=== PATIENT | female | born 1960 | race Caucasian/White ===

== ENCOUNTER 2024-09-10 07:53 | Outpatient (AMB) | payer OTHER, SELFPAY ==
--- OUTSIDE RECORDS SUMMARY | 2024-09-10 07:55 | XMS_ITS ---
Author Organization [facility] Address [address] [facility] [place] [address] Care Team Providers Care Sales Operations Lead Name Role Phone Danisha Ohara Primary Care Provider Unavailabl e Ramiro Maricruz Unavailable [phone] Allergies Allergen (clinical drug ingredient) Drug/Non Drug Allergy documented on EMR Reaction Allergy Type Onset Date Status Compazine limb weakness, paralysis Drug Allergy Active REASON FOR VISIT Foot pain, Wart(s) Medications Medication SIG (Take, Route, Frequency, Duration) Notes Start Date End Date Status Metamucil Active Multivitamin Active Vitamin D Active Levothyroxine Sodium 100 MCG 1 tablet in the morning on an empty stomach Orally Once a day Active Propranolol HCl 10 MG 1 tablet Orally On ce a day Active hydroCHLOROthiazide 25 MG 1 tablet in th e morning Orally Once a day Active Social History Tobacco Use: Social History Observation Description Date Details (start date - stop date) Former Smoker NA - NA Tobacco Use/Smoking Question Answer Notes Are you a: former smoker Additional Findings: Tobacco Non-User Current no n-smoker Alcohol Screen Question Answer Notes Did you have a drink contain ing alcohol in the past year? Yes How often did you have a dri nk containing alcohol in the past year? 2 to 3 times a week (3 points) Points 3 Interpretation Positive Tobacco use other than smoking: Question Answer Notes Are you an other tobacco user? No Vital Signs Height 5ft 1in in 05/03/2024 Weight 123 lbs 05/03/2024 BMI 23.24 kg/m2 05/03/2024 Procedures Procedure Date Ordered Date Performed Result Body Sit e 34236-Xfoa Destruction, 1-14 05/03/2024 N/A Encounters Encounter Location Date Provider Diagnosis [facility] [address] [place] [address] 05/03/2024 Maricruz Rubio Bursitis of intermetatarsal bursa of left foot M77.52 ; Plantar wart B07.0 ; Metatarsalgia, left foot M77.42 and Left foot pain M79.672 Assessments Encounter Date Diagnosis (ICD Code) Assessment Notes Treatment Notes Treatment Clinical Notes Section Notes 05/03/2024 Bursitis of intermetatarsal bursa of left foot (ICD-10 - M77.52) 05/03/2024 Plantar wart (ICD-10 - B07.0) 05/03/2024 Metatarsalgia, left foot (ICD-10 - M77.42) Response to treatment - Improvement 05/03/2024 Left foot pain (ICD-10 - M79.672) Plan Of Treatment Pending Test Test Name Order Date 11962-Uxdh Destruction, -05/03/2024 Next Appt Details Follow Up: prn, Reason: Procedure Notes * Category Sub-Category Detail Notes Wart Treatment Procedure Verrucae were de brided to pin-point bleeding margins with sterile 15 surgical blade - 50180 , silver nitrate chemocautery applied Progress Notes * Emerita HIARSTON SDOB:[birth year] 60 (64 yo F)Acc No.[id number]:05/03/2024 Progress Note Patient:?Emerita Hairston S Provider:?Maricruz Rubio DPM :1960???Age:64 Y???Sex:Female D ate:05/03/2024 [address] [id number] Pcp:Danisha Ohara Subjective: * Chief Complaints: * ???Foot painWart(s) * HPI: ???Foot Pain:?Location:?Bottom, Forefoot, LEFT.?Duration:?several years.?Onset:?gradual , denies trauma.?Course:?, improved , at _90 %.?Aggravated:?standing , walking , especially barefoot.?Treatments:?rest/alter normal daily activity.?Skin problems:?Pt States PCP Visit: ?DATE?02/19/2024 * ROS:?General/Constitutional:?Nausea?denies.?Vomiting?denies.?Hunger Thirst?denies.?Loss appetite?denies.?Chills?denies.?Fatigue?denies.?Fever?denies.?Night Sweats?denies.?Unexplained weight loss?denies.?Unexplained weight gain?denies.?HEENTM:?Dentures?denies.?Dizziness?denies.?Glasses/contacts?admits.?Retinopathy?de nies.?Blurred/double vision?denies.?TMJ?denies.?Discharge/drainage?denies.?Implants?denies.?Sore throat?denies.?Dental implants?denies.?Hard of hearing ?denies.?Difficulty chewing/swallowing/speaking?denies.?Nose bleeds?denies.?Sore mouth?denies.?Respiratory:?On Oxygen?denies.?Pneumonia/pleurisy?denies.?Bronchitis?denies.?Emphysema?denies.?C oughing?denies.?Cough blood?denies.?Shortness of breath?denies.?Wheezing?denies.?Cardiovascular:?Pacemaker?denies.?MVP?denies.?WPW?denies.?CHF?denies.?Heart attack?denies.?Septal defect?denies.?Rapid beat?denies.?Chest pain ?denies.?Atrial Fib.?denies.?Murmur/Palpitations?denies.?Gastrointestinal:?Hemorrhoids?denies.?Stomach/Abdominal pain?denies.?Dark blood stool?denies.?Irritable bowel ?denies.?Constipation?denies.?Diarrhea?denies.?Hematology:?Swelling?denies.?Clots?denies.?Varicose Veins?denies.?Bruising?denies.?Bleeding problem?denies.?Genitourinary:?Blood urine?denies.?Frequent/Painfu/urination/bladder control?denies.?Kidney stones?denies.?Infection (UTI)?denies.?Nephropathy?denies.?sex trans dis (STD)?denies.?Prostate?denies.?Musculoskeletal:?Hammertoes?denies.?Bunions?denies.?Back Pain?denies.?Muscle Cramps/ Resting?denies.?Muscle cramps / walking?denies.?Generalized aches and pains?denies.?Weakness?denies.?Integ.:?[place]?denies.?Scars?denies.?Corns/calluses?admits.?Ingrown nails?denies.?Painful nails?denies.?Open Sores?denies.?Rashes?denies.?Neurologic:?Difficulty sleeping?denies.?Brain disorder?denies.?Numbness?denies.?Balance trouble?denies.?Confusion?denies.?Fainting/blackouts?denies.?Tingling?denies.?Tr emors?denies.? * Medical History:? * Surgical History:?colonoscop y 2C-Section 1986loophorectomy due to growth- neg pathology 2011rig ankle tumor biopsy 07/16/21 * Hospitalization/Major Diagno stic Procedure:?Denies Past Hospitalization * Family History:?Mother: dece ased, diagnosed with Other malignant neoplasm of unspecified site.?Father: , diagnosed with Unspecified heart disease.?Paternal Grand Father: , diagnosed with Other malignant neoplasm of unspecified site.?Maternal Grand Mother: , diagnosed with Unspecified essential hypertension, Unspecified heart disease, Other malignant neoplasm of unspecified site.?Maternal Grand Father: , diagnosed with Other malignant neoplasm of unspecified site.?Maternal aunt: diagnosed with Other malignant neoplasm of unspecified site.?2 sister(s) - healthy. .? * Social History:?Tobacco Use:?Tobacco Use/Smoking?Are you a:?former smoker ?Additional Findings: Tobacco Non-User?Current non-smoker ?Tobacco use other than smoking?Are you an other tobacco user??No ???Drugs/Alcohol:?Drugs?Have you used drugs other than those for medical reasons in the past 12 months??Yes ?Marijuana??Yes ?Alcohol Screen?Did you have a drink containing alcohol in the past year??Yes ?How often did you have a drink containing alcohol in the past year??2 to 3 times a week (3 points) ?Points?3 ?Interpretation?Positive ???Miscellaneous:?Caffeine: yes, 1-2 cups per day. ?Children: yes, 2. ?Exercise: yes, walking, yoga/ pilates, pickleball, lauren chi. ?Marital status: . 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 * Medications:?TakinghydroCHLO ROthiazide 25 MG Tablet 1 tablet in the morning Orally Once a dayLevothyroxine Sodium 100 MCG Tablet 1 tablet in the morning on an empty stomach Orally Once a dayPropranolol HCl 10 MG Tablet 1 tablet Orally Once a dayMetamucil Multivitamin Vitamin D Medication List reviewed and reconciled with the patientTaking hydroCHLOROthiazide 25 MG Tablet 1 tablet in the morning Orally Once a dayTaking Levothyroxine Sodium 100 MCG Tablet 1 tablet in the morning on an empty stomach Orally Once a dayTaking Propranolol HCl 10 MG Tablet 1 tablet Orally Once a dayTaking Metamucil Taking Multivitamin Taking Vitamin D Medication List reviewed and reconciled with the patient * Allergies:?Compazine: limb w eakness, paralysis - Allergyyes[Allergies Verified] Objective: * Vitals:?Ht: 5ft 1in, Wt:123, BMI:23.24, Shoe size: 7W, Ht-cm: 154.94 cm, Wt-k.79 kg. * Examination: ???Orthopedic: ?MUSCLE STRENGTH:?5/5 all groups in a symmetrical fashion, B/L.?DIGITAL DEFORMITIES:?Digital contracture, PIPJ, 2-5 B/L, incompl-reducible with WB, or to push-up test, no over, nor underlapping , Elongated 2nd toe(s) B/L.?MPJ PATHOLOGY:? Pain, swelling, and inflammation to plantar 2nd, MPJ(s), LEFT, No MPJ pain with ROM, [ - ] Ecchymosis, Approximately _90 percent LESS.?Dermatologic: ?VERRUCA:?Reveals a Single , multi-loculated , mosaic-patterned, round, raised, flat-topped, petechial bleeding papule(s), with cauliflower appearance and interruption of skin lines, pain to lateral compression, and size estimated at 3 mm diameter , LEFT , plantar Forefoot.? Assessment: * Assessment: 1.?Plantar wart - B07.0 (Jany randa)?2.?Bursitis of intermetatarsal bursa of left foot - M77.52?3.?Metatarsalgia, left foot - M77.42, Response to treatment - Improvement?4.?Left foot pain - M79.672? Plan: * Treatment: * Procedures:?Wart Treatment:?Procedure?Verrucae were debrided to pin-point bleeding margins with sterile 15 surgical blade - 55549 , silver nitrate chemocautery applied.? * Procedure Codes:?75730 Wart Destruction, 1-14, Modifiers: XS * Preventive Medicine:? ??Counseling:?Discussion:?-12: Office or other outpatient visit for the evaluation and management of an established patient, which required a medically appropriate history and/or examination and STRAIGHTFORWARD level of MEDICAL DECISION MAKING, 1 SELF-LIMITED OR MINOR PROBLEM, MINIMAL- NO AMOUNT/COMPLEXITY OF DATA TO BE REVIEWED/ANALYZED, AND MINIMAL RISK OF COMPLICATION/MORBIDITY. The visit on the day of the encounter encompassed interpreting the data and educating the patient as to the nature of their condition, treatment options available according to their individual PMH, meds, allergies, and overall health/living conditions, as well as any potential risks or complications that may occur from a failure to adhere to, and participate in, the recommended course of therapy. The discussion included a complete verbal, and/or written explanation of the examination results, any x-rays taken, the proposed diagnosis, and outline of the treatment plan. A schedule for future care needs was also explained. The patient verbalized an understanding of the instructions at this time and agreed to be an active participant in their treatment. If the patient should think of any questions or concerns after the visit, I have encouraged the patient to call the office, Patients podiatric issue has improved, they should call the office with any future issues or concerns.? * Follow Up:?prn * Images: * Sign off status: Completed true * Provider:?Maricruz Rubio DPM Date:?2023 Generated for Jaleesa oshea/Bambi/Catrachitaitting on:?09/10/2024 07:55 AM EST History and Physical Notes * HPI (History of Present Illness) Category Sub-Category Detail Notes Category Not es Skin problems Pt States PCP Visit: DATE: 02/19/2024 Foot Pain Location: Bottom, Forefoot, LEFT Duration: several years Onset: gradual , denies tra mercy Course: , improved , at _90 % Aggravated: standing , walking , especially barefoot Treatments: rest/alter normal da leslie activity Examination Category Sub-Category Detail Notes Category Not es Dermatologic VERRUCA: Reveals a Single , multi-loculated , mosaic-patterned, round, raised, flat-topped, petechial bleeding papule(s), with cauliflower appearance and interruption of skin lines, pain to lateral compression, and size estimated at 3 mm diameter , LEFT , plantar Forefoot Orthopedic DIGITAL DEFORMITIES: Digital con tracture, PIPJ, 2-5 B/L, incompl-reducible with WB, or to push-up test, no over, nor underlapping , Elongated 2nd toe(s) B/L MPJ PATHOLOGY: Pain, swelling, and inflammation to plantar 2nd, MPJ(s), LEFT, No MPJ pain with ROM, [ - ] Ecchymosis, Approximately _90 percent LESS MUSCLE STRENGTH: 5/5 all groups in a symmetrical fashion, B/L
--- OUTSIDE RECORDS SUMMARY | 2024-09-10 07:55 | XMS_ITS | Patient Health Record ---
Author Organization [facility] Address [address] [facility] [place] [address] Care Team Providers Care Single Stroke Preformer Name Role Phone Danisha Ohara Primary Care Provider Unavailabl e Black, Maricruz Unavailable [phone] Allergies Allergen (clinical drug ingredient) Drug/Non Drug Allergy documented on EMR Reaction Allergy Type Onset Date Status Compazine limb weakness, paralysis Drug Allergy Active Reason For Referral No Information Medications Medication SIG (Take, Route, Frequency, Duration) Notes Start Date End Date Status Metamucil Active Multivitamin Active Vitamin D Active hydroCHLOROthiazide 25 MG 1 tablet in th e morning Orally Once a day Active Levothyroxine Sodium 100 MCG 1 tablet in the morning on an empty stomach Orally Once a day Active Propranolol HCl 10 MG 1 tablet Orally On ce a day Active Social History Tobacco Use: [...] Are you an other tobacco user? No Problems Problem Type SNOMED Code ICD Code Onset Dates Problem Status W/U Status Risk Notes Problem Plantar wart (19299571) Plantar wart (B07.0) Active confirmed Vital Signs Heart Rate 83 /min 11/17/2023 Temperature 98.2 degrees Fahrenheit 11/17/2023 Oximetry 97 % 11/17/2023 Blood pressure diastolic 74 mm Hg 11/17/2023 Height 5ft 1in in 05/03/2024 Blood pressure systolic 120 mm Hg 11/17/2023 Weight 123 lbs 05/03/2024 BMI 23.24 kg/m2 05/03/2024 Procedures Procedure Date Ordered Date Performed Result Body Sit e 86806-Pqat Destruction, 1-11/17/2023 N/A 32193-Uhky Destruction, 1-14 05/03/2024 N/A Encounters Encounter Location Date Provider Diagnosis [address] [address] 11/17/2023 Maricruz Black Pain in left foot M79.672 ; Pain in left ankle and joints of left foot M25.572 ; Bursitis of intermetatarsal bursa of left foot M77.52 ; Metatarsalgia, left foot M77.42 ; Plantar wart B07.0 and Left foot pain M79.[address] [address] 05/03/2024 Maricruz Black Bursitis of intermetatarsal bursa of left foot M77.52 ; Plantar wart B07.0 ; Metatarsalgia, left foot M77.42 and Left foot pain M79.[address] [address] 11/17/2023 Maricruz Black Assessments Encounter Date Diagnosis (ICD Code) Assessment Notes Treatment Notes Treatment Clinical Notes Section Notes 11/17/2023 Pain in left ankle and joints of left foot (ICD-10 - M25.572) 11/17/2023 Pain in left foot (ICD-10 - M79.672) 05/03/2024 Plantar wart (ICD-10 - B07.0) 05/03/2024 Bursitis of intermetatarsal bursa of left foot (ICD-10 - M77.52) 11/17/2023 Bursitis of intermetatarsal bursa of left foot (ICD-10 - M77.52) 05/03/2024 Metatarsalgia, left foot (ICD-10 - M77.42) Response to treatment - Improvement 05/03/2024 Left foot pain (ICD-10 - M79.672) 11/17/2023 Metatarsalgia, left foot (ICD-10 - M77.42) 11/17/2023 Plantar wart (ICD-10 - B07.0) 11/17/2023 Left foot pain (ICD-10 - M79.672) Plan Of Treatment Pending Test Test Name Order Date X ray : Foot, left 3V 11/17/2023 46906-Sdjl Destruction, 1-14 05/03/2024 74609-Mnrm Destruction, 1-14 11/17/2023 Insurance Providers Payer Name Payer Address Payer Phone Subscriber Number Group Number Insured Name Patient Relationship to Insured Coverage Start Date Coverage End Date [employer] [address] [place] [address] [id number] Emerita Hairston Self - patient is the insured [employer] [address] [place] [address] [id number] Alex Salvador Other Medical (General) History Medical History History ICD Code High blood pressure Hypothyroidism covid-19 Anxiety Back,Hip,and Knee pain sinusitis thyroid Warts Mumps Chicken pox Surgical History Surgery Date(Month/Year) colonoscopy 05/29/2022 1986 loophorectomy due to growth- neg patholo gy 2012 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
--- OUTSIDE RECORDS SUMMARY | 2024-09-10 07:56 | XMS_ITS ---
Author Organization [facility] Address [address] [place] [address] Care Team Providers Care Professional Benefits Sales Consultant Name Role Phone Danisha Ohara Primary Care Provider Maricruz Pettit [phone] VALLES Encounters Encounter Location Date Provider Diagnosis [address] [address] 04/21/2024 Maricruz Rubio Plan Of Treatment No Information Progress Notes * Emerita HAIRSTON SDOB:[birth year] 60 (64 yo F)Acc No.[id number]:04/21/2024 Progress Note Patient:Emerita HARMON Provider:Eileen Rubio DPM :1960???Age:64 Y???Sex:Female D ate:04/21/2024 Address[address] [id number] Pcp:Danisha Ohara Subjective: * Chief Complaints: * ???1. DR VALLES. * Medical History:? Objective: * Vitals:? Assessment: Plan: * Treatment: * Images: * The named appointment provid er may or may not be the originator of this progress note, and it is not deemed complete until electronically signed by the appointment provider. Sign off status: Pending * Provider:?Maricruz Rubio DPM Date:?2023 Generated for Jaelesa oshea/Bambi/eTransmitting on:?09/10/2024 07:55 AM EST
--- OUTSIDE RECORDS SUMMARY | 2024-09-10 07:56 | XMS_ITS | Clinical Summary ---
Author Organization [facility] Address [address] [place] [address] Phone Care Team Providers Care Hiv Counselor Name Role Phone Brittani Cobian MD Primary Care Provider [phone] Allergies Active Allergy Reactions Criticality Noted Date Comments Prochlorperazine 09/07/2024 Medications hydroCHLOROthiaz saad (HYDRODIURIL) 25 mg tablet Take 1 tablet (25 mg total) by mouth 1 (one) time each day. Active levothyroxine (SYNTHROID, LEVOTHROID) 100 mcg tablet Take 1 tablet (100 mcg total) by mouth 1 (one) time each day before breakfast. Active propranoloL (INDERAL) 10 mg tablet Take 1 tablet (10 mg total) by mouth 3 (three) times a day. Active Active Problems Problem Noted Date Diagnosed Date Abnormal stress test 09/07/2024 Assessment & Plan (09/07/2024 5:48 PM EST): Clinically negative stress test with false positive electrocardiographic changes are extremely common, particularly in women. The results of nuclear imaging are entirely normal and indicate that the EKG abnormalities do not reflect coronary insufficiency. HTN (hypertension) 09/07/2024 Assessment & Plan (09/07/2024 5:48 PM EST): Encounters Date Type Department Care Team Description 09/07/2024 10:20 AM EST Office Visit [facility] [address] [place] [address] Ashish Spann MD Abnormal stress test (Primary Dx); Abnormal ECG; Primary hypertension 06/23/2024 Telephone [facility] [address] [place] [address] Brittani Cobian MD from Last 3 Months Medical History Medical History Date Comments Hypothyroidism Social History Tobacco Use Types Packs/Day Years Used Date Smoking Tobacco: Never Smokeless Tobacco: Never Tobacco Cessation:Counseling Given: Not Answered Alcohol Use Standard Drinks/Week Comments Yes 0 (1 standard drink = 0.6 oz pur e alcohol) occ Comments Unknown Sex and Gender Information Value Date Recorded Sex Assigned at Not on file Legal Sex Female 1:25 PM EST Gender Identity Not on file Sexual Orientation Not on file Obstetrics History Last Filed Vital Signs Vital Sign Reading Time Taken Comments Blood Pressure 138/82 09/07/2024 10:15 AM EST Pulse 82 09/07/2024 10:15 AM EST Temperature - - Respiratory Rate - - Oxygen Saturation 98% 09/07/2024 10:15 AM EST Inhaled Oxygen Concentration - - Weight 65.8 kg (145 lb) 09/07/2024 10:15 AM EST Height 154.9 cm (5' 1 ) 09/07/2024 10:15 AM EST Body Mass Index 27.4 09/07/2024 10:15 AM EST Plan of Treatment Health Maintenance Due Date Last Done Comments Pneumococcal Vaccine: 50+ Years (1 of 2 - PCV) 1979 Pneumococcal Vaccine: Pediatrics (0 to 5 Years) and At-Risk Patients (6 to 64 Years) (1 of 2 - PCV) 1979 Cervical Cancer Screening: Pap Smear 1981 DTaP,Tdap,and Td Vaccines (2 - Td or Tdap) 05/05/2023 05/05/2013 COVID-19 Vaccine ( season) 2024 04/16/2022, 12/08/2021, 06/07/2021, Additional history exists Influenza Vaccine (#1) 2024 , 05/31/2021, 05/11/2020, Additional history exists Cholesterol Screening (Lipid Panel) 06/22/2024 12/01/2018 Colorectal Cancer Screening: Colonoscopy 06/22/2024 Depression Screening 06/22/2024 HIV Screening 06/22/2024 Hypertension/CHF/CAD Annual BMP Blood Test 06/22/2024 04/04/2021, 11/08/2020, 08/24/2019, Additional history exists Social Influencers of Health Screening 06/22/2024 Breast Cancer Screening 07/04/2025 07/04/2023 RSV Immunization Patients 60+ Years Old (1 - 1-dose 75+ series) 2035 Hepatitis A Vaccines Aged Out 11/30/2018, 03/13/20 16 No longer eligible based on patient's age to complete this topic Hepatitis C Screening Completed 12/01/2018 Zoster Vaccines Completed 06/11/2022, 01/07/2022 HIB Vaccines Aged Out No longer eligi ble based on patient's age to complete this topic HPV Vaccines Aged Out No longer eligi ble based on patient's age to complete this topic Hepatitis B Vaccines Aged Out No long er eligible based on patient's age to complete this topic IPV Vaccines Aged Out No longer eligi ble based on patient's age to complete this topic MMR Vaccines Aged Out No longer eligi ble based on patient's age to complete this topic Meningococcal ACWY Vaccine Aged Out N o longer eligible based on patient's age to complete this topic Meningococcal B Vacine Aged Out No lo nger eligible based on patient's age to complete this topic RSV Immunization Patients Under 20 months Aged Out No longer eligible based on patient's age to complete this topic Varicella Vaccines Aged Out No longer eligible based on patient's age to complete this topic Insurance [employer] Care Teams Hiv Counselor Relationship Specialty Start Date End Date Brittani Cobian MD [address] [place] [phone] PCP - General Family Medicine 06/22/24
--- OUTSIDE RECORDS SUMMARY | 2024-09-10 07:56 | XMS_ITS ---
Author Organization [facility] Address [address] [place] [address] Care Team Providers Care Cleaner Furniture Name Role Phone Danisha Ohara Primary Care Provider Maricruz Pettit [phone] Encounters Encounter Location Date Provider Diagnosis [address] [address] 06/04/2024 Maricruz Rubio Plan Of Treatment No Information Progress Notes * Dario HAIRSTONie SDOB:[birth year] 60 (64 yo F)Acc No.[id number]:06/04/2024 Progress Note Patient:?Emerita HAIRSTON Provider:?Maricruz Rubio DPM :1960???Age:64 Y???Sex:Female D ate:06/04/2024 Address: [address] [id number] Pcp:Danisha Ohara Subjective: * Chief Complaints: * ??? * Medical History:? Objective: * Vitals:? Assessment: Plan: * Treatment: * Images: * The named appointment provid er may or may not be the originator of this progress note, and it is not deemed complete until electronically signed by the appointment provider. Sign off status: Pending * Provider:Eileen Rubio DPM Date:?2023 Generated for Jaleesa oshea/Bambi/eTransmitting on:?09/10/2024 07:56 AM EST
--- OUTSIDE RECORDS SUMMARY | 2024-09-10 07:56 | XMS_ITS | Encounter Summary ---
Author Organization [facility] [place] [address] Care Team Providers Care Pit Inspector Name Role Phone Brittani Cobian MD Primary Care Provider [phone] Reason for Visit * Reason Comments Initial Assessment Encounter Details Date Type Department Care Team (Late st Contact Info) Description 09/07/2024 10:20 AM EST Office Visit [facility] [address] [place] [id number] Ashish Spann MD [address] [place] [phone] Abnormal stress test (Primary Dx); Abnormal ECG; Primary hypertension Social History Tobacco Use Types Packs/Day Years [...] on file Sexual Orientation Not on file documented as of this encounter Last Filed Vital Signs Vital Sign Reading [...] Mass Index 27.4 09/07/2024 10:15 AM EST documented in this encounter Progress Notes * Ashish Spann MD - 09/07/2024 10:20 AM ESTAssociated Problem(s): Abnormal stress test Clinically negative stress test with false positive electrocardiographic changes are extremely common, particularly in women. The results of nuclear imaging are entirely normal and indicate that the EKG abnormalities do not reflect coronary insufficiency. * Ashish Spann MD - 09/07/2024 10:20 AM ESTAssociated Problem(s): HTN (hypertension) * Ashish Spann MD - 09/07/2024 10:20 AM EST PCP: Brittani Cobian MD HPI: Emerita Hairston is a 64 y.o. old female who is kindly referred for outpatient cardiac consultation. History of Present Illness The patient presents for evaluation of hypertension and abnormalities on a stress test.. She was diagnosed with hypertension during the ID pandemic and was prescribed hydrochlorothiazide. She opted for this medication despite its diuretic effects, which necessitated frequent urination, as she wanted to avoid potential side effects of a sore throat or cough from another medication. At the time of diagnosis, she was approximately 30 pounds heavier but has since implemented a weight loss plan and successfully lost the excess weight. Despite this, she remains on the medication. She had been under the care of Dr. Fer Jaimes for several years, who identified her as having white coat syndrome. She has intermittently maintained a home blood pressure diary, recording readings in the morning after taking her hydrochlorothiazide, and reports that her blood pressure is typically lower than when measured in the clinic. In December 2023, she sought medical attention for vertigo. AnEKG revealed an abnormality, prompting a nuclear stress test. She was advised to discontinue all medications 3 days prior to the test. The initial report indicated no abnormalities, but a subsequent report suggested possibly ischemic ECG changes with exercise despite the absence of symptoms and normal nuclear imaging. She was advised to increase her hydrochlorothiazide dosage, but she declined. She has not consulted with a monument stonecutter. She experiences palpitations and a sensation of her heart beating faster when anxious, particularly during stressful court cases, for which Dr. Jaimes prescribed propranolol as needed. She uses this medication sparingly, especially now that she is no longer attending court. She reports no exertional symptoms such as chest pressure, tightness, squeezing, aching, or heaviness. She recalls a single episode of near syncope a few years ago during an outdoor performance at [employer], where she became lightheaded due to dehydration and lack of food intake. She was administered a pill and Gatorade, which alleviated her symptoms. She did not lose consciousness during this episode. She finds the diuretic effect of hydrochlorothiazide bothersome, particularly when hiking or traveling. MEDICATIONS Current: hydrochlorothiazide, propranolol (as needed) ACTIVE MEDICATIONS: Outpatient Medications Marked as Taking for the 09/07/24 encounter (Office Visit) with Ashish Spann MD Medication Sig Dispense Refill hydroCHLOROthiazide (HYDRODIURIL) 25 mg tablet Take 1 tablet (25 mg total) by mouth 1 (one) time each day. levothyroxine (SYNTHROID, LEVOTHROID) 100 mcg tablet Take 1 tablet (100 mcg total) by mouth 1 (one)time each day before breakfast. propranoloL (INDERAL) 10 mg tablet Take 1 tablet (10 mg total) by mouth 3 (three) times a day. PAST MEDICAL HISTORY: Patient Active Problem List Diagnosis Date Noted Date Diagnosed Abnormal stress test 09/07/2024 HTN (hypertension) 09/07/2024 Resolved Problems No resolved problems to display. ALLERGIES: Allergies Allergen Reactions Compazine [Prochlorperazine] FAMILY HISTORY: No family history on file. SOCIAL HISTORY: Social History Tobacco Use Smoking status: Never Smokeless tobacco: Never Substance Use Topics Alcohol use: Yes Comment: occ REVIEW OF SYSTEMS: ROS otherwise negative. PHYSICAL EXAM: Vitals: 09/07/24 1015 BP: 138/82 BP Location: Left arm Patient Position: Sitting BP Cuff Size: Adult Pulse: 82 SpO2: 98% Weight: 65.8 kg (145 lb) Height: 1.549 m (61 ) APPEARANCE: Alert and in no acute distress, well-developed, well-nourished. EYES: PERRL, conjunctiva and sclera normal EARS: External ears normal. NOSE/SINUS: Nares normal. Septum midline. Mucosa normal. No drainage or sinus tenderness. MOUTH/THROAT: no erythema or exudates NECK: JVP less then 8cm H2O, No bruits., Neck supple, no adenopathy or mass HEART: RRR with normal S1 and S2, no murmurs, no gallops, no JVD appreciated CHEST: non-tender LUNG: clear to auscultation ABDOMEN: Bowel sounds normoactive, no bruits, soft, non-tender, without organomegaly or palpable masses EXTREMITIES: Extremities warm and well perfused without clubbing, cyanosis, or edema NEURO: Awake, alert and oriented x 3 and Normal gait. Articulate and affable. SKIN: Skin color, texture, turgor normal. No rashes or lesions. EKG: not performed TESTING: Results of echocardiography and exercise stress testing with nuclear imaging are reviewed. Echocardiography demonstrated normal left ventricular size and function. There was no evidence of LVH. Ejection fraction was normal. There was no evident valvular disease or evidence of pericardial effusion or pulmonary hypertension. This is a normal study. Nuclear stress testing was negative for any symptoms to suggest angina at a fairly high level of activity. Electrical cardiography demonstrated the development of nonspecific [address] segment depression at peak stress. Nuclear imaging did not demonstrate any fixed or reversible perfusion defects and was entirely normal. ASSESSMENT/PLAN: Assessment & Plan Abnormal stress test Clinically negative stress test with false positive electrocardiographic changes are extremely common, particularly in women. The results of nuclear imaging are entirely normal and indicate that the EKG abnormalities do not reflect coronary insufficiency. Abnormal ECG Primary hypertension Assessment & Plan 1. Hypertension. Her hypertension is mild and appears to be situationally exacerbated, likely in response to stressors such as court preparation or crisis management. Her symptoms do not indicate any pathological conditions. The stress test results are not concerning, particularly given her clinical presentation. She does not exhibit any signs of angina, chest pressure, squeezing, aching, heaviness, or discomfort, nor does she experience pathological breathlessness during exercise. Despite a minor abnormality on the EKG, which could suggest ischemia, it is important to note that EKGs can be unreliable, particularly in women. The nuclear scan results are normal, indicating no significant blockage in the heart arteries. Her echocardiogram is also normal, showing no increased wall thickness. Her blood pressure readings are generally within the normal range. She has made positive lifestyle changes, including weight loss and dietary modifications, which may have contributed to her well-controlled blood pressure. It is possible that she is salt sensitive. Given these factors, it may be worth considering whether she requires ongoing medical therapy for hypertension. She is advised to discontinue hydrochlorothiazide and maintain a detailed blood pressure diary, which she should bring to her next appointment with Devika or another provider in her office. This approach seems reasonable given her well-controlled blood pressure. If her blood pressure readings increase, alternative medications such as metoprolol, diltiazem, or valsartan could be considered. A note will be sent to her primary care provider recommending that she discontinue hydrochlorothiazide, maintain a blood pressure diary, and discuss potential alternative antihypertensive medications at her next visit. I have obtained verbal consent from Emerita Hairston prior to the recording. I have advised Emerita Hairston that she may refuse the recording and require the recording to be turned off at any time during this encounter. The [facility] team will continue to co-manage this patient following the plan of care as established by my initial visit and as per AHA guidelines for ongoing management and surveillance of 1. Abnormal stress test 2. Abnormal ECG 3. Primary hypertension documented in this encounter Plan of Treatment Not on file documented as of this encounter Visit Diagnoses Diagnosis Abnormal stress test- Primary Other nonspecific abnormal cardiovascular system function study Abnormal ECG Nonspecific abnormal electrocardiogram (ECG) (EKG) Primary hypertension Unspecified essential hypertension documented in this encounter Historical Medications * This list may reflect changes made after this encounter. propranoloL (INDERAL) 10 mg tablet Take 1 tablet (10 mg total) by mouth 3 (three) times a day. levothyroxine (SYNTHROID, LEVOTHROID) 100 mcg tablet Take 1 tablet (100 mcg total) by mouth 1 (one) time each day before breakfast. hydroCHLOROthiazi de (HYDRODIURIL) 25 mg tablet Take 1 tablet (25 mg total) by mouth 1 (one) time each day. added in this encounter Care Teams Pit Inspector Relationship Specialty Start Date End Date Brittani Cobian MD [address] [place] [phone] PCP - General Family Medicine 06/22/24 documented as of this encounter
--- NOTE | 2024-09-10 08:06 | A.OFFPC_ITS ---
Vital Signs 09/10/24 08:08 Height 5 ft 1 in Weight 127 lb 2 oz BMI 24.0 BP 130/82 Blood Pressure Location Lt brachial Position Sitting Pulse 76 Pulse Source Pulse Oximeter Pulse Oximetry (%) 99 Oxygen Delivery Method Room Air Intake Visit Reasons: establish care Allergies prochlorperazine [From Compazine] Allergy (Intermediate, Verified 09/10/24 08:25) paralysis Medication List - Last Reconciled 09/10/24 by Olamide Calero PA-C hydrochlorothiazide 25 mg PO DAILY levothyroxine 100 mcg PO DAILY propranolol 10 mg PO DAILY Tobacco use date assessed: 09/10/24 Fall risk assessment: No Falls in past year Last assessed Fall Risk: 09/10/24 Dental Screening Dental Screen Date: 09/10/24 Did you have a dental visit in the last 12 months?: Yes Did you have a dental problem in the last 6 months where you did not have access to dental care?: No Was dental information given to patient?: Patient has dentist HPI establish care HPI Details 64-year-old female coming to the office for the 1st time. Prev being seen Cobian in [place] last seen March. She saw Cardiology on Friday and wanted evaluation for hypertension and EKG and nuclear stress test done and blood pressure diary which was all negative, Maria Ines out of [facility] cardiology. There is a history of essential hypertension for which she currently takes hydrochlorothiazide. Recent evaluation by her nuclear waste process operator included standard assessments, indicating only minor hypertension thus far managed without new medications. The patient's prescribed goal for blood pressure control remains below 140/90. She also experiences situational anxiety, especially linked to her stressful occupation, controlled as needed with propranolol. Her systemic hypothyroidism is managed with levothyroxine, verified biennially with serum thyroid function tests. 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 1. Little interest or pleasure in doing things: not at all 2. Feeling down, depressed, or hopeless: not at all 3. Trouble falling or staying asleep, or sleeping too much: not at all 4. Feeling tired or having little energy: not at all 5. Poor appetite or overeating: not at all 6. Feeling bad about yourself - or that you are a failure or have let yourself or your family down: not at all 7. Trouble concentrating on things, such as reading the newspaper or watching television: not at all 8. Moving or speaking so slowly that other people could have noticed. Or the opposite - being so fidgety or restless that you have been moving around a lot more than usual: not at all 9. Thoughts that you would be better off or of hurting yourself in some way: not at all Total score: 0 Depression Screening Interpretation: Negative Depression Screening Done: Yes 91752 - PHQ-9 Billing: Yes Source: Developed by Drs. Jason Still, Hermila Larsen, Isra Jacinto and colleagues, with an educational evan from [employer]. Thrive Questionnaire Date Thrive assessed: 09/10/24 I am a: Patient What is your living situation today?: I have a steady place to live Within the past 12 months, did the food you bought not last and you didn't have the money to get more?: Never true Within the past 12 months, did you worry whether your food would run out before you got money to buy more?: Never true Do you have trouble paying for medicines?: No Do you have trouble getting transportation to medical appointments?: No Do you have trouble paying your heating and electricity bill?: No Do you have trouble taking care of your child, family member or friend?: No Do you have trouble with day-to-day activities such as bathing, preparing meals, shopping, managing finances, etc.?: No Are you currently unemployed and looking for a job?: No Are you interested in more education?: No Please select the resources that you would like help with: None Currently or been in a relationship where the following occur: I choose not to answer THRIVE Score: 0 AUDIT C Alcohol Use Questionnaire (AUDIT-C) 1. How often do you have a drink containing alcohol?: 2-3 times a week 2. How many drinks containing alcohol do you have on a typical day when you are drinking?: 1 or 2 3. How often do you have six or more drinks on one occasion?: Never Total Score: 3 HUGH-7 AMB Questionnaire HUGH-7 Date HUGH - 7 assessed: 09/10/24 Feeling nervous, anxious, or on edge: 1 = Several days Not being able to stop or control worryin = Several days Worrying too much about different things: 1 = Several days Trouble relaxin = Not at all Being so restless that it is hard to sit still: 0 = Not at all Becoming easily annoyed or irritable: 0 = Not at all Feeling afraid as if something awful might happen: 0 = Not at all Total HUGH-7 score (0-4 normal; 5-9 mild; 10-14 moderate; 15-21 severe): 3 Source: Developed by Drs. Jason Still, Hermila Larsen, Isra Jacinto and colleagues, with an educational evan from [employer]. HUGH-7 Assessment Billing HUGH-7 Assessment Tool: HUGH-7 Assessment 32485 Review of Systems Const Denies body aches, Denies chills, Denies fever(s), Denies headache(s) and Denies poor appetite Eyes Reports no additional complaints ENT Denies dysphagia, Denies dizziness, Denies headache(s) and Denies odynophagia Card Denies chest pain, Denies syncope, Denies edema, Denies irregular heart rhythm, Denies lightheadedness and Denies dyspnea Resp Denies cough and Denies dyspnea GI Denies abdominal pain, Denies constipation, Denies dysphagia, Denies diarrhea, Denies nausea, Denies odynophagia and Denies vomiting Reports no additional complaints Musc Reports no additional complaints and Denies abnormal gait Skin/Breast Reports system reviewed and no additional complaints, except as documented Neuro Denies abnormal gait, Denies dizziness, Denies syncope and Denies headache(s) Psych Reports no additional complaints Physical exam (Primary Care) Vital Signs: Last Vital Signs Pulse 76 09/10/24 08:08 BP 130/82 09/10/24 08:08 Pulse Ox 99 09/10/24 08:08 Oxygen Delivery Method Room Air 09/10/24 08:08 BMI result Body Mass Index 24.0 Depression Screening Interpretation: Negative Currently or been in a relationship where the following occur: I choose not to answer Const General: cooperative, healthy appearing, comfortable and no acute distress Orientation/consciousness: patient oriented x3 HENMT Head: Yes normocephalic Ears: hearing grossly normal bilaterally General nose exam: Normal external nose present Eyes General: appearance normal, both eyes and all related structures Conjunctivae: conjunctivae normal Neck Neck: Yes full ROM and Yes no lymphadenopathy Resp Effort & Inspection: normal respiratory effort Auscultation: clear to auscultation bilaterally, no crackles, no rales, no rhonchi and no wheezes Cardio Rate: regular rate Rhythm: regular rhythm Skin General skin exam: no rashes or lesions noted Neuro General: patient oriented x3 Gait exam (Neuro): Normal gait present Extrem General: Yes normal to inspection, Yes full ROM and No edema Psych Affect: normal affect Attitude: cooperative Insight: Good insight present (Psych) Judgement: Good judgement present (Psych) Coding Level of Care Code New Pt Level 4 (09819) Diagnoses Hypothyroidism E03.9 Hypertension I10 Anxiety F41.9 Additional Codes HUGH-7 Assessment Billing - HUGH-7 Assessment Tool: HUGH-7 Assessment 15654 ([id number]) PHQ-9 - 56342 - PHQ-9 Billing: Yes ([id number]) Assessment & Plan Assessment & Plan (1) Hypothyroidism: Code(s): E03.9 - Hypothyroidism, unspecified Category: Medical Plan: Thyroid function will undergo routine assessment alongside maintaining levothyroxine therapy at current levels. (2) Hypertension: Code(s): I10 - Essential (primary) hypertension Category: Medical Plan: For management of hypertension, a strategy of potentially discontinuing hydrochlorothiazide is under consideration, contingent upon cardiology reports. The patient's blood pressure goal of maintaining measurements under 140/90 should guide ongoing monitoring. Avoid salt intake and encourage healthy diet and regular exercise. Advised patient she can discontinue hydrochlorothiazide at this time and monitor blood pressures very closely over the next several weeks. If measurements exceed 140/90 to reach out to the office and plan to give 12.5 mg hydrochlorothiazide. Follow up in 1 month (3) Anxiety: Comment: situational Code(s): F41.9 - Anxiety disorder, unspecified Category: Medical Plan: Existing protocalls for situational anxiety will remain, where propranolol serves as an effective and conditionally required intervention. Plan Preventative health measures remain active, including completion of mammographic and colonoscopic screenings, with bone density evaluation slated as per age recommendations. Patient advocation for active lifestyle adjustments and nutritional supplementation is reiterated. A follow-up on progress will be planned for the next month. Patient was informed and verbally consented to the use of an ambient scribe for clinic note documentation during this visit. This note was constructed using voice recognition software. While every effort has been made to ensure accuracy and development disability specialist, still areas may have been included sometimes these areas may affect the content or meeting of the given symptoms. Total time spent caring for the patient today was 30 minutes. This includes time spent before the visit reviewing the chart, time spent during the visit, and time spent after the visit and documentation. Orders: Orders XR DEXA axial skeleton Today Z78.0 - Asymptomatic menopausal state MM tomosynthesis screening BI Today Z12.31 - Encounter for screening mammogram for malignant neoplasm of breast Referrals EDUCATION GENERAL MANAGER Referral Z12.4 - Encounter for screening for malignant neoplasm of cervix
[2024-09-10 08:08] VITALS: BP 130/82; PULSE 76; O2SAT 99; BMI 24.0
== END 2024-09-10 08:42 | disposition home or self-care (01) ==
DX: E03.9 Hypothyroidism, unspecified (principal); I10 Essential (primary) hypertension; F41.9 Anxiety disorder, unspecified

== ENCOUNTER → 2024-09-10 07:53 | Outpatient (BNVA) | payer OTHER, SELFPAY | DX: E03.9 Hypothyroidism, unspecified (principal); I10 Essential (primary) hypertension; F41.9 Anxiety disorder, unspecified; Z79.899 Other long term (current) drug therapy | CPT/HCPCS: 96127 ==

== ENCOUNTER 2024-10-08 08:20 | Outpatient (AMB) | payer OTHER, SELFPAY ==
[2024-10-08 08:29] VITALS: BP 128/84; PULSE 74; RESP 16; TEMP 36.2; O2SAT 99; BMI 23.8
--- NOTE | 2024-10-08 08:29 | A.OFFPC_ITS ---
Vital Signs 10/08/24 08:29 Height 5 ft 1 in Weight 126 lb BMI 23.8 BP 128/84 Blood Pressure Location Lt brachial Position Sitting Respiration 16 Pulse 74 Pulse Source Pulse Oximeter Temp 97.1 F Temp Source Temporal Artery Scan Pulse Oximetry (%) 99 Oxygen Delivery Method Room Air Intake Visit Reasons: f/u HTN Data Software Engineer Required: No Accompanied by: Self / Same As Patient Allergies prochlorperazine [From Compazine] Allergy (Intermediate, Verified 10/08/24 08:29) paralysis Medication List - Last Reconciled 10/08/24 by Olamide Calero PA-C hydrochlorothiazide 25 mg PO DAILY levothyroxine 100 mcg PO DAILY propranolol 10 mg PO DAILY Tobacco use date assessed: 10/08/24 Fall risk assessment: No Falls in past year Last assessed Fall Risk: 10/08/24 Dental Screening Dental Screen Date: 10/08/24 Did you have a dental visit in the last 12 months?: Yes Did you have a dental problem in the last 6 months where you did not have access to dental care?: No Was dental information given to patient?: Patient has dentist HPI f/u HTN HPI Details 64-year-old female with past medical his tory of anxiety, hypothyroidism and hypertension last seen 08/2024 coming in for follow up. Presenting with a follow-up for management of Essential Hypertension. Blood pressure monitoring showed increased levels post-discontinuation of hydrochlorothiazide. Resumed the medication due to home monitoring results showing readings consistently at 140/90 mmHg. Symptoms experienced included headaches and a sensation similar to vertigo related to job stress. Readings returned to a more controlled state with the medication, albeit still fluctuating under stress. Persistent buildup attributed to the structure of the ear canals. The patient utilizes softeners but experiences significant wax accumulation. A request was made for a flushing procedure. 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 1. Little interest or pleasure in doing things: not at all 2. Feeling down, depressed, or hopeless: not at all 3. Trouble falling or staying asleep, or sleeping too much: not at all 4. Feeling tired or having little energy: not at all 5. Poor appetite or overeating: not at all 6. Feeling bad about yourself - or that you are a failure or have let yourself or your family down: not at all 7. Trouble concentrating on things, such as reading the newspaper or watching television: not at all 8. Moving or speaking so slowly that other people could have noticed. Or the opposite - being so fidgety or restless that you have been moving around a lot more than usual: not at all 9. Thoughts that you would be better off or of hurting yourself in some way: not at all Total score: 0 Depression Screening Interpretation: Negative Depression Screening Done: Yes 73413 - PHQ-9 Billing: Yes Source: Developed by Drs. Jason Still, Hermila Larsen, Isra Jacinto and colleagues, with an educational evan from [employer]. Thrive Questionnaire Date Thrive assessed: 10/08/24 I am a: Patient What is your living situation today?: I have a steady place to live Within the past 12 months, did the food you bought not last and you didn't have the money to get more?: Never true Within the past 12 months, did you worry whether your food would run out before you got money to buy more?: Never true Do you have trouble paying for medicines?: No Do you have trouble getting transportation to medical appointments?: No Do you have trouble paying your heating and electricity bill?: No Do you have trouble taking care of your child, family member or friend?: No Do you have trouble with day-to-day activities such as bathing, preparing meals, shopping, managing finances, etc.?: No Are you currently unemployed and looking for a job?: No Are you interested in more education?: No Please select the resources that you would like help with: None Currently or been in a relationship where the following occur: I choose not to answer THRIVE Score: 0 AUDIT C Alcohol Use Questionnaire (AUDIT-C) 1. How often do you have a drink containing alcohol?: 2-3 times a week 2. How many drinks containing alcohol do you have on a typical day when you are drinking?: 1 or 2 3. How often do you have six or more drinks on one occasion?: Never Total Score: 3 HUGH-7 AMB Questionnaire HUGH-7 Date HUGH - 7 assessed: 10/08/24 Feeling nervous, anxious, or on edge: 0 = Not at all Not being able to stop or control worryin = Not at all Worrying too much about different things: 0 = Not at all Trouble relaxin = Not at all Being so restless that it is hard to sit still: 0 = Not at all Becoming easily annoyed or irritable: 0 = Not at all Feeling afraid as if something awful might happen: 0 = Not at all Total HUGH-7 score (0-4 normal; 5-9 mild; 10-14 moderate; 15-21 severe): 0 Source: Developed by Drs. Jason Still, Hermila Larsen, Isra Jacinto and colleagues, with an educational evan from [employer]. HUGH-7 Assessment Billing HUGH-7 Assessment Tool: HUGH-7 Assessment 94968 Review of Systems Const Denies body aches, Denies chills, Denies fever(s), Denies headache(s) and Denies poor appetite Eyes Reports no additional complaints ENT Denies dysphagia, Denies dizziness, Denies headache(s) and Denies odynophagia Card Denies chest pain, Denies syncope, Denies edema, Denies irregular heart rhythm, Denies lightheadedness and Denies dyspnea Resp Denies cough and Denies dyspnea GI Denies abdominal pain, Denies constipation, Denies dysphagia, Denies diarrhea, Denies nausea, Denies odynophagia and Denies vomiting Reports no additional complaints Musc Reports no additional complaints and Denies abnormal gait Skin/Breast Reports system reviewed and no additional complaints, except as documented Neuro Denies abnormal gait, Denies dizziness, Denies syncope and Denies headache(s) Psych Reports no additional complaints Physical exam (Primary Care) Vital Signs: Last Vital Signs Temp 97.1 F 10/08/24 08:29 Pulse 74 10/08/24 08:29 Resp 16 10/08/24 08:29 BP 128/84 10/08/24 08:29 Pulse Ox 99 10/08/24 08:29 Oxygen Delivery Method Room Air 10/08/24 08:29 BMI result Body Mass Index 23.8 Tobacco/Smoking Status: Tobacco use Status Tobacco use date assessed 10/08/24 10/08/24 08:38 Patient Tobacco Use Status Never used Tobacco 10/08/24 08:38 e-Cigarette/Vaping Use Never Used 10/08/24 08:38 PHQ-9: PHQ-9 Score PHQ-9: Total score 0 10/08/24 08:38 Depression Screening Interpretation: Negative Thrive Assessment: Date of Thrive Assessment Date Thrive assessed 10/08/24 10/08/24 08:38 Currently or been in a relationship where the following occur: I choose not to answer Const General: cooperative, healthy appearing, comfortable and no acute distress Orientation/consciousness: patient oriented x3 HENMT Head: Yes normocephalic Ears: hearing grossly normal bilaterally and Abnormal EAC present cerumen impaction bilateral General nose exam: Normal external nose present Eyes General: appearance normal, both eyes and all related structures Conjunctivae: conjunctivae normal Neck Neck: Yes full ROM and Yes no lymphadenopathy Resp Effort & Inspection: normal respiratory effort Auscultation: clear to auscultation bilaterally, no crackles, no rales, no rhonchi and no wheezes Cardio Rate: regular rate Rhythm: regular rhythm Skin General skin exam: no rashes or lesions noted Neuro General: patient oriented x3 Gait exam (Neuro): Normal gait present Extrem General: Yes normal to inspection, Yes full ROM and No edema Psych Affect: normal affect Attitude: cooperative Insight: Good insight present (Psych) Judgement: Good judgement present (Psych) Coding Level of Care Code Est Pt Level 3 (27022) Diagnoses Hypertension I10 Anxiety F41.9 Hypothyroidism E03.9 Cerumen impaction H61.20 Additional Codes HUGH-7 Assessment Billing - HUGH-7 Assessment Tool: HUGH-7 Assessment 14870 ([id number]) PHQ-9 - 77143 - PHQ-9 Billing: Yes ([id number]) Assessment & Plan Assessment & Plan (1) Hypertension: Code(s): I10 - Essential (primary) hypertension Category: Medical Plan: Patient's blood pressures at home we are within the normal range however elevated after discontinuation of hydrochlorothiazide. She did begin to hypertensive readings and re-initiated her hydrochlorothiazide that time. At this time plan to reinitiate hydrochlorothiazide at 12.5 mg daily and follow up in 2 months. Avoid salt intake and encourage healthy diet and regular exercise. (2) Anxiety: Comment: situational Code(s): F41.9 - Anxiety disorder, unspecified Category: Medical Plan: Continue on propranolol as needed (3) Hypothyroidism: Code(s): E03.9 - Hypothyroidism, unspecified Category: Medical Plan: Placed order for thyroid labs continue on levothyroxine. (4) Cerumen impaction: Code(s): H61.20 - Impacted cerumen, unspecified ear Category: Medical Plan: Bilateral ears having cerumen impaction recommend ear flushing advised to use Debrox drops 1 week prior to ear cleaning. Plan This note was constructed using voice recognition software. While every effort has been made to ensure accuracy and clinical medical assistant, still areas may have been in cluded sometimes these areas may affect the content or meeting of the given symptoms. Total time spent caring for the patient today was 20 minutes. This includes time spent before the visit reviewing the chart, time spent during the visit, and time spent after the visit and documentation. Patient was informed and verbally consented to the use of an ambient scribe for clinic note documentation during this visit. Orders: Orders Comprehensive Met. Panel Today Z00.00 - Encounter for general adult medical examination without abnormal findings Complete Blood Count Auto Diff Today Z00.00 - Encounter for general adult medical examination without abnormal findings TSH reflex Free T4 Today Z00.00 - Encounter for general adult medical examination without abnormal findings Vitamin B12 and Folate Today Z00.00 - Encounter for general adult medical examination without abnormal findings Vitamin D 25-OH Total Today Z00.00 - Encounter for general adult medical examination without abnormal findings Lipid Panel Today Z13.220 - Encounter for screening for lipoid disorders Medications: New hydrochlorothiazide 12.5 mg PO DAILY 60 tabs 1RF
--- OUTSIDE RECORDS SUMMARY | 2024-10-08 08:34 | XMS_ITS ---
Author Organization [facility] Address [address] [facility] [place] [address] Care Team Providers Care Preassembler Printed Circuit Board Name Role Phone Danisha Ohara Primary Care Provider Unavailabl e Ramiro Maricruz Unavailable [phone] Allergies Allergen (clinical drug ingredient) Drug/Non Drug [...] Ordered Date Performed Result Body Sit e 07261-Ctrm Destruction, 1-14 05/03/2024 N/A Encounters Encounter Location Date Provider Diagnosis [facility] [place] [address] [place] [address] 05/03/2024 Maricruz Rubio Bursitis of intermetatarsal bursa [...] Treatment Pending Test Test Name Order Date 72101-Uese Destruction, -05/03/2024 Next Appt Details Follow Up: prn, Reason: Procedure Notes * Category Sub-Category Detail Notes Wart Treatment Procedure Verrucae were de brided to pin-point bleeding margins with sterile 15 surgical blade - 93663 , silver nitrate chemocautery applied Progress Notes * Emerita HAIRSTON SDOB:[birth year] (64 yo F)Acc No.[id number]:05/03/2024 Progress Note Patient:?Emerita Hairston S Provider:?Maricruz Rubio DPM :1960???Age:64 Y???Sex:Female D ate:05/03/2024 [address] [place] Pcp:Danisha Ohara Subjective: * Chief Complaints: * [...] pickleball, lauren chi. ?Marital status: . 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 * Medications:?TakinghydroCHLO ROthiazide 25 MG Tablet 1 [...] margins with sterile 15 surgical blade - 10578 , silver nitrate chemocautery applied.? * Procedure Codes:?41995 Wart Destruction, 1-14, Modifiers: XS * Preventive [...] Provider:?Maricruz Rubio DPM Date:?2023 Generated for Jaleesa oshea/Bambi/Pancho on:?10/08/2024 08:34 AM EDT History and Physical Notes * HPI (History [...]
--- OUTSIDE RECORDS SUMMARY | 2024-10-08 08:34 | XMS_ITS | Patient Health Record ---
Author Organization [facility] Address [address] [facility] [place] [address] Care Team Providers Care Surface Water Manager Name Role Phone Danisha Ohara Primary Care Provider Unavailabl e Black, Maricruz Unavailable [phone] Allergies Allergen (clinical drug ingredient) Drug/Non Drug [...] W/U Status Risk Notes Problem Plantar wart (54870467) Plantar wart (B07.0) Active confirmed Vital Signs Heart Rate 83 /min 11/17/2023 Temperature 98.2 degrees Fahrenheit 11/17/2023 Blood pressure diastolic 74 mm Hg 11/17/2023 Oximetry 97 % 11/17/2023 Height 5ft 1in in 05/03/2024 Blood pressure systolic 120 mm Hg 11/17/2023 Weight 123 lbs 05/03/2024 BMI 23.24 kg/m2 05/03/2024 Procedures Procedure Date Ordered Date Performed Result Body Sit e 59559-Vchw Destruction, 1-14 05/03/2024 N/A 62683-Htxw Destruction, 1-14 11/17/2023 N/A Encounters Encounter Location Date Provider Diagnosis [address] [address] 11/17/2023 Maricruz Black Pain in left foot M79.672 ; Pain in left ankle and joints of left foot M25.572 ; Bursitis of intermetatarsal bursa of left foot M77.52 ; Metatarsalgia, left foot M77.42 ; Plantar wart B07.0 and Left foot pain M79.[address] [address] 05/03/2024 Maricruz Black Bursitis of intermetatarsal bursa of left foot M77.52 ; Plantar wart B07.0 ; Metatarsalgia, left foot M77.42 and Left foot pain M79.[address] [address] 11/17/2023 Maricruz Black Assessments Encounter Date Diagnosis [...] X ray : Foot, left 3V 11/17/2023 84604-Evzz Destruction, 1-14 05/03/2024 05306-Zkbr Destruction, 1-14 11/17/2023 Insurance Providers Payer Name Payer Address Payer Phone Subscriber Number Group Number Insured Name Patient Relationship to Insured Coverage Start Date Coverage End Date [employer] [address] [place] [phone] [id number] Emerita Hairston Self - patient is the insured [employer] [address] [place] [phone] [id number] Alex Salvador Other Medical (General) History Medical History History ICD Code High blood pressure Hypothyroidism covid-19 Anxiety Back,Hip,and Knee pain sinusitis thyroid Warts Mumps Chicken pox Surgical History Surgery Date(Month/Year) colonoscopy 05/29/2022 1986 loophorectomy due to growth- neg patholo gy 2012 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
--- OUTSIDE RECORDS SUMMARY | 2024-10-08 08:35 | XMS_ITS ---
Author Organization [facility] Address [address] [facility] [place] [address] Care Team Providers Care Dental Assistant Teacher Name Role Phone Danisha Ohara Primary Care Provider Maricruz Pettit [phone] Encounters Encounter Location Date Provider Diagnosis [address] [address] 06/04/2024 Maricruz Rubio Plan Of Treatment No Information Progress Notes * GIL Emerita SDOB:[birth year] (64 yo F)Acc No.[id number]:06/04/2024 Progress Note Patient:?Emerita HAIRSTON Provider:?Maricruz Rubio DPM :1960???Age:64 Y???Sex:Female D ate:06/04/2024 Address:[id number] Pcp:Danisha Ohara Subjective: * Chief Complaints: * ??? * Medical History:? Objective: * Vitals:? Assessment: Plan: * Treatment: * Images: * The named appointment provid er may or may not be the originator of this progress note, and it is not deemed complete until electronically signed by the appointment provider. Sign off status: Pending * Provider:Eileen Rubio DPM Date:?2023 Generated for Jaleesa oshea/Bambi/eTransmitting on:?10/08/2024 08:35 AM EDT
--- OUTSIDE RECORDS SUMMARY | 2024-10-08 08:35 | XMS_ITS ---
Author Organization [facility] Address [address] [place] [address] Care Team Providers Care Track Laying Machine Operator Name Role Phone aDnisha Ohara Primary Care Provider Maricruz Pettit [phone] VALLES Encounters Encounter Location Date Provider Diagnosis [address] [address] 04/21/2024 Maricruz Rubio Plan Of Treatment No Information Progress Notes * Emerita HAIRSTON SDOB:[birth year] (64 yo F)Acc No.[id number]:04/21/2024 Progress Note Patient:Emerita HARMON Provider:Eileen Rubio DPM :1960???Age:64 Y???Sex:Female D ate:04/21/2024 Address[address] [id number] Pcp:Danisha Ohara Subjective: * Chief Complaints: * [...] Provider:?Maricruz Rubio DPM Date:?2023 Generated for Jaleesa oshea/Bambi/eTransmitting on:?10/08/2024 08:34 AM EDT
--- OUTSIDE RECORDS SUMMARY | 2024-10-08 08:35 | XMS_ITS | Encounter Summary ---
Author Organization [facility] [place] [address] Care Team Providers Care Embroiderer Name Role Phone Brittani Cobian MD Primary Care Provider +1- [phone] Reason for Visit * Reason Comments Initial Assessment Encounter Details Date Type Department Care Team (Late st Contact Info) Description 09/07/2024 10:20 AM EST Office Visit [facility] [address] [place] [phone] Ashish Spann MD [address] [place] [id number] Abnormal stress test (Primary Dx); Abnormal ECG; [...] declined. She has not consulted with a program counselor. She experiences palpitations and a sensation of [...] years ago during an outdoor performance at [employer], where she became lightheaded due to dehydration [...] day. added in this encounter Care Teams Embroiderer Relationship Specialty Start Date End Date Brittani Cobian MD [address] [place] [phone] PCP - General Family Medicine 06/22/24 documented as of this encounter
--- OUTSIDE RECORDS SUMMARY | 2024-10-08 08:35 | XMS_ITS | Clinical Summary ---
Author Organization [facility] Address [address] [place] [address] Phone Care Team Providers Care Alumnae Secretary Name Role Phone Brittani Cobian MD Primary Care Provider +1- [phone] Allergies Active Allergy Reactions Criticality Noted Date [...] Description 09/07/2024 10:20 AM EST Office Visit [facility] [address] [place] [address] Ashish Spann MD Abnormal stress test (Primary Dx); Abnormal ECG; Primary hypertension from Last 3 Months Medical History Medical [...] patient's age to complete this topic Insurance [facility] Care Teams Alumnae Secretary Relationship Specialty Start Date End Date Brittani Cobian MD [address] [place] [phone] PCP - General Family Medicine 06/22/24
== END 2024-10-08 09:02 | disposition home or self-care (01) ==
LOC: HO.HMCH 08:21
DX: I10 Essential (primary) hypertension (principal); F41.9 Anxiety disorder, unspecified; E03.9 Hypothyroidism, unspecified; H61.23 Impacted cerumen, bilateral

== ENCOUNTER → 2024-10-08 08:20 | Outpatient (BNVA) | payer OTHER, SELFPAY | DX: I10 Essential (primary) hypertension (principal); F41.9 Anxiety disorder, unspecified; E03.9 Hypothyroidism, unspecified; H61.23 Impacted cerumen, bilateral; Z79.899 Other long term (current) drug therapy | CPT/HCPCS: 96127 ==

== ENCOUNTER 2024-10-29 13:53 | Outpatient (REF) | payer OTHER, SELFPAY ==
--- NOTE | ~2024-10-29 | MM_ITS ---
EXAMINATION: DXA BONE DENSITY AXIAL HISTORY: Estrogen deficiency TECHNIQUE: [facility] Dual energy absorptiometry (DEXA) of the lumbar spine, total left hip, and femoral neck was performed. COMPARISON: There are no prior studies for comparison. FINDINGS: The bone mineral density of the lumbar spine is 1.104 with a T-score of -0.6, and a Z-score of 1.2. This is indicative of normal bone mineral density. The bone mineral density of the left total hip is 0.989 with a T-score of -0.1, and a Z-score of 1.2. This is indicative of normal bone mineral density. The bone mineral density of the left femoral neck is 0.926 with a T-score of -0.8, and a Z-score of 0.8. This is indicative of normal bone mineral density. FRACTURE RISK: The FRAX index suggests a risk of major osteoporotic fracture of 7.4%, and of hip fracture 0.5%. MM/XR DEXA axial skeleton IMPRESSION: Based on bone mineral density, and according to World Health Organization (WHO) criteria, the diagnosis is consistent with normal bone mineral density. All bone density values are in grams per centimeter squared (g/cm2). Statistically, 68% of repeat scans fall within 1 SD (+/- 0.010 g/cm2 for AP spine L1-L4) and 1 SD (+/- 0.012 g/cm2 for femur total) FRAX is a trademark of the [employer] [place] for Metabolic Bone Disease, a World Health Organization (WHO) Collaborating Center. Electronically signed by: Jason Senior MD 10/29/2024 03:50 PM EDT
--- OUTSIDE RECORDS SUMMARY | 2024-10-29 15:41 | XMS_ITS ---
Author Organization [facility] Address [address] [facility] [place] [address] Care Team Providers Care Cone Winder Name Role Phone Danisha Ohara Primary Care Provider Unavailabl e Ramiro Maricruz Unavailable [phone] Allergies Allergen (clinical drug ingredient) Drug/Non Drug [...] Ordered Date Performed Result Body Sit e 25285-Xbvb Destruction, 1-14 05/03/2024 N/A Encounters Encounter Location Date Provider Diagnosis [facility] [place] [address] [place] [address] 05/03/2024 Maricruz Rubio Bursitis of intermetatarsal bursa [...] Treatment Pending Test Test Name Order Date 68060-Zssj Destruction, -05/03/2024 Next Appt Details Follow Up: prn, Reason: Procedure Notes * Category Sub-Category Detail Notes Wart Treatment Procedure Verrucae were de brided to pin-point bleeding margins with sterile 15 surgical blade - 11836 , silver nitrate chemocautery applied Progress Notes * Emerita HAIRSTON SDOB:[birth year] (64 yo F)Acc No.[id number]:05/03/2024 Progress Note Patient:?Emerita Hairston S Provider:?Maricruz Rubio DPM :1960???Age:64 Y???Sex:Female D ate:05/03/2024 [address]: [address] [place] Pcp:Danisha Ohara Subjective: * Chief Complaints: * [...] pickleball, lauren chi. ?Marital status: . 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 * Medications:?TakinghydroCHLO ROthiazide 25 MG Tablet 1 [...] margins with sterile 15 surgical blade - 82860 , silver nitrate chemocautery applied.? * Procedure Codes:?83607 Wart Destruction, 1-14, Modifiers: XS * Preventive [...] Rubio DPM Date:?2023 Generated for Jaleesa oshea/Bambi/Pancho on:?10/29/2024 03:40 PM EDT History and Physical Notes * HPI [...]
--- OUTSIDE RECORDS SUMMARY | 2024-10-29 15:41 | XMS_ITS | Clinical Summary ---
Author Organization [facility] Address [address] [place] [address] Phone Care Team Providers Care Associate Director Data & Analytics Name Role Phone Brittani Cobian MD Primary Care Provider +1- [phone] Allergies Active Allergy Reactions Criticality Noted Date [...] Description 09/07/2024 10:20 AM EST Office Visit [facility]iology [facility] [address] [place] [address] Ashish Spann MD Abnormal stress test (Primary [...] Breast Cancer Screening 07/04/2025 07/04/2023 RSV Immunization Adult Patients (1 - 1-dose 75+ series) 2035 Hepatitis [...] patient's age to complete this topic Insurance [facility] Care Teams Associate Director Data & Analytics Relationship Specialty Start Date End Date Brittani Cobian MD [address] [place] [phone] PCP - General Family Medicine 06/22/24
--- OUTSIDE RECORDS SUMMARY | 2024-10-29 15:41 | XMS_ITS ---
Author Organization [facility] Address [address] [facility] [place] [address] Care Team Providers Care Video Clerk Name Role Phone Danisha Ohara Primary Care Provider Maricruz Pettit [phone] VALLES Encounters Encounter Location Date Provider Diagnosis [address] [address] 04/21/2024 Maricruz Rubio Plan Of Treatment No Information Progress Notes * Emerita HAIRSTON SDOB:[birth year] (64 yo F)Acc No.[id number]:04/21/2024 Progress Note Patient:Emerita HARMON Provider:Eileen Rubio DPM :1960???Age:64 Y???Sex:Female D ate:04/21/2024 Address[address] [place] Pcp:Danisha Ohara Subjective: * Chief Complaints: * [...] Rubio DPM Date:?2023 Generated for Jaleesa oshea/Bambi/eTransmitting on:?10/29/2024 03:41 PM EDT
--- OUTSIDE RECORDS SUMMARY | 2024-10-29 15:41 | XMS_ITS ---
Author Organization [facility] Address [address] [facility] [place] [address] Care Team Providers Care Ultrasonic Seaming Machine Operator Name Role Phone Danisha Ohara Primary Care Provider Maricruz Pettit [phone] Encounters Encounter Location Date Provider Diagnosis [address] [address] 06/04/2024 Maricruz Rubio Plan Of Treatment No Information Progress Notes * GIL Emerita SDOB:[birth year] (64 yo F)Acc No.[id number]:06/04/2024 Progress Note Patient:?Emerita HAIRSTON Provider:?Maricruz Rubio DPM :1960???Age:64 Y???Sex:Female D ate:06/04/2024 Address: [address] [place] Pcp:Danisha Ohara Subjective: * Chief Complaints: * [...]
--- OUTSIDE RECORDS SUMMARY | 2024-10-29 15:41 | XMS_ITS | Patient Health Record ---
Author Organization [facility] Address [address] [place] [address] Care Team Providers Care Paster Supervisor Name Role Phone Danisha Ohara Primary Care Provider Unavailabl e Black, Maricruz Unavailable [phone] Allergies Allergen (clinical drug ingredient) Drug/Non Drug [...] W/U Status Risk Notes Problem Plantar wart (67128199) Plantar wart (B07.0) Active confirmed Vital Signs Heart Rate 83 /min 11/17/2023 Temperature 98.2 degrees Fahrenheit 11/17/2023 Oximetry 97 % 11/17/2023 Blood pressure diastolic 74 mm Hg 11/17/2023 Height 5ft 1in in 05/03/2024 Blood pressure systolic 120 mm Hg 11/17/2023 Weight 123 lbs 05/03/2024 BMI 23.24 kg/m2 05/03/2024 Procedures Procedure Date Ordered Date Performed Result Body Sit e 95474-Xuin Destruction, 1-11/17/2023 N/A 84640-Jzty Destruction, 1-14 05/03/2024 N/A Encounters Encounter Location Date Provider Diagnosis [address] [address] 11/17/2023 Maricruz Black Pain in left foot M79.672 ; Pain in left ankle and joints of left foot M25.572 ; Bursitis of intermetatarsal bursa of left foot M77.52 ; Metatarsalgia, left foot M77.42 ; Plantar wart B07.0 and Left foot pain M79.[address] [address] 05/03/2024 Maricruz Black Bursitis of intermetatarsal bursa of left foot M77.52 ; Plantar wart B07.0 ; Metatarsalgia, left foot M77.42 and Left foot pain M79.[address] [address] 11/17/2023 Maricruz Black Assessments Encounter Date Diagnosis [...] X ray : Foot, left 3V 11/17/2023 04736-Ikbc Destruction, 1-14 05/03/2024 54451-Nemo Destruction, 1-14 11/17/2023 Insurance Providers Payer Name Payer Address Payer Phone Subscriber Number Group Number Insured Name Patient Relationship to Insured Coverage Start Date Coverage End Date [employer] [address] [place] [address] [id number] Emerita Hairston Self - patient is the insured [employer] [address] [place] [id number] Alex Salvador Other Medical (General) History Medical History History ICD Code High blood pressure Hypothyroidism covid-19 Anxiety Back,Hip,and Knee pain sinusitis thyroid Warts Mumps Chicken pox Surgical History Surgery Date(Month/Year) colonoscopy 05/29/2022 1986 loophorectomy due to growth- neg patholo gy 2012 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
== END 2024-10-29 13:54 | disposition home or self-care (01) ==
LOC: HO.MAMMO 13:53
PROVIDERS: PCP Internal Medicine
DX: Z12.31 Encounter for screening mammogram for malignant neoplasm of breast (principal); Z13.820 Encounter for screening for osteoporosis; Z78.0 Asymptomatic menopausal state
CPT/HCPCS: 77063; 77067; 77080

== ENCOUNTER → 2024-10-29 14:30 | Outpatient (BNV) | payer OTHER, SELFPAY | PROVIDERS: PCP Internal Medicine; Visit Provider Radiology Diagnostic Radiology | DX: E28.39 Other primary ovarian failure (principal) | CPT/HCPCS: 77080 ==

== ENCOUNTER 2024-12-15 07:46 | Outpatient (REF) | payer OTHER, SELFPAY ==
[2024-12-15 08:05] LABS: MANUAL DIFF FLAG NO
--- OUTSIDE RECORDS SUMMARY | 2024-12-15 08:11 | XMS_ITS ---
Author Organization [facility] Address [address] [place] [address] Care Team Providers Care Private Detective Name Role Phone Danisha Ohara Primary Care Provider Unavailabl e Ramiro Maricruz Unavailable [phone] Allergies Allergen (clinical drug ingredient) Drug/Non Drug [...] Ordered Date Performed Result Body Sit e 34727-Gmcw Destruction, 1-14 05/03/2024 N/A Encounters Encounter Location Date Provider Diagnosis [facility] [address] [place] [address] 05/03/2024 Maricruz Rubio Bursitis of intermetatarsal bursa [...] Treatment Pending Test Test Name Order Date 40984-Lmcn Destruction, -05/03/2024 Next Appt Details Follow Up: prn, Reason: Procedure Notes * Category Sub-Category Detail Notes Wart Treatment Procedure Verrucae were de brided to pin-point bleeding margins with sterile 15 surgical blade - 12583 , silver nitrate chemocautery applied Progress Notes * Emerita HAIRSTON SDOB:[birth year] (64 yo F)Acc No.[id number]:05/03/2024 Progress Note Patient:?Emerita Hairston S Provider:?Maricruz Rubio DPM :1960???Age:64 Y???Sex:Female D ate:05/03/2024 [address] [place] Pcp:Danisha Ohara Subjective: * Chief Complaints: * [...] pickleball, lauren chi. ?Marital status: . 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 * Medications:?TakinghydroCHLO ROthiazide 25 MG Tablet 1 [...] margins with sterile 15 surgical blade - 60632 , silver nitrate chemocautery applied.? * Procedure Codes:?38020 Wart Destruction, 1-14, Modifiers: XS * Preventive [...] Rubio DPM Date:?2023 Generated for Jaleesa oshea/Bambi/Pancho on:?12/15/2024 08:10 AM EDT History and Physical Notes * [...]
--- OUTSIDE RECORDS SUMMARY | 2024-12-15 08:14 | XMS_ITS | Clinical Summary ---
Author Organization [facility] Address [address] [place] [address] Phone Care Team Providers Care Inter Com Installer Name Role Phone Brittani Cobian MD Primary Care Provider [phone] Allergies Active Allergy Reactions Criticality Noted Date [...] Assessment & Plan (09/07/2024 5:48 PM EST): Medical History Medical History Date Comments Hypothyroidism [...] 2024 04/16/2022, 12/08/2021, 06/07/2021, Additional history exists Cholesterol Screening (Lipid Panel) 06/22/2024 12/01/2018 Colorectal Cancer Screening: Colonoscopy 06/22/2024 Depression Screening 06/22/2024 HIV Screening 06/22/2024 Hypertension/CHF/CAD Annual BMP Blood Test 06/22/2024 04/04/2021, 11/08/2020, 08/24/2019, Additional history exists Social Influencers of Health Screening 06/22/2024 Influenza Vaccine (Season Ended) 2025 05/23/2022, 05/31/2021, 05/11/2020, Additional history exists Breast Cancer Screening 07/04/2025 07/04/2023 RSV Immunization [...] age to complete this topic Meningococcal B Vaccine Aged Out No l onger eligible based on patient's age to complete this topic RSV Immunization Patients Under 20 months Aged Out No longer eligible based on patient's age to complete this topic Varicella Vaccines Aged Out No longer eligible based on patient's age to complete this topic Insurance [employer] Care Teams Inter Com Installer Relationship Specialty Start Date End Date Brittani Cobian MD [address] [place] [phone] PCP - General Family Medicine 06/22/24
[2024-12-15 08:28] LABS: Basophils Percent Auto 0.7 % (0-2); Eosinophils Absolute Auto 0.4 X10*3/uL (0.0-0.4); Eosinophils Percent Auto 7.1 % (0-4); Hematocrit 39.8 % (37.0-47.0); Hemoglobin 13.8 g/dl (12.0-16.0); Imm Gran Abs Auto 0.01 X10*3/uL (0.00-0.03); Imm Gran Pct Auto 0.2 % (0.0-0.4); Lymphocytes Absolute Auto 1.9 X10*3/uL (1.2-4.9); Lymphocytes Percent Auto 34.2 % (20-40); Mean Corpuscular HGB Conc 34.7 g/dl (31.0-35.0); Mean Corpuscular Hemoglobin 30.3 pg (27.0-33.0); Mean Corpuscular Volume 87.3 fL (80.0-98.0); Mean Platelet Volume 9.4 fL (9.4-12.3); Monocytes Absolute Auto 0.3 X10*3/uL (0.1-1.2); Neutrophils Absolute Auto 2.8 x10*3/uL (2.0-8.3); Neutrophils Percent Auto 51.8 % (45-73); Platelet Count 298 X10*3/uL (160-400); Red Blood Count 4.56 X10*6/uL (4.20-5.50); White Blood Count 5.5 X10*3/uL (4.8-10.8)
[2024-12-15 09:15] LABS: Alanine Aminotransferase 21 U/L (0-31); Albumin Level 4.3 g/dL (3.5-5.0); Alkaline Phosphatase 51 U/L (39-117); Anion Gap 12 (12-20); Aspartate Amino Transferase 19 U/L (5-31); Bilirubin Total 0.5 mg/dL (0.0-1.0); Blood Urea Nitrogen 15 mg/dL (9-16); Calcium 9.4 mg/dL (8.4-10.2); Carbon Dioxide 31 mmol/L (22-29); Chloride 104 mmol/L (96-108); Cholesterol 221 mg/dL (<200); Estimated Glomerular Filt Rate > 60; Glucose Random 103 mg/dL (60-115); HDL Cholesterol 68 mg/dL (>40); LDL Cholesterol Calculated 129 mg/dL (<100); Sodium 143 mmol/L (135-145); Total Protein 7.1 g/dL (6.5-8.0); Triglycerides 120 mg/dL (<150)
[2024-12-15 09:24] LABS: Vitamin D 25-OH Total 41.3 ng/mL (>30)
[2024-12-15 09:30] LABS: Folate 14.7 ng/mL (> or = 4.0); Vitamin B12 578 pg/mL (200-900)
== END 2024-12-15 07:47 | disposition home or self-care (01) ==
LOC: HO.LAB 07:46
PROVIDERS: PCP Internal Medicine
DX: Z00.00 Encounter for general adult medical examination without abnormal findings (principal); Z13.220 Encounter for screening for lipoid disorders
CPT/HCPCS: 36415; 80053; 80061; 82306; 82607; 82746; 84443; 85025

== ENCOUNTER 2024-12-17 08:45 | Outpatient (AMB) | payer OTHER, SELFPAY ==
--- NOTE | 2024-12-17 08:57 | A.OFFPC_ITS ---
Vital Signs 12/17/24 08:59 Height 5 ft 1 in Weight 125 lb 8 oz BMI 23.7 BP 120/66 Blood Pressure Location Lt brachial Position Sitting Pulse 76 Pulse Source Pulse Oximeter Temp 97.3 F Temp Source Temporal Artery Scan Pulse Oximetry (%) 98 Oxygen Delivery Method Room Air Intake Visit Reasons: f/u HTN and wax cleaning Intake Note: Patient is here to follow up on HTN, Wax cleaning. Complaint of rash on left inner wrist and left shoulder pain radiating toward elbow. Brand Attendant Required: No Steam Conditioner Operator: Not Required per policy Accompanied by: Self / Same As Patient Allergies prochlorperazine [From Compazine] Allergy (Intermediate, Verified 12/17/24 09:06) paralysis Medication List - Last Reconciled 12/17/24 by Olamide Calero PA-C hydrochlorothiazide 12.5 mg PO DAILY levothyroxine 100 mcg PO DAILY propranolol 10 mg PO DAILY Tobacco use date assessed: 12/17/24 Fall risk assessment: No Falls in past year Last assessed Fall Risk: 12/17/24 Dental Screening Dental Screen Date: 10/08/24 HPI f/u HTN and wax cleaning HPI Details 64-year-old female with past medical his tory of anxiety, hypothyroidism and hypertension last seen coming in for follow up.? Hydrochlorothiazide 12.5 mg was reintroduced at last visit. Presenting with management of hypertension and hyperlipidemia. Recently restarted hydrochlorothiazide, with blood pressure readings consistently lower than 140/90. No symptoms of dizziness or chest pain were reported. Occasionally takes propranolol for anxiety especially during high-stress periods. The patient uses ear drops regularly to manage ear wax build-up, with reported improvements. Cholesterol management was addressed, highlighting triglycerides at 120 and LDL at a borderline level of 129. The patient maintains a careful diet. 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 Cognitive needs: No Hearing needs: No Vision needs: Yes Questionnaire Thrive Questionnaire Date Thrive assessed: 09/10/24 I am a: Patient What is your living situation today?: I have a steady place to live Within the past 12 months, did the food you bought not last and you didn't have the money to get more?: Never true Within the past 12 months, did you worry whether your food would run out before you got money to buy more?: Never true Do you have trouble paying for medicines?: No Do you have trouble getting transportation to medical appointments?: No Do you have trouble paying your heating and electricity bill?: No Do you have trouble taking care of your child, family member or friend?: No Do you have trouble with day-to-day activities such as bathing, preparing meals, shopping, managing finances, etc.?: No Are you currently unemployed and looking for a job?: No Are you interested in more education?: No Please select the resources that you would like help with: None Currently or been in a relationship where the following occur: I choose not to answer THRIVE Score: 0 HUGH-7 AMB Questionnaire HUGH-7 Date HUGH - 7 assessed: 10/08/24 Source: Developed by Drs. Jason Still, Hermila Larsen, Isra Jacinto and colleagues, with an educational evan from [employer]. Review of Systems Const Denies body aches, Denies chills, Denies fever(s), Denies headache(s) and Denies poor appetite Eyes Reports no additional complaints ENT Details: Ear clogged feeling Denies dizziness and Denies headache(s) Card Denies chest pain, Denies syncope, Denies lightheadedness and Denies dyspnea Resp Denies cough and Denies dyspnea Musc Reports no additional complaints and Denies abnormal gait Skin/Breast Reports system reviewed and no additional complaints, except as documented Neuro Denies abnormal gait, Denies dizziness, Denies syncope and Denies headache(s) Psych Reports no additional complaints Physical exam (Primary Care) Vital Signs: Last Vital Signs Temp 97.3 F 12/17/24 08:59 Pulse 76 12/17/24 08:59 BP 120/66 12/17/24 08:59 Pulse Ox 98 12/17/24 08:59 Oxygen Delivery Method Room Air 12/17/24 08:59 BMI result Body Mass Index 23.7 Tobacco/Smoking Status: Tobacco use Status Tobacco use date assessed 12/17/24 12/17/24 09:03 Patient Tobacco Use Status Never used Tobacco 12/17/24 09:03 e-Cigarette/Vaping Use Never Used 12/17/24 09:03 Thrive Assessment: Date of Thrive Assessment Date Thrive assessed 09/10/24 12/17/24 09:03 Currently or been in a relationship where the following occur: I choose not to answer Const General: cooperative, healthy appearing, comfortable and no acute distress Orientation/consciousness: patient oriented x3 HENMT Head: Yes normocephalic Ears: hearing grossly normal bilaterally and Abnormal EAC present excessive cerumen bilateral General nose exam: Normal external nose present Eyes General: appearance normal, both eyes and all related structures Conjunctivae: conjunctivae normal Neck Neck: Yes full ROM and Yes no lymphadenopathy Resp Effort & Inspection: normal respiratory effort Auscultation: clear to auscultation bilaterally, no crackles, no rales, no rhonchi and no wheezes Cardio Rate: regular rate Rhythm: regular rhythm Skin General skin exam: no rashes or lesions noted Neuro General: patient oriented x3 Gait exam (Neuro): Normal gait present Extrem General: Yes normal to inspection, Yes full ROM and No edema Psych Affect: normal affect Attitude: cooperative Insight: Good insight present (Psych) Judgement: Good judgement present (Psych) Office Procedures Cerumen Removal From which ear canal was the cerumen removed: bilateral Removal: otoscope w/curette Notes: patient tolerated procedure well, no complications and ear canal clear 20702-Apu Wax Removal by Spoon/Curette Coding Level of Care Code Est Pt Level 3 (92950) Diagnoses Hypertension I10 Cerumen impaction H61.20 Hypercholesterolemia E78.00 CPT Codes Office Procedure - CPT: 22320-Kwi Wax Removal by Spoon/Curette ([id number]) Assessment & Plan Assessment & Plan (1) Hypertension: Code(s): I10 - Essential (primary) hypertension Category: Medical Plan: Continue on current blood pressure medication. Avoid salt intake and encourage healthy diet and regular exercise. blood pressures at home have been WNL (2) Cerumen impaction: Code(s): H61.20 - Impacted cerumen, unspecified ear Category: Medical Plan: Cerumen was successfully removed using lighted curette. Patient tolerated the procedure well and ear canal was atraumatic, TM was visualized as intact with well aerated middle ear spaces without perforation or retraction. Advised to follow up as needed for this concern. (3) Hypercholesterolemia: Code(s): E78.00 - Pure hypercholesterolemia, unspecified Category: Medical Plan: Avoid foods that are high in cholesterol such as red meat, fried foods, eggs and baked goods. Triglyceride goal of less than 150 and LDL goal of less than 130. Last LDL 129 discussed dietary and lifestyle modification Plan Continuation of hydrochlorothiazide was advised as patient?s blood pressure remains controlled. Propranolol may be used occasionally for anxiety. The allergic skin reaction can be managed with hydrocortisone cream; a steroid cream could be considered if it worsens. Dietary vigilance to maintain lipid levels, with current triglycerides and LDL levels, is recommended to obviate statin use at present. Regular ear cleaning and use of drops should continue for cerumen management, with Sudafed proposed before flights for ear comfort. Review of mammogram findings advised, considering notable dense tissue in the context of family history. This note was constructed using voice recognition software. While every effort has been made to ensure accuracy and head banquet waitress, still areas may have been included sometimes these areas may affect the content or meeting of the given symptoms. Total time spent caring for the patient today was 20 minutes. This includes time spent before the visit reviewing the chart, time spent during the visit, and time spent after the visit and documentation. Patient was informed and verbally consented to the use of an ambient scribe for clinic note documentation during this visit. Orders: Orders Free T4 (Free Thyroxine) 6 Months E03.9 - Hypothyroidism, unspecified, Z00.00 - Encounter for general adult medical examination without abnormal findings Basic Metabolic Panel 6 Months I10 - Essential (primary) hypertension TSH reflex Free T4 6 Months E03.9 - Hypothyroidism, unspecified, Z00.00 - Encounter for general adult medical examination without abnormal findings Lipid Panel 6 Months E78.00 - Pure hypercholesterolemia, unspecified
[2024-12-17 08:59] VITALS: BP 120/66; PULSE 76; TEMP 36.3; O2SAT 98; BMI 23.7
--- OUTSIDE RECORDS SUMMARY | 2024-12-17 09:02 | XMS_ITS ---
Author Organization [facility] Address [address] [place] [address] Care Team Providers Care Studio Sales Associate Name Role Phone Danisha Ohara Primary Care Provider Unavailabl e Ramiro Maricruz Unavailable [phone] Allergies Allergen (clinical drug ingredient) Drug/Non Drug [...] Ordered Date Performed Result Body Sit e 06788-Ybtg Destruction, 1-14 05/03/2024 N/A Encounters Encounter Location Date Provider Diagnosis [facility] [address] [place] [address] 05/03/2024 Maricruz Rubio Bursitis of intermetatarsal bursa [...] Treatment Pending Test Test Name Order Date 13443-Demy Destruction, -05/03/2024 Next Appt Details Follow Up: prn, Reason: Procedure Notes * Category Sub-Category Detail Notes Wart Treatment Procedure Verrucae were de brided to pin-point bleeding margins with sterile 15 surgical blade - 62915 , silver nitrate chemocautery applied Progress Notes * Emerita HAIRSTON SDOB:[birth year] (64 yo F)Acc No.[id number]:05/03/2024 Progress Note Patient:?Emerita Hairston S Provider:?Maricruz Rubio DPM :1960???Age:64 Y???Sex:Female D ate:05/03/2024 [address] [place] Pcp:Danisha Ohara Subjective: * Chief Complaints: * [...] pickleball, lauren chi. ?Marital status: . 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 * Medications:?TakinghydroCHLO ROthiazide 25 MG Tablet 1 [...] margins with sterile 15 surgical blade - 08191 , silver nitrate chemocautery applied.? * Procedure Codes:?14936 Wart Destruction, 1-14, Modifiers: XS * Preventive [...] Rubio DPM Date:?2023 Generated for Jaleesa oshea/Bambi/Pancho on:?12/17/2024 09:02 AM EDT History and Physical Notes * [...]
== END 2024-12-17 09:42 | disposition home or self-care (01) ==
LOC: HO.HMCH 08:46
DX: I10 Essential (primary) hypertension (principal); H61.23 Impacted cerumen, bilateral; E78.00 Pure hypercholesterolemia, unspecified

== ENCOUNTER → 2024-12-17 08:45 | Outpatient (BNVA) | payer OTHER, SELFPAY | DX: I10 Essential (primary) hypertension (principal); H61.23 Impacted cerumen, bilateral; E78.00 Pure hypercholesterolemia, unspecified; Z79.899 Other long term (current) drug therapy | CPT/HCPCS: 69210 ==

== ENCOUNTER 2025-01-13 08:52 | Outpatient (AMB) | payer OTHER, SELFPAY ==
[2025-01-13 08:54] VITALS: BP 120/80; BMI 23.6
--- NOTE | 2025-01-13 08:54 | A.OFFVIS_ITS ---
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 She is doing well with group work program director concerns: intimacy is uncomfortable, feels tight, uses lubricant is helpful. Denies any vaginal dryness or irritation. STI testing offered; she declined. Attempting to eat a healthy diet with calcium and vitamin D and stays active with exercise-walking. Last pap smear; approx. 5yrs. ago, negative. Last mammogram; 2024. Colonoscopy is UTD. breast cancer. colon cancer. [facility] Medical History (Updated 01/13/25 @ 09:43 by Xi Morales CNM) Benign schwannoma Surgical History (Updated 01/17/25 @ 08:43 by JHOANA Devlin) History of ankle surgery S/P removal of left ovary Previous section Family History (Updated 01/17/25 @ 08:42 by JHOANA Devlin) Mother Breast cancer BRCA negative Maternal Grandmother Breast cancer Stroke Hypertension Father Heart disease Paternal Grandfather Liver cancer Maternal Grandfather Colon cancer Maternal Aunt Breast cancer Social History Housing: House Alcohol intake: current Alcohol intake frequency: a few times a week Alcohol type: wine Patient Tobacco Use Status: Never used Tobacco e-Cigarette/Vaping Use: Never Used Substance Use Type: Marijuana service: No Current occupational status: employed 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 Cognitive needs: No Hearing needs: No Vision needs: Yes Female Reproductive History Menstrual Menopause type: natural Total pregnancies: 5 Full term: 2 Number of Living Children: 2 Date of Mammogram: 10/29/24 Date of last Bone Density Screenin10/29/24 Review of Systems Const All systems reviewed & are unremarkable except as noted in HPI and below Reports as per HPI Eyes Reports no additional complaints ENT Reports no additional complaints Card Reports no additional complaints Resp Reports no additional complaints GI Reports as per HPI and Reports no additional complaints Reports as per HPI Musc Reports no additional complaints Skin/Breast Reports as per HPI Neuro Reports no additional complaints Psych Reports no additional complaints Endo Reports no additional complaints Willie/Lymph Reports no additional complaints Aller/Immun Reports no additional complaints Physical Exam Vital Signs: Last Vital Signs BP 120/80 01/13/25 08:54 BMI result Body Mass Index 23.6 Const General: cooperative, healthy appearing, no acute distress, well developed and alert Orientation/consciousness: patient oriented x3 HEENT Head: Yes normal to inspection Eyes General: appearance normal, both eyes and all related structures Neck Neck: Yes normal visual inspection Thyroid: Thyroid normal Chest Chest palpation & inspection: normal inspection of the chest and other (no puckering, dimpling, peau de orange, retraction, discharge, masses) Breast/axilla inspection: normal inspection of the breasts Breast/axilla palpation: normal palpation of the breasts Resp Effort & Inspection: normal respiratory effort GI Inspection: Yes normal to inspection Palpation (GI): Soft to palpation Rectal Exam - Female: deferred General: Yes bladder normal to palpation External Female Exam: normal external appearance and normal appearance of the urethra Speculum Exam - Vagina: normal appearance of the vagina, normal palpation, normal vaginal discharge and vagina atrophic Speculum Exam - Cervix: normal appearance of the cervix, normal palpation and Other cervical findings present (Atrophic changes, bled slightly with Pap) Bimanual exam- vagina & uterus: normal bimanual exam, normal palpation, uterine size normal, bladder normal to palpation, normal palpation and non-tender Bimanual Exam- Adnexa, other: no masses Skin General skin exam: no rashes or lesions noted Rashes: no rashes Neuro General: patient oriented x3 Cognition (Neuro): normal cognition Extrem General: Yes normal to inspection Psych Attitude: cooperative Thought process: Normal thought process present Assessment & Plan Assessment & Plan (1) Encounter for well woman exam with routine gynecological exam: Code(s): Z01.419 - Encounter for gynecological examination (general) (routine) without abnormal findings Category: Medical Plan Discussed: Current recommendations for pap smears per ASCCP guidelines. Pap obtained. Breast awareness, periodic self breast exams and yearly mammogram. Maintain a healthy lifestyle, well balanced diet including Calcium 1,200 mg and Vitamin D 600 IU daily, and routine exercise. Replens moisturizer and lubricants use. Role of estrogen topically if indicated, we will need a separate consult appointment. Consider BRCA testing if desires to send request in the portal for referral to be placed. Contact the office with any postmenopausal bleeding. Patient verbalizes understanding and agrees to the plan of care. She was given opportunity to ask questions and all questions were answered to the best of my ability. RTO in 1 year for annual group work program director exam. This note is constructed using voice recognition software. While every effort has been made to ensure accuracy, director university errors may have been included. Orders: Orders HPV High risk 01/13/25 Z01.419 - Encounter for gynecological examination (general) (routine) without abnormal findings Pap Smear 01/13/25 Z01.419 - Encounter for gynecological examination (general) (routine) without abnormal findings Coding Level of Care Code New Pt Prev Care 40-64y(82802) Diagnoses Encounter for well woman exam with routine gynecological exam Z01.419
--- OUTSIDE RECORDS SUMMARY | 2025-01-13 09:20 | XMS_ITS | Patient Health Record ---
[facility] Organization [facility] Address [address] [place] [address] Care Team Providers Care Product Specialist Name Role Phone Danisha Ohara Primary Care Provider Unavailabl e Black, Maricruz Unavailable [phone] Allergies Allergen (clinical drug ingredient) Drug/Non Drug [...] W/U Status Risk Notes Problem Plantar wart (08770454) Plantar wart (B07.0) Active confirmed Vital Signs Height 5ft 1in in 05/03/2024 Weight 123 lbs 05/03/2024 BMI 23.24 kg/m2 05/03/2024 Procedures Procedure Date Ordered Date Performed Result Body Sit e 58560-Szuy Destruction, 1-14 05/03/2024 N/A Encounters Encounter Location Date Provider Diagnosis [facility] [address] [place] [address] 05/03/2024 Maricruz Black Bursitis of intermetatarsal bursa of left foot M77.52 ; Plantar wart B07.0 ; Metatarsalgia, left foot M77.42 and Left foot pain M79.672 Assessments Encounter Date Diagnosis (ICD Code) Assessment Notes Treatment Notes Treatment Clinical Notes Section Notes 05/03/2024 Plantar wart (ICD-10 - B07.0) 05/03/2024 Bursitis of intermetatarsal bursa of left foot (ICD-10 - M77.52) 05/03/2024 Metatarsalgia, left foot (ICD-10 - M77.42) Response to treatment - Improvement 05/03/2024 Left foot pain (ICD-10 - M79.672) Plan Of Treatment Pending Test Test Name Order Date X ray : Foot, left 3V 11/17/2023 [id number]-Maoi Destruction, 1-14 05/03/2024 89315-Dmkd Destruction, 1-14 11/17/2023 Insurance Providers Payer Name Payer Address Payer Phone Subscriber Number Group Number Insured Name Patient Relationship to Insured Coverage Start Date Coverage End Date Aetna [address] [place] [address] [id number] Emerita Hairston Self - patient is the insured C[employer]a [address] [place] [address] [id number] Alex Salvador Other Medical (General) History Medical History History ICD Code High blood pressure Hypothyroidism covid-19 Anxiety Back,Hip,and Knee pain sinusitis thyroid Warts Mumps Chicken pox Surgical History Surgery Date(Month/Year) colonoscopy 05/29/2022 1986 loophorectomy due to growth- neg patholo gy 2011 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
== END 2025-01-13 10:08 | disposition home or self-care (01) ==
LOC: HO.HWS 08:52
PROVIDERS: Visit Provider Advanced Practice Midwife
DX: Z01.419 Encounter for gynecological examination (general) (routine) without abnormal findings (principal)
CPT/HCPCS: 99386; 99459

== ENCOUNTER 2025-01-13 08:52 | Outpatient (REF) | payer OTHER, SELFPAY ==
[2025-01-17 13:57] LABS: HPV Genotype 16 Negative (Negative); HPV Genotype 18 Negative (Negative); HPV High Risk Negative (Negative)
== END 2025-01-13 08:53 | disposition home or self-care (01) ==
LOC: HO.LNP 08:52
PROVIDERS: Visit Provider Advanced Practice Midwife
DX: Z01.419 Encounter for gynecological examination (general) (routine) without abnormal findings (principal)
CPT/HCPCS: 87626; 88175

== ENCOUNTER 2025-02-16 10:59 | Outpatient (AMB) | payer OTHER, SELFPAY ==
--- NOTE | 2025-02-16 11:01 | AM.OFFWIN_ITS ---
Intake Vital Signs 02/16/25 11:02 Height 5 ft 1 in Weight 124 lb 2 oz BMI 23.5 BP 132/76 Blood Pressure Location Lt brachial Position Sitting Pulse 88 Pulse Source Pulse Oximeter Temp 98.1 F Temp Source Oral Pulse Oximetry (%) 99 Oxygen Delivery Method Room Air Intake Visit Reasons: EP-vertigo, light headache, vision issue Patient Tobacco Use Status: Never used Tobacco Alto Singer Required: No Is last menstrual period known: No Post menopausal: Yes Patient : No Allergies prochlorperazine (From Compazine) Allergy (Intermediate, Verified 02/16/25 11:07) paralysis Do you need a note to return to daycare/school/sports/work: No HPI HPI Comments History of Present Illness Details History - The patient is a 64-year-old female pr esenting with vertigo and light flickering in vision. - Vertigo began a week ago, with symptom s worsening when lying down and turning to the left, described as the room spinning. - Light flickering in vision was noted w kamilahe working on the computer, with no accompanying headaches, nausea, vomiting or sweating. - Earwax was recently removed, with narr ow ear canals observed by her PCP. Physical Exam General: Cooperative, healthy appearing, comfortable, no acute distress and well developed Orientation: Patient oriented x3 Limitations: No limitations Head: Normal to inspection Ears: External ears normal bilaterally, TM's with impacted cerumen bilaterally Face and sinus: Normal facial exam Neck: Normal visual inspection and Yes full ROM Respiratory: Normal respiratory effort and able to speak in complete sentences. Skin: No rashes or lesions noted Neuro: Patient oriented x3 Extremities: normal to inspection [facility] Medical History Benign schwannoma Surgical History History of ankle surgery S/P removal of left ovary Previous section Family History Mother Breast cancer BRCA negative Maternal Grandmother Breast cancer Stroke Hypertension Father Heart disease Paternal Grandfather Liver cancer Maternal Grandfather Colon cancer Maternal Aunt Breast cancer Social History Housing: House Alcohol intake: current Alcohol intake frequency: a few times a week Alcohol type: wine Patient Tobacco Use Status: Never used Tobacco e-Cigarette/Vaping Use: Never Used Substance Use Type: Marijuana Patient : No service: No Current occupational status: employed Current occupation: [employer] Ste[employer] Cognitive needs: No Hearing needs: No Vision needs: Yes Review of Systems Const All systems reviewed & are unremarkable except as noted in HPI and below Physical Exam Vital Signs: Last Vital Signs Temp 98.1 F 02/16/25 11:02 Pulse 88 02/16/25 11:02 BP 132/76 02/16/25 11:02 Pulse Ox 99 02/16/25 11:02 Oxygen Delivery Method Room Air 02/16/25 11:02 BMI result Body Mass Index 23.5 Office Procedures Cerumen Removal From which ear canal was the cerumen removed: bilateral Removal: irrigation Notes: patient tolerated procedure well, no complications and ear canal clear 28550-Dps Irrigation/Lavage Assessment & Plan Assessment & Plan (1) Bilateral impacted cerumen: Code(s): H61.23 - Impacted cerumen, bilateral Plan: Ear canals clear after irrigation and pateint feeling better. Gave handout on Colleen maneuver in case her dizziness comes back in the future however this was likely secondary to cerumen impaction. Orders: Orders AMB Cerumen Removal Today H61.23 - Impacted cerumen, bilateral Coding Level of Care Code Est Pt Level 3 (56465) Diagnoses Bilateral impacted cerumen H61.23 CPT Codes Office Procedure - CPT: 70338-Fti Irrigation/Lavage ([id number])
[2025-02-16 11:02] VITALS: BP 132/76; PULSE 88; TEMP 36.7; O2SAT 99; BMI 23.5
--- OUTSIDE RECORDS SUMMARY | 2025-02-16 12:00 | XMS_ITS | Patient Health Record ---
Author Organization [facility] Address [address] [facility] [place] [address] Care Team Providers Care Program Schedule Clerk Name Role Phone Danisha Ohara Primary Care Provider Unavailabl e Black, Maricruz Unavailable [phone] Allergies Allergen (clinical drug ingredient) Drug/Non Drug [...] W/U Status Risk Notes Problem Plantar wart (B07.0) Active confirmed Vital Signs Height 5ft 1in in 05/03/2024 Weight 123 lbs 05/03/2024 BMI 23.24 kg/m2 05/03/2024 Procedures Procedure Date Ordered Date Performed Result Body Sit e 07389-Bdiz Destruction, 1-14 05/03/2024 N/A Encounters Encounter Location Date Provider Diagnosis [facility] [place] [address] [place] [address] 05/03/2024 Maricruz Black Bursitis of intermetatarsal bursa [...] X ray : Foot, left 3V 11/17/2023 [id number] Destruction, 1-14 05/03/2024 89028-Ttzj Destruction, 1-14 11/17/2023 Insurance Providers Payer Name Payer Address Payer Phone Subscriber Number Group Number Insured Name Patient Relationship to Insured Coverage Start Date Coverage End Date Aetna [address] [place] [address] [id number] Emerita Hairston Self - patient is the insured C[employer] [address] [place] [address] [id number] Alex Salvador Other Medical (General) History Medical History History ICD Code High blood pressure Hypothyroidism covid-19 Anxiety Back,Hip,and Knee pain sinusitis thyroid Warts Mumps Chicken pox Surgical History Surgery Date(Month/Year) colonoscopy 05/29/2022 1986 loophorectomy due to growth- neg patholo gy 2011 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
--- OUTSIDE RECORDS SUMMARY | 2025-02-16 12:00 | XMS_ITS | Clinical Summary ---
Author Organization [facility] Address [address] [place] [address] Phone Care Team Providers Care Navy Senior Officer Name Role Phone Brittani Cobian MD Primary Care Provider [phone] Allergies Active Allergy Reactions Criticality Noted Date [...] Years (1 of 2 - PCV) 1979 Cervical Cancer Screening: Pap Smear 1981 DTaP,Tdap,and Td Vaccines (2 - Td or Tdap) 05/05/2023 05/05/2013 COVID-19 Vaccine ( season) 2024 04/16/2022, 12/08/2021, 06/07/2021, Additional history exists Cholesterol Screening (Lipid Panel) 06/22/2024 12/01/2018 Colorectal Cancer Screening: Colonoscopy 06/22/2024 HIV Screening 06/22/2024 Hypertension/CHF/CAD Annual BMP Blood Test 06/22/2024 04/04/2021, 11/08/2020, 08/24/2019, Additional history exists Social Influencers of Health Screening 06/22/2024 Depression Screening 07/28/2024 Influenza Vaccine (#1) 2025 2, 05/31/2021, 05/11/2020, Additional history exists Breast Cancer [...] patient's age to complete this topic Insurance [facility]ustermario al[facility]to [place] [id number] CIGNA AETNA Care Teams [employer] Senior Officer Relationship Specialty Start Date End Date Brittani Cobian MD [address] [place] [address] [place] [id number] PCP - General Family Medicine 06/22/24
--- OUTSIDE RECORDS SUMMARY | 2025-02-16 12:00 | XMS_ITS | Encounter Summary ---
Author Organization [facility] Address [address] [place] [address] Phone Care Team Providers Care Bakery Demonstrator Name Role Phone Jessica Sena ARABIC TRANSLATOR Unavailable [phone] Chente Turner MD Unavailable [phone] Fer Jaimes MD Unavailable Brittani Cobian MD Primary Care Provider + Encounter Details Date Type Department Care Team (Late st Contact Info) Description 05/29/2023 Procedure Pass [facility] - [address] [place] [address] Social History Tobacco Use Types Packs/Day Years Used Date Smoking Tobacco: Former Cigarettes Smokeless Tobacco: Never Comments:social smoking as t eenager Alcohol Use Standard Drinks/Week Comments Yes 6 (1 standard drink = 0.6 oz pur e alcohol) Child or Family Care Answer Date Record ed Do you have problems with on e of the following making it difficult for you to work, study, or receive health care? No 10/27/2020 Education Answer Date Recorded Are you interested in more education? Not on mesha e 11/22/2022 Are you concerned about learning? Not on file 11/22/2022 No 11/22/2022 No 11/22/2022 Food Answer Date Recorded Within the past 6 months we worried whether our food would run out before we got money to buy more. Never True 10/27/2020 Within the past 6 months the food we bought just didn't last and we didn't have enough money to get more. Never True Paying for Meds Answer Date Recorded Do you have trouble paying for medicines? No 10/27/2020 Paying Utility Bills Answer Date Record ed Do you have trouble paying your heating or elect ricity bill? No 10/27/2020 Transportation Answer Date Recorded Has the lack of transportati on kept you from medical appointments or from getting medications? No 10/27/2020 Digital Access Answer Date Recorded No 12/21/2022 No 12/21/2022 Reliable internet access at home? Not on file 12/21/2022 Device with a working camera? 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 file Not on file Not on file documented as of this encounter Plan of Treatment Not on file documented as of this encounter Visit Diagnoses Not on filedocumented in this encounter Additional Health Concerns Assessment Noted Time PHQ-2 Depression Total Score: 0 06/08/20 20 3:05 PM EST documented as of this encounter Care Teams Bakery Demonstrator Relationship Specialty Start Date End Date Brittani Cobian MD [address] [place] [address] [email or web address] PCP - General Family Medicine 05/31/21 Jessica Sena CNP [address] [place] [address], [address] [place] [address] [email or web address] Historical LMR Provider 05/12/17 Chente Turner MD [address] [place] [address], [address] [place] [address] [email or web address] Historical LMR Provider 05/12/17 Fer Jaimes MD [address] [place] [address] [address] [place] [phone] [email or web address] Historical LMR Provider 05/12/17 documented as of this encounter Additional Source Comments The information contained in this document represents components of the legal health record. It is not the complete legal health record.[facility]
== END 2025-02-16 12:00 | disposition home or self-care (01) ==
PROVIDERS: Visit Provider Physician Assistant
DX: H61.23 Impacted cerumen, bilateral (principal)

== ENCOUNTER → 2025-02-16 10:59 | Outpatient (BNVA) | payer OTHER, SELFPAY | PROVIDERS: Visit Provider Physician Assistant | DX: H61.23 Impacted cerumen, bilateral (principal); R42 Dizziness and giddiness | CPT/HCPCS: 69209 ==

== ENCOUNTER 2025-03-22 09:14 | Outpatient (AMB) | payer OTHER, SELFPAY ==
--- OUTSIDE RECORDS SUMMARY | 2024-04-21 10:45 | XMS_ITS ---
Author Organization [facility] Address [address] [place] [address] Care Team Providers Care Hearing Screen Coordinator Name Role Phone Danisha Ohara Primary Care Provider Maricruz Pettit [phone] VALLES Encounters Encounter Location Date Provider Diagnosis [address] [address] 04/21/2024 Maricruz Rubio Plan Of Treatment No Information Progress Notes * Emerita HAIRSTON SDOB:[birth year] (65 yo F)Acc No.[id number]:04/21/2024 Progress Note Patient: Emerita RAMIREZ Provider: Aarti Rubio DPM :1960 A ge:64 Y S ex:Female Date:04/21/2024 Address:[address] [place] Pcp:Danisha Ohara Subjective: * Chief Complaints: * [...] Rubio DPM Date: 0 04/21/2024 Generated for Printi dorie/Faconstance/eTransmitting on: 03/22/2025 09:38 AM EDT
--- OUTSIDE RECORDS SUMMARY | 2024-06-04 10:00 | XMS_ITS ---
Author Organization [facility] Address [address] [facility] [place] [address] Care Team Providers Care Belly Packer Name Role Phone Danisha Ohara Primary Care Provider Maricruz Pettit [phone] Encounters Encounter Location Date Provider Diagnosis [address] [address] 06/04/2024 Maricruz Rubio Plan Of Treatment No Information Progress Notes * Emerita HAIRSTON SDOB:[birth year] (65 yo F)Acc No.[id number]:06/04/2024 Progress Note Patient: Emerita RAMIREZ Provider: Aarti Rubio DPM :1960 A ge:64 Y S ex:Female Date:06/04/2024 Address:[address] [place] Pcp:Danisha Ohara Subjective: * Chief Complaints: * * Medical History: Objective: * Vitals: Assessment: Plan: * Treatment: * Images: * The named appointment provid er may or may not be the originator of this progress note, and it is not deemed complete until electronically signed by the appointment provider. Sign off status: Pending * Provider: Aarti Rubio DPM Date: 08/04/2023 Generated for Printi ng/Faxing/eTransmitting on: 0 03/22/2025 09:39 AM EDT
--- OUTSIDE RECORDS SUMMARY | 2025-03-22 09:37 | XMS_ITS | Encounter Summary ---
Author Organization [facility] Address [address] [place] [address] Phone Care Team Providers Care Multiskill Operator Name Role Phone Jessica Sena ROLLER MILL OPERATOR Unavailable [phone] Chente Turner MD Unavailable [phone] Fer Jaimes MD Unavailable [phone] Brittani Cobian MD Primary Care Provider + Encounter Details Date Type Department Care Team (Late st Contact Info) Description 05/29/2022 Procedure Pass [facility] Admitting Dept Virtual Department [address] [place] [address] Social History Tobacco Use Types Packs/Day Years [...] Answer Date Recorded Are you interested in help w ith more adult education (for example, completing high school, GED, job training, learning the Yoruba language, technical skills, or developing parenting skills)? No 10/27/2020 Are you concerned about learning? Not on file 10/27/2020 Not on file 10/27/2020 Not on file 10/27/2020 Food Answer Date Recorded Within the past [...] appointments or from getting medications? 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 Not on file Not on file documented as of this encounter Plan of Treatment Not on file documented as of this encounter Visit Diagnoses Not on filedocumented in this encounter Additional Health Concerns Assessment Noted Time PHQ-2 Depression Total Score: 0 06/08/20 20 3:05 PM EST documented as of this encounter Care Teams Multiskill Operator Relationship Specialty Start Date End Date Brittani Cobian MD [address] [place] [address] PCP - General Family Medicine 05/31/21 Jessica Sena CNP [address] [place] [address], [address] [place] [address] Historical LMR Provider 05/12/17 Chente Turner MD [address] [place] [address], [address] [place] [address] Historical LMR Provider 05/12/17 Fer Jaimes MD [address] [place] [address] [address] [place] [id number] [email or web address] Historical LMR Provider 05/12/17 documented as of this encounter Additional Source Comments The information contained in this document represents components of the legal health record. It is not the complete legal health record.[facility]
--- OUTSIDE RECORDS SUMMARY | 2025-03-22 09:37 | XMS_ITS | Encounter Summary ---
Author Organization [facility] Address [address] [facility] [place] [address] Phone Care Team Providers Care Company Controller Name Role Phone Jessica Sena [facility] Unavailable [phone] Chente Turner MD Unavailable Fer Jaimes MD Unavailable Brittani Cobian MD Primary Care Provider + Encounter Details Date Type Department Care Team (Late st Contact Info) Description 05/29/2023 Transcribe Orders Virtual Department [address] [place] [address] Brittani Cobian MD [address] [place] [address] [email or web address] Breast screening (Primary Dx) Social History Tobacco Use Types Packs/Day Years [...] 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 Annual screening is recommended. BI-RADS CATEGORY: 1 - Negative. DENSITY: The breast tissue is heterogeneously dense, which could obscure a lesion on mammography. Narrative 07/08/2023 8:31 AM EST Bilateral mammography is performed in conjunction with computed aided detection. 3-D tomography along with 2-D C view imaging was also performed. Comparison made to previous dated as far back as 04/01/2017 and as recent as 06/17/2022. No suspicious masses, areas of architectural distortion or suspicious microcalcifications. Procedure Note Lizandro Loja MD - 07/08/2023 Bilateral mammography is performed in conjunction with computed aideddetection. 3-D tomography along with 2-D C view imaging was alsoperformed. Comparison made to previous dated as far back as 04/01/2017 andas recent as 06/17/2022. No suspicious masses, areas of architectural distortion or suspiciousmicrocalcifications. IMPRESSION: No mammographic signs of malignancy. Annual screening is recommended. BI-RADS CATEGORY: 1 - Negative. DENSITY: The breast tissue is heterogeneously dense, which could obscurea lesion on mammography. us Brittani Cobian MD IMG MG EXAMS Final Re sult documented in this encounter Visit Diagnoses Diagnosis Breast screening- Primary Breast screening, unspecified Breast screening Breast screening, unspecified documented in this encounter Additional Health Concerns Assessment Noted Time PHQ-2 Depression Total Score: 0 06/08/20 20 3:05 PM EST documented as of this encounter Care Teams Company Controller Relationship Specialty Start Date End Date Brittani Cobian MD [address] [place] [address] PCP - General Family Medicine 05/31/21 Jessica Sena CNP [address] [place] [address], 2nd [place] [address] Historical LMR Provider 05/12/17 Chente Turner MD [address] [place] [address], [address] [place] [address] Historical LMR Provider 05/12/17 Fer Jaimes MD [address] [place] [address] [address] [place] [id number] [email or web address] Historical LMR Provider 05/12/17 documented as of this encounter Additional Source Comments The information contained in this document represents components of the legal health record. It is not the complete legal health record.[facility]
--- OUTSIDE RECORDS SUMMARY | 2025-03-22 09:37 | XMS_ITS | Patient Health Record ---
Author Organization [facility] Address [address] [facility] [place] [address] Care Team Providers Care Director Treasurer Name Role Phone Danisha Ohara Primary Care Provider Unavailabl e Black, Maricruz Unavailable [phone] Allergies Allergen (clinical drug ingredient) Drug/Non Drug [...] W/U Status Risk Notes Problem Plantar wart (66128846) Plantar wart (B07.0) Active confirmed Vital Signs Height 5ft 1in in 05/03/2024 Weight 123 lbs 05/03/2024 BMI 23.24 kg/m2 05/03/2024 Procedures Procedure Date Ordered Date Performed Result Body Sit e 76284-Btom Destruction, 1-14 05/03/2024 N/A Encounters Encounter Location Date Provider Diagnosis [facility] [address] [place] [address] 05/03/2024 Maricruz Black Bursitis of intermetatarsal bursa [...] X ray : Foot, left 3V 11/17/2023 37949-Izmq Destruction, 1-14 05/03/2024 [id number]-[id number] Destruction, 1-14 11/17/2023 Insurance Providers Payer Name Payer Address Payer Phone Subscriber Number Group Number Insured Name Patient Relationship to Insured Coverage Start Date Coverage End Date [employer] [address] [place] [address] [id number] Emerita Hairston Self - patient is the insured [employer] [address] SHAREE Bertrand [id number] Alex Salvador Other Medical (General) History Medical History History ICD Code High blood pressure Hypothyroidism covid-19 Anxiety Back,Hip,and Knee pain sinusitis thyroid Warts Mumps Chicken pox Surgical History Surgery Date(Month/Year) colonoscopy 05/29/2022 1986 loophorectomy due to growth- neg patholo gy 2011 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
--- OUTSIDE RECORDS SUMMARY | 2025-03-22 09:37 | XMS_ITS | Encounter Summary ---
Author Organization [facility] Address [address] [place] [address] Phone Care Team Providers Care Hazmat Cdl A Driver Name Role Phone Jessica Sena [employer] Unavailable [phone] Chente Turner MD Unavailable [phone] Fer Jaimes MD Unavailable [phone] Brittani Cobian MD Primary Care Provider + Encounter Details Date Type Department Care Team (Late st Contact Info) Description 04/10/2022 Procedure Pass [facility], [address] [address] Social History Tobacco Use Types Packs/Day Years [...] high school, GED, job training, learning the Welsh language, technical skills, or developing parenting skills)? 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 Not on file Not on file documented as of this encounter Plan of Treatment Not on file documented as of this encounter Visit Diagnoses Not on filedocumented in this encounter Additional Health Concerns Assessment Noted Time PHQ-2 Depression Total Score: 0 06/08/20 20 3:05 PM EST documented as of this encounter Care Teams Hazmat Cdl A Driver Relationship Specialty Start Date End Date Brittani Cobian MD [address] [place] [address] PCP - General Family Medicine 05/31/21 Jessica Sena CNP [address] [facility], 2nd [place] [address] Historical LMR Provider 05/12/17 Chente Turner MD [address] [place] [address], [address] [place] [address] [email or web address] Historical LMR Provider 05/12/17 Fer Jaimes MD [address] [place] [address] [address] [place] [id number] [email or web address] Historical LMR Provider 05/12/17 documented as of this encounter Additional Source Comments The information contained in this document represents components of the legal health record. It is not the complete legal health record.[facility]
--- OUTSIDE RECORDS SUMMARY | 2025-03-22 09:37 | XMS_ITS | Encounter Summary ---
Author Organization [facility] Address [address] [place] [address] Phone Care Team Providers Care Car Retarder Operator Name Role Phone Jessica Senameagan MONTESINOS Unavailable [phone] Chente Turner MD Unavailable [phone] Fer Jaimes MD Unavailable Brittani Cobian MD Primary Care Provider + Reason for Referral * Outpatient Procedure - Closed Specialty Diagnoses / Procedures Referred By Contkaren t Referred To Contact Diagnoses Abnormal electrocardiogram Procedures Stress Test Exercise Kaleb Salmon PA [address] [place] [address] Phone: tel: fax: Referral ID Status Reason Start Date Expiration Date Visits Re quested Visits Authorized [id number] Closed 01/07/2024 01/06/2025 1 1 Encounter Details Date Type Department Care Team (Latest Contact Info) Description 12/24/2023 Transcribe Orders Virtual Department [address] [place] [address] Kaleb Salmon PA [address] [place] [address] Abnormal electrocardiogram (Primary Dx) Social History Tobacco Use Types [...] 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 Not on file Not on file documented as of this encounter Plan of Treatment Scheduled Orders Name Type Priority Associated Diagnoses Orde r Schedule Stress Test Exercise Cardiac Stress Routine Abnormal electrocardiogram Expected: 12/23/2024, Expires: 06/25/2025 documented as of this encounter Visit Diagnoses Diagnosis Abnormal electrocardiogram- Primary Nonspecific abnormal electrocardiogram (ECG) (EKG) documented in this encounter Additional Health Concerns Assessment Noted Time PHQ-2 Depression Total Score: 0 06/08/20 20 3:05 PM EST documented as of this encounter Care Teams Car Retarder Operator Relationship Specialty Start Date End Date Brittani Cobian MD [address] [place] [address] PCP - General Family Medicine 05/31/21 Jessica Sena, TIRE REGROOVING MACHINE OPERATOR [address] [facility], 2nd [place] [address] Historical LMR Provider 05/12/17 Chente Turner MD [address] [place] [address], [address] [place] [address] Historical LMR Provider 05/12/17 Fer Jaimes MD [address] [place] [address] [address] [place] [address] [email or web address] Historical LMR Provider 05/12/17 documented as of this encounter Additional Source Comments The information contained in this document represents components of the legal health record. It is not the complete legal health record.[facility]
--- OUTSIDE RECORDS SUMMARY | 2025-03-22 09:37 | XMS_ITS | Encounter Summary ---
Author Organization [facility] Address [address] [place] [address] Phone Care Team Providers Care Coil Placer Name Role Phone Jessica Senameagan MONTESINOS Unavailable [phone] Chente Turner MD Unavailable [phone] Fer Jaimes MD Unavailable Brittani Cobian MD Primary Care Provider + Reason for Referral * Outpatient Procedure - Closed Specialty Diagnoses / Procedures Referred By Lukas t Referred To Contact Radiology Diagnoses Abnormal electrocardiogram Procedures Adult Echo TTE Kaleb Salmon PA [address] [place] Phone: tel: fax: Referral ID Status Reason Start Date Expiration Date Visits Re quested Visits Authorized [id number] Closed 12/24/2023 12/23/2024 1 1 Encounter Details Date Type Department Care Team (Latest Contact Info) Description 12/24/2023 Transcribe Orders Virtual Department [address] [place] [address] Kaleb Salmon PA [address] [place] [address] Abnormal electrocardiogram (Primary Dx) Social History Tobacco [...] 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 file Not on file Not on file documented as of this encounter Plan of Treatment Not on file documented as of this encounter Results * TTE COMPREHENSIVE (12/29/2023 10:27 AM EDT) Body Surface Area 1.53 m2 Height 155 cm Weight 55 kg Systolic BP 154 mmHg Diastolic BP 78 mmHg Interventricular Septum Thickness 10 6 - 11 mm Left Ventricle Internal Diameter End Diastole 41 37 - 52 mm Left Ventricle Internal Diameter End Systole 20 <35 mm Left Ventricular Outflow Tract Diameter 20.0 mm LVOT VTI REST 182.0 mm Left Ventricular Outflow Tract Velocity 0.8 m/s Left Ventricular Outflow Tract Gradient at Rest 2 mmHg Left Ventricular Posterior Wall Thickness 10 6 - 11 mm Ejection Fraction 63 50 - 75 Percent Left Atrium Dimension Anterior-Posterior 29 15 - 40 mm Aortic Valve Mean Gradient 3 mmHg Aortic Valve Time Velocity Integral 243.0 mm Aortic Valve Peak Velocity 112.0 cm/s Aortic Valve Peak Gradient 5 mmHg Aortic Sinus Diameter 26 <40 mm Ascending Aorta Diameter 29 <36 mm Inferior Vena Cava Diameter 14 <21 mm Mitral Valve Deceleration Time 212 ms Mitral Valve A Wave Speed 62.1 cm/s Mitral Valve E Wave Speed 60.8 cm/s Right Ventricle Basal Diameter 21 25 - 41 mm Raw LV EF% 76 % Relative Wall Thickness 0.49 0.22 - 0.42 Aortic Valve Prosthetic Peak Gradient 5 mmHg Aortic Valve Prosthetic Mean Gradient 3 mmHg Aortic Valve Sinus Index by BSA 17 mm/m2 Aorta Sinus Index by Height 1.68 cm/m Aorta Sinus CSA index by Height 3.42 cm2/m Ascending Aorta Index 19 mm/m2 Asc Aorta CSA Index by Height 4.26 cm2/m Ascending Aorta Index 19 mm Aortic Sinus Index 17 mm Ascending Aorta Diameter 19 mm Aortic Valve Sinus Index 1 17 19 - 27 mm AO ASC DIAM BSA INDEX 18.95 Left Atrial Volume Index 22 16 - 34 mL/m2 Left Ventricle E Wave Speed 61.0 cm/s Left Ventricle Ea Lateral Wave Speed 12.0 cm/s MV E/E' Tissue Velocity Lateral 5.08 Left Ventricle A Wave Speed 62.0 cm/s MV E/A ratio 1.0 Left Ventricle Ea Septal Wave Speed 6.7 cm/s MV E/e' septal 9.10 Left Ventricle E/e' Average 7.1 Left Atrial Volume 34 mL Left Atrial Volume Index by Height 22 mL/m Echo E/Ea 9.10 Anatomical Region Laterality Modality Heart Ultrasound Narrative 12/29/2023 1:53 PM EDT Normal LV size and wall thickness. LV systolic function is normal with EF 60 to 65%. There are no clear wall motion abnormalities. Normal diastolic function. Normal RV size and function. There is no hemodynamically significant valvular disease. No prior study for comparison. Left Ventricle The left ventricle is normal in size. There is normal wall thickness. There is normal left ventricular systolic function. The LV ejection fraction is 63% (calculated via biplane measurement). There are no wall motion abnormalities. LV diastolic function appears within normal limits for age. The E/A ratio is 1.0. The e' septal wave velocity is 6.7 cm/s. The e' lateral wave velocity is 12.0 cm/s. The average E/e' ratio is 7.1. Right Ventricle The right ventricle is normal in size. Left Atrium The left atrium is normal in size. The left atrial anterior-posterior dimension is 29 mm. The left atrial volume index by BSA is 22 mL/m2. Right Atrium The right atrium is normal in size. The IVC is normal in size with normal inspiratory collapse. Mitral Valve The mitral valve appears normal. There is no mitral stenosis. There is no mitral regurgitation. Tricuspid Valve The tricuspid valve appears normal. There is no tricuspid stenosis. There is no tricuspid regurgitation. RV systolic pressure could not be estimated due to insufficient TR Doppler envelope. Aortic Valve The aortic valve is tricuspid. There is no aortic stenosis. There is trace aortic regurgitation. The visualized portions of the thoracic aorta appear normal in size. Pulmonic Valve The pulmonic valve appears normal. There is no pulmonic stenosis. There is no pulmonic regurgitation. Pericardium There is no pericardial effusion. General Findings The image quality was good (2). Technique(s) used in the evaluation: Color flow Doppler and Spectral Doppler. The predominant rhythm during the study was sinus. Comparison Findings There are no prior studies for comparison. IAS/IVS The interatrial septum appears normal. Kaleb WALKER CV ECHO ORDERABLES Final Resul t documented in this encounter Visit Diagnoses Diagnosis Abnormal electrocardiogram- Primary Nonspecific abnormal electrocardiogram (ECG) (EKG) Abnormal electrocardiogram Nonspecific abnormal electrocardiogram (ECG) (EKG) documented in this encounter Additional Health Concerns Assessment Noted Time PHQ-2 Depression Total Score: 0 06/08/20 20 3:05 PM EST documented as of this encounter Care Teams Coil Placer Relationship Specialty Start Date End Date Brittani Cobian MD [address] [place], [place] [id number] [email or web address] PCP - General Family Medicine 05/31/21 Jessica Sena CNP [address] [facility], 2nd [place] [address] [email or web address] Historical LMR Provider 05/12/17 Chente Turner MD [address] [place] [address] [address] [place] [address] [email or web address] Historical LMR Provider 05/12/17 Fer Jaimes MD [address] [place] [address] [address] [place] [address] [email or web address] Historical LMR Provider 05/12/17 documented as of this encounter Additional Source Comments The information contained in this document represents components of the legal health record. It is not the complete legal health record.[facility]
--- OUTSIDE RECORDS SUMMARY | 2025-03-22 09:37 | XMS_ITS | Encounter Summary ---
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 Not on file Not on file documented as of this encounter Plan of Treatment Not on file documented as of this encounter Visit Diagnoses Not on filedocumented in this encounter Additional Health Concerns Assessment Noted Time PHQ-2 Depression Total Score: 0 06/08/20 20 3:05 PM EST documented as of this encounter Care Teams Fisheries Technical Officer Relationship Specialty Start Date End Date Brittani Cobian MD [address] [place] [address] PCP - General Family Medicine 05/31/21 Jessica Sena CNP [address] [facility], 2nd [place] [address] Historical LMR Provider 05/12/17 Chente Turner MD [address] [place] [address], [address] [place] [address] [email or web address] Historical LMR Provider 05/12/17 Fer Jaimes MD [address] [place] [address] [address] [place] [phone] [email or web address][email or web address] Historical LMR Provider 05/12/17 documented as of this encounter Additional Source Comments The information contained in this document represents components of the legal health record. It is not the complete legal health record.[facility]
--- OUTSIDE RECORDS SUMMARY | 2025-03-22 09:38 | XMS_ITS | Clinical Summary ---
Author Organization [facility] Address [address] [place] [phone] Phone Care Team Providers Care Shelf Filler Name Role Phone Jessica Sena [facility] Unavailable Chente Turner MD Unavailable Fer Jaimes MD Unavailable Brittani Camilo MD Primary Care Provider + Allergies Active Allergy Reactions Criticality Noted Date Comments Prochlorperazine Paralysis High 06/09/2017 Medications psyllium husk (METAMUCIL) 0.4 gram Cap Take by mouth. Active propranoloL (INDERAL) 10 MG immediate release tabletIndications :Tachycardia Take 1 tablet (10 mg total) by mouth 2 (two) times a day as needed. 60 tablet 3 0 Active therapeutic multivitamin tablet Take 1 tablet by mouth daily. Active hydroCHLOROthiazi de (HYDRODIURIL) 25 MG tabletIndications :Essential hypertension TAKE 1 TABLET BY MOUTH EVERY DAY 90 tablet 1 1 Active levothyroxine (SYNTHROID, LEVOTHROID) 112 MCG tabletIndications :Hypothyroidism, unspecified type TAKE 1 TABLET BY MOUTH EVERY MORNING 90 tablet 1 1 Active melatonin 1 mg Tab Take by mouth nightly at bedtime. 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 She was dehydrated, she was in the sun, her symptoms resoled after two electrolyte pills and fluids. I advised her to stay well hydrated. I will have her go for labs today. She will call if this happens again. She understands and agrees. Chronic right-sided low back pain without sciati ca 11/08/2020 Overview (11/08/2020): Since fall on stairs years ago Assessment & Plan (02/07/2021 9:23 PM EDT): Sx improved partially w PT. Ergonomics in kitchen discussed. Assessment & Plan (11/08/2020 5:46 PM EDT): Pain mostly in R SI, although left SI also TTP. Xrays ordered. Will do PT Impaired fasting glucose 06/08/2020 Overview (08/09/2020): Highest a1c 5.7 Assessment & Plan (02/07/2021 9:22 PM EDT): Normalized with weight loss Assessment & Plan (08/09/2020 7:27 PM EST): Encouraged to continue lifestyle changes. Assessment & Plan (06/08/2020 3:57 PM EST): Recheck A1c in July. Essential hypertension 05/11/2020 Overview (02/07/2021): With white coat component, home BPs wnl Assessment & Plan (04/04/2021 3:25 PM EDT): Emerita Hairston has hypertension and she is taking the above medication as directed without any side effects. her blood pressure is within normal limits and stable. she will follow up as directed. Assessment & Plan (02/07/2021 9:22 PM EDT): BPs in office always high, Home bps are very good. She has done amazingly with lifestyle changes. She has lost weight & feels good. Congratulated. FU 6 mos Assessment & Plan (11/08/2020 5:45 PM EDT): Continue HCTZ. Congratulated on weight loss. FU 3 mos Assessment & Plan (08/09/2020 7:24 PM EST): Discussed of option of changing to lisinopril since she is bothered by diuresis. For now she opts to continue HCTZ She has higher reading in office both on her cuff & by my reading, and has some anxiety in office, so we discussed white coat component. Continue home monitoring, FU 3 mos Assessment & Plan (06/08/2020 3:57 PM EST): Lifestyle changes discussed. Natural hx of HTN discussed. Start HCTZ 25 mg. Possible ADRs discussed. Recommend home BP monitoring. FU 8 weeks Assessment & Plan (05/11/2020 3:05 PM EDT): FU 1 month for recheck Right ovarian cyst 08/25/2019 Overview (10/01/2019): Discovered during evaluation for pain and bowel issues. 3.3 cm mean diameter. Had leukocytosis and elevated CRP and US appearance was c/w hydrosalpinx; so she was treated with antibiotics with resolution of CRP/WBC and US appearance of lesion improved. Will repeat US in 3 months. Assessment & Plan (08/25/2019 12:55 PM EST): Will start with pelvic US to better characterize this lesion to determine if there any complex features. Lower abdominal pain 08/24/2019 Assessment & Plan (08/24/2019 1:26 PM EST): Lower abdominal pain & change in normal bowel habits. Will get Ct abd/ pelvic today. Will call her w results. If CT normal plan to have her stop dulcolax, Take miralax q am for next few days, take probiotic & metamucil. Ganglion 06/09/2017 Hypothyroid 06/09/2017 Anxiety 06/09/2017 Encounter for preoperative s creening laboratory testing for COVID-19 virus Resolved Problems Problem Noted Date Diagnosed Date Resolved Date Chronic pain of left knee 06/26/2017 Immunizations Immunization Administration Dates Next Due COVID-19 (Pre-05/19) Moderna Vaccine, mRNA, PF 11/17/2020,10/18/2020 Hepatitis A, Adult 11/30/2018,03/13/2016 Influenza Quadrivalent Prese rvative Free IM 05/11/2020,05/06/2018,06/09/2017,2015 Influenza Quadrivalent w/ Preservative IM 04/20/2015 Influenza trivalent preserva tive free intradermal 06/01/2014,05/05/2013,05/27/2012 Influenza, Unspecified Formulation 05/31/2010 Influenza, whole 05/27/2012 Tdap 05/05/2013 Family History Medical History Relation Comments Heart attack Father Breast cancer Maternal Aunt in her 40's Cancer Maternal Grandfather Breast cancer Maternal Grandmother Cancer Maternal Grandmother Hypertension Maternal Grandmother Breast cancer Mother Cancer Mother Liver cancer Paternal Grandfather Pulmonary embolism Paternal Grandmother Hypertension Sister 1 Relation Status Comments Father Maternal Aunt Maternal Grandfather Maternal Grandmother Mother Paternal Grandfather Paternal Grandmother Sister 1 Alive Sister 2 Alive Social History Tobacco Use Types Packs/Day Years Used Date Smoking Tobacco: Former Cigarettes Smokeless Tobacco: Never Tobacco Cessation:Counseling Given: Not Answered Comments:social smoking as teenager Alcohol Use Standard Drinks/Week Comments Yes 6 [...] 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 Not on file Not on file Last Filed Vital Signs Vital Sign Reading Time Taken Comments Blood Pressure 134/72 01/09/2024 10:48 AM EDT Pulse 70 05/29/2022 11:33 AM EDT Temperature 35.7 C (96.3 F) 05/29/2022 11:18 AM EDT Respiratory Rate 17 05/29/2022 11:33 AM EDT Oxygen Saturation 100% 05/29/2022 10:10 AM EDT Inhaled Oxygen Concentration - - Weight 54.9 kg (121 lb) 05/28/2022 10:29 AM EDT Height 154.9 cm (5' 1 ) 05/28/2022 10:29 AM EDT Body Mass Index 22.86 05/28/2022 10:29 AM EDT Plan of Treatment Health Maintenance Due Date Last Done Comments BLOOD PRESSURE 1960 SMOKING Hx and SMOKELESS TOBACCO SCREENING 1973 PNEUMOCOCCAL VACCINES (50+ years) (1 of 2 - PCV) 1979 ZOSTER VACCINES (1 of 2) 1979 COLOGUARD 2005 FIT TEST 2005 FOBT 2005 SIGMOIDOSCOPY 2005 VIRTUAL COLONOSCOPY 2005 DEPRESSION SCREENING 06/08/2021 06/08/2020 TSH LEVEL 08/02/2021 08/02/2020, 07/29, 12/01/2018, Additional history exists PAP SMEAR 08/29/2021 08/29/2016 POTASSIUM LEVEL 04/04/2022 04/04/2021, 01/25, 11/08/2020, Additional history exists Adult Td,Tdap Booster 05/05/2023 05/05/2013 LIPID PANEL 12/02/2023 12/01/2018 COVID-19 VACCINE ( season) 2024 06/07/2021, 11/17/2020, 10/18/2020 MAMMOGRAM 07/04/2024 07/04/2023, 05/29, 05/14/2021, Additional history exists COLONOSCOPY 05/29/2032 05/29/2022, 04/08/2011 COLORECTAL CANCER SCREENING 05/29/2032 RSV VACCINE (1 - 1-dose 75+ series) 2035 HEPATITIS A VACCINES Aged Out 11/30/2018, 03/13/20 16 No longer eligible based on patient's age to complete this topic HEPATITIS C SCREENING Completed 12/01/2018 HIV ONE-TIME SCREENING (18-65 YEARS) Completed 12/01/2018 HIB VACCINES Aged Out No longer eligi ble based on patient's age to complete this topic MENINGOCOCCAL VACCINES (ACWY) Aged Out No longer eligible based on patient's age to complete this topic MENINGOCOCCAL VACCINES (B) Aged Out N o longer eligible based on patient's age to complete this topic Medical Devices Not on file Procedures Procedure Name Priority Date/Time Associated Diagnosis Comments BI MAMMOGRAM SCREENING WITH TOMOSYNTHESIS WITH CAD (BILATERAL) Routine 07/04/2023 9:28 AM EST Breast screening ENDOSCOPY, COLON 05/29/2022 10:5 0 AM EDT COMPREHENSIVE METABOLIC PANEL Routine 04/04/2021 3:38 PM EDT Near syncope TSH Routine 08/02/2020 2:32 PM EST Acquired hypothyroidism LIPID PANEL Routine 12/01/2018 9:23 AM EDT Screening for condition HEPATITIS C ANTIBODY, QUALITATIVE Routine 12/01/2018 9:23 AM EDT Screening for condition HM PAP SMEAR FOR RESULT ENTRY ONLY Routine 08/29/2016 from Last 3 Months or Most Recently Relevant to Health Maintenance Results * BI MAMMOGRAM SCREENING WITH TOMOSYNTHESIS [...] could obscurea lesion on mammography. us Brittani Camilo MD IMG MG EXAMS Final Re sult * ENDOSCOPY, COLON (05/29/2022 10:50 AM EDT) Narrative Transcriptions Piero Ortega MD - 05/29/2022 10:50 AM EDT Patient Name: Emerita Hairston Attending MD:: PIERO ORTEGA MD, Procedure Date: 05/29/2022 10:50 AM Date of : 1960 Age: 62 Admit Type: Outpatient Gender: Female Room: [place] [address] Referring MD: BRITTANI CAMILO MD Exam Type: Colonoscopy Indications: Screening for colorectal malignant neoplasm Medications: Monitored Anesthesia Care Procedure: Informed consent was obtained from the patientafter discussion of the indications, limitations, alternatives, benefits, and risks of the procedure. Risks specifically discussed include but are not limited to medication reactions, missed lesions, bleeding, perforation, or the need for emergent surgery. Throughout the procedure, the patient's blood pressure, pulse, end-tidal CO2, and oxygensaturations were monitored continuously. The Olympus pediatric variable colonoscopePCF-[id number] #4 was introduced through the anus and advanced tothe cecum, identified by appendiceal orifice andileocecal valve. The colonoscopy was performed without difficulty. The patient tolerated the procedurewell. The quality of the bowel preparation was excellent. The quality of the bowel preparation was evaluated using the BBPS ([place] Bowel Preparation Scale)with scores of: Right Colon = 3, Transverse Colon = 3and Left Colon = 3 (entire mucosa seen well with no residual staining, small fragments of stool oropaque liquid). The total BBPS score equals 9. Anatomical landmarks were photographed. Complications: No immediate complications. Estimated blood loss: Minimal. Findings: The perianal and digital rectal examinations were normal. A 4 mm polyp was found in the ascending colon. The polyp was sessile. The polyp was removed with acold snare. Resection and retrieval were complete. Scattered small-mouthed diverticula were found inthe sigmoid colon. Internal hemorrhoids were found duringretroflexion. The hemorrhoids were mild. The exam was otherwise normal throughout theexamined colon. Impression: - One 4 mm polyp in the ascending colon, removedwith a cold snare. Resected and retrieved. - Mild diverticulosis in the sigmoid colon. - Internal hemorrhoids. Recommendation: - Discharge patient to home. - Await pathology results. PIERO ORTEGA MD, 05/29/2022 11:21:16 AM This report has been signed electronically. Number of Addenda: 0 Note Initiated On: 05/29/2022 10:50 AM Procedure Code(s): --- Professional --- 65250, Colonoscopy, flexible; with removal of tumor(s), polyp(s), or other lesion(s) by snare technique --- Technical --- 29854, Colonoscopy, flexible; with removal of tumor(s), polyp(s), or other lesion(s) by snare technique Diagnosis Code(s): --- Professional --- Z12.11, Encounter for screening for malignantneoplasm of colon K63.5, Polyp of colon K64.8, Other hemorrhoids K57.30, Diverticulosis of large intestine without perforation or abscess without bleeding --- Technical --- Z12.11, Encounter for screening for malignantneoplasm of colon K63.5, Polyp of colon K64.8, Other hemorrhoids K57.30, Diverticulosis of large intestine without perforation or abscess without bleeding CPT copyright 2020 [employer]. All rights reserved. The codes documented in this report are preliminary and upon solutions operator reviewmay be revised to meet current compliance requirements. Procedure Date: 05/29/2022 10:50:[address] [place] [address] us Brittani Camilo MD GI PROCEDURE ORDERABLES Final Result * (ABNORMAL) Comprehensive metabolic panel (04/04/2021 3:38 PM EDT) SODIUM 141 133 - 146 mmol/L [facility] POTASSIUM 3.3 3.3 - 5.1 mmol/L [facility] CHLORIDE 100 96 - 108 mmol/L [facility] CO2 29 21 - 35 mmol/L [facility] BUN 23(H) 6 - 19 mg/dL [facility] CREATININE 0.80 0.5 - 1.5 mg/dL [facility] GLUCOSE 103(H) 70 - 99 mg/dL [facility] ALBUMIN 4.4 3.9 - 4.8 g/dL [facility] TOTAL PROTEIN 7.3 6.5 - 8.0 g/dL [facility] CALCIUM 9.9 8.4 - 10.3 mg/dL [facility] ALKALINE PHOSPHATASE 58 39 - 117 U/L [facility] TOTAL BILIRUBIN 0.3 0.0 - 1.2 mg/dL [facility] AST 29 0 - 37 U/L [facility] ALT 28 0 - 40 U/L [facility] GLOBULIN 2.9 1 - 4.8 g/dL [facility] EGFR 80 >59 mL/min/1.7 3m2 [facility] Comment:Estimated glomerular filtration rate calculated using the CKD-EPI equation. ANION GAP 15 10 - 20 mmol/L [facility] Blood 04/04/2021 3:38 PM EDT 04/04/2021 3:39 PM EDT us Daniel Ramirez DO LAB BLOOD ORDERABLES Final Resul t [address] [address] * TSH (08/02/2020 2:32 PM EST) Pathologist [facility] TSH 0.40 0.27 - 4.20 uIU/mL [facility] Blood 08/02/2020 2:32 PM EST 08/02/2020 2:37 PM EST us Jessica Sena CNP LAB BLOOD ORDERABLES Final Result Performing Organization Address City/[facility]/ZIP Co de Phone Number [address] [address] * Hepatitis C antibody, qualitative (12/01/2018 9:23 AM EDT) Pathologist [facility] HCV Negative Negative [facility] Comment: This is a screening test and should be confirmed with molecular testing Blood 12/01/2018 9:23 AM EDT 12/01/2018 9:29 AM EDT us Fer Jaimes MD LAB BLOOD ORDERABLES Jackelyn l Result Performing Organization Address [facility]/ZIP Co de Phone Number [address] [address] * (ABNORMAL) Lipid panel (12/01/2018 9:23 AM EDT) [facility] HDL 76 mg/dL [facility] Comment: Interpretation <40 mg/dL: Low HDL cholesterol (major risk factor for CHD) Greater than or equal to 60 mg/dL: High HDL cholesterol ( negative risk factor for CHD) HDL - cholesterol is affected by a number of factors, e.g. smoking, excerise, hormones, sex and age. CHOLESTEROL 202 0 - 240 mg/dL [facility] TRIGLYCERIDES 99 30 - 160 mg/dL [facility] LDL 106 50 - 129 mg/dL [facility] Comment: LDL levels in terms of risk for coronary heart disease: <100 mg/dL: Optimal 100-129 mg/dL: Near or above optimal 130-159 mg/dL: Borderline high 160-189 mg/dL: High >190 mg/dL: Very High CARDIAC RISK RATIO 2.7(L) 3.3 - 4.4 C [facility] Blood 12/01/2018 9:23 AM EDT 12/01/2018 9:29 AM EDT Fer Jaimes MD LAB BLOOD ORDERABLES Jackelyn ochoa Result [facility] [address] [place] [address] * PAP SMEAR FOR RESULT ENTRY ONLY (08/29/2016) Pap smear 5yr us Historical Provider HEALTH MAINTENANCE Final Result from Last 3 Months or Most Recently Relevant to Health Maintenance Insurance CIGNA PPO [facility] Address: [facility] [id number] [place] [address] AETNA O POS EPO CIGNA PPO AETNA O POS EPO [facility] Address: [address] [place] [address] [place] [address] [place] [address] [place] [place] [address] PPO AETNA O POS EPO [facility] Address: [facility] [id number] [place] [address] [facility] [employer] PPO Member Subscriber Plan / Payer (Ef fective 2020-Present) Name:YovannyEmerita Relation to Subscriber:Self Name:Emerita Hairston Payer ID:[id number] ([facility]) Type:PPO Address: [address] [place] [place] [address] PPO Member Subscriber Plan / Payer (Ef fective 2020-Present) Name:Emerita Hairston Relation to Subscriber:Self Name:YovannyEmerita Payer ID:[id number] ([facility]) Type:PPO Address: [address] POS EPO [facility] AETNA HMO POS EPO Advance Directives For more information, please contact: [phone] (9AM - 5PM [facility], Friday-Friday) Documents on File Type Date Recorded Patient Dental Hygienist Mobile Coordinator Expl anation Healthcare Proxy 07/17/2021 2:40 PM Care Teams Shelf Filler Relationship Specialty Start Date End Date Brittani Camilo MD [address] [place] [address] PCP - General Family Medicine 05/31/21 Jessica Sena CNP [address] [place] [address], [address] [place] [address] Historical LMR Provider 05/12/17 Chente Turner MD [address] [place] [address], [address] [place] [address] Historical LMR Provider 05/12/17 Fer Jaimes MD [address] [place] [address] [address] [place] [address] [email or web address] Historical LMR Provider 05/12/17 Additional Source Comments The information contained in this document represents components of the legal health record. It is not the complete legal health record.[facility]
--- OUTSIDE RECORDS SUMMARY | 2025-03-22 09:38 | XMS_ITS | Encounter Summary ---
Author Organization [facility] Address [address] [place] [address] Phone Care Team Providers Care Supervisor Pig Machine Name Role Phone Diya Vogel CNM Unavailable Oneyda Low MEDICAL/SURGERY REGISTERED NURSE Unavailable Jessica Sena NEURO OPHTHALMOLOGIST Unavailable Diya Valles MEDICAL/SURGERY REGISTERED NURSE Unavailable [phone] Farrah Wyatt MD Unavailable Chente Truner MD Unavailable Lenard Smith MD Unavailable [phone] Carlos Andres MD Unavailable Eneida Tilley MD Unavailable [phone] Fer Jaimes MD Unavailable Vaughn Lehman MD Unavailable [phone] Brittani Cobian MD Primary Care Provider + Encounter Details Date Type Department Care Team (Late st Contact Info) Description 07/16/2021 Procedure Pass [place] Admitting Dept - Virtual Department [address] [place], [place] [id number] Social History Tobacco Use Types Packs/Day Years Used Date Smoking Tobacco: Former Cigarettes Smokeless Tobacco: Never Comments:social smoking as t eenager Alcohol Use Standard Drinks/Week Comments Yes 4 (1 standard drink = 0.6 oz pur [...] high school, GED, job training, learning the [place] language, technical skills, or developing parenting skills)? 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 Not on file Not on file documented as of this encounter Plan of Treatment Not on file documented as of this encounter Visit Diagnoses Not on filedocumented in this encounter Additional Health Concerns Assessment Noted Time PHQ-2 Depression Total Score: 0 06/08/20 20 3:05 PM EST documented as of this encounter Care Teams Supervisor Pig Machine Relationship Specialty Start Date End Date Brittani Cobian MD [address] [place] [address] PCP - General Family Medicine 05/31/21 Diya Vogel CNM [address] [address] Historical LMR Provider 05/12/17 08/04/21 Oneyda Low NP [address] [place] [address] Historical LMR Provider 05/12/17 2 Jessica Sena CNP [address] [facility], 2nd [place] [address] Historical LMR Provider 05/12/17 Diya Valles MEDICAL/SURGERY REGISTERED NURSE [address] [place] [address] Historical LMR Provider 05/12/17 2 Farrah Wyatt MD [address] [place] [address] Historical LMR Provider 05/12/17 08/04/21 Chente Turner MD [address] [place] [address] Historical LMR Provider 05/12/17 Lenard Smith MD [address] [place] [address] Historical LMR Provider 05/12/17 08/04/21 Carlos Andres MD [address] [place] [phone] Historical LMR Provider 05/12/17 2 Eneida Tilley MD [address] [place] [address], [address] [place] [address] [email or web address] Historical LMR Provider 05/12/17 08/04/21 Fer Jaimes MD [address] [place] [address] [address] [place] [phone] [email or web address] Historical LMR Provider 05/12/17 Vaughn Lehman MD [address] [place] [address] Historical LMR Provider 05/12/17 2 documented as of this encounter Additional Source Comments The information contained in this document represents components of the legal health record. It is not the complete legal health record.[facility]
--- OUTSIDE RECORDS SUMMARY | 2025-03-22 09:38 | XMS_ITS | Encounter Summary ---
Author Organization [facility] Address [address] [facility] [address] [place] [address] Phone Care Team Providers Care Retrofit Installer Name Role Phone Jessica Senameagan MONTESINOS Unavailable [phone] Chente Turner MD Unavailable [phone] Fer Jaimes MD Unavailable [phone] Brittani Cobian MD Primary Care Provider + Reason for Referral * MRI/CAT Scan - Closed Specialty Diagnoses / Procedures Referred By Contac t Referred To Contact Radiology Diagnoses Abnormal electrocardiogram Procedures NC Stress Result for Nuclear Stress Test Brittani Cobian MD [address] [place] [address] Phone: tel: fax: [email or web address] Referral ID Status Reason Start Date Expiration Date Visits Re quested Visits Authorized [id number] Closed 01/09/2024 01/08/2025 1 1 Encounter Details Date Type Department Care Team (Latest Contact Info) Description 01/09/2024 Ancillary Orders Virtual Department [address] [place] [address] Brittani Cobian MD [address] [place] [address] [email or web address] Abnormal electrocardiogram (Primary Dx) Social History Tobacco [...] 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 Not on file Not on file documented as of this encounter Plan of Treatment Not on file documented as of this encounter Results * NC Stress Result for Nuclear Stress Test (01/09/2024 11:37 AM EDT) Max Predicted Heart Rate 157 bpm [facility] Max BP Systolic 196 mmHg [facility] Max BP Diastolic 70 mmHg [facility] Max HR 141 BPM [facility] Resting HR 75 BPM [facility] Resting BP Systolic 142 mmHg [facility] Resting BP Diastolic 80 mmHg [facility] Peak METS 10.1 METS [facility] Peak HR 141 BPM [facility] Anatomical Region Laterality Modality Heart Other 01/09/2024 10:1 2 AM EDT 01/09/2024 11:35 AM EDT Narrative 01/09/2024 12:37 PM EDT Stress Findings The resting heart rate was 75 BPM. The resting BP was 142/80 mmHg. A peak heart rate of 141 BPM was achieved. ECG Report Pt exercised for 8: 36 min on a DIAMOND protocol achieving 10.1 METS. Test terminated due to fatigue. Baseline resting HR was 75 bpm. Max heart rate achieved was 141 bpm (89% MPHR). 1. ECG: Baseline ECG showed sinus rhythm without significant ST or T wave abnormality. With exercise there were ECG changes meeting criteria for ischemia. Up to [address] depressions in V3 V 6 2. SYMPTOMS: No chest pain or symptoms concerning for angina 3. EXERCISE PHYSIOLOGY: Good functional capacity for age. Blood pressure: 118/50 at rest, 196/70 with exercise, and 134/72 on discharge from stress lab. 4. ARRHYTHMIAS: Occasional isolated PVC Conclusion: Exercise portion of nuclear stress test with ECG changes meeting criteria for ischemia. There were no symptoms concerning for angina. Nuclear images pending and will be reported separately. See attached stress report for full details. Courtney Serna NP with Dr. Cook Response to Stress The patient exercised for minutes and seconds, achieving 10.1 METS at peak exercise. Baseline blood pressure was 142/80 mmHg, and baseline heart rate was 75 bpm. The patient achieved a peak heart rate of 141 bpm, which is% of their maximum predicted heart rate. us Brittani Cobian MD CV NM CARDIAC Final Re sult documented in this encounter Visit Diagnoses Diagnosis Abnormal electrocardiogram- Primary Nonspecific abnormal electrocardiogram (ECG) (EKG) Abnormal electrocardiogram Nonspecific abnormal electrocardiogram (ECG) (EKG) documented in this encounter Additional Health Concerns Assessment Noted Time PHQ-2 Depression Total Score: 0 06/08/20 20 3:05 PM EST documented as of this encounter Care Teams Retrofit Installer Relationship Specialty Start Date End Date Brittani Cobian MD [address] [place] [address] PCP - General Family Medicine 05/31/21 Jessica Sena, DIAMOND DRILLER [address] [facility], 2nd [place] [address] Historical LMR Provider 05/12/17 Chente Turner MD [address] [place] [address], [address] [place] [address] [email or web address] Historical LMR Provider 05/12/17 Fer Jaimes MD [address] [place] [address] [address] [place] [address] [email or web address] Historical LMR Provider 05/12/17 documented as of this encounter Additional Source Comments The information contained in this document represents components of the legal health record. It is not the complete legal health record.[facility]
--- OUTSIDE RECORDS SUMMARY | 2025-03-22 09:38 | XMS_ITS | Encounter Summary ---
Author Organization [facility] Address [address] [facility] [address] [place] [address] Phone Care Team Providers Care Chucking Machine Set Up Operator Name Role Phone Jessica Sena Catrachita MONTESINOS Unavailable [phone] Chente Turner MD Unavailable [phone] Fer Jaimes MD Unavailable [phone] Brittani Cobian MD Primary Care Provider + Reason for Referral * MRI/CAT Scan - Closed Specialty Diagnoses / Procedures Referred By Contkaren t Referred To Contact Radiology Diagnoses Abnormal electrocardiogram Procedures NC Myocardial Perfusion Exercise Multiple CHG MYOCARDIAL SPECT MULTIPLE STUDIES Brittani Cobian MD [address] [place] [address] Phone: tel: fax: [email or web address] Referral ID Status Reason Start Date Expiration Date Visits Re quested Visits Authorized [id number] Closed 01/07/2024 07/05/2024 4 4 Encounter Details Date Type Department Care Team (Latest Contact Info) Description 12/29/2023 Transcribe Orders [facility] Department [address] [place] [address] Brittani Cobian MD [address] [place] [address] [email or web address] Abnormal electrocardiogram (Primary Dx) Social History Tobacco [...] 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 The LVEF was calculated at greater than 75%. POS [id number] Narrative 01/09/2024 12:56 PM EDT COMPARISON: None HISTORY: Abnormal ECG DOSE: 9.6 mCi of technetium 99m sestamibi intravenously at rest and 29.9 mCi of technetium 99m sestamibi subsequently in the day during treadmill stress. Patient reportedly achieved approximately 89% of MPHR during stress. SPECT images were obtained, gated at stress. FINDINGS: Left ventricular cavity size is felt to be within normal limits. On both stress and rest portions of the examination there appears be physiologic tracer distribution throughout the left ventricular myocardium without focal fixed or reversible defects noted. No focal abnormality of myocardial thickening was detected. The LVEF was calculated at 79% of TID ratio at 0.95. Procedure Note Pradip hKalil MD - 01/09/2024 COMPARISON: None HISTORY: Abnormal ECG DOSE: 9.6 mCi of technetium 99m sestamibi intravenously at rest and 29.9mCi of technetium 99m sestamibi subsequently in the day during treadmillstress. Patient reportedly achieved approximately 89% of MPHR duringstress. SPECT images were obtained, gated at stress. FINDINGS: Left ventricular cavity size is felt to be within normal limits. On bothstress and rest portions of the examination there appears be physiologictracer distribution throughout the left ventricular myocardium withoutfocal fixed or reversible defects noted. No focal abnormality ofmyocardial thickening was detected. The LVEF was calculated at 79% of TIDratio at 0.95. IMPRESSION: No scintigraphic evidence of ischemia demonstrated. The LVEF wascalculated at greater than 75%. POS [id number] us Brittani Cobian MD CV NM CARDIAC Final Re sult documented in this encounter Visit Diagnoses Diagnosis Abnormal electrocardiogram- Primary Nonspecific abnormal electrocardiogram (ECG) (EKG) Abnormal electrocardiogram Nonspecific abnormal electrocardiogram (ECG) (EKG) documented in this encounter Additional Health Concerns Assessment Noted Time PHQ-2 Depression Total Score: 0 06/08/20 20 3:05 PM EST documented as of this encounter Care Teams Chucking Machine Set Up Operator Relationship Specialty Start Date End Date Brittani Cobian MD [address] [place] [address] [email or web address] PCP - General Family Medicine 05/31/21 Jessica Sena CNP [address] [facility], 2nd [place] [address] Historical LMR Provider 05/12/17 Chente Turner MD [address] [place] [address] [address] [place] [address] [email or web address] Historical LMR Provider 05/12/17 Fer Jaimes MD [address] [place] [address] [address] [place] [address] [email or web address] Historical LMR Provider 05/12/17 documented as of this encounter Additional Source Comments The information contained in this document represents components of the legal health record. It is not the complete legal health record.[facility]
--- OUTSIDE RECORDS SUMMARY | 2025-03-22 09:39 | XMS_ITS | Encounter Summary ---
Author Organization [facility] Address [address] [place] [address] Phone Care Team Providers Care Electrical Installer Name Role Phone Diya Vogel CNM Unavailable Oneyda Low LIST OF FIRST JOB IDEAS Unavailable Jessica Sena NOXIOUS WEEDS AND PEST INSPECTOR Unavailable [phone] Diya Valles [employer] Unavailable [phone] Farrah Wyatt MD Unavailable [phone] Chente Turner MD Unavailable [phone] Lenard Smith MD Unavailable Carlos Andres MD Unavailable Eneida Tilley MD Unavailable [phone] Fer Jaimes MD Unavailable Vaughn Lehman MD Unavailable Fer Jaimes MD Primary Care Provider [phone] Jessica Sena NOXIOUS WEEDS AND PEST INSPECTOR Primary Care Provider [phone] Renu Hidalgo MD Primary Care Provider [phone] Jessica Sena NOXIOUS WEEDS AND PEST INSPECTOR Unavailable Brittani Cobian MD Primary Care Provider + Encounter Details Date Type Department Care Team (Late st Contact Info) Description 03/29/2020 Procedure Pass [facility], [facility] [address] [place] [address] Social History Tobacco Use Types Packs/Day Years Used Date Smoking Tobacco: Never Smokeless Tobacco: Never Alcohol Use Standard Drinks/Week Comments Yes 0 (1 standard drink = 0.6 oz pur e alcohol) Comments No Sex and Gender Information Value Date Recorded Sex Assigned at Female 04/12/2020 8:53 AM EDT Legal Sex Female 9:48 PM EDT Gender Identity Female 04/12/2020 8:53 AM EDT Sexual Orientation Straight 06/05/2020 10 :11 AM EST 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 Not on file Not on file documented as of this encounter Plan of Treatment Not on file documented as of this encounter Visit Diagnoses Not on filedocumented in this encounter Care Teams Electrical Installer Relationship Specialty Start Date End Date Fer Jaimes MD [address] [place], [place] [address] [place] [address] [email or web address] PCP - General 06/02/17 04/13/20 Jessica Sena CNP [address] [place] [address] [email or web address] PCP - General Family Medicine 04/14/20 03/26/21 Renu Hidalgo MD [address] [place] [address] [email or web address] PCP - General Family Medicine 03/27/21 05/30/21 Jessica Sena CNP [address] [address] PCP - Resident PCP Family Medicine 03/27/21 06/05/21 Brittani Cobian MD [address] [place] [address] PCP - General Family Medicine 05/31/21 Diya Vogel CNM [address] [place] [address] [address] [place] [address] Historical LMR Provider 05/12/17 08/04/21 Oneyda Low NP [address] [place] [address] [address] [place] [address] Historical LMR Provider 05/12/17 2 Jessica Sena CNP [address] [place] [address], 2nd [place] [address] [email or web address] Historical LMR Provider 05/12/17 Diya Valles LIST OF FIRST [employer] IDE[employer] [address] [place] [address] Historical LMR Provider 05/12/17 2 Farrah Wyatt MD [address] [place] [address] 7 [place] [address] Historical LMR Provider 05/12/17 08/04/21 Chente Turner MD [address] [place] [address] Historical LMR Provider 05/12/17 Lenard Smith MD [address] [facility], [address] [place] [address] [email or web address] Historical LMR Provider 05/12/17 08/04/21 Carlos Andres MD [address] [place] [phone] Historical LMR Provider 05/12/17 2 Eneida Tilley MD [address] [place] [address], [facility] 7 [place] [address] [email or web address] Historical LMR Provider 05/12/17 08/04/21 Fer Jaimes MD [address] [facility] [address] [place] [phone] [email or web address] Historical LMR Provider 05/12/17 Vaughn Lehman MD [address] [place] [address] Historical LMR Provider 05/12/17 2 documented as of this encounter Additional Source Comments The information contained in this document represents components of the legal health record. It is not the complete legal health record.[facility]
--- OUTSIDE RECORDS SUMMARY | 2025-03-22 09:39 | XMS_ITS | Encounter Summary ---
Author Organization [facility] Address [address] [place] [address] Phone Care Team Providers Care Barman Name Role Phone Diya Vogel CNM Unavailable Oneyda Low BOX TOE STITCHER Unavailable Jessica Sena SEWING DEPARTMENT SUPERVISOR Unavailable Diya Valles BOX TOE STITCHER Unavailable [phone] Farrah Wyatt MD Unavailable Chente Turner MD Unavailable Lenard Smith MD Unavailable Carlos Andres MD Unavailable Eneida Tilley MD Unavailable Fer Jaimes MD Unavailable Vaughn Lehman MD Unavailable Brittani Cobian MD Primary Care Provider + Encounter Details Date Type Department Care Team (Late st Contact Info) Description 06/12/2021 Procedure Pass [facility], [address] [address] Social History Tobacco Use Types Packs/Day Years [...] high school, GED, job training, learning the German language, technical skills, or developing parenting skills)? 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 on file Not on file documented as of this encounter Plan of Treatment Not on file documented as of this encounter Visit Diagnoses Not on filedocumented in this encounter Additional Health Concerns Assessment Noted Time PHQ-2 Depression Total Score: 0 06/08/20 20 3:05 PM EST documented as of this encounter Care Teams Barman Relationship Specialty Start Date End Date Brittani Cobian [place] [address] PCP - General Family Medicine 05/31/21 Diya Vogel CNM [address] [address] Historical LMR Provider 05/12/17 08/04/21 Oneyda Low NP [address] [place] [address] Historical LMR Provider 05/12/17 2 Jessica Sena CNP 15 [facility], 2nd [place] [address] [email or web address] Historical LMR Provider 05/12/17 Diya Valles NP [address] [place] [address] Historical LMR Provider 05/12/17 2 Farrah Wyatt MD [address] [place] [address] [email or web address] Historical LMR Provider 05/12/17 08/04/21 Chente Turner MD [address] [place] [address] Historical LMR Provider 05/12/17 Lenard Smith MD [address] [address] Historical LMR Provider 05/12/17 08/04/21 Carlos Andres MD [address] [place] [phone] Historical LMR Provider 05/12/17 2 Eneida Tilley MD [address] [place] [address], [address] [place] [address] [email or web address] Historical LMR Provider 05/12/17 08/04/21 Fer Jaimes MD [address] [facility] [address] [place] [phone] [email or web address] Historical LMR Provider 05/12/17 Vaughn Lehman MD [address] [place] [address] Historical LMR Provider 05/12/17 2 documented as of this encounter Additional Source Comments The information contained in this document represents components of the legal health record. It is not the complete legal health record.[facility]
--- OUTSIDE RECORDS SUMMARY | 2025-03-22 09:39 | XMS_ITS | Encounter Summary ---
Author Organization [facility] Address [address] [place] [address] Phone Care Team Providers Care Swimming Pool Installer And Servicer Name Role Phone Diya Vogel CNM Unavailable Oneyda Low HANSARD REPORTER Unavailable Jessica Sena TEACHER OF GIFTED STUDENTS Unavailable Diya Valles HANSARD REPORTER Unavailable [phone] Farrah Wyatt MD Unavailable Chente Turner MD Unavailable Lenard Smith MD Unavailable Carlos Andres MD Unavailable Eneida Tilley MD Unavailable Fer Jaimes MD Unavailable Vaughn Lehman MD Unavailable [phone] Renu Hidalgo MD Primary Care Provider Jessica Sena TEACHER OF GIFTED STUDENTS Unavailable Brittani Cobian MD Primary Care Provider + Encounter Details Date Type Department Care Team (Late st Contact Info) Description 04/20/2021 Procedure Pass [facility], [facility] [address] [place] [address] Social History Tobacco Use Types Packs/Day Years [...] high school, GED, job training, learning the Macanese language, technical skills, or developing parenting skills)? 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 Not on file Not on file documented as of this encounter Plan of Treatment Not on file documented as of this encounter Visit Diagnoses Not on filedocumented in this encounter Additional Health Concerns Assessment Noted Time PHQ-2 Depression Total Score: 0 06/08/20 20 3:05 PM EST documented as of this encounter Care Teams Swimming Pool Installer And Servicer Relationship Specialty Start Date End Date Renu Hidalgo MD [address] [place] [address] [email or web address] PCP - General Family Medicine 03/27/21 05/30/21 Jessica Sena, YAMEL [address] [address] PCP - Resident PCP Family Medicine 03/27/21 06/05/21 Brittani Cobian MD [address] [place] [address] PCP - General Family Medicine 05/31/21 Diya Vogel CNM [address] [address] Historical LMR Provider 05/12/17 08/04/21 Oneyda Low NP [address] [place] [address] [address] [place] [address] Historical LMR Provider 05/12/17 2 Jessica Sena, TEACHER OF GIFTED STUDENTS [address] [address] Historical LMR Provider 05/12/17 Diya Valles NP [address] [place] [address] Historical LMR Provider 05/12/17 2 Farrah Wyatt MD [address] [place] [address] 7 [place] [address] Historical LMR Provider 05/12/17 08/04/21 Chente Turner MD [address] [place] [address] 7 [place] [address] Historical LMR Provider 05/12/17 Lenard Smith MD [address] [place] [address] [place] [address] Historical LMR Provider 05/12/17 08/04/21 Carlos Andres MD [address] [place] [address] Historical LMR Provider 05/12/17 2 Eneida Tilley MD [address] [place] [address] 7 [place] [address] [email or web address] Historical LMR Provider 05/12/17 08/04/21 Fer Jaimes MD [address] [place] [address] [address] [place] [phone] [email or web address] Historical LMR Provider 05/12/17 Vaughn Lehman MD [address] [place] [address] Historical LMR Provider 05/12/17 2 documented as of this encounter Additional Source Comments The information contained in this document represents components of the legal health record. It is not the complete legal health record.[facility]
--- OUTSIDE RECORDS SUMMARY | 2025-03-22 09:39 | XMS_ITS | Encounter Summary ---
Author Organization [facility] Address [address] [place] [address] Phone Care Team Providers Care Tape Librarian Name Role Phone Diya Vogel CNM Unavailable Oneyda Low TELEVISION SERVICE ENGINEER Unavailable Jessica Sena HUMAN RESOURCES COORDINATOR Unavailable [phone] Diya Valles TELEVISION SERVICE ENGINEER Unavailable [phone] Farrah Wyatt MD Unavailable [phone] Chente Turner MD Unavailable [phone] Lenard Smith MD Unavailable Carlos Andres MD Unavailable Eneida Tilley MD Unavailable [phone] Fer Jaimes MD Unavailable Vaughn Lehman MD Unavailable [phone] Fer Jaimes MD Primary Care Provider [phone] Jessica Sena HUMAN RESOURCES COORDINATOR Primary Care Provider [phone] Renu Hidalgo MD Primary Care Provider [phone] Jessica Sena HUMAN RESOURCES COORDINATOR Unavailable Brittani Cobian MD Primary Care Provider + Encounter Details Date Type Department Care Team (Late st Contact Info) Description 03/29/2020 Ancillary Orders [facility] [address] [place] [address] Fer Jaimes MD 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 Normal interval follow- up is recommended in 12 months. BI-RADS: BI-RADS CATEGORY: 1 - Negative. DENSITY: The breast tissue is heterogeneously dense, which may obscure small masses Narrative 05/09/2020 5:55 PM EDT STUDY: Bilateral screening mammography with tomosynthesis and CAD TECHNIQUE: Bilateral full-field digital screening mammography is obtained and read in conjunction with computer-aided detection. Tomosynthesis as well as 2-D C view imaging were obtained. COMPARISON: Comparison made to multiple prior, most recent April 12, 2019, and most remote February 09, 2014. BREAST COMPOSITION: The breasts are heterogeneously dense, which may obscure small masses. BILATERAL BREASTS: No significant masses, calcifications or other abnormalities are seen. Fer Jaimes MD IMG MG EXAMS Final Res ult documented in this encounter Visit Diagnoses Diagnosis Breast screening Breast screening, unspecified Breast screening Breast screening, unspecified documented in this encounter Care Teams Tape Librarian Relationship Specialty Start Date End Date Fer Jaimes MD [address] [place], [place] [address] [place] [address] PCP - General 06/02/17 04/13/20 Jessica Sena CNP [address] [address] PCP - General Family Medicine 04/14/20 03/26/21 Renu Hidalgo MD [address] [place] [address] [email or web address] PCP - General Family Medicine 03/27/21 05/30/21 Jessica Sena CNP [address] [address] PCP - Resident PCP Family Medicine 03/27/21 06/05/21 Brittani Cobian MD [address] [place] [address] PCP - General Family Medicine 05/31/21 Diya Vogel CNM 22 [facility], [address] [address] Historical LMR Provider 05/12/17 08/04/21 Oneyda Low NP [address] [place] [address] [address] [place] [address] Historical LMR Provider 05/12/17 2 Jessica Sena CNP 15 [facility], 2nd [place] [address] Historical LMR Provider 05/12/17 Diya Valles NP [address] [place] [address] Historical LMR Provider 05/12/17 2 Farrah Wyatt MD [address] [place] [address] 7 [place] [address] Historical LMR Provider 05/12/17 08/04/21 Chente Turner MD [address] [place] [address] Historical LMR Provider 05/12/17 Lenard Smith MD 22 [facility] 102 [place] [address] Historical LMR Provider 05/12/17 08/04/21 Carlos Andres MD [address] [place] [address] Historical LMR Provider 05/12/17 2 Eneida Tilley MD 234 [facility], [address] [place] [address] [email or web address] Historical LMR Provider 05/12/17 08/04/21 Fer Jaimes MD 234 [facility] [address] [place] [address] [email or web address] Historical LMR Provider 05/12/17 Vaughn Lehman MD [address] [place] [address] Historical LMR Provider 05/12/17 2 documented as of this encounter Additional Source Comments The information contained in this document represents components of the legal health record. It is not the complete legal health record.[facility]
--- OUTSIDE RECORDS SUMMARY | 2025-03-22 09:39 | XMS_ITS | Clinical Summary ---
Author Organization [facility] [employer] [facility] Address [address] [place] [address] Phone Care Team Providers Care Fiberglass Boat Maker Name Role Phone Brittani Cobian MD Primary Care Provider [phone] Allergies Active Allergy Reactions Criticality Noted Date [...] Health Maintenance Due Date Last Done Comments Cervical Cancer Screening: Pap Smear 1981 Pneumococcal Vaccine: 50+ Years (1 of 1 - PCV) 2010 DTaP,Tdap,and Td Vaccines (2 - Td or Tdap) 05/05/2023 05/05/2013 COVID-19 Vaccine ( season) 2024 04/16/2022, 12/08/2021, 06/07/2021, Additional history exists Cholesterol Screening (Lipid Panel) 06/22/2024 12/01/2018 Colorectal Cancer Screening: Colonoscopy 06/22/2024 Hypertension/CHF/CAD Annual BMP Blood Test 06/22/2024 04/04/2021, 11/08/2020, 08/24/2019, Additional history exists Osteoporosis Screening (Bone Density Screening) 06/22/2024 Social Influencers of Health Screening 06/22/2024 Depression Screening 07/28/2024 Falls Risk Assessment 2025 Influenza Vaccine (#1) 2025 2, 05/31/2021, 05/11/2020, [...] age to complete this topic Insurance [employer] AET[employer] Care Teams Fiberglass Boat Maker Relationship Specialty Start Date End Date Brittani Cobian MD [address] [place] [phone] PCP - General Family Medicine 06/22/24
--- OUTSIDE RECORDS SUMMARY | 2025-03-22 09:39 | XMS_ITS | Encounter Summary ---
Author Organization [facility] Address [address] [place] [address] Phone Care Team Providers Care Nail Professional Name Role Phone Diya Vogel CNM Unavailable Oneyda Low WESTERN FELT HAT BLOCKER Unavailable Jessica Sena GL ACCOUNTANT Unavailable [phone] Diya Valles WESTERN FELT HAT BLOCKER Unavailable [phone] Farrah Wyatt MD Unavailable [phone] Chente Turner MD Unavailable [phone] Lenard Smith MD Unavailable Carlos Andres MD Unavailable Eneida Tilley MD Unavailable [phone] Fer Jaimes MD Unavailable Vaughn Lehman MD Unavailable [phone] Fer Jaimes MD Primary Care Provider [phone] Jessica Sena GL ACCOUNTANT Primary Care Provider [phone] Renu Hidalgo MD Primary Care Provider [phone] Jessica Sena GL ACCOUNTANT Unavailable Brittani Cobian MD Primary Care Provider + Encounter Details Date Type Department Care Team (Late st Contact Info) Description 03/02/2018 Ancillary Orders [facility] [address] [place] [address] Fer Jaimes MD [address] [place] [phone] [email or web address] Breast screening Social History Tobacco Use Types Packs/Day Years Used Date Smoking Tobacco: Never Smokeless Tobacco: Never Comments Unknown Sex and Gender Information Value Date Recorded Sex Assigned at Female 04/12/2020 8:53 AM EDT Legal Sex Female 9:48 PM EDT Gender Identity Female 04/12/2020 8:53 AM EDT Sexual Orientation Straight 06/05/2020 10 :11 AM EST documented as of this encounter Plan of Treatment Not on file documented as of this encounter Results * BI MAMMOGRAM SCREENING WITH TOMOSYNTHESIS WITH CAD (BILATERAL) (04/07/2018 4:24 PM EDT) Anatomical Region Laterality Modality Breast Left, Breast Right, Breast Bilateral Bila teral Mammography 04/08/2018 9:14 AM EDT Impressions 04/08/2018 9:39 AM EDT No mammographic evidence of malignancy. RECOMMENDED FOLLOWUP: Routine screening mammography is recommended, as clinically appropriate. The results will be sent to the patient. BI-RADS CATEGORY: 2 - Benign finding. BREAST DENSITY: The breast tissue is heterogeneously dense, an appearance which lowers the sensitivity of mammography. POS - CDHMAMA Narrative 04/08/2018 9:39 AM EDT BI MAMMOGRAM SCREENING WITH TOMOSYNTHESIS WITH CAD (BILATERAL), HISTORY: Screening. COMPARISON: Prior studies dating back to 2011, most recently 04/01/2017. TECHNIQUE: Digital breast tomosynthesis was performed in craniocaudal and mediolateral oblique projections. Reconstructed screening 2-D views were generated from the tomosynthesis images. Images were interpreted in conjunction with R-2 Image French Drawer computer-aided detection. FINDINGS: Breast density: The breast parenchyma is heterogeneously dense, which may lower the sensitivity of mammography. There are no suspicious masses, suspicious areas of architectural distortion or suspicious clusters of microcalcifications. There are a few scattered punctate benign calcifications. Procedure Note Yanna Richardson MD - 04/08/2018 BI MAMMOGRAM SCREENING WITH TOMOSYNTHESIS WITH CAD (BILATERAL), HISTORY: Screening. COMPARISON: Prior studies dating back to 2011, most recently 04/01/2017. TECHNIQUE: Digital breast tomosynthesis was performed in craniocaudal andmediolateral oblique projections. Reconstructed screening 2-D views weregenerated from the tomosynthesis images. Images were interpreted inconjunction with R-2 Image French Drawer computer-aided detection. FINDINGS: Breast density: The breast parenchyma is heterogeneously dense, which maylower the sensitivity of mammography. There are no suspicious masses, suspicious areas of architecturaldistortion or suspicious clusters of microcalcifications. There are a fewscattered punctate benign calcifications. IMPRESSION: No mammographic evidence of malignancy. RECOMMENDED FOLLOWUP: Routine screening mammography is recommended, asclinically appropriate. The results will be sent to the patient. BI-RADS CATEGORY: 2 - Benign finding. BREAST DENSITY: The breast tissue is heterogeneously dense, an appearancewhich lowers the sensitivity of mammography. POS - CDHMAMA Fer Jaimes MD IMG MG EXAMS Final Res ult documented in this encounter Visit Diagnoses Diagnosis Breast screening Breast screening, unspecified Breast screening Breast screening, unspecified documented in this encounter Care Teams Nail Professional Relationship Specialty Start Date End Date Fer Jaimes MD [address] [place] [address] [address] [place] [address] [email or web address] PCP - General 06/02/17 04/13/20 Jessica Sena CNP 15 [facility], 2nd [place] [address] [email or web address] PCP - General Family Medicine 04/14/20 03/26/21 Renu Hidalgo MD [address] [place] [address] [email or web address] PCP - General Family Medicine 03/27/21 05/30/21 Jessica Sena, GL ACCOUNTANT [address] [place] [address] [email or web address] PCP - Resident PCP Family Medicine 03/27/21 06/05/21 Brittani Cobian MD [address] [place] [address] [email or web address] PCP - General Family Medicine 05/31/21 Diya Vogel CNM [address] [place] [address] [email or web address] Historical LMR Provider 05/12/17 08/04/21 Oneyda Low NP [address] [place] [address] Historical LMR Provider 05/12/17 2 Jessica Sena, GL ACCOUNTANT [address] [place] [address] [email or web address] Historical LMR Provider 05/12/17 Diya Valles WESTERN FELT HAT BLOCKER [address] [place] [address] Historical LMR Provider 05/12/17 2 Farrah Wyatt MD [address] [place] [address] 7 [place] [address] [email or web address] Historical LMR Provider 05/12/17 08/04/21 Chente Turner MD [address] [place] [address] 7 [place] [address] Historical LMR Provider 05/12/17 Lenard Smith MD [address] [place] [address] [email or web address] Historical LMR Provider 05/12/17 08/04/21 Carlos Andres MD [address] [place] [address] Historical LMR Provider 05/12/17 2 Eneida Tilley MD [address] [place] [address] 7 [place] [address] [email or web address] Historical LMR Provider 05/12/17 08/04/21 Fer Jaimes MD [address] [place], [place] [address] [place] [address] [email or web address] Historical LMR Provider 05/12/17 Vaughn Lehman MD [address] [place] [address] Historical LMR Provider 05/12/17 2 documented as of this encounter Additional Source Comments The information contained in this document represents components of the legal health record. It is not the complete legal health record.[facility]
--- OUTSIDE RECORDS SUMMARY | 2025-03-22 09:40 | XMS_ITS | Encounter Summary ---
Author Organization [facility] Address [address] [place] [address] Phone Care Team Providers Care Aircraft Designer Name Role Phone Diya Vogel CNM Unavailable Oneyda Low LACTATION NURSE Unavailable Jessica Sena ARCHITECTURAL RENDERER Unavailable [phone] Diya Valles LACTATION NURSE Unavailable [phone] Farrah Wyatt MD Unavailable [phone] Chente Turner MD Unavailable [phone] Lenard Smith MD Unavailable Carlos Andres MD Unavailable Eneida Tilley MD Unavailable [phone] Fer Jaimes MD Unavailable Vaughn Lehman MD Unavailable [phone] Fer Jaimes MD Primary Care Provider [phone] Jessica Sena ARCHITECTURAL RENDERER Primary Care Provider [phone] Renu Hidalgo MD Primary Care Provider [phone] Jessica Sena ARCHITECTURAL RENDERER Unavailable Brittani Cobian MD Primary Care Provider + Encounter Details Date Type Department Care Team (Late st Contact Info) Description 02/23/2019 Ancillary Orders [facility] [address] [place] [address] Fer Jaimes MD [address] [place] [phone] [email or web address] [facility] Breast screening Social History Tobacco Use Types Packs/Day Years Used Date Smoking Tobacco: Never Smokeless Tobacco: Never Comments No Sex and Gender Information Value [...] MAMMOGRAM SCREENING WITH TOMOSYNTHESIS WITH CAD (BILATERAL) (04/12/2019 3:14 PM EDT) Anatomical Region Laterality Modality Breast Left, Breast Right, Breast Bilateral Bila teral Mammography 04/12/2019 3:52 PM EDT Impressions 04/12/2019 3:54 PM EDT BILATERAL BREASTS: Negative, no evidence of malignancy. Normal interval follow- up is recommended in 12 months. Bi-RADS: BI-RADS CATEGORY: 1 - Negative. DENSITY: The breast tissue is heterogeneously dense, an appearance which lowers the sensitivity of mammography. POS - CDHMAMA Narrative 04/12/2019 3:54 PM EDT STUDY: Bilateral screening mammography with tomosynthesis and CAD TECHNIQUE: Bilateral full-field digital screening mammography is obtained and read in conjunction with computer-aided detection. Tomosynthesis as well as 2-D C view imaging were obtained. COMPARISON: Comparison made to multiple prior, most recent April 07, 2018, and most remote January 18, 2013. BREAST COMPOSITION: The breasts are heterogeneously dense, which may obscure small masses. BILATERAL BREASTS: No significant masses, calcifications or other abnormalities are seen. Procedure Note Lisa Bonilla MD - 04/12/2019 STUDY: Bilateral screening mammography with tomosynthesis and CAD TECHNIQUE: Bilateral full-field digital screening mammography is obtainedand read in conjunction with computer-aided detection. Tomosynthesis aswell as 2-D C view imaging were obtained. COMPARISON: Comparison made to multiple prior, most recent March, and most remote January 18, 2013. BREAST COMPOSITION: The breasts are heterogeneously dense, which mayobscure small masses. BILATERAL BREASTS: No significant masses, calcifications or otherabnormalities are seen. IMPRESSION: BILATERAL BREASTS: Negative, no evidence of malignancy. Normal intervalfollow-up is recommended in 12 months. Bi-RADS: BI-RADS CATEGORY: 1 - Negative. DENSITY: The breast tissue is heterogeneously dense, an appearance whichlowers the sensitivity of mammography. POS - CDHMAMA Fer Jaimes MD IMG MG EXAMS Final Res ult documented in this encounter Visit Diagnoses Diagnosis Breast screening Breast screening, unspecified Breast screening Breast screening, unspecified documented in this encounter Care Teams Aircraft Designer Relationship Specialty Start Date End Date Fer Jaimes MD [address] [place], [place] [address] [place] [address] [email or web address] PCP - General 06/02/17 04/13/20 Jessica Sena CNP [address] [place] [address], [address] [place] [address] [email or web address] PCP - General Family Medicine 04/14/20 03/26/21 Renu Hidalgo MD [address] [place] [address] [email or web address] PCP - General Family Medicine 03/27/21 05/30/21 Jessica Sena, ARCHITECTURAL RENDERER [address] [address] PCP - Resident PCP Family Medicine 03/27/21 06/05/21 Brittani Cobian MD [address] [place] [address] PCP - General Family Medicine 05/31/21 Diya Vogel CNM [address] [place] [address] Historical LMR Provider 05/12/17 08/04/21 Oneyda Low NP [address] [place] [address] Historical LMR Provider 05/12/17 2 Jessica Sena, ARCHITECTURAL RENDERER [address] [place] [address] Historical LMR Provider 05/12/17 Diya Valles LACTATION NURSE [address] [place] [address] Historical LMR Provider 05/12/17 2 Farrah Wyatt MD [address] [place] [address] 7 [place] [address] Historical LMR Provider 05/12/17 08/04/21 Chente Turner MD 234 [facility] 7 [place] [address] [email or web address] Historical LMR Provider 05/12/17 Lenard Smith MD [address] [place] [address], [address] [place] [address] [email or web address] Historical LMR Provider 05/12/17 08/04/21 Carlos Andres MD 61 [place] [address] Historical LMR Provider 05/12/17 2 Eneida Tilley MD [address] [place] [address] 7 [place] [address] [email or web address] Historical LMR Provider 05/12/17 08/04/21 Fer Jaimes MD [address] [place] [address] [address] [place] [address] [email or web address] Historical LMR Provider 05/12/17 Vaughn Lehman MD [address] [place] [address] Historical LMR Provider 05/12/17 2 documented as of this encounter Additional Source Comments The information contained in this document represents components of the legal health record. It is not the complete legal health record.[facility]
--- NOTE | 2025-03-22 09:43 | MHC.PC.OV ---
Vital Signs 03/22/25 09:44 Height 5 ft 1 in Weight 125 lb 4 oz BMI 23.7 BP 126/70 Blood Pressure Location Lt brachial Position Sitting Pulse 66 Pulse Source Pulse Oximeter Pulse Oximetry (%) 97 Oxygen Delivery Method Room Air Intake Visit Reasons: shoulder pain. Desk Assistant Required: No Accompanied by: Self / Same As Patient Allergies prochlorperazine (From Compazine) Allergy (Intermediate, Verified 03/22/25 09:44) paralysis Medication List - Last Reconciled 03/22/25 by Olamide Calero PA-C hydrochlorothiazide 12.5 mg PO DAILY levothyroxine 100 mcg PO DAILY propranolol 10 mg PO DAILY Tobacco use date assessed: 03/22/25 Fall risk assessment: No Falls in past year Last assessed Fall Risk: 03/22/25 Dental Screening Dental Screen Date: 03/22/25 Did you have a dental visit in the last 12 months?: No Did you have a dental problem in the last 6 months where you did not have access to dental care?: No Was dental information given to patient?: No HPI shoulder pain. HPI Details 64-year-old female with past medical history of anxiety, hypothyroidism and hypertension last seen 12/19 coming in for acute problem. Presenting with shoulder pain and symptoms suggestive of carpal tunnel syndrome. Shoulder pain began approximately three to four weeks ago without any specific inciting event. The pain is described as severe, with difficulty performing daily activities such as zipping clothes and reaching for seatbelts. The patient reports a sensation of crunching in the shoulder, which has improved slightly with stretching exercises. Carpal tunnel syndrome symptoms include numbness and tingling in both arms, exacerbated by typing and phone use. The patient has been using extra strength Tylenol with some relief of symptoms. [facility]LY [facility], [facility] Medical History Benign schwannoma Surgical History History of ankle surgery S/P removal of left ovary Previous section Family History Mother Breast cancer BRCA negative Maternal Grandmother Breast cancer Stroke Hypertension Father Heart disease Paternal Grandfather Liver cancer Maternal Grandfather Colon cancer Maternal Aunt Breast cancer Social History Housing: House Alcohol intake: current Alcohol intake frequency: a few times a week Alcohol type: wine Patient Tobacco Use Status: Never used Tobacco e-Cigarette/Vaping Use: Never Used Substance Use Type: Marijuana service: No Current occupational status: employed 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 1. Little interest or pleasure in doing things: not at all 2. Feeling down, depressed, or hopeless: not at all 3. Trouble falling or staying asleep, or sleeping too much: not at all 4. Feeling tired or having little energy: not at all 5. Poor appetite or overeating: not at all 6. Feeling bad about yourself - or that you are a failure or have let yourself or your family down: not at all 7. Trouble concentrating on things, such as reading the newspaper or watching television: not at all 8. Moving or speaking so slowly that other people could have noticed. Or the opposite - being so fidgety or restless that you have been moving around a lot more than usual: not at all 9. Thoughts that you would be better off or of hurting yourself in some way: not at all Total score: 0 Depression Screening Interpretation: Negative Depression Screening Done: Yes Source: Developed by Drs. Jason Still, Hermila Larsen, Isra Jacinto and colleagues, with an educational evan from [employer]. Thrive Questionnaire Date Thrive assessed: 09/10/24 I am a: Patient What is your living situation today?: I have a steady place to live Within the past 12 months, did the food you bought not last and you didn't have the money to get more?: Never true Within the past 12 months, did you worry whether your food would run out before you got money to buy more?: Never true Do you have trouble paying for medicines?: No Do you have trouble getting transportation to medical appointments?: No Do you have trouble paying your heating and electricity bill?: No Do you have trouble taking care of your child, family member or friend?: No Do you have trouble with day-to-day activities such as bathing, preparing meals, shopping, managing finances, etc.?: No Are you currently unemployed and looking for a job?: No Are you interested in more education?: No Please select the resources that you would like help with: None Currently or been in a relationship where the following occur: I choose not to answer THRIVE Score: 0 AUDIT C Alcohol Use Questionnaire (AUDIT-C) 1. How often do you have a drink containing alcohol?: 2-3 times a week 2. How many drinks containing alcohol do you have on a typical day when you are drinking?: 1 or 2 3. How often do you have six or more drinks on one occasion?: Never Total Score: 3 HUGH-7 AMB Questionnaire HUGH-7 Date HUGH - 7 assessed: 10/08/24 Source: Developed by Drs. Jason Still, Hermila Larsen, Isra Jacinto and colleagues, with an educational evan from [employer]. Review of Systems Const Denies body aches, Denies chills and Denies fever(s) ENT Reports no additional complaints Card Reports no additional complaints Musc Reports as per HPI Skin/Breast Reports system reviewed and no additional complaints, except as documented Physical exam (Primary Care) Vital Signs: Last Vital Signs Pulse 66 03/22/25 09:44 BP 126/70 03/22/25 09:44 Pulse Ox 97 03/22/25 09:44 Oxygen Delivery Method Room Air 03/22/25 09:44 BMI result Body Mass Index 23.7 Tobacco/Smoking Status: Tobacco use Status Tobacco use date assessed 03/22/25 03/22/25 09:45 Patient Tobacco Use Status Never used Tobacco 03/22/25 09:45 e-Cigarette/Vaping Use Never Used 03/22/25 09:45 PHQ-9: PHQ-9 Score PHQ-9: Total score 0 03/22/25 10:20 Depression Screening Interpretation: Negative Thrive Assessment: Date of Thrive Assessment Date Thrive assessed 09/10/24 03/22/25 09:45 Currently or been in a relationship where the following occur: I choose not to answer Const General: cooperative, healthy appearing, comfortable and no acute distress Orientation/consciousness: patient oriented x3 HENMT Head: Yes normocephalic Ears: hearing grossly normal bilaterally General nose exam: Normal external nose present Eyes General: appearance normal, both eyes and all related structures Conjunctivae: conjunctivae normal Neck Neck: Yes full ROM and Yes no lymphadenopathy Resp Effort & Inspection: normal respiratory effort Cardio Rate: regular rate Neuro General: patient oriented x3 Gait exam (Neuro): Normal gait present Extrem Other: Intact strength, sensation and pulses in bilateral upper extremities. Pain to palpation over entirety of left shoulder pain with internal and external rotation and lateral raise. Negative Tinel and Phalen test General: Yes normal to inspection, Yes full ROM and No edema Psych Affect: normal affect Attitude: cooperative Insight: Good insight present (Psych) Judgement: Good judgement present (Psych) Coding Level of Care Code Est Pt Level 3 (13591) Diagnoses Left shoulder pain M25.512 Numbness and tingling in both hands R20.0; R20.2 Assessment & Plan Assessment & Plan (1) Left shoulder pain: Code(s): M25.512 - Pain in left shoulder Category: Medical Plan: Physical therapy is recommended to strengthen and stretch the shoulder muscles, which may alleviate pain and improve function. An x-ray may be conducted to assess for any underlying arthritis, and if present, further management may include orthopedic consultation or corticosteroid injections. (2) Numbness and tingling in both hands: Code(s): R20.0 - Anesthesia of skin; R20.2 - Paresthesia of skin Category: Medical Plan: The use of wrist splints at night is advised to reduce symptoms by immobilizing the wrist and allowing inflammation to decrease. If symptoms persist, a nerve conduction study may be considered to evaluate the severity of carpal tunnel syndrome and determine the need for surgical intervention. Plan Patient was informed and verbally consented to the use of an ambient scribe for clinic note documentation during this visit. This note was constructed using voice recognition software. While every effort has been made to ensure accuracy and general agent, still areas may have been included sometimes these areas may affect the content or meeting of the given symptoms. Total time spent caring for the patient today was 20 minutes. This includes time spent before the visit reviewing the chart, time spent during the visit, and time spent after the visit and documentation. Orders: Orders XR shoulder LT min 2V Today M25.512 - Pain in left shoulder PT Evaluation and Treatment Today M25.512 - Pain in left shoulder
[2025-03-22 09:44] VITALS: BP 126/70; PULSE 66; O2SAT 97; BMI 23.7
== END 2025-03-22 10:44 | disposition home or self-care (01) ==
LOC: HO.HMCH 09:15
DX: M25.512 Pain in left shoulder (principal); R20.0 Anesthesia of skin; R20.2 Paresthesia of skin

== ENCOUNTER 2025-03-25 14:28 | Outpatient (REF) | payer OTHER, SELFPAY ==
--- OUTSIDE RECORDS SUMMARY | 2024-03-04 04:30 | XMS_ITS ---
Author Organization [facility] Address [address] [place] [address] Care Team Providers Care Yard Conductor Name Role Phone Danisha Ohara Primary Care Provider Maricruz Pettit [phone] Varela Encounters Encounter Location Date Provider Diagnosis [facility] [address] [place] [address] 03/04/2024 Maricruz Rubio Plan Of Treatment No Information Progress Notes * Emerita HAIRSTON SDOB:[birth year] (65 yo F)Acc No.[id number]:03/04/2024 Progress Note Patient: Emerita RAMIREZ Provider: Aarti Rubio DPM :1960 A ge:63 Y S ex:Female Date:03/04/2024 Address: [address] [id number] Pcp:Danisha Ohara Subjective: * Chief Complaints: * [address] Varela. * Medical History: Objective: * Vitals: Assessment: Plan: * Treatment: * Images: * The named appointment provid er may or may not be the originator of this progress note, and it is not deemed complete until electronically signed by the appointment provider. Sign off status: Pending * Provider: Aarti Rubio DPM Date: 03/04/2024 Generated for Harleyi dorie/Bambi/eTransmitting on: 03/25/2025 02:32 PM EDT
--- OUTSIDE RECORDS SUMMARY | 2024-03-08 11:30 | XMS_ITS ---
Author Organization [facility] Address [address] [place] [address] Care Team Providers Care Steam Turbine Operator Name Role Phone Danisha Ohara Primary Care Provider Maricruz Pettit [phone] Encounters Encounter Location Date Provider Diagnosis [facility] [address] [place] [address] 03/08/2024 Maricruz Rubio Plan Of Treatment No Information Progress Notes * Emerita HAIRSTON SDOB:[birth year] (65 yo F)Acc No.[id number]:03/08/2024 Progress Note Patient: Emerita RAMIREZ Provider: Aarti Rubio DPM :1960 A ge:63 Y S ex:Female Date:03/08/2024 Address:[address] [id number] Pcp:Danisha Ohara Subjective: * Chief Complaints: * * Medical History: Objective: * Vitals: Assessment: Plan: * Treatment: * Images: * The named appointment provid er may or may not be the originator of this progress note, and it is not deemed complete until electronically signed by the appointment provider. Sign off status: Pending * Provider: Aarti Rubio DPM Date: 03/08/2024 Generated for Printi ng/Fafrancisg/eTransmitting on: 03/25/2025 02:31 PM EDT
--- OUTSIDE RECORDS SUMMARY | 2024-04-21 10:45 | XMS_ITS ---
Author Organization [facility] Address [address] [place] [address] Care Team Providers Care Turn Machine Operator Name Role Phone Danisha Ohara Primary Care Provider Maricruz Pettit [phone] VALLES Encounters Encounter Location Date Provider Diagnosis [address] [address] 04/21/2024 Maricruz Rubio Plan Of Treatment No Information Progress Notes * Emerita HAIRSTON SDOB:[birth year] (65 yo F)Acc No.[id number]:04/21/2024 Progress Note Patient: Emerita RAMIREZ Provider: Aarti Rubio DPM :1960 A ge:64 Y S ex:Female Date:04/21/2024 Address:[address] [place] Pcp:Danisha Ohara Subjective: * Chief Complaints: * [...] Rubio DPM Date: 0 04/21/2024 Generated for Harleyi dorie/Faconstance/eTransmitting on: 03/25/2025 02:31 PM EDT
--- OUTSIDE RECORDS SUMMARY | 2024-06-04 10:00 | XMS_ITS ---
Author Organization [facility] Address [address] [place] [address] Care Team Providers Care Redevelopment Specialist Name Role Phone Danisha Ohara Primary Care Provider Maricruz Pettit [phone] Encounters Encounter Location Date Provider Diagnosis [address] [address] 06/04/2024 Maricruz Rubio Plan Of Treatment No Information Progress Notes * Emerita HAIRSTON SDOB:[birth year] (65 yo F)Acc No.[id number]:06/04/2024 Progress Note Patient: Emerita RAMIREZ Provider: Aarti Rubio DPM :1960 A ge:64 Y S ex:Female Date:06/04/2024 Address:[address] [place] Pcp:Danisha Ohara Subjective: * Chief Complaints: * [...] 08/04/2023 Generated for Printi ng/Faxing/eTransmitting on: 0 03/25/2025 02:31 PM EDT
--- NOTE | ~2025-03-25 | XR_ITS ---
EXAMINATION: XR SHOULDER 2 OR MORE VIEWS LEFT HISTORY: M25.512 - Pain in left shoulder COMPARISON: There are no prior studies available for comparison. FINDINGS: Four views of the left shoulder are submitted. Osseous mineralization is normal. There is no fracture or dislocation. The glenohumeral joint is maintained. There is mild narrowing of the AC joint. The soft tissues are unremarkable. XR/XR shoulder LT min 2V IMPRESSION: Mild narrowing of the AC joint. Electronically signed by: Jason Senior MD 03/25/2025 02:53 PM EDT
--- OUTSIDE RECORDS SUMMARY | 2025-03-25 14:31 | XMS_ITS | Encounter Summary ---
Author Organization [facility] Address [address] [facility] [address] [place] [address] Phone Care Team Providers Care Coal Digger Name Role Phone Jessica Senameagan MONTESINOS Unavailable [phone] Chente Turner MD Unavailable [phone] Fer Jaimes MD Unavailable [phone] Brittani Cobian MD Primary Care Provider + Reason for Referral * MRI/CAT Scan - Closed Specialty Diagnoses / Procedures Referred By Contac t Referred To Contact Radiology Diagnoses Abnormal electrocardiogram Procedures NC Stress Result for Nuclear Stress Test Brittani Cobian MD [address] [place] [address] Phone: tel: fax: [email or web address] Referral ID Status Reason Start Date Expiration Date Visits Re quested Visits Authorized [id number] Closed 01/09/2024 01/08/2025 1 1 Encounter Details Date Type Department Care Team (Latest Contact Info) Description 01/09/2024 Ancillary Orders Virtual Department [address] [place] [address] Brittani Cobian MD [address] [place] [address] [email or web address] Abnormal electrocardiogram (Primary Dx) Social History [...] 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 Not on file Not on file documented as of this encounter Plan of Treatment Not on file documented as of this encounter Results * NC Stress Result for Nuclear Stress Test (01/09/2024 11:37 AM EDT) Max Predicted Heart Rate 157 bpm [facility] Max BP Systolic 196 mmHg [facility] Max BP Diastolic 70 mmHg [facility] Max HR 141 BPM [facility] Resting HR 75 BPM [facility] Resting BP Systolic 142 mmHg [facility] Resting BP Diastolic 80 mmHg [facility] Peak METS 10.1 METS [facility] Peak HR 141 BPM [facility] Anatomical Region Laterality Modality Heart Other 01/09/2024 [...] documented as of this encounter Care Teams Coal Digger Relationship Specialty Start Date End Date Brittani Cobian MD [address] [place] [address] PCP - General Family Medicine 05/31/21 Jessica Sena, WOUND TREATMENT RN [address] [facility], 2nd [place] [address] Historical LMR Provider 05/12/17 Chente Turner MD [address] [place] [address], [address] [place] [address] [email or web address] Historical LMR Provider 05/12/17 Fer Jaimes MD [address] [place] [address] [address] [place] [address] [email or web address] Historical LMR Provider 05/12/17 documented as of this encounter Additional Source Comments The information contained in this document represents components of the legal health record. It is not the complete legal health record.[facility]
--- OUTSIDE RECORDS SUMMARY | 2025-03-25 14:31 | XMS_ITS | Encounter Summary ---
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, 2nd [place] [address] Historical LMR Provider 05/12/17 Chente Turner MD [address] [place] [address], [address] [place] [address] [email or web address] Historical LMR Provider 05/12/17 Fer Jaimes MD [address] [place] [address] [address] [place] [phone] , [email or web address] Historical LMR Provider 05/12/17 documented as of this encounter Additional Source Comments The information contained in this document represents components of the legal health record. It is not the complete legal health record.[facility]
--- OUTSIDE RECORDS SUMMARY | 2025-03-25 14:31 | XMS_ITS | Encounter Summary ---
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 Not on file Not on file documented as of this encounter Plan of Treatment Not on file documented as of this encounter Visit Diagnoses Not on filedocumented in this encounter Additional Health Concerns Assessment Noted Time PHQ-2 Depression Total Score: 0 06/08/20 20 3:05 PM EST documented as of this encounter Care Teams Monotypist Relationship Specialty Start Date End Date Brittani Cobian MD [address] [place] [address] [email or web address] PCP - General Family Medicine 05/31/21 Jessica Sena CNP [address] [place] [address], 2nd [place] [address] [email or web address] Historical LMR Provider 05/12/17 Chente Turner MD [address] [place] [address], [address] [place] [address] [email or web address] Historical LMR Provider 05/12/17 Fer Jaimes MD [address] [place] [address] [address] [place] [phone] [email or web address] Historical LMR Provider 05/12/17 documented as of this encounter Additional Source Comments The information contained in this document represents components of the legal health record. It is not the complete legal health record.[facility]
--- OUTSIDE RECORDS SUMMARY | 2025-03-25 14:31 | XMS_ITS | Encounter Summary ---
Author Organization [facility] Address [address] [place] [address] Phone Care Team Providers Care Meat Grading Machine Operator Name Role Phone Diya Vogel CNM Unavailable Oneyda Low LINES TENDER Unavailable Jessica Sena POWER WHEELCHAIR MECHANIC Unavailable Diya Valles LINES TENDER Unavailable [phone] Farrah Wyatt MD Unavailable [phone] Chente Turner MD Unavailable Lenard Smith MD Unavailable [phone] Carlos Andres MD Unavailable Eneida Tilley MD Unavailable Fer Jaimes MD Unavailable Vaughn Lehman MD Unavailable [phone] Brittani Cobian MD Primary Care Provider + Encounter Details Date Type Department Care Team (Late st Contact Info) Description 07/16/2021 Procedure Pass [place] Admitting Dept - Virtual Department [address] [place], [place] [id number] Social History Tobacco Use Types Packs/Day Years [...] high school, GED, job training, learning the Syrian language, technical skills, or developing parenting skills)? 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 Not on file Not on file documented as of this encounter Plan of Treatment Not on file documented as of this encounter Visit Diagnoses Not on filedocumented in this encounter Additional Health Concerns Assessment Noted Time PHQ-2 Depression Total Score: 0 06/08/20 20 3:05 PM EST documented as of this encounter Care Teams Meat Grading Machine Operator Relationship Specialty Start Date End Date Brittani Cobian MD [address] [place] [address] PCP - General Family Medicine 05/31/21 Diya Vogel CNM [address] [address] Historical LMR Provider 05/12/17 08/04/21 Oneyda Low NP [address] [place] [address] Historical LMR Provider 05/12/17 2 Jessica Sena CNP [address] [facility], 2nd [place] [address] Historical LMR Provider 05/12/17 Diya Valles LINES TENDER [address] [place] [address] Historical LMR Provider 05/12/17 2 Farrah Wyatt MD [address] [place] [address] Historical LMR Provider 05/12/17 08/04/21 Chente Turner MD [address] [place] [address] Historical LMR Provider 05/12/17 Lenard Smith MD [address] [place] [address] Historical LMR Provider 05/12/17 08/04/21 Carlos Andres MD [address] [place] [phone] Historical LMR Provider 05/12/17 2 Eneida Tilley MD [address] [place] [address], [address] [place] [address] [email or web address] Historical LMR Provider 05/12/17 08/04/21 Fer Jaimes MD [address] [place] [address] [address] [place] [phone] [email or web address] Historical LMR Provider 05/12/17 Vaughn Lehman MD [address] [place] [address] Historical LMR Provider 05/12/17 2 documented as of this encounter Additional Source Comments The information contained in this document represents components of the legal health record. It is not the complete legal health record.[facility]
--- OUTSIDE RECORDS SUMMARY | 2025-03-25 14:31 | XMS_ITS | Encounter Summary ---
Author Organization [facility] Address [address] [place] [address] Phone Care Team Providers Care Supervisor Cytogenetic Laboratory Name Role Phone Diya Vogel CNM Unavailable Oneyda Low NURSE OFFICE Unavailable [phone] Jessica Sena ROOF TECHNICIAN Unavailable Diya Valles NURSE OFFICE Unavailable [phone] Farrah Wyatt MD Unavailable Chente Turner MD Unavailable Lenard Smith MD Unavailable Carlos Andres MD Unavailable Eneida Tilley MD Unavailable Fer Jaimes MD Unavailable Vaughn Lehman MD Unavailable [phone] Brittani Cobian MD Primary Care Provider + Encounter Details Date Type Department Care Team (Late st Contact Info) Description 06/12/2021 Procedure Pass [facility], [address] [address] Social History Tobacco Use Types Packs/Day Years [...] high school, GED, job training, learning the Cuban language, technical skills, or developing parenting skills)? 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 Not on file Not on file documented as of this encounter Plan of Treatment Not on file documented as of this encounter Visit Diagnoses Not on filedocumented in this encounter Additional Health Concerns Assessment Noted Time PHQ-2 Depression Total Score: 0 06/08/20 20 3:05 PM EST documented as of this encounter Care Teams Supervisor Cytogenetic Laboratory Relationship Specialty Start Date End Date [place] [address] PCP - General Family Medicine 05/31/21 Diya Vogel CNM [address] [address] Historical LMR Provider 05/12/17 08/04/21 Oneyda Low NP [address] [place] [address] Historical LMR Provider 05/12/17 2 Jessica Sena CNP [address] [facility], 2nd [place] [address] [email or web address] Historical LMR Provider 05/12/17 Diya Valles NP [address] [place] [address] Historical LMR Provider 05/12/17 2 Farrah Wyatt MD [address] [place] [address] [email or web address] Historical LMR Provider 05/12/17 08/04/21 Chente Turner MD [address] [place] [address] Historical LMR Provider 05/12/17 Lenard Smith MD [address] [address] Historical LMR Provider 05/12/17 08/04/21 Carlos Andres MD [address] [place] [id number] Historical LMR Provider 05/12/17 2 Eneida Tilley MD [address] [place] [address], [address] [place] [address] [email or web address] Historical LMR Provider 05/12/17 08/04/21 Fer Jaimes MD [address] [facility] [address] [place] [phone] [email or web address] Historical LMR Provider 05/12/17 Vaughn Lehman MD [address] [place] [address] Historical LMR Provider 05/12/17 2 documented as of this encounter Additional Source Comments The information contained in this document represents components of the legal health record. It is not the complete legal health record.[facility]
--- OUTSIDE RECORDS SUMMARY | 2025-03-25 14:31 | XMS_ITS | Encounter Summary ---
Author Organization [facility] Address [address] [place] [address] Phone Care Team Providers Care Printed Circuit Designer Name Role Phone Jessica Senameagan MONTESINOS Unavailable [phone] Chente Turner MD Unavailable [phone] Fer Jaimes MD Unavailable Brittani Cobian MD Primary Care Provider + Reason for Referral * Outpatient Procedure - Closed Specialty Diagnoses / Procedures Referred By Contkaren t Referred To Contact Diagnoses Abnormal electrocardiogram Procedures Stress Test Exercise Kaleb Salmon PA [address] [place] [address] Phone: tel: fax: Referral ID Status Reason Start Date Expiration Date Visits Re quested Visits Authorized [id number] Closed 01/07/2024 01/06/2025 1 1 Encounter Details Date Type Department Care Team (Latest Contact Info) Description 12/24/2023 Transcribe Orders Virtual Department [address] [place] [address] Kaleb Salmon PA [address] [place] [address] Abnormal electrocardiogram (Primary Dx) Social History Tobacco [...] 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 Not on file Not [...] documented as of this encounter Care Teams Printed Circuit Designer Relationship Specialty Start Date End Date Brittani Cobian MD [address] [place] [address] PCP - General Family Medicine 05/31/21 Jessica Sena, HEEL CUTTER [address] [facility], 2nd [place] [address] Historical LMR Provider 05/12/17 Chente Turner MD [address] [place] [address], [address] [place] [address] Historical LMR Provider 05/12/17 Fer Jaimes MD [address] [place] [address] [address] [place] [address] [email or web address] Historical LMR Provider 05/12/17 documented as of this encounter Additional Source Comments The information contained in this document represents components of the legal health record. It is not the complete legal health record.[facility]
--- OUTSIDE RECORDS SUMMARY | 2025-03-25 14:31 | XMS_ITS | Encounter Summary ---
Author Organization [facility] Address [address] [place] [address] Phone Care Team Providers Care District Representative Name Role Phone Diya Vogel CNM Unavailable Oneyda Low THIRD LOADER Unavailable Jessica Sena SYSTEMS COORDINATOR Unavailable [phone] Diya Valles THIRD LOADER Unavailable [phone] Farrah Wyatt MD Unavailable [phone] Chente Turner MD Unavailable [phone] Lenard Smith MD Unavailable Carlos Andres MD Unavailable Eneida Tilley MD Unavailable [phone] Fer Jaimes MD Unavailable Vaughn Lehman MD Unavailable [phone] Fer Jaimes MD Primary Care Provider [phone] Jessica Sena SYSTEMS COORDINATOR Primary Care Provider [phone] Renu Hidalgo MD Primary Care Provider [phone] Jessica Sena SYSTEMS COORDINATOR Unavailable Brittani Cobian MD Primary Care Provider + Encounter Details Date Type Department Care Team (Late st Contact Info) Description 03/29/2020 Procedure Pass [facility], [facility] [address] [place] [address] Social History Tobacco Use Types Packs/Day Years [...] 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 file Not on file documented as of this encounter Plan of Treatment Not on file documented as of this encounter Visit Diagnoses Not on filedocumented in this encounter Care Teams District Representative Relationship Specialty Start Date End Date Fer Jaimes MD [address] [place], [place] [address] [place] [address] [email or web address] PCP - General 06/02/17 04/13/20 Jessica Sena CNP [address] [place] [address] [email or web address] PCP - General Family Medicine 04/14/20 03/26/21 Renu Hidalgo MD [address] [place] [address] [email or web address] PCP - General Family Medicine 03/27/21 05/30/21 Jessica Sena CNP [address] [address] PCP - Resident PCP Family Medicine 03/27/21 06/05/21 Brittani Cobian MD [address] [place] [address] PCP - General Family Medicine 05/31/21 Diya Vogel CNM [address] [place] [address] [address] [place] [address] Historical LMR Provider 05/12/17 08/04/21 Oneyda Low NP [address] [place] [address] 340 [place] [address] Historical LMR Provider 05/12/17 2 Jessica Sena CNP [address] [place] [address], 2nd [place] [address] [email or web address] Historical LMR Provider 05/12/17 Diya Valles THIRD LOADER [address] [place] [address] Historical LMR Provider 05/12/17 2 Farrah Wyatt MD [address] [place] [address] 7 [place] [address] Historical LMR Provider 05/12/17 08/04/21 Chente Turner MD [address] [place] [address] Historical LMR Provider 05/12/17 Lenard Smith MD [address] [facility], [address] [place] [address] [email or web address] Historical LMR Provider 05/12/17 08/04/21 Carlos Andres MD [address] [place] [address] Historical LMR Provider 05/12/17 2 Eneida Tilley MD [address] [place] [address], [facility] 7 [place] [address] [email or web address] Historical LMR Provider 05/12/17 08/04/21 Fer Jaimes MD [address] [facility] [address] [place] [address] [email or web address] Historical LMR Provider 05/12/17 Vaughn Lehman MD [address] [place] [address] Historical LMR Provider 05/12/17 2 documented as of this encounter Additional Source Comments The information contained in this document represents components of the legal health record. It is not the complete legal health record.[facility]
--- OUTSIDE RECORDS SUMMARY | 2025-03-25 14:31 | XMS_ITS | Encounter Summary ---
Author Organization [facility] Address [address] [facility] [address] [place] [address] Phone Care Team Providers Care French Folding Machine Operator Name Role Phone Jessica Sena [facility] Unavailable [phone] Chente Turner MD Unavailable Fer Jaimes MD Unavailable Brittani Cobian MD Primary Care Provider + Encounter Details Date Type Department Care Team (Late st Contact Info) Description 05/29/2023 Transcribe Orders Virtual Department [address] [place] [address] Brittani Cobian MD [address] [place] [address] [email or web address] Breast screening (Primary Dx) Social History Tobacco [...] 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 Not on file Not [...] documented as of this encounter Care Teams French Folding Machine Operator Relationship Specialty Start Date End Date Brittani Cobian MD [address] [place] [address] PCP - General Family Medicine 05/31/21 Jessica Sena CNP [address] [place] [address], 2nd [place] [address] Historical LMR Provider 05/12/17 Chente Turner MD [address] [place] [address], [address] [place] [address] Historical LMR Provider 05/12/17 Fer Jaimes MD [address] [place] [address] [address] [place] [address] [email or web address] Historical LMR Provider 05/12/17 documented as of this encounter Additional Source Comments The information contained in this document represents components of the legal health record. It is not the complete legal health record.[facility]
--- OUTSIDE RECORDS SUMMARY | 2025-03-25 14:31 | XMS_ITS | Encounter Summary ---
Author Organization [facility] Address [address] [place] [address] [place] [address] Phone Care Team Providers Care Core Winder Machine Operator Name Role Phone Jessica Sena TERMINAL WORKER Unavailable [phone] Chente Turner MD Unavailable [phone] Fer Jaimes MD Unavailable [phone] Brittani Cobian MD Primary Care Provider + Encounter Details Date Type Department Care Team (Late st Contact Info) Description 04/10/2022 Procedure Pass [facility], [address] [address] Social History Tobacco Use Types Packs/Day Years [...] high school, GED, job training, learning the Bahraini language, technical skills, or developing parenting skills)? 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 Not on file documented as of this encounter Plan of Treatment Not on file documented as of this encounter Visit Diagnoses Not on filedocumented in this encounter Additional Health Concerns Assessment Noted Time PHQ-2 Depression Total Score: 0 06/08/20 20 3:05 PM EST documented as of this encounter Care Teams Core Winder Machine Operator Relationship Specialty Start Date End Date Brittani Cobian MD [address] [place] [address] PCP - General Family Medicine 05/31/21 Jessica Sena CNP [address] [facility], 2nd [place] [address] Historical LMR Provider 05/12/17 Chente Turner MD [address] [place] [address], [address] [place] [address] [email or web address] Historical LMR Provider 05/12/17 Fer Jaimes MD [address] [place] [address] [address] [place] [id number] [email or web address] Historical LMR Provider 05/12/17 documented as of this encounter Additional Source Comments The information contained in this document represents components of the legal health record. It is not the complete legal health record.[facility]
--- OUTSIDE RECORDS SUMMARY | 2025-03-25 14:31 | XMS_ITS | Encounter Summary ---
Author Organization [facility] Address [address] [facility] [address] [place] [address] Phone Care Team Providers Care Take Out Waiter/Waitress Name Role Phone Jessica Sena Catrachita MONTESINOS Unavailable [phone] Chente Turner MD Unavailable [phone] Fer Jaimes MD Unavailable [phone] Brittani Cobian MD Primary Care Provider + Reason for Referral * MRI/CAT Scan - Closed Specialty Diagnoses / Procedures Referred By Contkaren t Referred To Contact Radiology Diagnoses Abnormal electrocardiogram Procedures NC Myocardial Perfusion Exercise Multiple CHG MYOCARDIAL SPECT MULTIPLE STUDIES Brittani Cobian MD [address] [place] [address] Phone: tel: fax: [email or web address] Referral ID Status Reason Start Date Expiration Date Visits Re quested Visits Authorized [id number] Closed 01/07/2024 07/05/2024 4 4 Encounter Details Date Type Department Care Team (Latest Contact Info) Description 12/29/2023 Transcribe Orders [facility] [address] [place] [address] Brittani Cobian MD [address] [place] [address] [email or web address] Abnormal electrocardiogram (Primary Dx) Social [...] 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 POS [id number] Narrative 01/09/2024 12:56 PM EDT COMPARISON: None [...] TID ratio at 0.95. Procedure Note Pradip Khalil MD - 01/09/2024 COMPARISON: None HISTORY: Abnormal [...] LVEF wascalculated at greater than 75%. POS [id number] us Brittani Cobian MD CV NM CARDIAC Final Re sult documented in this encounter Visit Diagnoses Diagnosis Abnormal electrocardiogram- Primary Nonspecific abnormal electrocardiogram (ECG) (EKG) Abnormal electrocardiogram Nonspecific abnormal electrocardiogram (ECG) (EKG) documented in this encounter Additional Health Concerns Assessment Noted Time PHQ-2 Depression Total Score: 0 06/08/20 20 3:05 PM EST documented as of this encounter Care Teams Take Out Waiter/Waitress Relationship Specialty Start Date End Date Brittani Cobian MD [address] [place] [address] [email or web address] PCP - General Family Medicine 05/31/21 Jessica Sena CNP [address] [facility], 2nd [place] [address] Historical LMR Provider 05/12/17 Chente Turner MD [address] [place] [address] [address] [place] [address] [email or web address] Historical LMR Provider 05/12/17 Fer Jaimes MD [address] [place] [address] [address] [place] [address] [email or web address] Historical LMR Provider 05/12/17 documented as of this encounter Additional Source Comments The information contained in this document represents components of the legal health record. It is not the complete legal health record.[facility]
--- OUTSIDE RECORDS SUMMARY | 2025-03-25 14:31 | XMS_ITS | Clinical Summary ---
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 Not on file [...] - 05/29/2022 10:50 AM EDT Patient Name: Emertia Hairston Attending MD:: PIERO ORTEGA MD, Procedure Date: 05/29/2022 10:50 AM Date of : 1960 Age: 62 Admit Type: Outpatient Gender: Female Room: [place] [address] Referring MD: BRITTANI CAMILO MD Exam Type: [...] bowel preparation was evaluated using the BBPS (Boody Bowel Preparation Scale)with scores of: Right Colon [...] 10:50 AM Procedure Code(s): --- Professional --- 58022, Colonoscopy, flexible; with removal of tumor(s), polyp(s), or other lesion(s) by snare technique --- Technical --- 63398, Colonoscopy, flexible; with removal of tumor(s), polyp(s), [...] or abscess without bleeding CPT copyright 2020 [employer]. All rights reserved. The codes documented in this report are preliminary and upon surgical coder reviewmay be revised to meet current compliance requirements. Procedure Date: 05/29/2022 10:50:[address] [place] [address] us Brittani Camilo MD GI PROCEDURE ORDERABLES Final Result * (ABNORMAL) Comprehensive metabolic panel (04/04/2021 3:38 PM EDT) SODIUM 141 133 - 146 mmol/L [facility] POTASSIUM 3.3 3.3 - 5.1 mmol/L [facility] CHLORIDE 100 96 - 108 mmol/L [facility] CO2 29 21 - 35 mmol/L [facility] BUN 23(H) 6 - 19 mg/dL [facility] CREATININE 0.80 0.5 - 1.5 mg/dL [facility] GLUCOSE 103(H) 70 - 99 mg/dL [facility] ALBUMIN 4.4 3.9 - 4.8 g/dL [facility] TOTAL PROTEIN 7.3 6.5 - 8.0 g/dL [facility] CALCIUM 9.9 8.4 - 10.3 mg/dL [facility] ALKALINE PHOSPHATASE 58 39 - 117 U/L [facility] TOTAL BILIRUBIN 0.3 0.0 - 1.2 mg/dL [facility] AST 29 0 - 37 U/L [facility] ALT 28 0 - 40 U/L [facility] GLOBULIN 2.9 1 - 4.8 g/dL [facility] EGFR 80 >59 mL/min/1.7 3m2 [facility] Comment:Estimated glomerular filtration rate calculated using the CKD-EPI equation. ANION GAP 15 10 - 20 mmol/L [facility] Blood 04/04/2021 3:38 PM EDT 04/04/2021 3:39 PM EDT us Daniel Ramirez DO LAB BLOOD ORDERABLES Final Resul t [address] [address] * TSH (08/02/2020 2:32 PM EST) Pathologist [facility] TSH 0.40 0.27 - 4.20 uIU/mL [facility] Blood 08/02/2020 2:32 PM EST 08/02/2020 2:37 PM EST us Jessica Sena CNP LAB BLOOD ORDERABLES Final Result Performing Organization Address City/[facility]/ZIP Co de Phone Number [address] [address] * Hepatitis C antibody, qualitative (12/01/2018 9:23 AM EDT) Pathologist [facility] HCV Negative Negative [facility] Comment: This is a screening test and should be confirmed with molecular testing Blood 12/01/2018 9:23 AM EDT 12/01/2018 9:29 AM EDT us Fer Jaimes MD LAB BLOOD ORDERABLES Jackelyn l Result Performing Organization Address [facility]/ZIP Co de Phone Number [address] [address] * (ABNORMAL) Lipid panel (12/01/2018 9:23 AM EDT) [facility] HDL 76 mg/dL [facility] Comment: Interpretation <40 mg/dL: Low HDL cholesterol (major risk factor for CHD) Greater than or equal to 60 mg/dL: High HDL cholesterol ( negative risk factor for CHD) HDL - cholesterol is affected by a number of factors, e.g. smoking, excerise, hormones, sex and age. CHOLESTEROL 202 0 - 240 mg/dL [facility] TRIGLYCERIDES 99 30 - 160 mg/dL [facility] LDL 106 50 - 129 mg/dL [facility] Comment: LDL levels in terms of risk for coronary heart disease: <100 mg/dL: Optimal 100-129 mg/dL: Near or above optimal 130-159 mg/dL: Borderline high 160-189 mg/dL: High >190 mg/dL: Very High CARDIAC RISK RATIO 2.7(L) 3.3 - 4.4 C [facility] Blood 12/01/2018 9:23 AM EDT 12/01/2018 9:29 AM EDT Fer Jaimes MD LAB BLOOD ORDERABLES Jackelyn ochoa Result [facility] [address] [place] [address] * PAP SMEAR FOR RESULT ENTRY ONLY (08/29/2016) Pap smear 5yr us Historical Provider HEALTH MAINTENANCE Final Result from Last 3 Months or Most Recently Relevant to Health Maintenance Insurance CIGNA PPO AETNA O POS EPO CIGNA PPO AETNA O POS [place] [address] [place] [address] [place] [address] [place] [address] PPO AETNA O POS [facility]PO [facility] PPO Member Subscriber Plan / Payer (Ef fective 2020-Present) Name:YovannyEmerita Relation to Subscriber:Self Name:Emerita Hairston Payer ID:[id number] ([facility]) Type:PPO Address: [address] [place] [address] [address] PPO Member Subscriber Plan / Payer (Ef fective 2020-Present) Name:Emerita Hairston Relation to Subscriber:Self Name:YovannyEmerita Payer ID:[id number] ([facility]) Type:PPO Address: [address] [facility]PO [facility] AETNA HMO POS EPO Advance Directives For more information, please contact: [phone] (9AM - 5PM [facility], Friday-Friday) Documents on File Type Date Recorded Patient Ring Stamper Expl anation Healthcare Proxy 07/17/2021 2:40 PM Care Teams Environmental Studies Department Chair Relationship Specialty Start Date End Date Brittani Camilo MD [address] [place] [address] PCP - General Family Medicine 05/31/21 Jessica Sena CNP [address] [place] [address], 2nd [place] [address] Historical LMR Provider 05/12/17 Chente Turner MD [address] [place] [address], [address] [place] [address] Historical LMR Provider 05/12/17 Fer Jaimes MD [address] [place] [address] [address] [place] [address] [email or web address] Historical LMR Provider 05/12/17 Additional Source Comments The information contained in this document represents components of the legal health record. It is not the complete legal health record.[facility]
--- OUTSIDE RECORDS SUMMARY | 2025-03-25 14:31 | XMS_ITS | Encounter Summary ---
Author Organization [facility] Address [address] [place] [address] [place] [address] Phone Care Team Providers Care Toll Service Observer Name Role Phone Jessica Sena MONOLOGIST Unavailable [phone] Chente Turner MD Unavailable [phone] Fer Jaimes MD Unavailable [phone] Brittani Cobian MD Primary Care Provider + Encounter Details Date Type Department Care Team (Late st Contact Info) Description 05/29/2022 Procedure Pass [facility] Endoscopy Admitting Dept Virtual Department [address] [place] [address] Social History Tobacco Use Types Packs/Day Years [...] high school, GED, job training, learning the Nepali language, technical skills, or developing parenting skills)? 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 on file Not on file documented as of this encounter Plan of Treatment Not on file documented as of this encounter Visit Diagnoses Not on filedocumented in this encounter Additional Health Concerns Assessment Noted Time PHQ-2 Depression Total Score: 0 06/08/20 20 3:05 PM EST documented as of this encounter Care Teams Toll Service Observer Relationship Specialty Start Date End Date Brittani Cobian MD [address] [place] [address] PCP - General Family Medicine 05/31/21 Jessica Sena CNP [address] [place] [address], 2nd [place] [address] Historical LMR Provider 05/12/17 Chente Turner MD [address] [place] [address], [address] [place] [address] Historical LMR Provider 05/12/17 Fer Jaimes MD [address] [place] [address] [address] [place] [phone] [email or web address] Historical LMR Provider 05/12/17 documented as of this encounter Additional Source Comments The information contained in this document represents components of the legal health record. It is not the complete legal health record.[facility]
--- OUTSIDE RECORDS SUMMARY | 2025-03-25 14:31 | XMS_ITS | Encounter Summary ---
Author Organization [facility] Address [address] [place] [address] Phone Care Team Providers Care Home Health Care Provider Name Role Phone Jessica Senameagan MONTESINOS Unavailable [phone] Chente Turner MD Unavailable [phone] Fer Jaimes MD Unavailable Brittani Cobian MD Primary Care Provider + Reason for Referral * Outpatient Procedure - Closed Specialty Diagnoses / Procedures Referred By Lukas t Referred To Contact Radiology Diagnoses Abnormal electrocardiogram Procedures Adult Echo TTE Kaleb Salmon PA [address] [place] Phone: tel: fax: Referral ID Status Reason Start Date Expiration Date Visits Re quested Visits Authorized [id number] Closed 12/24/2023 12/23/2024 1 1 Encounter Details Date Type Department Care Team (Latest Contact Info) Description 12/24/2023 Transcribe Orders Virtual Department [address] [place] [address] Kaleb Salmon PA [address] [place] [address] Abnormal electrocardiogram (Primary Dx) Social History Tobacco [...] 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 on file [...] documented as of this encounter Care Teams Home Health Care Provider Relationship Specialty Start Date End Date Brittani Cobian MD [address] [place], [place] [address] [email or web address] PCP - General Family Medicine 05/31/21 Jessica Sena CNP [address] [facility], 2nd [place] [address] [email or web address] Historical LMR Provider 05/12/17 Chente Turner MD [address] [place] [address] [address] [place] [address] [email or web address] Historical LMR Provider 05/12/17 Fer Jaimes MD [address] [place] [address] [address] [place] [address] [email or web address] Historical LMR Provider 05/12/17 documented as of this encounter Additional Source Comments The information contained in this document represents components of the legal health record. It is not the complete legal health record.[facility]
--- OUTSIDE RECORDS SUMMARY | 2025-03-25 14:31 | XMS_ITS | Patient Health Record ---
Author Organization [facility] Address [address] [place] [address] Care Team Providers Care Chamber Magistrate Name Role Phone Danisha Ohara Primary Care Provider Unavailabl e Black, Maricruz Unavailable [phone] Allergies Allergen (clinical drug ingredient) Drug/Non Drug [...] W/U Status Risk Notes Problem Plantar wart (06315595) Plantar wart (B07.0) Active confirmed Vital Signs Height 5ft 1in in 05/03/2024 Weight 123 lbs 05/03/2024 BMI 23.24 kg/m2 05/03/2024 Procedures Procedure Date Ordered Date Performed Result Body Sit e 86728-Bljf Destruction, 1-14 05/03/2024 N/A Encounters Encounter Location Date Provider Diagnosis [facility] [place] [address] [place] [address] 05/03/2024 Maricruz Black Bursitis of intermetatarsal bursa [...] X ray : Foot, left 3V 11/17/2023 37907-Skci Destruction, 1-14 05/03/2024 70577-Txjv Destruction, 1-14 11/17/2023 Insurance Providers Payer Name Payer Address Payer Phone Subscriber Number Group Number Insured Name Patient Relationship to Insured Coverage Start Date Coverage End Date A[employer] [address] [place] [address] [id number] Emerita Hairston Self - patient is the insured [employer] [address] [place] [id number] Alex Salvador Other Medical (General) History Medical History History ICD Code High blood pressure Hypothyroidism covid-19 Anxiety Back,Hip,and Knee pain sinusitis thyroid Warts Mumps Chicken pox Surgical History Surgery Date(Month/Year) colonoscopy 05/29/2022 1986 loophorectomy due to growth- neg patholo gy 2011 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
--- OUTSIDE RECORDS SUMMARY | 2025-03-25 14:32 | XMS_ITS | Encounter Summary ---
Author Organization [facility] Address [address] [place] [address] Phone Care Team Providers Care Pediatric Dietician Name Role Phone Diya Vogel CNM Unavailable Oneyda Low CARDROOM PLASTIC CARD GRADER Unavailable Jessica Sena PHOTOENGRAVING ETCHER Unavailable Diya Valles CARDROOM PLASTIC CARD GRADER Unavailable [phone] Farrah Wyatt MD Unavailable [phone] Chente Turner MD Unavailable Lenard Smith MD Unavailable Carlos Andres MD Unavailable Eneida Tilley MD Unavailable Fer Jaimes MD Unavailable Vaughn Lehman MD Unavailable [phone] Renu Hidalgo MD Primary Care Provider Jessica Sena PHOTOENGRAVING ETCHER Unavailable Brittani Cobian MD Primary Care Provider + Encounter Details Date Type Department Care Team (Late st Contact Info) Description 04/20/2021 Procedure Pass [facility] [address] [place] [address] Social History Tobacco Use Types Packs/Day Years [...] high school, GED, job training, learning the Colombian language, technical skills, or developing parenting skills)? 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 on file Not on file documented as of this encounter Plan of Treatment Not on file documented as of this encounter Visit Diagnoses Not on filedocumented in this encounter Additional Health Concerns Assessment Noted Time PHQ-2 Depression Total Score: 0 06/08/20 20 3:05 PM EST documented as of this encounter Care Teams Pediatric Dietician Relationship Specialty Start Date End Date Renu Hidalgo MD [address] [place] [address] [email or web address] PCP - General Family Medicine 03/27/21 05/30/21 Jessica Sena, YAMEL [address] [address] PCP - Resident PCP Family Medicine 03/27/21 06/05/21 Brittani Cobian MD [address] [place] [address] PCP - General Family Medicine 05/31/21 Diya Vogel CNM [address] [address] Historical LMR Provider 05/12/17 08/04/21 Oneyda Low NP [address] [place] [address] [address] [place] [address] Historical LMR Provider 05/12/17 2 Jessica Sena, PHOTOENGRAVING ETCHER [address] [address] Historical LMR Provider 05/12/17 Diya Valles NP [address] [place] [address] Historical LMR Provider 05/12/17 2 Farrah Wyatt MD [address] [place] [address] 7 [place] [address] Historical LMR Provider 05/12/17 08/04/21 Chente Turner MD [address] [place] [address] 7 [place] [address] Historical LMR Provider 05/12/17 Lenard Smith MD [address] [place] [address] [place] [address] Historical LMR Provider 05/12/17 08/04/21 Carlos Andres MD [address] [place] [address] Historical LMR Provider 05/12/17 2 Eneida Tilley MD [address] [place] [address] 7 [place] [address] [email or web address] Historical LMR Provider 05/12/17 08/04/21 Fer Jaimes MD [address] [place] [address] [address] [place] [id number] [email or web address] Historical LMR Provider 05/12/17 Vaughn Lehman MD [address] [place] [address] Historical LMR Provider 05/12/17 2 documented as of this encounter Additional Source Comments The information contained in this document represents components of the legal health record. It is not the complete legal health record.[facility]
--- OUTSIDE RECORDS SUMMARY | 2025-03-25 14:32 | XMS_ITS | Encounter Summary ---
Author Organization [facility] Address [address] [place] [address] Phone Care Team Providers Care Crystallographer Name Role Phone Diya Vogel CNM Unavailable Oneyda Low CD MIXER Unavailable Jessica Sena BANQUET STEWARD Unavailable [phone] Diya Valles CD MIXER Unavailable [phone] Farrah Wyatt MD Unavailable [phone] Chente Turner MD Unavailable [phone] Lenard Smith MD Unavailable Carlos Andres MD Unavailable Eneida Tilley MD Unavailable [phone] Fer Jaimes MD Unavailable Vaughn Lehman MD Unavailable [phone] Fer Jaimes MD Primary Care Provider [phone] Jessica Sena BANQUET STEWARD Primary Care Provider [phone] Renu Hidalgo MD Primary Care Provider [phone] Jessica Sena BANQUET STEWARD Unavailable Brittani Cobian MD Primary Care Provider + Encounter Details Date Type Department Care Team (Late st Contact Info) Description 02/23/2019 Ancillary Orders [facility] [address] [place] [address] Fer Jaimes MD [address] [place] [address] [email or web address] Breast screening Social History Tobacco Use Types [...] unspecified documented in this encounter Care Teams Crystallographer Relationship Specialty Start Date End Date Fer Jaiems MD [address] [place], [place] [address] [place] [address] PCP - General 06/02/17 04/13/20 Jessica Sena CNP [address] [place] [address], [address] [place] [address] [email or web address] PCP - General Family Medicine 04/14/20 03/26/21 Renu Hidalgo MD [address] [place] [address] [email or web address] PCP - General Family Medicine 03/27/21 05/30/21 Jessica Sena, BANQUET STEWARD [address] [address] PCP - Resident PCP Family Medicine 03/27/21 06/05/21 Brittani Cobian MD [address] [place] [address] PCP - General Family Medicine 05/31/21 Diya Vogel CNM [address] [place] [address] Historical LMR Provider 05/12/17 08/04/21 Oneyda Low NP [address] [place] [address] Historical LMR Provider 05/12/17 2 Jessica Sena, BANQUET STEWARD [address] [place] [address] Historical LMR Provider 05/12/17 Diya Valles CD MIXER [address] [place] [address] Historical LMR Provider 05/12/17 2 Farrah Wyatt MD [address] [place] [address] 7 [place] [address] Historical LMR Provider 05/12/17 08/04/21 Chente Turner MD 234 [facility] 7 [place] [address] [email or web address] Historical LMR Provider 05/12/17 Lenard Smith MD [address] [place] [address], [address] [place] [address] [email or web address] Historical LMR Provider 05/12/17 08/04/21 Carlos Andres MD [address] [place] [address] Historical LMR Provider 05/12/17 2 Eneida Tilley MD [address] [place] [address] 7 [place] [address] [email or web address] Historical LMR Provider 05/12/17 08/04/21 Fer Jaimes MD [address] [place] [address] [address] [place] [address] [email or web address] Historical LMR Provider 05/12/17 Vaughn Lehman MD 61 [place] [address] Historical LMR Provider 05/12/17 2 documented as of this encounter Additional Source Comments The information contained in this document represents components of the legal health record. It is not the complete legal health record.[facility]
--- OUTSIDE RECORDS SUMMARY | 2025-03-25 14:32 | XMS_ITS | Clinical Summary ---
Author Organization [facility] Address [address] [place] [address] Phone Care Team Providers Care Government Affairs Manager Name Role Phone Brittani Cobian MD Primary Care Provider [phone] Allergies Active Allergy Reactions Criticality Noted Date [...] this topic Insurance [employer] AETNA Care Teams Government Affairs Manager Relationship Specialty Start Date End Date Brittani Cobian MD [address] [place] [phone] PCP - General Family Medicine 06/22/24
--- OUTSIDE RECORDS SUMMARY | 2025-03-25 14:32 | XMS_ITS | Encounter Summary ---
Author Organization [facility] Address [address] [place] [address] Phone Care Team Providers Care Vice President Of Compliance Name Role Phone Diya Vogel CNM Unavailable Oneyda Low FIRE POT OPERATOR Unavailable Jessica Sena GAMBLING DEALER Unavailable [phone] Diya Valles FIRE POT OPERATOR Unavailable [phone] Farrah Wyatt MD Unavailable [phone] Chente Turner MD Unavailable [phone] Lenard Smith MD Unavailable Carlos Andres MD Unavailable Eneida Tilley MD Unavailable [phone] Fer Jaimes MD Unavailable Vaughn Lehman MD Unavailable [phone] Fer Jaimes MD Primary Care Provider [phone] Jessica Sena GAMBLING DEALER Primary Care Provider [phone] Renu Hidalgo MD Primary Care Provider [phone] Jessica Sena GAMBLING DEALER Unavailable Brittani Cobian MD Primary Care Provider + Encounter Details Date Type Department Care Team (Late st Contact Info) Description 03/29/2020 Ancillary Orders [facility] [address] [place] [address] Fer Jaimes MD 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 Not [...] unspecified documented in this encounter Care Teams Vice President Of Compliance Relationship Specialty Start Date End Date Fer Jaimes MD [address] [place], [place] [address] [place] [address] [email or web address] PCP - General 06/02/17 04/13/20 Jessica Sena CNP [address] [address] PCP - General Family Medicine 04/14/20 03/26/21 Renu Hidalgo MD [address] [place] [address] [email or web address] PCP - General Family Medicine 03/27/21 05/30/21 Jessica Sena CNP [address] [address] PCP - Resident PCP Family Medicine 03/27/21 06/05/21 Brittani Cobian MD [address] [place] [address] PCP - General Family Medicine 05/31/21 Diya Vogel CNM 22 [facility], [address] [address] Historical LMR Provider 05/12/17 08/04/21 Oneyda Low NP [address] [place] [address] 340 [place] [address] Historical LMR Provider 05/12/17 2 Jessica Sena CNP 15 [facility], 2nd [place] [address] Historical LMR Provider 05/12/17 Diya Valles NP [address] [place] [address] Historical LMR Provider 05/12/17 2 Farrah Wyatt MD [address] [place] [address] 7 [place] [address] Historical LMR Provider 05/12/17 08/04/21 Chente Turner MD [address] [place] [address] Historical LMR Provider 05/12/17 Lenard Smith MD 22 [facility] 102 [place] [address] Historical LMR Provider 05/12/17 08/04/21 Carlos Anrdes MD [address] [place] [address] Historical LMR Provider 05/12/17 2 Eneida Tilley MD 234 [facility], [address] [place] [address] Historical LMR Provider 05/12/17 08/04/21 Fer Jaimes MD 234 [facility] [address] [place] [address] [email or web address] Historical LMR Provider 05/12/17 Vaughn Lehman MD [address] [place] [address] Historical LMR Provider 05/12/17 2 documented as of this encounter Additional Source Comments The information contained in this document represents components of the legal health record. It is not the complete legal health record.[facility]
--- OUTSIDE RECORDS SUMMARY | 2025-03-25 14:32 | XMS_ITS | Encounter Summary ---
Author Organization [facility] Address [address] [place] [address] Phone Care Team Providers Care Fine Arts Teacher Name Role Phone Diya Vogel CNM Unavailable Oneyda Low LANDMAN Unavailable Jessica Sena BELT BRANDER Unavailable [phone] Diya Valles LANDMAN Unavailable [phone] Farrah Wyatt MD Unavailable [phone] Chente Turner MD Unavailable [phone] Lenard Smith MD Unavailable Carlos Andres MD Unavailable Eneida Tilley MD Unavailable [phone] Fer Jaimes MD Unavailable Vaughn Lehman MD Unavailable [phone] Fer Jaimes MD Primary Care Provider [phone] Jessica Sena BELT BRANDER Primary Care Provider [phone] Renu Hidalgo MD Primary Care Provider [phone] Jessica Sena BELT BRANDER Unavailable Brittani Cobian MD Primary Care Provider + Encounter Details Date Type Department Care Team (Late st Contact Info) Description 03/02/2018 Ancillary Orders [facility] [address] [place] [address] Fer Jaimes MD [address] [place] [phone] [email or web address] Breast screening Social History Tobacco Use Types [...] were interpreted in conjunction with R-2 Image Senior Applications Engineer computer-aided detection. FINDINGS: Breast density: The breast [...] Images were interpreted inconjunction with R-2 Image Senior Applications Engineer computer-aided detection. FINDINGS: Breast density: The breast [...] unspecified documented in this encounter Care Teams Fine Arts Teacher Relationship Specialty Start Date End Date Fer Jaimes MD [address] [place] [address] [address] [place] [address] [email or web address] PCP - General 06/02/17 04/13/20 Jessica Sena CNP 15 [facility], 2nd [place] [address] [email or web address] PCP - General Family Medicine 04/14/20 03/26/21 Renu Hidalgo MD [address] [place] [address] [email or web address] PCP - General Family Medicine 03/27/21 05/30/21 Jessica Sena, BELT BRANDER [address] [place] [address] [email or web address] PCP - Resident PCP Family Medicine 03/27/21 06/05/21 Brittani Cobian MD [address] [place] [address] [email or web address] PCP - General Family Medicine 05/31/21 Diya Vogel CNM [address] [place] [address] [email or web address] Historical LMR Provider 05/12/17 08/04/21 Oneyda Low NP [address] [place] [address] Historical LMR Provider 05/12/17 2 Jessica Sena, BELT BRANDER [address] [place] [address] [email or web address] Historical LMR Provider 05/12/17 Diya Valles LANDMAN [address] [place] [address] Historical LMR Provider 05/12/17 2 Farrah Wyatt MD [address] [place] [address] 7 [place] [address] [email or web address] Historical LMR Provider 05/12/17 08/04/21 Chente Turner MD [address] [place] [address] 7 [place] [address] Historical LMR Provider 05/12/17 Lenard Smith MD [address] [place] [address] [email or web address] Historical LMR Provider 05/12/17 08/04/21 Carlos Andres MD [address] [place] [address] Historical LMR Provider 05/12/17 2 Eneida Tilley MD [address] [place] [address] 7 [place] [address] [email or web address] Historical LMR Provider 05/12/17 08/04/21 Fer Jaimes MD [address] [place], [place] [address] [place] [address] [email or web address] Historical LMR Provider 05/12/17 Vaughn eLhman MD [address] [place] [address] Historical LMR Provider 05/12/17 2 documented as of this encounter Additional Source Comments The information contained in this document represents components of the legal health record. It is not the complete legal health record.[facility]
== END 2025-03-25 14:29 | disposition home or self-care (01) ==
LOC: HO.XRAY 14:28
DX: M25.512 Pain in left shoulder (principal)
CPT/HCPCS: 73030

== ENCOUNTER → 2025-03-25 14:33 | Outpatient (BNV) | payer OTHER, SELFPAY | PROVIDERS: Visit Provider Radiology Diagnostic Radiology | DX: M25.512 Pain in left shoulder (principal) | CPT/HCPCS: 73030 ==

== ENCOUNTER 2025-05-16 16:50 | Outpatient (RCR) | payer OTHER, SELFPAY | END 2025-06-13 08:49 | disposition home or self-care (01) | LOC: HO.PT 16:50 | DX: M25.512 Pain in left shoulder (principal) | CPT/HCPCS: 97110; 97112; 97140; 97162; 97535 ==

== ENCOUNTER 2025-06-07 08:38 | Outpatient (AMB) | payer OTHER, SELFPAY ==
--- OUTSIDE RECORDS SUMMARY | 2024-03-04 03:30 | XMS_ITS ---
Author Organization [facility] Address [address] [place] [address] Care Team Providers Care Lens Inspector Name Role Phone Danisha Ohara Primary Care Provider Maricruz Pettit [phone] Varela Encounters Encounter Location Date Provider Diagnosis [address] [address] 03/04/2024 Maricruz Rubio Plan Of Treatment Next Appt Details Provider Name:Maricruz Michelle Rubio , 08/11/2025 09:00:00 AM, [address] [place] [address], [phone], Progress Notes * Emerita HAIRSTON SDOB:[birth year] (65 yo F)Acc No.[id number]:03/04/2024 Progress Note Patient: Siri MARBELLA Emerita Kathleen Provider: Aarti Rubio DPM :1960 A ge:63 Y S ex:Female Date:03/04/2024 Address:[address] [place] Pcp:Danisha Ohara Subjective: * Chief Complaints: * [...] DPM Date: 0 03/04/2024 Generated for Jaleesa oshea/Bambi/Pancho on: 08/07/2024 08:50 AM EST
--- OUTSIDE RECORDS SUMMARY | 2024-03-08 10:30 | XMS_ITS ---
Author Organization [facility] Address [address] [place] [address] Care Team Providers Care Entry Specialists Name Role Phone Danisha Ohara Primary Care Provider Maricruz Pettit [phone] Encounters Encounter Location Date Provider Diagnosis [address] [address] 03/08/2024 Maricruz Rubio Plan Of Treatment Next Appt Details Provider Name:Maricruz Rubio , 08/11/2025 09:00:00 AM, [address] [place] [address], [address], Progress Notes * Emerita HAIRSTON SDOB:[birth year] (65 yo F)Acc No.[id number]:03/08/2024 Progress Note Patient: Siri MARBELLA Emerita Kathleen Provider: Aarti Rubio DPM :1960 A ge:63 Y S ex:Female Date:03/08/2024 Address:[address] [id number] Pcp:Danisha Ohara Subjective: * Chief Complaints: * * Medical History: Objective: * Vitals: Assessment: Plan: * Treatment: * Images: * The named appointment provid er may or may not be the originator of this progress note, and it is not deemed complete until electronically signed by the appointment provider. Sign off status: Pending * Provider: Aarti Rubio CHRISTINA Date: 0 03/08/2024 Generated for Jaleesa oshea/Bambi/Pancho on: 1 08/07/2024 08:50 AM EST
--- OUTSIDE RECORDS SUMMARY | 2024-04-21 09:45 | XMS_ITS ---
Author Organization [facility] Address [address] [place] [address] Care Team Providers Care Tabber Name Role Phone Danisha Ohara Primary Care Provider Maricruz Pettit [phone] VALLES Encounters Encounter Location Date Provider Diagnosis [address] [address] 04/21/2024 Maricruz Rubio Plan Of Treatment Next Appt Details Provider Name:Maricruz Michelle Rubio , 08/11/2025 09:00:00 AM, [address] [place], [address], Progress Notes * Emerita HAIRSTON SDOB:[birth year] (65 yo F)Acc No.[id number]:04/21/2024 Progress Note Patient: Siri MARBELLA Emerita Kathleen Provider: Aarti Rubio DPM :1960 A ge:64 Y S ex:Female Date:04/21/2024 Address:[address] [place] Pcp:Danisha Ohara Subjective: * Chief Complaints: * [address] VALLES. * Medical History: Objective: * Vitals: Assessment: Plan: * Treatment: * Images: * The named appointment provid er may or may not be the originator of this progress note, and it is not deemed complete until electronically signed by the appointment provider. Sign off status: Pending * Provider: Aarti Rubio DPM Date: 0 04/21/2024 Generated for Jaleesa oshea/Bambi/Pancho on: 1 08/07/2024 08:49 AM EST
--- OUTSIDE RECORDS SUMMARY | 2024-06-04 09:00 | XMS_ITS ---
Author Organization [facility] Address [address] [place] [address] Care Team Providers Care Water Main Installer Helper Name Role Phone Danisha Ohraa Primary Care Provider Maricruz Pettit [phone] Encounters Encounter Location Date Provider Diagnosis [address] [address] 06/04/2024 Maricruz Rubio Plan Of Treatment Next Appt Details Provider Name:Maricruz Rubio , 08/11/2025 09:00:00 AM, [address] [place], [address], Progress Notes * Emerita HAIRSTON SDOB:[birth year] (65 yo F)Acc No.[id number]:06/04/2024 Progress Note Patient: Emerita RAMIREZ Provider: Aarti Rubio DPM :1960 A ge:64 Y S ex:Female Date:06/04/2024 Address[address] [place] Pcp:Danisha Ohara Subjective: * Chief Complaints: * [...] Date: 08/04/2023 Generated for Jaleesa oshea/Bambi/Pancho on: 08/07/2024 08:50 AM EST
--- OUTSIDE RECORDS SUMMARY | 2025-06-07 08:49 | XMS_ITS | Encounter Summary ---
Author Organization [facility] Address [address] [place] [address] [place] [address] Phone Care Team Providers Care Fisher Trawl Net Name Role Phone Jessica Sena FLOOR COVERER Unavailable [phone] Chente Turner MD Unavailable [phone] Fer Jaimes MD Unavailable [phone] Brittani Cobian MD Primary Care Provider + Encounter Details Date Type Department Care Team (Late st Contact Info) Description 05/29/2022 Procedure Pass [facility] Admitting Dept Virtual Department [address] [place] [address] Social History Tobacco Use Types Packs/Day Years [...] high school, GED, job training, learning the Rw[place] language, technical skills, or developing parenting skills)? 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 Not on file Not on file documented as of this encounter Plan of Treatment Not on file documented as of this encounter Visit Diagnoses Not on filedocumented in this encounter Additional Health Concerns Assessment Noted Time PHQ-2 Depression Total Score: 0 06/08/20 20 3:05 PM EST documented as of this encounter Care Teams Fisher Trawl Net Relationship Specialty Start Date End Date Brittani Cobian MD [address] [place] [address] PCP - General Family Medicine 05/31/21 Jessica Sena CNP [address] [place] [address], 2nd [place] [address] Historical LMR Provider 05/12/17 Chente Turner MD [address] [place] [address], [address] [place] [address] Historical LMR Provider 05/12/17 Fre Jaimes MD [address] [place] [address] [address] [place] [phone] [email or web address] Historical LMR Provider 05/12/17 documented as of this encounter Additional Source Comments The information contained in this document represents components of the legal health record. It is not the complete legal health record.[facility]
--- OUTSIDE RECORDS SUMMARY | 2025-06-07 08:49 | XMS_ITS | Patient Health Record ---
Author Organization [facility] Address [address] [facility] [place] [address] Care Team Providers Care Commercial Property Administrator Name Role Phone Danisha Ohara Primary Care Provider Anatoliy Pettitmie Unavailable [phone] Allergies Allergen (clinical drug ingredient) Drug/Non Drug Allergy documented on EMR Reaction Allergy Type Onset Date Status Compazine limb weakness, paralysis Drug Allergy Active Results Component Value Reference Range Notes X ray : Foot, left 3V Reviewed date:05/27/2025 06:10:14 PM Interpretation:See Examination above Performing Lab: Notes/Report: See Examination above X ray : Foot, right 3V Reviewed date:05/27/2025 06:10:30 PM Interpretation:See Examination above Performing Lab: Notes/Report: See Examination above Reason For Referral No Information Medications Medication SIG (Take, Route, Frequency, Duration) Notes Start Date End Date Status hydroCHLOROthiazide 12.5 MG 1 tablet in the morning Orally Once a day Active Vitamin D Not-Taking Multivitamin Active Metamucil Not-Taking Levothyroxine Sodium 100 MCG 1 tablet in the morning on an empty stomach Orally Once a day Active Propranolol HCl 10 MG 1 tablet Orally Once a day PRN Active Social History Tobacco Use: Social History Observation Description Date Details (start date - stop date) Never Smoker NA - NA Tobacco use other than smoking: Question Answer Notes Are you an other tobacco user? No Tobacco Control (Standard) Question Answer Notes Tobacco use: Nonsmoker Additional Findings: Tobacco non-user Current no nsmoker AUDIT-C (Standard) Question Answer Notes Did you have a drink contain ing alcohol in the past year? Yes How often did you have a dri nk containing alcohol in the past year? 2 to 4 times a month (2 points) How many drinks did you have on a typical day when you were drinking in the past year? 1 or 2 drinks (0 point) How often did you have six o r more drinks on one occasion in the past year? 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) Plantar fasciitis, bilateral (M72.2) Active confirmed Vital Signs Blood pressure diastolic 75 mm Hg 05/27/2025 Height 5ft 1in in 05/27/2025 Blood pressure systolic 120 mm Hg 05/27/2025 Weight 124 lbs 05/27/2025 BMI 23.43 kg/m2 05/27/2025 Encounters Encounter Location Date Provider Diagnosis [facility] [address] 05/27/2025 Maricruz Black Pain in left foot M79.672 ; Calcaneal spur, left foot M77.32 ; Interstitial myositis of left foot M60.172 ; Bursitis of left foot M77.52 ; Pain in right foot M79.671 ; Calcaneal spur, right foot M77.31 ; Plantar fasciitis, bilateral M72.2 ; Other myositis of right foot M60.871 ; Bursitis of right foot M77.51 ; Pain in left foot M79.672 ; Calcaneal spur, left foot M77.32 and Other myositis of left foot M60.872 Assessments Encounter Date Diagnosis (ICD Code) Assessment Notes Treatment Notes Treatment Clinical Notes Section Notes 05/27/2025 Pain in left foot (ICD-10 - M79.672) 05/27/2025 Calcaneal spur, left foot (ICD-10 - M77.32) 05/27/2025 Interstitial myositis of left foot (ICD-10 - M60.172) 05/27/2025 Bursitis of left foot (ICD-10 - M77.52) 05/27/2025 Pain in right foot (ICD-10 - M79.671) 05/27/2025 Calcaneal spur, right foot (ICD-10 - M77.31) 05/27/2025 Other myositis of right foot (ICD-10 - M60.871) 05/27/2025 Plantar fasciitis, bilateral (ICD-10 - M72.2) Patient Educated with: HEEL CORD STRETCHES.pdf (HEEL CORD STRETCHES.pdf) Patient Educated with: RICE THERAPY.pdf (RICE THERAPY.pdf) 05/27/2025 Bursitis of right foot (ICD-10 - M77.51) 05/27/2025 Pain in left foot (ICD-10 - M79.672) 05/27/2025 Calcaneal spur, left foot (ICD-10 - M77.32) 05/27/2025 Other myositis of left foot (ICD-10 - M60.872) 05/27/2025 Other Plan Of Treatment Pending Test Test Name Order Date X ray : Foot, left 3V 11/17/2023 [id number] Destruction, 1-14 05/03/2024 [id number] Destruction, 1-14 11/17/2023 Next Appt Details Provider Name:Maricruz Rubio , 08/11/2025 09:00:00 AM, [address] [place], [address], Insurance Providers Payer Name Payer Address Payer Phone Subscriber Number Group Number Insured Name Patient Relationship to Insured Coverage Start Date Coverage End Date A[employer]na [address] [place] [address] [id number] Emerita Hairston Self - patient is the insured [employer] [address] [place] [phone] [id number] Alex Salvador Other Medical (General) History Medical History History ICD Code High blood pressure Hypothyroidism covid-19 Anxiety Back,Hip,and Knee pain sinusitis thyroid Warts Mumps Chicken pox Surgical History Surgery Date(Month/Year) colonoscopy 05/29/2022 1986 loophorectomy due to growth- neg patholo gy 2012 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
--- OUTSIDE RECORDS SUMMARY | 2025-06-07 08:49 | XMS_ITS | Encounter Summary ---
Author Organization Formerly [facility] Address [address] [place] [address] Phone Care Team Providers Care Silverware Supervisor Name Role Phone Jessica Sena Catrachita MONTESINOS Unavailable [phone] Chente Turner MD Unavailable [phone] Fer Jaimes MD Unavailable [phone] Brittani Cobian MD Primary Care Provider + Reason for Referral * Outpatient Procedure - Closed Specialty Diagnoses / Procedures Referred By Contkaren t Referred To Contact Diagnoses Abnormal electrocardiogram Procedures Stress Test Exercise Kaleb Salmon PA [address] [place] [address] Phone: tel: fax: mailto: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 on file Not [...] documented as of this encounter Care Teams Silverware Supervisor Relationship Specialty Start Date End Date Brittani Cobian MD [address] [place] [address] [email or web address] PCP - General Family Medicine 05/31/21 Jessica Sena, YAMEL [address] [facility], 2nd [place] [address] [email or web address] Historical LMR Provider 05/12/17 Chente Turner MD [address] [place] [address], [address] [place] [address] [email or web address] Historical LMR Provider 05/12/17 Fer Jaimes MD [address] [place] [address] [address] [place] [address] [email or web address] Historical LMR Provider 05/12/17 documented as of this encounter Additional Source Comments The information contained in this document represents components of the legal health record. It is not the complete legal health record.[facility]
--- OUTSIDE RECORDS SUMMARY | 2025-06-07 08:49 | XMS_ITS | Encounter Summary ---
Author Organization [facility] Address [address] [place] [address] [place] [address] Phone Care Team Providers Care Service Planner Name Role Phone Jessica Sena POWER BENDER OPERATOR Unavailable [phone] Chente Turner MD Unavailable [phone] Fer Jaimes MD Unavailable [phone] Brittani Cobian MD Primary Care Provider + Encounter Details Date Type Department Care Team (Late st Contact Info) Description 04/10/2022 Procedure Pass [facility], [address] [address] Social History Tobacco Use Types Packs/Day Years [...] high school, GED, job training, learning the Maldivian language, technical skills, or developing parenting skills)? 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 Not on file Not on file documented as of this encounter Plan of Treatment Not on file documented as of this encounter Visit Diagnoses Not on filedocumented in this encounter Additional Health Concerns Assessment Noted Time PHQ-2 Depression Total Score: 0 06/08/20 20 3:05 PM EST documented as of this encounter Care Teams Service Planner Relationship Specialty Start Date End Date Brittani Cobian MD [address] [place] [address] PCP - General Family Medicine 05/31/21 Jessica Sena CNP [address] [facility], 2nd [place] [address] Historical LMR Provider 05/12/17 Chente Turner MD [address] [place] [address], [address] [place] [address] [email or web address] Historical LMR Provider 05/12/17 Fer Jaimes MD [address] [place] [address] [address] [place] [phone] [email or web address] Historical LMR Provider 05/12/17 documented as of this encounter Additional Source Comments The information contained in this document represents components of the legal health record. It is not the complete legal health record.[facility]
--- OUTSIDE RECORDS SUMMARY | 2025-06-07 08:49 | XMS_ITS | Encounter Summary ---
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 on file Not on file documented as of this encounter Plan of Treatment Not on file documented as of this encounter Visit Diagnoses Not on filedocumented in this encounter Additional Health Concerns Assessment Noted Time PHQ-2 Depression Total Score: 0 06/08/20 20 3:05 PM EST documented as of this encounter Care Teams Unclaimed Property Manager Relationship Specialty Start Date End Date Brittani Cobian MD [address] [place] [address] PCP - General Family Medicine 05/31/21 Jessica Sena CNP 15 [facility], 2nd [place] [address] Historical LMR Provider 05/12/17 Chente Turner MD [address] [place] [address], [address] [place] [address] [email or web address] Historical LMR Provider 05/12/17 Fer Jaimes MD [address] [place] [address] [address] [place] [phone] [email or web address] Historical LMR Provider 05/12/17 documented as of this encounter Additional Source Comments The information contained in this document represents components of the legal health record. It is not the complete legal health record.[facility]
--- OUTSIDE RECORDS SUMMARY | 2025-06-07 08:49 | XMS_ITS | Encounter Summary ---
Author Organization [facility] Address [address] [place] [address] Phone Care Team Providers Care Rn Ccu Name Role Phone Jessica Sena Catrachita MONTESINOS Unavailable [phone] Chente Turner MD Unavailable [phone] Fer Jaimes MD Unavailable Brittani Cobian MD Primary Care Provider + Reason for Referral * Outpatient Procedure - Closed Specialty Diagnoses / Procedures Referred By Lukas t Referred To Contact Radiology Diagnoses Abnormal electrocardiogram Procedures Adult Echo TTE Kaleb Salmon PA [address] [place] Phone: tel: fax: mailto:[email or web address] Referral ID Status Reason Start Date Expiration Date Visits Re quested Visits Authorized [id number] Closed 12/24/2023 12/23/2024 1 1 Encounter Details Date Type Department Care Team (Latest Contact Info) Description 12/24/2023 Transcribe Orders Virtual Department 30 [place] [address] Kaleb Salmon PA [address] [place] [address] [email or web address] Abnormal electrocardiogram (Primary Dx) Social History Tobacco [...] 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 IAS/IVS The interatrial septum appears normal. us Kaleb WALKER CV ECHO ORDERABLES Final Resul t documented in this encounter Visit Diagnoses Diagnosis Abnormal electrocardiogram- Primary Nonspecific abnormal electrocardiogram (ECG) (EKG) Abnormal electrocardiogram Nonspecific abnormal electrocardiogram (ECG) (EKG) documented in this encounter Additional Health Concerns Assessment Noted Time PHQ-2 Depression Total Score: 0 06/08/20 20 3:05 PM EST documented as of this encounter Care Teams Rn Ccu Relationship Specialty Start Date End Date Brittani Cobian MD 17 [place] [address] [email or web address] PCP - General Family Medicine 05/31/21 Jessica Sena, YAMEL 15 [facility], 2nd [place] [address] [email or web address] Historical LMR Provider 05/12/17 Chente Turner MD [address] [place] [address], [address] [place] [address] [email or web address] Historical LMR Provider 05/12/17 Fer Jaimes MD [address] [place] [address] [address] [place] [address] [email or web address] Historical LMR Provider 05/12/17 documented as of this encounter Additional Source Comments The information contained in this document represents components of the legal health record. It is not the complete legal health record.[facility]
--- OUTSIDE RECORDS SUMMARY | 2025-06-07 08:49 | XMS_ITS | Encounter Summary ---
Author Organization [facility] Address [address] [place] [address] Phone Care Team Providers Care Stem Lead Former Name Role Phone Jessica Sena INSTRUCTIONAL PARAPROFESSIONAL Unavailable [phone] Chente Turner MD Unavailable [phone] Fer Jaimes MD Unavailable Brittani Cobian MD Primary Care Provider + Encounter Details Date Type Department Care Team (Late st Contact Info) Description 05/29/2023 Procedure Pass [facility] - [address] [place] [address] Social History Tobacco Use Types Packs/Day Years [...] 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 Not on file Not on file documented as of this encounter Plan of Treatment Not on file documented as of this encounter Visit Diagnoses Not on filedocumented in this encounter Additional Health Concerns Assessment Noted Time PHQ-2 Depression Total Score: 0 06/08/20 20 3:05 PM EST documented as of this encounter Care Teams Stem Lead Former Relationship Specialty Start Date End Date Brittani Cobian MD [address] [place] [address] [email or web address] PCP - General Family Medicine 05/31/21 Jessica Sena CNP [address] [place] [address], 2nd [place] [address] [email or web address] Historical LMR Provider 05/12/17 Chente Turner MD [address] [place] [address], [address] [place] [address] [email or web address] Historical LMR Provider 05/12/17 Fer Jaimes MD [address] [place] [address] [address] [place] [phone] [email or web address] Historical LMR Provider 05/12/17 documented as of this encounter Additional Source Comments The information contained in this document represents components of the legal health record. It is not the complete legal health record.[facility]
--- OUTSIDE RECORDS SUMMARY | 2025-06-07 08:49 | XMS_ITS | Encounter Summary ---
Author Organization [facility] Address [address] [facility] [address] [place] [address] Phone Care Team Providers Care Application Spec Name Role Phone Jessica Sena [facility] Unavailable [phone] Chente Turner MD Unavailable Fer Jaimes MD Unavailable Brittani Cobian MD Primary Care Provider + Encounter Details Date Type Department Care Team (Late st Contact Info) Description 05/29/2023 Transcribe Orders Virtual Department 30 [place] [address] Brittani Cobian MD [address] [place] [address] [email or web address] Breast screening (Primary Dx) Social History Tobacco [...] 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 on file [...] documented as of this encounter Care Teams Application Spec Relationship Specialty Start Date End Date Brittani Cobian MD [address] [place] [address] PCP - General Family Medicine 05/31/21 Jessica Sena CNP [address] [place] [address], 2nd [place] [address] Historical LMR Provider 05/12/17 Chente Turner MD [address] [place] [address], [address] [place] [address] Historical LMR Provider 05/12/17 Fer Jaimes MD [address] [place] [address] [address] [place] [phone] [email or web address] Historical LMR Provider 05/12/17 documented as of this encounter Additional Source Comments The information contained in this document represents components of the legal health record. It is not the complete legal health record.[facility]
--- OUTSIDE RECORDS SUMMARY | 2025-06-07 08:50 | XMS_ITS | Encounter Summary ---
Author Organization [facility] Address [address] [place] [address] Phone Care Team Providers Care Automation Application Engineer Name Role Phone Diya Vogel CNM Unavailable Oneyda Low PUNCHBOARD INSERTER Unavailable Jessica Sena APPRENTICE FUNERAL DIRECTOR Unavailable [phone] Diya Valles PUNCHBOARD INSERTER Unavailable [phone] Farrah Wyatt MD Unavailable [phone] Chente Turner MD Unavailable [phone] Lenard Smith MD Unavailable Carlos Andres MD Unavailable Eneida Tilley MD Unavailable [phone] Fer Jaimes MD Unavailable Vaughn Lehman MD Unavailable [phone] Fer Jaimes MD Primary Care Provider [phone] Jessica Sena APPRENTICE FUNERAL DIRECTOR Primary Care Provider [phone] Renu Hidalgo MD Primary Care Provider [phone] Jessica Sena APPRENTICE FUNERAL DIRECTOR Unavailable Brittani Cobian MD Primary Care Provider + Encounter Details Date Type Department Care Team (Late st Contact Info) Description 03/29/2020 Procedure Pass [facility], [facility] 30 [place] [address] Social History Tobacco Use Types Packs/Day Years [...] 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 Not on file Not on file documented as of this encounter Plan of Treatment Not on file documented as of this encounter Visit Diagnoses Not on filedocumented in this encounter Care Teams Automation Application Engineer Relationship Specialty Start Date End Date Fer Jaimes MD [address] [place], [place] [address] [place] [address] [email or web address] PCP - General 06/02/17 04/13/20 Jessica Sena CNP [address] [place] [address] PCP - General Family Medicine 04/14/20 03/26/21 Renu Hidalgo MD [address] [place] [address] [email or web address] PCP - General Family Medicine 03/27/21 05/30/21 Jessica Sena CNP [address] [address] PCP - Resident PCP Family Medicine 03/27/21 06/05/21 Brittani Cobian MD [address] [place] [address] PCP - General Family Medicine 05/31/21 Diya Vogel CNM [address] [place] [address] [address] [place] [address] Historical LMR Provider 05/12/17 08/04/21 Oneyda Low NP [address] [place] [address] [address] [place] [address] Historical LMR Provider 05/12/17 2 Jessica Sena CNP [address] [place] [address], 2nd [place] [address] [email or web address] Historical LMR Provider 05/12/17 Diya Valles PUNCHBOARD INSERTER [address] [place] [address] Historical LMR Provider 05/12/17 2 Farrah Wyatt MD [address] [place] [address] 7 [place] [address] Historical LMR Provider 05/12/17 08/04/21 Chente Turner MD [address] [place] [address] Historical LMR Provider 05/12/17 Lenard Smith MD [address] [facility], [address] [place] [address] [email or web address] Historical LMR Provider 05/12/17 08/04/21 Carlos Andres MD [address] [place] [address] Historical LMR Provider 05/12/17 2 Eneida Tilley MD [address] [place] [address], [facility] 7 [place] [address] [email or web address] Historical LMR Provider 05/12/17 08/04/21 Fer Jaimes MD [address] [facility] [address] [place] [address] [email or web address] Historical LMR Provider 05/12/17 Vaughn Lehman MD [address] [place] [address] Historical LMR Provider 05/12/17 2 documented as of this encounter Additional Source Comments The information contained in this document represents components of the legal health record. It is not the complete legal health record.[facility]
--- OUTSIDE RECORDS SUMMARY | 2025-06-07 08:50 | XMS_ITS | Clinical Summary ---
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 Not on file Not [...] Booster 05/05/2023 05/05/2013 LIPID PANEL 12/02/2023 12/01/2018 MAMMOGRAM 07/04/2024 07/04/2023, 05/29, 05/14/2021, Additional history exists INFLUENZA VACCINE (#1) 2025 , 05/11/2020, 05/06/2018, Additional history exists OSTEOPOROSIS SCREENING INITIAL (ONE-TIME) 2025 COVID-19 VACCINE ( season) 2025 06/07/2021, 11/17/2020, 10/18/2020 COLONOSCOPY 05/29/2027 05/29/2022, 08/2021, 04/08/2011 COLORECTAL CANCER SCREENING 05/29/2027 RSV VACCINE (1 - 1-dose 75+ series) [...] 10:5 0 AM EDT COMPREHENSIVE METABOLIC PANEL (CMP) Routine 04/04/2021 3:38 PM EDT Near syncope THYROID STIMULATING HORMONE (TSH) Routine 08/02/2020 2:32 PM EST Acquired hypothyroidism [...] EDT Patient Name: Emerita Hairston Attending MD:: PEIRO ORTEGA MD, Procedure Date: 05/29/2022 10:50 AM Date of : 1960 Age: 62 Admit Type: Outpatient Gender: Female Room: [place] [address] Referring MD: BRITTANI CAMILO MD Exam Type: [...] bowel preparation was evaluated using the BBPS ([place] Bowel Preparation Scale)with scores of: Right Colon [...] 10:50 AM Procedure Code(s): --- Professional --- 37985, Colonoscopy, flexible; with removal of tumor(s), polyp(s), or other lesion(s) by snare technique --- Technical --- 09523, Colonoscopy, flexible; with removal of tumor(s), polyp(s), [...] or abscess without bleeding CPT copyright 2020 [employer]. All rights reserved. The codes documented in this report are preliminary and upon nougat cutter machine reviewmay be revised to meet current compliance requirements. Procedure Date: 05/29/2022 10:50:[address] [place] [address] us Brittani Camilo MD GI PROCEDURE ORDERABLES Final Result * (ABNORMAL) Comprehensive metabolic panel (04/04/2021 3:38 PM EDT) SODIUM 141 133 - 146 mmol/L [facility] POTASSIUM 3.3 3.3 - 5.1 mmol/L [facility] CHLORIDE 100 96 - 108 mmol/L [facility] CO2 29 21 - 35 mmol/L [facility] BUN 23(H) 6 - 19 mg/dL [facility] CREATININE 0.80 0.5 - 1.5 mg/dL [facility] GLUCOSE 103(H) 70 - 99 mg/dL [facility] ALBUMIN 4.4 3.9 - 4.8 g/dL [facility] TOTAL PROTEIN 7.3 6.5 - 8.0 g/dL [facility] CALCIUM 9.9 8.4 - 10.3 mg/dL [facility] ALKALINE PHOSPHATASE 58 39 - 117 U/L [facility] TOTAL BILIRUBIN 0.3 0.0 - 1.2 mg/dL [facility] AST 29 0 - 37 U/L [facility] ALT 28 0 - 40 U/L [facility] GLOBULIN 2.9 1 - 4.8 g/dL [facility] EGFR 80 >59 mL/min/1.7 3m2 [facility] Comment:Estimated glomerular filtration rate calculated using the CKD-EPI equation. ANION GAP 15 10 - 20 mmol/L [facility] Blood 04/04/2021 3:38 PM EDT 04/04/2021 3:39 PM EDT us Daniel Ramirez DO LAB BLOOD BKR ORDERABLES Final R esult Performing Organization Address [facility]/ZIP Co de Phone Number [address] [address] * TSH (08/02/2020 2:32 PM EST) TSH 0.40 0.27 - 4.20 uIU/mL [facility] Blood 08/02/2020 2:32 PM EST 08/02/2020 2:37 PM EST Jessica Sena HANDS PARTER LAB BLOOD BKR ORDERABLES F inal Result Performing Organization Address [facility] Co de Phone Number [address] [address] * Hepatitis C antibody, qualitative (12/01/2018 9:23 AM EDT) HCV Negative Negative [facility] Comment: This is a screening test and should be confirmed with molecular testing Blood 12/01/2018 9:23 AM EDT 12/01/2018 9:29 AM EDT us Fer Jaimes MD LAB BLOOD BKR ORDERABLES Final Result Performing Organization Address [facility] Co de Phone Number [address] [address] * (ABNORMAL) Lipid panel (12/01/2018 9:23 AM EDT) HDL 76 mg/dL [facility] Comment: Interpretation <40 mg/dL: Low HDL cholesterol (major risk factor for CHD) Greater than or equal to 60 mg/dL: High HDL cholesterol ( negative risk factor for CHD) HDL - cholesterol is affected by a number of factors, e.g. smoking, excerise, hormones, sex and age. CHOLESTEROL 202 0 - 240 mg/dL [facility] TRIGLYCERIDES 99 30 - 160 mg/dL [facility] LDL 106 50 - 129 mg/dL [facility] Comment: LDL levels in terms of risk for coronary heart disease: <100 mg/dL: Optimal 100-129 mg/dL: Near or above optimal 130-159 mg/dL: Borderline high 160-189 mg/dL: High >190 mg/dL: Very High CARDIAC RISK RATIO 2.7(L) 3.3 - 4.4 [facility] Blood 12/01/2018 9:23 AM EDT 12/01/2018 9:29 AM EDT us Fer Jaimes MD LAB BLOOD BKR ORDERABLES Final Result [facility] [address] [place], [place] [id number] * PAP SMEAR FOR RESULT ENTRY ONLY (08/29/2016) Pap smear 5yr us Historical Provider HEALTH MAINTENANCE Final Result from Last 3 Months or Most Recently Relevant to Health Maintenance Insurance [employer]IG[employer] PPO AETNA HMO POS [facility]PO [id number] AETNA O POS [facility]PO [id number] CIGNA PPO AETNA O POS [id number] Member Subscriber Plan / Payer (Ef fective 2020-) Name:Emerita Hairston Relation to Subscriber:Self Name:Emerita Hairston Payer ID:[id number] ([facility]) Type:PPO [address] EPO CIGNA PPO AETNA HMO POS EPO Advance Directives For more information, please contact: [phone] (9AM - 5PM [facility], Friday-Friday) Documents on File Type Date Recorded Patient Grants Assistant Expl anation Healthcare Proxy 07/17/2021 2:40 PM Care Teams Supervisor Scenic Arts Relationship Specialty Start Date End Date Brittani Camilo MD [address] [place] [address] PCP - General Family Medicine 05/31/21 Jessica Sena, YAMEL [address] [facility], 2nd [place] [address] Historical LMR Provider 05/12/17 Chente Turner MD [address] [place] [address], [address] [place] [address] Historical LMR Provider 05/12/17 Fer Jaimes MD [address] [place] [address] [address] [place] [phone] [email or web address] Historical LMR Provider 05/12/17 Additional Source Comments The information contained in this document represents components of the legal health record. It is not the complete legal health record.[facility]
--- OUTSIDE RECORDS SUMMARY | 2025-06-07 08:50 | XMS_ITS | Encounter Summary ---
Author Organization [facility] Address [address] [facility] [address] [place] [address] Phone Care Team Providers Care Pulverizer Feeder Name Role Phone Jessica Senameagan MONTESINOS Unavailable [phone] Chente Turner MD Unavailable [phone] Fer Jaimes MD Unavailable [phone] Brittani Cobian MD Primary Care Provider + Reason for Referral * MRI/CAT Scan - Closed Specialty Diagnoses / Procedures Referred By Contac t Referred To Contact Radiology Diagnoses Abnormal electrocardiogram Procedures NC Stress Result for Nuclear Stress Test Brittani Cobian MD [address] [place] [address] Phone: tel: fax: [email or web address] Referral ID Status Reason Start Date Expiration Date Visits Re quested Visits Authorized [id number] Closed 01/09/2024 01/08/2025 1 1 Encounter Details Date Type Department Care Team (Latest Contact Info) Description 01/09/2024 Ancillary Orders Virtual Department 30 [place] [address] Brittani Cobian MD [address] [place] [address] [email or web address] Abnormal electrocardiogram (Primary Dx) Social History [...] 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 Not on file Not on file documented as of this encounter Plan of Treatment Not on file documented as of this encounter Results * NC Stress Result for Nuclear Stress Test (01/09/2024 11:37 AM EDT) Max Predicted Heart Rate 157 bpm [facility] Max BP Systolic 196 mmHg [facility] Max BP Diastolic 70 mmHg [facility] Max HR 141 BPM [facility] Resting HR 75 BPM [facility] Resting BP Systolic 142 mmHg [facility] Resting BP Diastolic 80 mmHg [facility] Peak METS 10.1 METS [facility] Peak HR 141 BPM [facility] Anatomical Region Laterality Modality Heart Other [...] documented as of this encounter Care Teams Pulverizer Feeder Relationship Specialty Start Date End Date Brittani Cobian MD [address] [place] [address] PCP - General Family Medicine 05/31/21 Jessica Sena, GLOBAL IMPLEMENTATION MANAGER 15 [facility], 2nd [place] [address] Historical LMR Provider 05/12/17 Chente Turner MD [address] [place] [address], [address] [place] [address] [email or web address] Historical LMR Provider 05/12/17 Fer Jaimes MD [address] [place] [address] [address] [place] [address] [email or web address] Historical LMR Provider 05/12/17 documented as of this encounter Additional Source Comments The information contained in this document represents components of the legal health record. It is not the complete legal health record.[facility]
--- OUTSIDE RECORDS SUMMARY | 2025-06-07 08:50 | XMS_ITS | Encounter Summary ---
Author Organization [facility] Address [address] [place] [address] Phone Care Team Providers Care Personnel Associate Name Role Phone Diya Vogel CNM Unavailable Oneyda Low MILL TENDER Unavailable Jessica Sena DISTRIBUTOR OF DIRECTORIES Unavailable [phone] Diya Valles MILL TENDER Unavailable [phone] Farrah Wyatt MD Unavailable [phone] Chente Turner MD Unavailable [phone] Lenard Smith MD Unavailable Carlos Andres MD Unavailable Eneida Tilley MD Unavailable [phone] Fer Jaimes MD Unavailable Vaughn Lehman MD Unavailable [phone] Fer Jaimes MD Primary Care Provider [phone] Jessica Sena DISTRIBUTOR OF DIRECTORIES Primary Care Provider [phone] Renu Hidalgo MD Primary Care Provider [phone] Jessica Sena DISTRIBUTOR OF DIRECTORIES Unavailable Brittani Cobian MD Primary Care Provider + Encounter Details Date Type Department Care Team (Late st Contact Info) Description 03/29/2020 Ancillary Orders [facility] [address] [place] [address] Fer Jaimes MD 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 Not on file Not [...] unspecified documented in this encounter Care Teams Personnel Associate Relationship Specialty Start Date End Date Fer Jaimes MD [address] [place], [place] [address] [place] [address] PCP - General 06/02/17 04/13/20 Jessica Sena CNP [address] [address] PCP - General Family Medicine 04/14/20 03/26/21 Renu Hidalgo MD [address] [place] [address] [email or web address] PCP - General Family Medicine 03/27/21 05/30/21 Jessica Sena CNP [address] [address] PCP - Resident PCP Family Medicine 03/27/21 06/05/21 Brittani Cobian MD [address] [place] [address] PCP - General Family Medicine 05/31/21 Diya Vogel CNM 22 [facility], [address] [address] Historical LMR Provider 05/12/17 08/04/21 Oneyda Low NP [address] [place] [address] 340 [place] [address] Historical LMR Provider 05/12/17 2 Jessica Sena CNP 15 [facility], 2nd [place] [address] Historical LMR Provider 05/12/17 Diya Valles NP [address] [place] [address] Historical LMR Provider 05/12/17 2 Farrah Wyatt MD [address] [place] [address] 7 [place] [address] Historical LMR Provider 05/12/17 08/04/21 Chente Turner MD [address] [place] [address] Historical LMR Provider 05/12/17 Lenard Smith MD 22 [facility] 102 [place] [address] Historical LMR Provider 05/12/17 08/04/21 Carlos Andres MD [address] [place] [address] Historical LMR Provider 05/12/17 2 Eneida Tilley MD 234 [facility], [address] [place] [address] [email or web address] Historical LMR Provider 05/12/17 08/04/21 Fer Jaimes MD 234 [facility] [address] [place] [address] [email or web address] Historical LMR Provider 05/12/17 Vaughn Lehman MD [address] [place] [address] Historical LMR Provider 05/12/17 2 documented as of this encounter Additional Source Comments The information contained in this document represents components of the legal health record. It is not the complete legal health record.[facility]
--- OUTSIDE RECORDS SUMMARY | 2025-06-07 08:50 | XMS_ITS | Encounter Summary ---
Author Organization [facility] Address [address] [place] [address] Phone Care Team Providers Care Project Controller Name Role Phone Diya Vogel CNM Unavailable Oneyda Low QUARRY EXTRACTION WORKER Unavailable Jessica Sena BIOMEDICAL ENGINEERING INTERNSHIP Unavailable Diya Valles QUARRY EXTRACTION WORKER Unavailable [phone] Farrah Wyatt MD Unavailable [phone] Chente Turner MD Unavailable Lenard Smith MD Unavailable Carlos Andres MD Unavailable Eneida Tilley MD Unavailable Fer Jaimes MD Unavailable Vaughn Lehman MD Unavailable [phone] Brittani Cobian MD Primary Care Provider + Encounter Details Date Type Department Care Team (Late st Contact Info) Description 06/12/2021 Procedure Pass [facility], [address] [address] Social History Tobacco Use Types Packs/Day Years [...] high school, GED, job training, learning the Portuguese language, technical skills, or developing parenting skills)? 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 Not on file Not on file documented as of this encounter Plan of Treatment Not on file documented as of this encounter Visit Diagnoses Not on filedocumented in this encounter Additional Health Concerns Assessment Noted Time PHQ-2 Depression Total Score: 0 06/08/20 20 3:05 PM EST documented as of this encounter Care Teams Project Controller Relationship Specialty Start Date End Date Brittani Cob[place] [address] PCP - General Family Medicine 05/31/21 Diya Vogel CNM [address] [address] Historical LMR Provider 05/12/17 08/04/21 Oneyda Low NP [address] [place] [address] Historical LMR Provider 05/12/17 2 Jessica Sena CNP 15 [facility], 2nd [place] [address] [email or web address] Historical LMR Provider 05/12/17 Diya Valles NP [address] [place] [address] Historical LMR Provider 05/12/17 2 Farrah Wyatt MD [address] [place] [address] [email or web address] Historical LMR Provider 05/12/17 08/04/21 Chente Turner MD [address] [place] [address] Historical LMR Provider 05/12/17 Lenard Smith MD [address] [address] Historical LMR Provider 05/12/17 08/04/21 Carlos Andres MD 61 [place] [address] Historical LMR Provider 05/12/17 2 Eneida Tilley MD [address] [place] [address], [address] [place] [address] [email or web address] Historical LMR Provider 05/12/17 08/04/21 Fer Jaimes MD [address] [facility] [address] [place] [address] [email or web address] Historical LMR Provider 05/12/17 Vaughn Lehman MD 61 [place] [address] Historical LMR Provider 05/12/17 2 documented as of this encounter Additional Source Comments The information contained in this document represents components of the legal health record. It is not the complete legal health record.[facility]
--- OUTSIDE RECORDS SUMMARY | 2025-06-07 08:50 | XMS_ITS | Encounter Summary ---
Author Organization [facility] Address [address] [place] [address] Phone Care Team Providers Care Director Of Clinical Services Name Role Phone Diya Vogel CNM Unavailable Oneyda Low MANDARIN CHINESE TEACHER Unavailable Jessica Sena CORROSION TECHNICIAN Unavailable Diya Valles MANDARIN CHINESE TEACHER Unavailable [phone] Farrha Wyatt MD Unavailable [phone] Chente Turner MD Unavailable Lenard Smith MD Unavailable [phone] Carlos Andres MD Unavailable Eneida Tilley MD Unavailable [phone] Fer Jaimes MD Unavailable Vaughn Lehman MD Unavailable [phone] Brittani Cobian MD Primary Care Provider + Encounter Details Date Type Department Care Team (Late st Contact Info) Description 07/16/2021 Procedure Pass [place] Admitting Dept - Virtual Department 30 [place], [place] [id number] Social History Tobacco Use Types Packs/Day Years [...] high school, GED, job training, learning the [place] language, technical skills, or developing parenting skills)? 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 Not on file Not on file documented as of this encounter Plan of Treatment Not on file documented as of this encounter Visit Diagnoses Not on filedocumented in this encounter Additional Health Concerns Assessment Noted Time PHQ-2 Depression Total Score: 0 06/08/20 20 3:05 PM EST documented as of this encounter Care Teams Director Of Clinical Services Relationship Specialty Start Date End Date Brittani Cobian MD [address] [place] [address] PCP - General Family Medicine 05/31/21 Diya Vogel CNM [address] [address] Historical LMR Provider 05/12/17 08/04/21 Oneyda Low NP [address] [place] [address] Historical LMR Provider 05/12/17 2 Jessica Sena CNP 15 [facility], 2nd [place] [address] Historical LMR Provider 05/12/17 Diya Valles MANDARIN CHINESE TEACHER [address] [place] [address] Historical LMR Provider 05/12/17 2 Farrah Wyatt MD [address] [place] [address] Historical LMR Provider 05/12/17 08/04/21 Chente Turner MD [address] [place] [address] Historical LMR Provider 05/12/17 Lenard Smith MD [address] [place] [address] Historical LMR Provider 05/12/17 08/04/21 Carlos Andres MD 61 [place] [address] Historical LMR Provider 05/12/17 2 Eneida Tilley MD [address] [place] [address], [address] [place] [address] [email or web address] Historical LMR Provider 05/12/17 08/04/21 Fer Jaimes MD [address] [place] [address] [address] [place] [address] [email or web address] Historical LMR Provider 05/12/17 Vaughn Lehman MD 61 [place] [address] Historical LMR Provider 05/12/17 2 documented as of this encounter Additional Source Comments The information contained in this document represents components of the legal health record. It is not the complete legal health record.[facility]
--- OUTSIDE RECORDS SUMMARY | 2025-06-07 08:50 | XMS_ITS | Encounter Summary ---
Author Organization [facility] Address [address] [facility] [address] [place] [address] Phone Care Team Providers Care Linen Room Custodian Name Role Phone Jessica Sena Catrachita MONTESINOS Unavailable [phone] Chente Turner MD Unavailable [phone] Fer Jaimes MD Unavailable [phone] Brittani Cobian MD Primary Care Provider + Reason for Referral * MRI/CAT Scan - Closed Specialty Diagnoses / Procedures Referred By Contkaren t Referred To Contact Radiology Diagnoses Abnormal electrocardiogram Procedures NC Myocardial Perfusion Exercise Multiple CHG MYOCARDIAL SPECT MULTIPLE STUDIES Brittani Cobian MD [address] [place] [address] Phone: tel: fax: [email or web address] Referral ID Status Reason Start Date Expiration Date Visits Re quested Visits Authorized [id number] Closed 01/07/2024 07/05/2024 4 4 Encounter Details Date Type Department Care Team (Latest Contact Info) Description 12/29/2023 Transcribe Orders [facility] Department 30 [place] [address] Brittani Cobian MD [address] [place] [address] [email or web address] Abnormal electrocardiogram (Primary Dx) Social [...] 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 POS [id number] Narrative 01/09/2024 12:56 PM EDT COMPARISON: None [...] LVEF wascalculated at greater than 75%. POS [id number] us Brittani Cobian MD CV NM CARDIAC Final Re sult documented in this encounter Visit Diagnoses Diagnosis Abnormal electrocardiogram- Primary Nonspecific abnormal electrocardiogram (ECG) (EKG) Abnormal electrocardiogram Nonspecific abnormal electrocardiogram (ECG) (EKG) documented in this encounter Additional Health Concerns Assessment Noted Time PHQ-2 Depression Total Score: 0 06/08/20 20 3:05 PM EST documented as of this encounter Care Teams Linen Room Custodian Relationship Specialty Start Date End Date Brittani Cobian MD [address] [place] [address] [email or web address] PCP - General Family Medicine 05/31/21 Jessica Sena CNP 15 [facility], 2nd [place] [address] Historical LMR Provider 05/12/17 Chente Turner MD [address] [place] [address] [address] [place] [address] [email or web address] Historical LMR Provider 05/12/17 Fer Jaimes MD [address] [place] [address] [address] [place] [address] [email or web address] Historical LMR Provider 05/12/17 documented as of this encounter Additional Source Comments The information contained in this document represents components of the legal health record. It is not the complete legal health record.[facility]
--- OUTSIDE RECORDS SUMMARY | 2025-06-07 08:51 | XMS_ITS | Encounter Summary ---
Author Organization [facility] Address [address] [place] [address] Phone Care Team Providers Care Aluminum Polisher Name Role Phone Diya Vogel CNM Unavailable Oneyda Low BENCH REPAIR TECHNICIAN Unavailable Jessica Sena CLAY HOISTER Unavailable [phone] Diya Valles BENCH REPAIR TECHNICIAN Unavailable [phone] Farrah Wyatt MD Unavailable [phone] Chente Turner MD Unavailable [phone] Lenard Smith MD Unavailable Carlos Andres MD Unavailable Eneida Tilley MD Unavailable [phone] Fer Jaimes MD Unavailable Vaughn Lehman MD Unavailable [phone] Fer Jaimes MD Primary Care Provider [phone] Jessica Sena CLAY HOISTER Primary Care Provider [phone] Renu Hidalgo MD Primary Care Provider [phone] Jessica Sena CLAY HOISTER Unavailable Brittani Cobian MD Primary Care Provider + Encounter Details Date Type Department Care Team (Late st Contact Info) Description 02/23/2019 Ancillary Orders [facility] [address] [place] [address] Fer Jaimes MD [address] [place] [address] [email or web address] Breast screening Social History Tobacco Use Types [...] unspecified documented in this encounter Care Teams Aluminum Polisher Relationship Specialty Start Date End Date Fer Jaimes MD [address] [place], [place] [address] [place] [address] [email or web address] PCP - General 06/02/17 04/13/20 Jessica Sena CNP [address] [place] [address], 2[address] [place] [address] PCP - General Family Medicine 04/14/20 03/26/21 Renu Hidalgo MD [address] [place] [address] [email or web address] PCP - General Family Medicine 03/27/21 05/30/21 Jessica Sena, CLAY HOISTER [address] [address] PCP - Resident PCP Family Medicine 03/27/21 06/05/21 Brittani Cobian MD [address] [place] [address] PCP - General Family Medicine 05/31/21 Diya Vogel CNM [address] [place] [address] Historical LMR Provider 05/12/17 08/04/21 Oneyda Low NP [address] [place] [address] Historical LMR Provider 05/12/17 2 Jessica Sena, CLAY HOISTER [address] [place] [address] Historical LMR Provider 05/12/17 Diya Valles BENCH REPAIR TECHNICIAN [address] [place] [address] Historical LMR Provider 05/12/17 2 Farrah Wyatt MD [address] [place] [address] 7 [place] [address] Historical LMR Provider 05/12/17 08/04/21 Chente Turner MD 234 [facility] 7 [place] [address] [email or web address] Historical LMR Provider 05/12/17 Lenard Smith MD [address] [place] [address], [address] [place] [address] [email or web address] Historical LMR Provider 05/12/17 08/04/21 Carlos Andres MD 61 [place] [address] Historical LMR Provider 05/12/17 2 Eneida Tilley MD [address] [place] [address] 7 [place] [address] [email or web address] Historical LMR Provider 05/12/17 08/04/21 Fer Jaimes MD [address] [place] [address] [address] [place] [address] [email or web address] Historical LMR Provider 05/12/17 Vaughn Lehman MD 61 [place] [address] Historical LMR Provider 05/12/17 2 documented as of this encounter Additional Source Comments The information contained in this document represents components of the legal health record. It is not the complete legal health record.[facility]
--- OUTSIDE RECORDS SUMMARY | 2025-06-07 08:51 | XMS_ITS | Clinical Summary ---
Author Organization [facility] [employer] [facility] Address [address] [place] [address] Phone Care Team Providers Care Regulatory Compliance Director Name Role Phone Brittani Cobian MD Primary Care Provider [phone] Allergies Active Allergy Reactions Criticality Noted Date [...] Health Maintenance Due Date Last Done Comments Colorectal Cancer Screening: Colonoscopy 1960 Cervical Cancer Screening: Pap Smear 1981 Pneumococcal Vaccine: 50+ Years (1 of 1 - PCV) 2010 DTaP,Tdap,and Td Vaccines (2 - Td or Tdap) 05/05/2023 05/05/2013 Cholesterol Screening (Lipid Panel) 06/22/2024 12/01/2018 Hypertension/CHF/CAD Annual BMP Blood Test 06/22/2024 04/04/2021, 11/08/2020, 08/24/2019, Additional history exists Osteoporosis Screening (Bone Density Screening) 06/22/2024 Social Influencers of Health Screening 06/22/2024 Depression Screening 07/28/2024 Falls Risk Assessment 2025 COVID-19 Vaccine ( season) 2025 04/16/2022, 12/08/2021, 06/07/2021, Additional history exists Influenza Vaccine (#1) 2025 , 05/31/2021, 05/11/2020, Additional history exists Breast Cancer [...] this topic Insurance [employer] A[employer] Care Teams Regulatory Compliance Director Relationship Specialty Start Date End Date Brittani Cobian MD [address] [place] [phone] PCP - General Family Medicine 06/22/24
--- OUTSIDE RECORDS SUMMARY | 2025-06-07 08:51 | XMS_ITS | Encounter Summary ---
Author Organization [facility] Address [address] [place] [address] Phone Care Team Providers Care Industrial Methods Consultant Name Role Phone Diya Vogel CNM Unavailable Oneyda Low SLAG MOTOR OPERATOR Unavailable Jessica Sena SOFTWARE DEVELOPER INTERN Unavailable Diya Valles SLAG MOTOR OPERATOR Unavailable [phone] Farrah Wyatt MD Unavailable Chente Turner MD Unavailable Lenard Smith MD Unavailable Carlos Andres MD Unavailable Eneida Tilley MD Unavailable Fer Jiames MD Unavailable Vaughn Lehman MD Unavailable [phone] Renu Hidalgo MD Primary Care Provider Jessica Sena SOFTWARE DEVELOPER INTERN Unavailable Brittani Cobian MD Primary Care Provider + Encounter Details Date Type Department Care Team (Late st Contact Info) Description 04/20/2021 Procedure Pass [facility], [facility] 30 [place] [address] Social History Tobacco Use Types Packs/Day Years [...] high school, GED, job training, learning the Polish language, technical skills, or developing parenting skills)? 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 Not on file Not on file documented as of this encounter Plan of Treatment Not on file documented as of this encounter Visit Diagnoses Not on filedocumented in this encounter Additional Health Concerns Assessment Noted Time PHQ-2 Depression Total Score: 0 06/08/20 20 3:05 PM EST documented as of this encounter Care Teams Industrial Methods Consultant Relationship Specialty Start Date End Date Renu Hidalgo MD 61 [place] [address] [email or web address] PCP - General Family Medicine 03/27/21 05/30/21 Jessica Sena, YAMEL [address] [address] PCP - Resident PCP Family Medicine 03/27/21 06/05/21 Brittani Cobian MD [address] [place] [address] PCP - General Family Medicine 05/31/21 Diya Vogel CNM [address] [address] Historical LMR Provider 05/12/17 08/04/21 Oneyda Low NP [address] [place] [address] [address] [place] [address] Historical LMR Provider 05/12/17 2 Jessica Sena, SOFTWARE DEVELOPER INTERN [address] [address] Historical LMR Provider 05/12/17 Diya Valles NP [address] [place] [address] Historical LMR Provider 05/12/17 2 Farrah Wyatt MD [address] [place] [address] 7 [place] [address] Historical LMR Provider 05/12/17 08/04/21 Chente Turner MD [address] [place] [address] 7 [place] [address] Historical LMR Provider 05/12/17 Lenard Smith MD [address] [place] [address] [place] [address] Historical LMR Provider 05/12/17 08/04/21 Carlos Andres MD [address] [place] [address] Historical LMR Provider 05/12/17 2 Eneida Tilley MD [address] [place] [address] 7 [place] [address] [email or web address] Historical LMR Provider 05/12/17 08/04/21 Fer Jaimes MD [address] [place] [address] [address] [place] [address] [email or web address] Historical LMR Provider 05/12/17 Vaughn Lehman MD 61 [place] [address] Historical LMR Provider 05/12/17 2 documented as of this encounter Additional Source Comments The information contained in this document represents components of the legal health record. It is not the complete legal health record.[facility]
--- OUTSIDE RECORDS SUMMARY | 2025-06-07 08:51 | XMS_ITS | Encounter Summary ---
Author Organization [facility] Address [address] [place] [address] Phone Care Team Providers Care County Nurse Name Role Phone Diya Vogel CNM Unavailable Oneyda Low YIELD ENGINEER Unavailable [phone] Jessica Sena INSURANCE LEGAL ASSISTANT Unavailable [phone] Diya Valles YIELD ENGINEER Unavailable [phone] Farrah Wyatt MD Unavailable [phone] Chente Turner MD Unavailable [phone] Lenard Smith MD Unavailable Carlos Andres MD Unavailable Eneida Tilley MD Unavailable [phone] Fer Jaimes MD Unavailable Vaughn Lehman MD Unavailable [phone] Fer Jaimes MD Primary Care Provider [phone] Jessica Sena INSURANCE LEGAL ASSISTANT Primary Care Provider [phone] Renu Hidalgo MD Primary Care Provider [phone] Jessica Sena INSURANCE LEGAL ASSISTANT Unavailable Brittani Cobian MD Primary Care Provider + Encounter Details Date Type Department Care Team (Late st Contact Info) Description 03/02/2018 Ancillary Orders [facility] Medicine [address] [place] [address] Fer Jaimes MD [address] [place] [id number] [email or web address] Breast screening Social History Tobacco Use Types [...] Right, Breast Bilateral Bila teral Mammography 04/08/2018 9:1 4 AM EDT Impressions 04/08/2018 9:39 AM EDT [...] were interpreted in conjunction with R-2 Image Cso computer-aided detection. FINDINGS: Breast density: The breast [...] Images were interpreted inconjunction with R-2 Image Cso computer-aided detection. FINDINGS: Breast density: The breast [...] unspecified documented in this encounter Care Teams County Nurse Relationship Specialty Start Date End Date Fer Jaimes MD [address] [place] [address] [address] [place] [address] PCP - General 06/02/17 04/13/20 Jessica Sena CNP [address] [facility], 2nd [place] [address] [email or web address] PCP - General Family Medicine 04/14/20 03/26/21 Renu Hidalgo MD [address] [place] [address] [email or web address] PCP - General Family Medicine 03/27/21 05/30/21 Jessica Sena, INSURANCE LEGAL ASSISTANT [address] [place] [address] [email or web address] PCP - Resident PCP Family Medicine 03/27/21 06/05/21 Brittani Cobian MD [address] [place] [address] [email or web address] PCP - General Family Medicine 05/31/21 Diya Vogel CNM [address] [place] [address] [email or web address] Historical LMR Provider 05/12/17 08/04/21 Oneyda Low NP [address] [place] [address] Historical LMR Provider 05/12/17 2 Jessica Sena, INSURANCE LEGAL ASSISTANT [address] [place] [address] Historical LMR Provider 05/12/17 Diya Valles YIELD ENGINEER [address] [place] [address] Historical LMR Provider 05/12/17 2 Farrah Wyatt MD [address] [place] [address] 7 [place] [address] [email or web address] Historical LMR Provider 05/12/17 08/04/21 Chente Turner MD [address] [place] [address] 7 [place] [address] Historical LMR Provider 05/12/17 Lenard Smith MD [address] [place] [address] [email or web address] Historical LMR Provider 05/12/17 08/04/21 Carlos Andres MD [address] [place] [address] Historical LMR Provider 05/12/17 2 Eneida Tilley MD [address] [place] [address] 7 [place] [address] [email or web address] Historical LMR Provider 05/12/17 08/04/21 Fer Jaimes MD [address] [place], [place] [address] [place] [address] [email or web address] Historical LMR Provider 05/12/17 Vaughn Lehman MD [address] [place] [address] Historical LMR Provider 05/12/17 2 documented as of this encounter Additional Source Comments The information contained in this document represents components of the legal health record. It is not the complete legal health record.[facility]
[2025-06-07 08:53] VITALS: BMI 23.4
--- NOTE | 2025-06-07 08:53 | A.OFFVIS_ITS ---
Vital Signs 06/07/25 08:53 Height 5 ft 1 in Weight 124 lb BMI 23.4 Handedness Right Intake Visit Reasons: New Patient - Left Shoulder Pain Intake Note: Emerita is a 65 year old female right hand dominant who presents today as a new patient for her left shoulder pain. Has tried acetaminophen and ibuprofen over the counter however this does not adequately relieve her pain. She reports she has been attending some physical therapy and this has improved her range of motion but is still limited. Reaching behind her back, over her head or across her body, adduction and abduction all are difficult to do and aggravate her symptoms. 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 Her pain radiates into the medial and lateral aspects of the left shoulder and wrist. Denies numbness and tingling. She has been going to formal physical therapy which has improved her range of motion but not her pain. She reports weakness when lifting her left hand above shoulder height. She has not been able to play pickleball because of her pain. Allergies prochlorperazine (From Compazine) Allergy (Intermediate, Verified 06/07/25 08:54) paralysis Medication List - Last Reconciled 06/07/25 by David Navas MD acetaminophen 325 mg PO QID PRN hydrochlorothiazide 12.5 mg PO DAILY ibuprofen (Advil) 200 mg PO Q6H PRN levothyroxine 100 mcg PO DAILY propranolol 10 mg PO DAILY PRN PFSH Medical History Benign schwannoma Surgical History History of ankle surgery S/P removal of left ovary Previous section Family History Mother Breast cancer BRCA negative Maternal Grandmother Breast cancer Stroke Hypertension Father Heart disease Paternal Grandfather Liver cancer Maternal Grandfather Colon cancer Maternal Aunt Breast cancer Social History Housing: House Alcohol intake: current Alcohol intake frequency: a few times a week Alcohol type: wine Patient Tobacco Use Status: Never used Tobacco e-Cigarette/Vaping Use: Never Used Substance Use Type: Marijuana service: No Current occupational status: employed 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 Cognitive needs: No Hearing needs: No Vision needs: Yes Physical Exam Vital Signs: BMI result Body Mass Index 23.4 Extrem Other: Left shoulder examination shows slightly decreased range of motion when compared to her right shoulder, 4+ out of 5 strength with supraspinatus testing, positive impingement signs, no instability Results Reviewed Results Reviewed: X-rays of the patient's left shoulder show severe acromioclavicular joint narrowing, a type 2 acromion, no acute bony abnormalities Assessment & Plan Assessment & Plan (1) Rotator cuff insufficiency of left shoulder: Code(s): M25.312 - Other instability, left shoulder Category: Medical Plan Ms. Hairston presents with left shoulder pain due to impingement syndrome and possible rotator cuff tearing. Thus, I will send the patient for an MRI of her left shoulder for further evaluation. She will continue with her physical therapy exercises in the meantime. I will see her back following the MRI to discuss the findings and treatment options. Feel free to call me at any time should questions regarding her orthopedic management arise. I spent 21 minutes in reviewing the patient's records and imaging studies, seeing the patient and documenting in the medical record. Orders: Orders MR shoulder LT wo con 06/08/25 David Navas MD M25.312 - Other instability, left shoulder Medications: Changed From propranolol 10 mg PO DAILY 30 tabs 0RF To propranolol 10 mg PO DAILY PRN Kristi Bowles MD Coding Level of Care Code New Pt Level 3 (66465) Complex EM visit Add On G2211 Diagnoses Rotator cuff insufficiency of left shoulder M25.312
== END 2025-06-07 09:18 | disposition home or self-care (01) ==
LOC: HO.HOS 08:39
PROVIDERS: Visit Provider Orthopaedic Surgery
DX: M25.312 Other instability, left shoulder (principal)
CPT/HCPCS: 99203; G2211

== ENCOUNTER 2025-07-12 16:17 | Outpatient (REF) | payer OTHER, SELFPAY ==
--- OUTSIDE RECORDS SUMMARY | 2024-03-04 03:30 | XMS_ITS ---
Author Organization [facility] Address [address] [place] [address] Care Team Providers Care Skin Lap Bonder Name Role Phone Danisha Ohara Primary Care Provider Maricruz Pettit [phone] Varela Encounters Encounter Location Date Provider Diagnosis [address] [address] 03/04/2024 Maricruz Rubio Plan Of Treatment Next Appt Details Provider Name:Maricruz Michelle Rubio , 08/11/2025 09:00:00 AM, [address] [place] [address], [address], Progress Notes * Emerita HAIRSTON SDOB:[birth year] (65 yo F)Acc No.[id number]:03/04/2024 Progress Note Patient: Siri MARBELLA Emerita Kathleen Provider: Aarti Rubio DPM :1960 A ge:63 Y S ex:Female Date:03/04/2024 Address:[address] [id number] Pcp:Danisha Ohara Subjective: * Chief Complaints: * [address] Varela. * Medical History: Objective: * Vitals: Assessment: Plan: * Treatment: * Images: * The named appointment provid er may or may not be the originator of this progress note, and it is not deemed complete until electronically signed by the appointment provider. Sign off status: Pending * Provider: Aarti Rubio DPM Date: 0 03/04/2024 Generated for Jaleesa Oconnor/Pancho on: 1 09/12/2024 08:11 PM EST
--- OUTSIDE RECORDS SUMMARY | 2024-03-08 10:30 | XMS_ITS ---
Author Organization [facility] Address [address] [place] [address] Care Team Providers Care Construction Management Instructor Name Role Phone Danisha Ohara Primary Care Provider Maricruz Pettit [phone] Encounters Encounter Location Date Provider Diagnosis [address] [address] 03/08/2024 Marciruz Rubio Plan Of Treatment Next Appt Details Provider Name:Maricruz Rubio , 08/11/2025 09:00:00 AM, [address] [place] [address], [address], Progress Notes * Emerita HAIRSTON SDOB:[birth year] (65 yo F)Acc No.[id number]:03/08/2024 Progress Note Patient: Siri MARBELLADarioie Kathleen Provider: Aarti Rubio DPM :1960 A ge:63 Y S ex:Female Date:03/08/2024 Address:[address] [place] Pcp:Danisha Ohara Subjective: * Chief Complaints: * * Medical History: Objective: * Vitals: Assessment: Plan: * Treatment: * Images: * The named appointment provid er may or may not be the originator of this progress note, and it is not deemed complete until electronically signed by the appointment provider. Sign off status: Pending * Provider: Aarti Rubio DPDavid Date: 0 03/08/2024 Generated for Jaleesa oshea/Bambi/Pancho on: 1 09/12/2024 08:11 PM EST
--- OUTSIDE RECORDS SUMMARY | 2024-04-21 09:45 | XMS_ITS ---
Author Organization [facility] Address [address] [place] [address] Care Team Providers Care Coal Drier Operator Name Role Phone Danisha Ohara Primary Care Provider Maricruz Pettit [phone] VALLES Encounters Encounter Location Date Provider Diagnosis [address] [address] 04/21/2024 Maricruz Rubio Plan Of Treatment Next Appt Details Provider Name:Maricruz Michelle Rubio , 08/11/2025 09:00:00 AM, [address] [place], [address], Progress Notes * Emerita HAIRSTON SDOB:[birth year] (65 yo F)Acc No.[id number]:04/21/2024 Progress Note Patient: Siri PADILLASCAR Emerita Kathleen Provider: Aarti Rubio DPM :1960 A ge:64 Y S ex:Female Date:04/21/2024 Address:[address] [place] Pcp:Danisha Ohara Subjective: * Chief Complaints: * [...] 04/21/2024 Generated for Jaleesa oshea/Bambi/Pancho on: 1 09/12/2024 08:10 PM EST
--- OUTSIDE RECORDS SUMMARY | 2024-06-04 09:00 | XMS_ITS ---
Author Organization [facility] Address [address] [place] [address] Care Team Providers Care Farm Implement Engine Mechanic Name Role Phone Danisha Ohara Primary Care Provider Maricruz Pettit [phone] Encounters Encounter Location Date Provider Diagnosis [address] [address] 06/04/2024 Maricruz Rubio Plan Of Treatment Next Appt Details Provider Name:Maricruz Rubio , 08/11/2025 09:00:00 AM, [address] [place], [address], Progress Notes * Emerita HAIRSTON SDOB:[birth year] (65 yo F)Acc No.[id number]:06/04/2024 Progress Note Patient: Emerita RAMIREZ Provider: Aarti Rubio DPM :1960 A ge:64 Y S ex:Female Date:06/04/2024 Address: [address] Pcp:Danisha Ohara Subjective: * Chief Complaints: * [...] Date: 08/04/2023 Generated for Jaleesa oshea/Bambi/Pancho on: 09/12/2024 08:11 PM EST
[2025-07-12 17:56] LABS: Anion Gap 8 (12-20); Blood Urea Nitrogen 17 mg/dL (9-16); Calcium 9.5 mg/dL (8.4-10.2); Carbon Dioxide 32 mmol/L (22-29); Chloride 103 mmol/L (96-108); Cholesterol 163 mg/dL (<200); Estimated Glomerular Filt Rate > 60; HDL Cholesterol 61 mg/dL (>40); Potassium 3.4 mmol/L (3.3-5.1); Sodium 140 mmol/L (135-145); Triglycerides 297 mg/dL (<150)
[2025-07-12 18:09] LABS: Free T4 (Free Thyroxine) 1.30 ng/dL (0.71-1.85)
--- OUTSIDE RECORDS SUMMARY | 2025-07-12 20:11 | XMS_ITS | Encounter Summary ---
Author Organization [facility] Address [address] [facility] [address] [place] [address] Phone Care Team Providers Care Handbag Designer Name Role Phone Jessica Sena [facility] Unavailable [phone] Chente Turner MD Unavailable [phone] Fer Jaimes MD Unavailable Brittani Cobian MD Primary Care Provider + Encounter Details Date Type Department Care Team (Late st Contact Info) Description 05/29/2023 Transcribe Orders Virtual Department [address] [place] [address] Brittani Cobian MD [address] [place] [address] [email or web address] Breast screening (Primary Dx) Social History Tobacco [...] 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 Not on file Not [...] documented as of this encounter Care Teams Handbag Designer Relationship Specialty Start Date End Date Brittani Cobian MD [address] [place] [address] PCP - General Family Medicine 05/31/21 Jessica Sena CNP [address] [place] [address], 2nd [place] [address] Historical LMR Provider 05/12/17 Chente Turner MD [address] [place] [address], [address] [place] [address] Historical LMR Provider 05/12/17 Fer Jaimes MD [address] [place] [address] [address] [place] [phone] [email or web address] Historical LMR Provider 05/12/17 documented as of this encounter Additional Source Comments The information contained in this document represents components of the legal health record. It is not the complete legal health record.[facility]
--- OUTSIDE RECORDS SUMMARY | 2025-07-12 20:11 | XMS_ITS | Encounter Summary ---
Author Organization [facility] Address [address] [place] [address] [place] [address] Phone Care Team Providers Care Manager Career Name Role Phone Jessica Sena PUMP OPERATOR [employer] Unavailable [phone] Chente Turner MD Unavailable [phone] Fer Jaimes MD Unavailable [phone] Brittani Cobian MD Primary Care Provider + Encounter Details Date Type Department Care Team (Late st Contact Info) Description 04/10/2022 Procedure Pass [facility], [address] [address] Social History Tobacco Use Types Packs/Day Years [...] high school, GED, job training, learning the [place] language, technical skills, or developing parenting skills)? 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 on file Not on file documented as of this encounter Plan of Treatment Not on file documented as of this encounter Visit Diagnoses Not on filedocumented in this encounter Additional Health Concerns Assessment Noted Time PHQ-2 Depression Total Score: 0 06/08/20 20 3:05 PM EST documented as of this encounter Care Teams Manager Career Relationship Specialty Start Date End Date Brittani Cobian MD [address] [place] [address] PCP - General Family Medicine 05/31/21 Jessica eSna CNP [address] [facility], 2nd [place] [address] Historical LMR Provider 05/12/17 Chente Turenr MD [address] [place] [address], [address] [place] [address] [email or web address] Historical LMR Provider 05/12/17 Fer Jaimes MD [address] [place] [address] [address] [place] [phone] [email or web address] Historical LMR Provider 05/12/17 documented as of this encounter Additional Source Comments The information contained in this document represents components of the legal health record. It is not the complete legal health record.[facility]
--- OUTSIDE RECORDS SUMMARY | 2025-07-12 20:11 | XMS_ITS | Encounter Summary ---
Author Organization [facility] Address [address] [place] [address] [place] [address] Phone Care Team Providers Care Bond Clerk Name Role Phone Jessica Sena WIRE INSPECTOR Unavailable [phone] Chente Turner MD Unavailable [phone] Fer Jaimes MD Unavailable [phone] Brittani Cobian MD Primary Care Provider + Encounter Details Date Type Department Care Team (Late st Contact Info) Description 05/29/2022 Procedure Pass [facility] Admitting Dept Virtual Department [address] [place] [address] Social History Tobacco Use Types Packs/Day Years [...] high school, GED, job training, learning the Citizen [place] language, technical skills, or developing parenting skills)? 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 Not on file Not on file documented as of this encounter Plan of Treatment Not on file documented as of this encounter Visit Diagnoses Not on filedocumented in this encounter Additional Health Concerns Assessment Noted Time PHQ-2 Depression Total Score: 0 06/08/20 20 3:05 PM EST documented as of this encounter Care Teams Bond Clerk Relationship Specialty Start Date End Date Brittani Cobian MD [address] [place] [address] PCP - General Family Medicine 05/31/21 Jessica Sena CNP [address] [place] [address], 2nd [place] [address] Historical LMR Provider 05/12/17 Chente Turner MD [address] [place] [address], [address] [place] [address] Historical LMR Provider 05/12/17 Fer Jaimes MD [address] [place] [address] [address] [place] [phone] [email or web address] Historical LMR Provider 05/12/17 documented as of this encounter Additional Source Comments The information contained in this document represents components of the legal health record. It is not the complete legal health record.[facility]
--- OUTSIDE RECORDS SUMMARY | 2025-07-12 20:11 | XMS_ITS | Encounter Summary ---
Author Organization [facility] Address [address] [place] [address] Phone Care Team Providers Care Fish Skinning Machine Feeder Name Role Phone Jessica Sena CLEANING MACHINE OPERATOR Unavailable [phone] Chente Turner MD Unavailable [phone] Fer Jaimes MD Unavailable Brittani Cobian MD Primary Care Provider + Encounter Details Date Type Department Care Team (Late st Contact Info) Description 05/29/2023 Procedure Pass [facility] - [address] [place] [address] Social History Tobacco Use Types Packs/Day Years [...] 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 Not on file Not on file documented as of this encounter Plan of Treatment Not on file documented as of this encounter Visit Diagnoses Not on filedocumented in this encounter Additional Health Concerns Assessment Noted Time PHQ-2 Depression Total Score: 0 06/08/20 20 3:05 PM EST documented as of this encounter Care Teams Fish Skinning Machine Feeder Relationship Specialty Start Date End Date Brittani Coiban MD [address] [place] [address] [email or web address] PCP - General Family Medicine 05/31/21 Jessica Sena CNP [address] [place] [address], 2nd [place] [address] [email or web address] Historical LMR Provider 05/12/17 Chente Turner MD [address] [place] [address], [address] [place] [address] [email or web address] Historical LMR Provider 05/12/17 Fer Jaimes MD [address] [place] [address] [address] [place] [phone] [email or web address] Historical LMR Provider 05/12/17 documented as of this encounter Additional Source Comments The information contained in this document represents components of the legal health record. It is not the complete legal health record.[facility]
--- OUTSIDE RECORDS SUMMARY | 2025-07-12 20:12 | XMS_ITS | Encounter Summary ---
Author Organization [facility] Address [address] [place] [address] Phone Care Team Providers Care Sales Account Associate Name Role Phone Diya Vogel CNM Unavailable Oneyda Low RIVETER HELPER Unavailable Jessica Sena NATIONAL VAN TRUCK DRIVER Unavailable Diya Valles RIVETER HELPER Unavailable Farrah Wyatt MD Unavailable Chente Turner MD Unavailable Lenard Smith MD Unavailable Carlos Andres MD Unavailable Eneida Tillye MD Unavailable Fer Jaimes MD Unavailable Vaughn Lehman MD Unavailable [phone] Renu Hidalgo MD Primary Care Provider Jessica Sena NATIONAL VAN TRUCK DRIVER Unavailable Brittani Cobian MD Primary Care Provider + Encounter Details Date Type Department Care Team (Late st Contact Info) Description 04/20/2021 Procedure Pass [facility] [address] [place] [address] Social History Tobacco Use Types Packs/Day Years [...] high school, GED, job training, learning the Slovak language, technical skills, or developing parenting skills)? 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 on file Not on file documented as of this encounter Plan of Treatment Not on file documented as of this encounter Visit Diagnoses Not on filedocumented in this encounter Additional Health Concerns Assessment Noted Time PHQ-2 Depression Total Score: 0 06/08/20 20 3:05 PM EST documented as of this encounter Care Teams Sales Account Associate Relationship Specialty Start Date End Date Renu Hidalgo MD [address] [place] [address] [email or web address] PCP - General Family Medicine 03/27/21 05/30/21 Jessica Sena, YAMEL [address] [address] PCP - Resident PCP Family Medicine 03/27/21 06/05/21 Brittani Cobian MD [address] [place] [address] PCP - General Family Medicine 05/31/21 Diya Vogel CNM [address] [address] Historical LMR Provider 05/12/17 08/04/21 Oneyda Low NP [address] [place] [address] [address] [place] [address] Historical LMR Provider 05/12/17 2 Jessica Sena, NATIONAL VAN TRUCK DRIVER [address] [address] Historical LMR Provider 05/12/17 Diya Valles NP [address] [place] [address] Historical LMR Provider 05/12/17 2 Farrah Wyatt MD [address] [place] [address] 7 [place] [address] Historical LMR Provider 05/12/17 08/04/21 Chente Turner MD [address] [place] [address] 7 [place] [address] Historical LMR Provider 05/12/17 Lenard Smith MD [address] [place] [address] [place] [address] Historical LMR Provider 05/12/17 08/04/21 Carlos Andres MD [address] [place] [address] Historical LMR Provider 05/12/17 2 Eneida Tilley MD [address] [place] [address] 7 [place] [address] [email or web address] Historical LMR Provider 05/12/17 08/04/21 Fer Jaimes MD [address] [place] [address] [address] [place] [address] [email or web address] Historical LMR Provider 05/12/17 Vaughn Lehman MD [address] [place] [address] Historical LMR Provider 05/12/17 2 documented as of this encounter Additional Source Comments The information contained in this document represents components of the legal health record. It is not the complete legal health record.[facility]
--- OUTSIDE RECORDS SUMMARY | 2025-07-12 20:12 | XMS_ITS | Encounter Summary ---
Author Organization [facility] Address [address] [place] [address] Phone Care Team Providers Care Forklift Picker Name Role Phone Diya Vogel CNM Unavailable Oneyda Low CHIEF CONTROLLER Unavailable Jessica Sena BIOSTATISTICS TEACHER Unavailable [phone] Diya Valles CHIEF CONTROLLER Unavailable [phone] Farrah Wyatt MD Unavailable [phone] Chente Turner MD Unavailable [phone] Lenard Smith MD Unavailable Carlos Andres MD Unavailable Eneida Tilley MD Unavailable [phone] Fer Jaimes MD Unavailable Vaughn Lehman MD Unavailable [phone] Fer Jaimes MD Primary Care Provider [phone] Jessica Sena BIOSTATISTICS TEACHER Primary Care Provider [phone] Renu Hidalgo MD Primary Care Provider [phone] Jessica Sena BIOSTATISTICS TEACHER Unavailable Brittani Cobian MD Primary Care Provider + Encounter Details Date Type Department Care Team (Late st Contact Info) Description 02/23/2019 Ancillary Orders [facility] [address] [place] [address] Fer Jaimes MD [address] [place] [phone] [email or web address] Breast screening Social History Tobacco Use Types [...] unspecified documented in this encounter Care Teams Forklift Picker Relationship Specialty Start Date End Date Fer Jaimes MD [address] [place], [place] [address] [place] [address] PCP - General 06/02/17 04/13/20 Jessica Sena CNP [address] [place] [address], [address] [place] [address] [email or web address] PCP - General Family Medicine 04/14/20 03/26/21 Renu Hidalgo MD [address] [place] [address] [email or web address] PCP - General Family Medicine 03/27/21 05/30/21 Jessica Sena, BIOSTATISTICS TEACHER [address] [address] PCP - Resident PCP Family Medicine 03/27/21 06/05/21 Brittani Cobian MD [address] [place] [address] PCP - General Family Medicine 05/31/21 Diya Vogel CNM [address] [place] [address] Historical LMR Provider 05/12/17 08/04/21 Oneyda Low NP [address] [place] [address] [address] [place] [address] Historical LMR Provider 05/12/17 2 Jessica Sena, BIOSTATISTICS TEACHER [address] [place] [address] Historical LMR Provider 05/12/17 Diya Valles CHIEF CONTROLLER [address] [place] [address] Historical LMR Provider 05/12/17 2 Farrah Wyatt MD [address] [place] [address] 7 [place] [address] Historical LMR Provider 05/12/17 08/04/21 Chente Turner MD [address] [place] [address] 7 [place] [address] [email or web address] Historical LMR Provider 05/12/17 Lenard Smith MD [address] [place] [address], [address] [place] [address] [email or web address] Historical LMR Provider 05/12/17 08/04/21 Carlos Andres MD [address] [place] [address] Historical LMR Provider 05/12/17 2 Eneida Tilley MD [address] [place] [address] 7 [place] [address] [email or web address] Historical LMR Provider 05/12/17 08/04/21 Fer Jaimes MD [address] [place] [address] [address] [place] [address] [email or web address] Historical LMR Provider 05/12/17 Vaughn Lehman MD [address] [place] [address] Historical LMR Provider 05/12/17 2 documented as of this encounter Additional Source Comments The information contained in this document represents components of the legal health record. It is not the complete legal health record.[facility]
--- OUTSIDE RECORDS SUMMARY | 2025-07-12 20:12 | XMS_ITS | Encounter Summary ---
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 on file Not on file documented as of this encounter Plan of Treatment Not on file documented as of this encounter Visit Diagnoses Not on filedocumented in this encounter Additional Health Concerns Assessment Noted Time PHQ-2 Depression Total Score: 0 06/08/20 20 3:05 PM EST documented as of this encounter Care Teams Regulatory Leader Relationship Specialty Start Date End Date Brittani Cobian MD [address] [place] [address] PCP - General Family Medicine 05/31/21 Jessica Sena CNP [address] [facility], 2nd [place] [address] Historical LMR Provider 05/12/17 Chente Turner MD [address] [place] [address], [address] [place] [address] [email or web address] Historical LMR Provider 05/12/17 Fer Jaimes MD [address] [place], [place] [address] [place] [address] [email or web address] Historical LMR Provider 05/12/17 documented as of this encounter Additional Source Comments The information contained in this document represents components of the legal health record. It is not the complete legal health record.[facility]
--- OUTSIDE RECORDS SUMMARY | 2025-07-12 20:12 | XMS_ITS | Clinical Summary ---
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 All rights reserved. The codes documented in this report are preliminary and upon wood tile installation helper reviewmay be revised to meet current compliance requirements. Procedure Date: 05/29/2022 10:50:[address] [place] [address] us Brittani Camilo MD GI PROCEDURE ORDERABLES Final Result * (ABNORMAL) Comprehensive metabolic panel (04/04/2021 3:38 PM EDT) SODIUM 141 133 - 146 mmol/L [facility] POTASSIUM 3.3 3.3 - 5.1 mmol/L [facility] CHLORIDE 100 96 - 108 mmol/L [facility] CO2 29 21 - 35 mmol/L [facility] BUN 23(H) 6 - 19 mg/dL [facility] CREATININE 0.80 0.5 - 1.5 mg/dL [facility] GLUCOSE 103(H) 70 - 99 mg/dL [facility] ALBUMIN 4.4 3.9 - 4.8 g/dL [facility] TOTAL PROTEIN 7.3 6.5 - 8.0 g/dL [facility] CALCIUM 9.9 8.4 - 10.3 mg/dL [facility] ALKALINE PHOSPHATASE 58 39 - 117 U/L [facility] TOTAL BILIRUBIN 0.3 0.0 - 1.2 mg/dL [facility] AST 29 0 - 37 U/L [facility] ALT 28 0 - 40 U/L [facility] GLOBULIN 2.9 1 - 4.8 g/dL [facility] EGFR 80 >59 mL/min/1.7 3m2 [facility] Comment:Estimated glomerular filtration rate calculated using the CKD-EPI equation. ANION GAP 15 10 - 20 mmol/L [facility] Blood 04/04/2021 3:38 PM EDT 04/04/2021 3:39 PM EDT us Daniel Ramirez DO LAB BLOOD BKR ORDERABLES Final R esult Performing Organization Address [place]/ZIP Co de Phone Number [address] [address] * TSH (08/02/2020 2:32 PM EST) TSH 0.40 0.27 - 4.20 uIU/mL [facility] Blood 08/02/2020 2:32 PM EST 08/02/2020 2:37 PM EST Jessica Sena MANAGER RESPIRATORY LAB BLOOD BKR ORDERABLES F inal Result Performing Organization Address [facility] Co de Phone Number [address] [address] * Hepatitis C antibody, qualitative (12/01/2018 9:23 AM EDT) HCV Negative Negative [facility] Comment: This is a screening test and should be confirmed with molecular testing Blood 12/01/2018 9:23 AM EDT 12/01/2018 9:29 AM EDT us Fer Jaimes MD LAB BLOOD BKR ORDERABLES Final Result Performing Organization Address [place] Co de Phone Number [address] [address] * (ABNORMAL) Lipid panel (12/01/2018 9:23 AM EDT) HDL 76 mg/dL [facility] Comment: Interpretation <40 mg/dL: Low HDL cholesterol (major risk factor for CHD) Greater than or equal to 60 mg/dL: High HDL cholesterol ( negative risk factor for CHD) HDL - cholesterol is affected by a number of factors, e.g. smoking, excerise, hormones, sex and age. CHOLESTEROL 202 0 - 240 mg/dL [facility] TRIGLYCERIDES 99 30 - 160 mg/dL [facility] LDL 106 50 - 129 mg/dL [facility] Comment: LDL levels in terms of risk for coronary heart disease: <100 mg/dL: Optimal 100-129 mg/dL: Near or above optimal 130-159 mg/dL: Borderline high 160-189 mg/dL: High >190 mg/dL: Very High CARDIAC RISK RATIO 2.7(L) 3.3 - 4.4 [facility] Blood 12/01/2018 9:23 AM EDT 12/01/2018 9:29 AM EDT us Fer Jaimes MD LAB BLOOD BKR ORDERABLES Final Result [facility] [address] [place], [place] [id number] * PAP SMEAR FOR RESULT ENTRY ONLY (08/29/2016) Pap smear 5yr us Historical Provider HEALTH MAINTENANCE Final Result from Last 3 Months or Most Recently Relevant to Health Maintenance Insurance CIGNA PPO AETNA HMO POS EPO [id number] AETNA O POS EPO [id number]PO [id number] PPO CIGNA PPO AETNA O POS [facility]PO [id number] P[facility] Member Subscriber Plan / Payer (Ef fective 2020-) Name:Emerita Hairston Relation to Subscriber:Self Name:Emerita Hairston Payer ID:[id number] ([facility]) Type:PPO [address] EPO CIGNA PPO AETNA HMO POS EPO Advance Directives For more information, please contact: [phone] (9AM - 5PM [facility], Friday-Friday) Documents on File Type Date Recorded Patient Chief Investment Officer Expl anation Healthcare Proxy 07/17/2021 2:40 PM Care Teams Asset Management Analyst Relationship Specialty Start Date End Date Brittani Camilo MD [address] [place] [address] PCP - General Family Medicine 05/31/21 Jessica Sena, YAMEL [address] [facility], 2nd [place] [address] Historical LMR Provider 05/12/17 Chente Turner MD [address] [place] [address], [address] [place] [address] Historical LMR Provider 05/12/17 Fer Jaimes MD [address] [place] [address] [address] [place] [phone] [email or web address] Historical LMR Provider 05/12/17 Additional Source Comments The information contained in this document represents components of the legal health record. It is not the complete legal health record.[facility]
--- OUTSIDE RECORDS SUMMARY | 2025-07-12 20:12 | XMS_ITS | Encounter Summary ---
Author Organization [facility] Address [address] [place] [address] Phone Care Team Providers Care Gang Hemstitching Machine Operator Name Role Phone Jessica Sena Catrachita MONTESINOS Unavailable [phone] Chente Turner MD Unavailable [phone] Fer Jaimes MD Unavailable [phone] Brittani Cobian MD Primary Care Provider + Reason for Referral * Outpatient Procedure - Closed Specialty Diagnoses / Procedures Referred By Lukas t Referred To Contact Radiology Diagnoses Abnormal electrocardiogram Procedures Adult Echo TTE Kaleb Salmon PA [address] [place] Phone: tel: fax: mailto:[email or web address] Referral ID Status Reason Start Date Expiration Date Visits Re quested Visits Authorized [id number] Closed 12/24/2023 12/23/2024 1 1 Encounter Details Date Type Department Care Team (Latest Contact Info) Description 12/24/2023 Transcribe Orders Virtual Department 30 [place] [address] Kaleb Salmon PA [address] [place] [address] [email or web address] Abnormal electrocardiogram (Primary Dx) Social History Tobacco [...] 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 [...] documented as of this encounter Care Teams Gang Hemstitching Machine Operator Relationship Specialty Start Date End Date Brittani Cobian MD [address] [place] [address] [email or web address] PCP - General Family Medicine 05/31/21 Jessica Sena, YAMEL 15 [facility], 2nd [place] [address] [email or web address] Historical LMR Provider 05/12/17 Chente Turner MD [address] [place] [address], [address] [place] [address] [email or web address] Historical LMR Provider 05/12/17 Fer Jaimes MD [address] [place] [address] [address] [place] [address] [email or web address] Historical LMR Provider 05/12/17 documented as of this encounter Additional Source Comments The information contained in this document represents components of the legal health record. It is not the complete legal health record.[facility]
--- OUTSIDE RECORDS SUMMARY | 2025-07-12 20:12 | XMS_ITS | Patient Health Record ---
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) Plantar fasciitis, bilateral (M72.2) Active confirmed Vital Signs Blood pressure diastolic 75 mm Hg 05/27/2025 Height 5ft 1in in 05/27/2025 Blood pressure systolic 120 mm Hg 05/27/2025 Weight 124 lbs 05/27/2025 BMI 23.43 kg/m2 05/27/2025 Encounters Encounter Location Date Provider Diagnosis [facility] [address] 05/27/2025 Maricruz Black Pain in left foot [...] X ray : Foot, left 3V 11/17/2023 [id number] Destruction, 1-14 05/03/2024 [id number] Destruction, 1-14 11/17/2023 Next Appt Details Provider Name:Maricruz Rubio , 08/11/2025 09:00:00 AM, [address] [place], [address], Insurance Providers Payer Name Payer Address Payer Phone Subscriber Number Group Number Insured Name Patient Relationship to Insured Coverage Start Date Coverage End Date Aetna [address] [place] [address] [id number] Emerita Hairston Self - patient is the insured [employer] [address] SHAREE Bertrand [phone] [id number] Alex Salvador Other Medical (General) History Medical History History ICD Code High blood pressure Hypothyroidism covid-19 Anxiety Back,Hip,and Knee pain sinusitis thyroid Warts Mumps Chicken pox Surgical History Surgery Date(Month/Year) colonoscopy 05/29/2022 1986 loophorectomy due to growth- neg patholo gy 2012 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
--- OUTSIDE RECORDS SUMMARY | 2025-07-12 20:12 | XMS_ITS | Clinical Summary ---
Author Organization [facility] Address [address] [facility] [place] [address] Phone Care Team Providers Care Air Director Name Role Phone Brittani Cobian MD Primary Care Provider [phone] Allergies Active Allergy Reactions Criticality Noted Date [...] on file Sexual Orientation Not on file Last Filed Vital Signs [...] Additional history exists Influenza Vaccine (#1) 2025 2, 05/31/2021, 05/11/2020, [...] this topic Insurance CIGNA AETNA Care Teams Air Director Relationship Specialty Start Date End Date Brittani Cobian MD [address] [place] [phone] PCP - General Family Medicine 06/22/24
--- OUTSIDE RECORDS SUMMARY | 2025-07-12 20:12 | XMS_ITS | Encounter Summary ---
Author Organization [facility] Address [address] [place] [address] Phone Care Team Providers Care Contracts Law Professor Name Role Phone Jessica Sena Catrachita MONTESINOS Unavailable [phone] Chente Turner MD Unavailable [phone] Fer Jaimes MD Unavailable [phone] Brittani Cobian MD Primary Care Provider + Reason for Referral * Outpatient Procedure - Closed Specialty Diagnoses / Procedures Referred By Contkaren t Referred To Contact Diagnoses Abnormal electrocardiogram Procedures Stress Test Exercise Kaleb Salmon PA [address] [place] [address] Phone: tel: fax: mailto:[email or web address] Referral ID Status Reason Start Date Expiration Date Visits Re quested Visits Authorized [id number] Closed 01/07/2024 01/06/2025 1 1 Encounter Details Date Type Department Care Team (Latest Contact Info) Description 12/24/2023 Transcribe Orders Virtual Department 30 [place] [address] Kaleb Salmon PA [address] [place] [address] [email or web address] Abnormal electrocardiogram (Primary Dx) Social History Tobacco [...] 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 Not [...] documented as of this encounter Care Teams Contracts Law Professor Relationship Specialty Start Date End Date Brittani Cobian MD [address] [place] [address] [email or web address] PCP - General Family Medicine 05/31/21 Jessica Sena, YAMEL 15 [facility], 2nd [place] [address] [email or web address] Historical LMR Provider 05/12/17 Chente Turnre MD [address] [place] [address], [address] [place] [address] [email or web address] Historical LMR Provider 05/12/17 Fer Jaimes MD [address] [place] [address] [address] [place] [address] [email or web address] Historical LMR Provider 05/12/17 documented as of this encounter Additional Source Comments The information contained in this document represents components of the legal health record. It is not the complete legal health record.[facility]
--- OUTSIDE RECORDS SUMMARY | 2025-07-12 20:12 | XMS_ITS | Encounter Summary ---
Author Organization [facility] Address [address] [place] [address] Phone Care Team Providers Care Box Lining Machine Feeder Name Role Phone Diya Vogel CNM Unavailable Oneyda Low HAND EXPANSION ENVELOPE MAKER Unavailable Jessica Sena LINER CHECKER Unavailable [phone] Diya Valles HAND EXPANSION ENVELOPE MAKER Unavailable [phone] Farrah Wyatt MD Unavailable [phone] Chente Turner MD Unavailable [phone] Lenard Smith MD Unavailable Carlos Andres MD Unavailable Eneida Tilley MD Unavailable [phone] Fer Jaimes MD Unavailable Vaughn Lehman MD Unavailable [phone] Fer Jaimes MD Primary Care Provider [phone] Jessica Sena LINER CHECKER Primary Care Provider [phone] Renu Hidalgo MD Primary Care Provider [phone] Jessica Sena LINER CHECKER Unavailable Brittani Cobian MD Primary Care Provider + Encounter Details Date Type Department Care Team (Late st Contact Info) Description 03/02/2018 Ancillary Orders [facility] [address] [place] [address] Fer Jaimes MD [address] [place] [address] [email or web address] Breast screening Social History Tobacco Use Types [...] were interpreted in conjunction with R-2 Image Green Chain Offbearer computer-aided detection. FINDINGS: Breast density: The breast [...] Images were interpreted inconjunction with R-2 Image Green Chain Offbearer computer-aided detection. FINDINGS: Breast density: The breast [...] unspecified documented in this encounter Care Teams Box Lining Machine Feeder Relationship Specialty Start Date End Date Fer Jaimes MD [address] [place] [address] [address] [place] [address] PCP - General 06/02/17 04/13/20 Jessica Sena CNP 15 [facility], 2nd [place] [address] [email or web address] PCP - General Family Medicine 04/14/20 03/26/21 Renu Hidalgo MD [address] [place] [address] [email or web address] PCP - General Family Medicine 03/27/21 05/30/21 Jessica Sena, LINER CHECKER [address] [place] [address] [email or web address] PCP - Resident PCP Family Medicine 03/27/21 06/05/21 Brittani Cobian MD [address] [place] [address] [email or web address] PCP - General Family Medicine 05/31/21 Diya Vogel CNM [address] [place] [address] [email or web address] Historical LMR Provider 05/12/17 08/04/21 Oneyda Low NP [address] [place] [address] Historical LMR Provider 05/12/17 2 Jessica Sena, LINER CHECKER [address] [place] [address] Historical LMR Provider 05/12/17 Diya Valles HAND EXPANSION ENVELOPE MAKER [address] [place] [address] Historical LMR Provider 05/12/17 2 Farrah Wyatt MD [address] [place] [address] 7 [place] [address] [email or web address] Historical LMR Provider 05/12/17 08/04/21 Chente Turner MD [address] [place] [address] 7 [place] [address] Historical LMR Provider 05/12/17 Lenard Smith MD [address] [place] [address] [email or web address] Historical LMR Provider 05/12/17 08/04/21 Carlos Andres MD [address] [place] [phone] Historical LMR Provider 05/12/17 2 Eneida Tilley MD [address] [place] [address] 7 [place] [address] [email or web address] Historical LMR Provider 05/12/17 08/04/21 Fer Jaimes MD [address] [place], [place] [address] [place] [address] [email or web address] Historical LMR Provider 05/12/17 Vaughn Lehman MD [address] [place] [address] Historical LMR Provider 05/12/17 2 documented as of this encounter Additional Source Comments The information contained in this document represents components of the legal health record. It is not the complete legal health record.[facility]
--- OUTSIDE RECORDS SUMMARY | 2025-07-12 20:12 | XMS_ITS | Encounter Summary ---
Author Organization [facility] Address [address] [facility] [address] [place] [address] Phone Care Team Providers Care Scrubber Machine Tender Name Role Phone Jessica Senameagan MONTESINOS Unavailable [phone] Chente Turner MD Unavailable [phone] Fer Jaimes MD Unavailable [phone] Brittani Cobian MD Primary Care Provider + Reason for Referral * MRI/CAT Scan - Closed Specialty Diagnoses / Procedures Referred By Contac t Referred To Contact Radiology Diagnoses Abnormal electrocardiogram Procedures NC Stress Result for Nuclear Stress Test Brittani Cobian MD [address] [place] [address] Phone: tel: fax: mailto:[email or web address] Referral ID Status Reason Start Date Expiration Date Visits Re quested Visits Authorized [id number] Closed 01/09/2024 01/08/2025 1 1 Encounter Details Date Type Department Care Team (Latest Contact Info) Description 01/09/2024 Ancillary Orders Virtual Department 30 [place] [address] Brittani Cobian MD [address] [place] [address] [email or web address] Abnormal electrocardiogram (Primary Dx) Social History [...] 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 Not on file Not on file documented as of this encounter Plan of Treatment Not on file documented as of this encounter Results * NC Stress Result for Nuclear Stress Test (01/09/2024 11:37 AM EDT) Max Predicted Heart Rate 157 bpm [facility] Max BP Systolic 196 mmHg [facility] Max BP Diastolic 70 mmHg [facility] Max HR 141 BPM [facility] Resting HR 75 BPM [facility] Resting BP Systolic 142 mmHg [facility] Resting BP Diastolic 80 mmHg [facility] Peak METS 10.1 METS [facility] Peak HR 141 BPM [facility] Anatomical Region Laterality Modality Heart Other 01/09/2024 [...] documented as of this encounter Care Teams Scrubber Machine Tender Relationship Specialty Start Date End Date Brittani Cobian MD [address] [place] [address] PCP - General Family Medicine 05/31/21 Jessica Sena, MATERIAL CONTROL ANALYST [address] [facility], 2nd [place] [address] Historical LMR Provider 05/12/17 Chente Turner MD [address] [place] [address], [address] [place] [address] [email or web address] Historical LMR Provider 05/12/17 Fer Jaimes MD [address] [place] [address] [address] [place] [address] [email or web address] Historical LMR Provider 05/12/17 documented as of this encounter Additional Source Comments The information contained in this document represents components of the legal health record. It is not the complete legal health record.[facility]
--- OUTSIDE RECORDS SUMMARY | 2025-07-12 20:12 | XMS_ITS | Encounter Summary ---
Author Organization [facility] Address [address] [place] [address] Phone Care Team Providers Care Air Crew Member Name Role Phone Diya Vogel CNM Unavailable Oneyda Low CADDIE Unavailable Jessica Sena ENERGY CONSULTANT Unavailable [phone] Diya Valles CADDIE Unavailable [phone] Farrah Wyatt MD Unavailable [phone] Chente Turner MD Unavailable [phone] Lenard Smith MD Unavailable Carlos Andres MD Unavailable Eneida Tilley MD Unavailable [phone] Fer Jaimes MD Unavailable Vaughn Lehman MD Unavailable [phone] Fer Jaimes MD Primary Care Provider [phone] Jessica Sena ENERGY CONSULTANT Primary Care Provider [phone] Renu Hidalgo MD Primary Care Provider [phone] Jessica Sena ENERGY CONSULTANT Unavailable Brittani Cobian MD Primary Care Provider + Encounter Details Date Type Department Care Team (Late st Contact Info) Description 03/29/2020 Procedure Pass [facility], [facility] [address] [place] [address] Social History Tobacco Use Types Packs/Day Years [...] 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 Not on file Not on file documented as of this encounter Plan of Treatment Not on file documented as of this encounter Visit Diagnoses Not on filedocumented in this encounter Care Teams Air Crew Member Relationship Specialty Start Date End Date Fer Jaimes MD [address] [place], [place] [address] [place] [address] [email or web address] PCP - General 06/02/17 04/13/20 Jessica Sena CNP [address] [place] [address] PCP - General Family Medicine 04/14/20 03/26/21 Renu Hidalgo MD [address] [place] [address] [email or web address] PCP - General Family Medicine 03/27/21 05/30/21 Jessica Sena CNP [address] [place] [address] [address] PCP - Resident PCP Family Medicine 03/27/21 06/05/21 Brittani Cobian MD [address] [place] [address] PCP - General Family Medicine 05/31/21 Diya Vogel CNM [address] [place] [address] 102 [place] [address] Historical LMR Provider 05/12/17 08/04/21 Onyeda Low NP [address] [place] [address] 340 [place] [address] Historical LMR Provider 05/12/17 2 Jessica Sena CNP [address] [place] [address], 2nd [place] [address] [email or web address] Historical LMR Provider 05/12/17 Diya Valles CADDIE [address] [place] [address] Historical LMR Provider 05/12/17 2 Farrah Wyatt MD [address] [place] [address] 7 [place] [address] Historical LMR Provider 05/12/17 08/04/21 Chente Turner MD [address] [place] [address] Historical LMR Provider 05/12/17 Lenard Smith MD 22 [facility], [address] [place] [address] [email or web address] Historical LMR Provider 05/12/17 08/04/21 Carlos Andres MD [address] [place] [address] Historical LMR Provider 05/12/17 2 Eneida Tilley MD [address] [place] [address], [facility] 7 [place] [address] [email or web address] Historical LMR Provider 05/12/17 08/04/21 Fer Jaimes MD [address] [facility] [address] [place] [address] [email or web address] Historical LMR Provider 05/12/17 Vaughn Lehman MD [address] [place] [address] Historical LMR Provider 05/12/17 2 documented as of this encounter Additional Source Comments The information contained in this document represents components of the legal health record. It is not the complete legal health record.[facility]
--- OUTSIDE RECORDS SUMMARY | 2025-07-12 20:12 | XMS_ITS | Encounter Summary ---
Author Organization [facility] Address [address] [place] [address] Phone Care Team Providers Care Cut Off Worker Name Role Phone Diya Vogel CNM Unavailable Oneyda Low JEWELRY ENGRAVER Unavailable Jessica Sena PIN BALL MACHINE MECHANIC Unavailable Diya Valles JEWELRY ENGRAVER Unavailable [phone] Farrah Wyatt MD Unavailable Chente Turner MD Unavailable Lenard Smith MD Unavailable Carlos Andres MD Unavailable Eneida Tilley MD Unavailable Fer Jaimes MD Unavailable Vaughn Lehman MD Unavailable [phone] Brittani Cobian MD Primary Care Provider + Encounter Details Date Type Department Care Team (Late st Contact Info) Description 06/12/2021 Procedure Pass [facility], [address] [address] Social History Tobacco Use Types Packs/Day Years [...] high school, GED, job training, learning the Croatian language, technical skills, or developing parenting skills)? 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 [address] PCP - General Family Medicine 05/31/21 Diya Vogel CNM [address] [address] Historical LMR Provider 05/12/17 08/04/21 Oneyda Low NP [address] [place] [address] Historical LMR Provider 05/12/17 2 Jessica Sena CNP 15 [facility], 2nd [place] [address] [email or web address] Historical LMR Provider 05/12/17 Diya Valles NP [address] [place] [address] Historical LMR Provider 05/12/17 2 Farrah Wyatt MD [address] [place] [address] [email or web address] Historical LMR Provider 05/12/17 08/04/21 Chente Turner MD [address] [place] [address] Historical LMR Provider 05/12/17 Lenard Smith MD [address] [address] Historical LMR Provider 05/12/17 08/04/21 Carlos Andres MD [address] [place] [address] Historical LMR Provider 05/12/17 2 Eneida Tilley MD [address] [place] [address], [address] [place] [address] [email or web address] Historical LMR Provider 05/12/17 08/04/21 Fer Jaimes MD 234 [facility] [address] [place] [address] [email or web address] Historical LMR Provider 05/12/17 Vaughn Lehman MD [address] [place] [address] Historical LMR Provider 05/12/17 2 documented as of this encounter Additional Source Comments The information contained in this document represents components of the legal health record. It is not the complete legal health record.[facility]
--- OUTSIDE RECORDS SUMMARY | 2025-07-12 20:12 | XMS_ITS | Encounter Summary ---
Author Organization [facility] Address [address] [facility] [address] [place] [address] Phone Care Team Providers Care Senior Research Consultant Name Role Phone Jessica Sena Catrachita MONTESINOS Unavailable [phone] Chente Turner MD Unavailable [phone] Fer Jaimes MD Unavailable [phone] Brittani Cobian MD Primary Care Provider + Reason for Referral * MRI/CAT Scan - Closed Specialty Diagnoses / Procedures Referred By Contkaren t Referred To Contact Radiology Diagnoses Abnormal electrocardiogram Procedures NC Myocardial Perfusion Exercise Multiple CHG MYOCARDIAL SPECT MULTIPLE STUDIES Brittani Cobian MD [address] [place] [address] Phone: tel: fax: [email or web address] Referral ID Status Reason Start Date Expiration Date Visits Re quested Visits Authorized [id number] Closed 01/07/2024 07/05/2024 4 4 Encounter Details Date Type Department Care Team (Latest Contact Info) Description 12/29/2023 Transcribe Orders [facility] Department 30 [place] [address] Brittani Cobian MD [address] [place] [address] [email or web address] Abnormal electrocardiogram (Primary Dx) Social [...] 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 POS [id number] Narrative 01/09/2024 12:56 PM EDT COMPARISON: None [...] LVEF wascalculated at greater than 75%. POS [id number] us Brittani Cobian MD CV [place] CARDIAC Final Re sult documented in this encounter Visit Diagnoses Diagnosis Abnormal electrocardiogram- Primary Nonspecific abnormal electrocardiogram (ECG) (EKG) Abnormal electrocardiogram Nonspecific abnormal electrocardiogram (ECG) (EKG) documented in this encounter Additional Health Concerns Assessment Noted Time PHQ-2 Depression Total Score: 0 06/08/20 20 3:05 PM EST documented as of this encounter Care Teams Senior Research Consultant Relationship Specialty Start Date End Date Brittani Cobian MD [address] [place] [address] [email or web address] PCP - General Family Medicine 05/31/21 Jessica Sena CNP 15 [facility], 2nd [place] [address] Historical LMR Provider 05/12/17 Chente Turner MD [address] [place] [address] [address] [place] [address] [email or web address] Historical LMR Provider 05/12/17 Fer Jaimes MD [address] [place] [address] [address] [place] [address] [email or web address] Historical LMR Provider 05/12/17 documented as of this encounter Additional Source Comments The information contained in this document represents components of the legal health record. It is not the complete legal health record.[facility]
--- OUTSIDE RECORDS SUMMARY | 2025-07-12 20:12 | XMS_ITS | Encounter Summary ---
Author Organization [facility] Address [address] [place] [address] Phone Care Team Providers Care Regulatory Technician Name Role Phone Diya Vogel CNM Unavailable Oneyda Low VP Unavailable Jessica Sena BLUEPRINT ASSEMBLER Unavailable [phone] Diya Valles VP Unavailable [phone] Farrah Wyatt MD Unavailable [phone] Chente Turner MD Unavailable [phone] Lenard Smith MD Unavailable Carlos Andres MD Unavailable Eneida Tilley MD Unavailable [phone] Fer Jaimes MD Unavailable Vaughn Lehman MD Unavailable [phone] Fer Jaimes MD Primary Care Provider [phone] Jessica Sena BLUEPRINT ASSEMBLER Primary Care Provider [phone] Renu Hidalgo MD Primary Care Provider [phone] Jessica Sena BLUEPRINT ASSEMBLER Unavailable Brittani Cobian MD Primary Care Provider + Encounter Details Date Type Department Care Team (Late st Contact Info) Description 03/29/2020 Ancillary Orders [facility] [address] [place] [address] Fer Jaimes MD 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 on file [...] unspecified documented in this encounter Care Teams Regulatory Technician Relationship Specialty Start Date End Date Fer Jaimes MD [address] [place], [place] [address] [place] [address] [email or web address] PCP - General 06/02/17 04/13/20 Jessica Sena CNP [address] [address] PCP - General Family Medicine 04/14/20 03/26/21 Renu Hidalgo MD [address] [place] [address] [email or web address] PCP - General Family Medicine 03/27/21 05/30/21 Jessica Sena CNP [address] [address] PCP - Resident PCP Family Medicine 03/27/21 06/05/21 Brittani Cobian MD [address] [place] [address] PCP - General Family Medicine 05/31/21 Diya Vogel CNM 22 [facility], [facility] [address] [place] [address] Historical LMR Provider 05/12/17 08/04/21 Oneyda Low NP [address] [place] [address] 340 [place] [address] Historical LMR Provider 05/12/17 2 Jessica Sena CNP 15 [facility], 2nd [place] [address] Historical LMR Provider 05/12/17 Diya Valles NP [address] [place] [address] Historical LMR Provider 05/12/17 2 Farrah Wyatt MD [address] [place] [address] 7 [place] [address] Historical LMR Provider 05/12/17 08/04/21 Chente Turner MD [address] [place] [address] 7 [place] [address] Historical LMR Provider 05/12/17 Lenard Smith MD 22 [facility] 102 [place] [address] Historical LMR Provider 05/12/17 08/04/21 Carlos Andres MD [address] [place] [address] Historical LMR Provider 05/12/17 2 Eneida Tilley MD 234 [facility], [address] [place] [address] [email or web address] Historical LMR Provider 05/12/17 08/04/21 Fer Jaimes MD 234 [facility] [address] [place] [address] [email or web address] Historical LMR Provider 05/12/17 Vaughn Lehman MD [address] [place] [address] Historical LMR Provider 05/12/17 2 documented as of this encounter Additional Source Comments The information contained in this document represents components of the legal health record. It is not the complete legal health record.[facility]
--- OUTSIDE RECORDS SUMMARY | 2025-07-12 20:12 | XMS_ITS | Encounter Summary ---
Author Organization [facility] Address [address] [place] [address] Phone Care Team Providers Care Physical Science Aide Name Role Phone Diya Vogel CNM Unavailable Oneyda Low ROAD BUILDER Unavailable [phone] Jessica Sena ROD FINISHER Unavailable Diya Valles ROAD BUILDER Unavailable [phone] Farrah Wyatt MD Unavailable Chente Turner MD Unavailable Lenard Smith MD Unavailable Carlos Andres MD Unavailable Eneida Tilley MD Unavailable Fer Jaimes MD Unavailable Vaughn Lehman MD Unavailable [phone] Brittani Cobian MD Primary Care Provider + Encounter Details Date Type Department Care Team (Late st Contact Info) Description 07/16/2021 Procedure Pass [place] Admitting Dept - Virtual Department 30 [place], [place] [id number] Social History Tobacco Use Types Packs/Day Years [...] high school, GED, job training, learning the Icelandic language, technical skills, or developing parenting skills)? 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 Not on file documented as of this encounter Plan of Treatment Not on file documented as of this encounter Visit Diagnoses Not on filedocumented in this encounter Additional Health Concerns Assessment Noted Time PHQ-2 Depression Total Score: 0 06/08/20 20 3:05 PM EST documented as of this encounter Care Teams Physical Science Aide Relationship Specialty Start Date End Date Brittani Cobian MD [address] [place] [address] PCP - General Family Medicine 05/31/21 Diya Vogel CNM [address] [address] Historical LMR Provider 05/12/17 08/04/21 Oneyda Low NP [address] [place] [address] Historical LMR Provider 05/12/17 2 Jessica Sena CNP 15 [facility], 2nd [place] [address] Historical LMR Provider 05/12/[address] BUILDER [address] [place] [address] Historical LMR Provider 05/12/17 2 Farrah Wyatt MD [address] [place] [address] Historical LMR Provider 05/12/17 08/04/21 Chente Turner MD [address] [place] [address] Historical LMR Provider 05/12/17 Lenard Smith MD [address] [place] [address] Historical LMR Provider 05/12/17 08/04/21 Carlos Andres MD 61 [place] [address] Historical LMR Provider 05/12/17 2 Eneida Tilley MD [address] [place] [address], [address] [place] [address] [email or web address] Historical LMR Provider 05/12/17 08/04/21 Fer Jaimes MD [address] [place] [address] [address] [place] [address] [email or web address] Historical LMR Provider 05/12/17 Vaughn Lehman MD 61 [place] [address] Historical LMR Provider 05/12/17 2 documented as of this encounter Additional Source Comments The information contained in this document represents components of the legal health record. It is not the complete legal health record.[facility]
== END 2025-07-12 16:18 | disposition home or self-care (01) ==
LOC: HO.LAB 16:17
DX: Z00.00 Encounter for general adult medical examination without abnormal findings (principal); I10 Essential (primary) hypertension; E03.9 Hypothyroidism, unspecified; E78.00 Pure hypercholesterolemia, unspecified
CPT/HCPCS: 36415; 80048; 80061; 84439; 84443

== ENCOUNTER 2025-07-13 08:38 | Outpatient (AMB) | payer OTHER, SELFPAY ==
--- OUTSIDE RECORDS SUMMARY | 2024-03-04 03:30 | XMS_ITS ---
Author Organization [facility] Address [address] [place] [address] Care Team Providers Care Real Estate Executive Assistant Name Role Phone Danisha Ohara Primary Care Provider Maricruz Pettit [phone] Varela Encounters Encounter Location Date Provider Diagnosis [address] [address] 03/04/2024 Maricruz Rubio Plan Of Treatment Next Appt Details Provider Name:Maricruz Michelle Rubio , 08/11/2025 09:00:00 AM, [address] [place] [address], [address], Progress Notes * Emerita HAIRSTON SDOB:[birth year] (65 yo F)Acc No.[id number]:03/04/2024 Progress Note Patient: Siri MARBELLA Emerita Kathleen Provider: Aarti Rubio DPM :1960 A ge:63 Y S ex:Female Date:03/04/2024 Address:[address] [place] Pcp:Danisha Ohara Subjective: * Chief Complaints: * [...] 0 03/04/2024 Generated for Jaleesa oshea/Bambi/Pancho on: 09/13/2024 09:04 AM EST
--- OUTSIDE RECORDS SUMMARY | 2024-03-08 10:30 | XMS_ITS ---
Author Organization [facility] Address [address] [place] [address] Care Team Providers Care Administrative Officer Name Role Phone Danisha Ohara Primary Care Provider Maricruz Pettit [phone] Encounters Encounter Location Date Provider Diagnosis [address] [address] 03/08/2024 Maricruz Rubio Plan Of Treatment Next Appt Details Provider Name:Maricruz Rubio , 08/11/2025 09:00:00 AM, [address] [place] [address], [phone], Progress Notes * Emerita HAIRSTON SDOB:[birth year] (65 yo F)Acc No.[id number]:03/08/2024 Progress Note Patient: Siri MARBELLA Emerita Kathleen Provider: Aarti Rubio DPM :1960 A ge:63 Y S ex:Female Date:03/08/2024 Address:[address] [place] Pcp:Danisha Ohara Subjective: * Chief Complaints: * [...] 03/08/2024 Generated for Jaleesa oshea/Bambi/Pancho on: 1 09/13/2024 09:04 AM EST
--- OUTSIDE RECORDS SUMMARY | 2024-04-21 09:45 | XMS_ITS ---
Author Organization [facility] Address [address] [place] [address] Care Team Providers Care Radiation Control Technician Name Role Phone Danisha Ohara Primary Care Provider Maricruz Pettit [phone] VALLES Encounters Encounter Location Date Provider Diagnosis [address] [address] 04/21/2024 Maricruz Rubio Plan Of Treatment Next Appt Details Provider Name:Maricruz Michelle Rubio , 08/11/2025 09:00:00 AM, [address] [place], [address], Progress Notes * Emerita HAIRSTON SDOB:[birth year] (65 yo F)Acc No.[id number]:04/21/2024 Progress Note Patient: Siri MARBELLA Emerita Kathleen Provider: Aarti Rubio DPM :1960 A ge:64 Y S ex:Female Date:04/21/2024 Address:[address] [place] Pcp:Danisha Ohara Subjective: * Chief Complaints: * [...] 04/21/2024 Generated for Jaleesa oshea/Bambi/Pancho on: 1 09/13/2024 09:03 AM EST
--- OUTSIDE RECORDS SUMMARY | 2024-06-04 09:00 | XMS_ITS ---
Author Organization [facility] Address [address] [place] [address] Care Team Providers Care Organizational Consultant Name Role Phone Danisha Ohara Primary Care Provider Maricruz Pettit [phone] Encounters Encounter Location Date Provider Diagnosis [address] [address] 06/04/2024 Maricruz Rubio Plan Of Treatment Next Appt Details Provider Name:Maricruz Rubio , 08/11/2025 09:00:00 AM, [address] [place], [address], Progress Notes * Emerita HAIRSTON SDOB:[birth year] (65 yo F)Acc No.[id number]:06/04/2024 Progress Note Patient: Emerita RAMIREZ Provider: Aarti Rubio DPM :1960 A ge:64 Y S ex:Female Date:06/04/2024 Address[address] Pcp:Danisha Ohara Subjective: * Chief Complaints: * * Medical History: Objective: * Vitals: Assessment: Plan: * Treatment: * Images: * The named appointment provid er may or may not be the originator of this progress note, and it is not deemed complete until electronically signed by the appointment provider. Sign off status: Pending * Provider: Aarti Rubio DPM Date: 08/04/2023 Generated for Jaleesa oshea/Bambi/Pancho on: 09/13/2024 09:04 AM EST
--- OUTSIDE RECORDS SUMMARY | 2025-07-13 09:02 | XMS_ITS | Encounter Summary ---
Author Organization [facility] Address [address] [facility] [address] [place] [address] Phone Care Team Providers Care Site Medical Director Name Role Phone Jessica Sena [facility] Unavailable [phone] Chente Turner MD Unavailable Fer Jaimes MD Unavailable Brittani Cobian MD Primary Care Provider + Encounter Details Date Type Department Care Team (Late st Contact Info) Description 05/29/2023 Transcribe Orders Virtual Department 30 [place] [address] Brittani Cobian MD [address] [place] [address] [email or web address] Breast screening (Primary Dx) Social History Tobacco [...] 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 on file [...] documented as of this encounter Care Teams Site Medical Director Relationship Specialty Start Date End Date Brittani Cobian MD [address] [place] [address] PCP - General Family Medicine 05/31/21 Jessica Sena CNP [address] [place] [address], 2nd [place] [address] Historical LMR Provider 05/12/17 Chente Turner MD [address] [place] [address], [address] [place] [address] Historical LMR Provider 05/12/17 Fer Jaimes MD [address] [place] [address] [address] [place] [address] [email or web address] Historical LMR Provider 05/12/17 documented as of this encounter Additional Source Comments The information contained in this document represents components of the legal health record. It is not the complete legal health record.[facility]
--- OUTSIDE RECORDS SUMMARY | 2025-07-13 09:02 | XMS_ITS | Encounter Summary ---
Author Organization [facility] Address [address] [place] [address] [place] [address] Phone Care Team Providers Care Cancellation Clerk Name Role Phone Jessica Sena OUTSIDE PLANT CABLE ENGINEER Unavailable [phone] Chente Turner MD Unavailable [phone] Fer Jaimes MD Unavailable [phone] Brittani Cobian MD Primary Care Provider + Encounter Details Date Type Department Care Team (Late st Contact Info) Description 04/10/2022 Procedure Pass [facility], [address] [address] Social History Tobacco Use Types Packs/Day Years [...] high school, GED, job training, learning the Dutch language, technical skills, or developing parenting skills)? 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 Not on file documented as of this encounter Plan of Treatment Not on file documented as of this encounter Visit Diagnoses Not on filedocumented in this encounter Additional Health Concerns Assessment Noted Time PHQ-2 Depression Total Score: 0 06/08/20 20 3:05 PM EST documented as of this encounter Care Teams Cancellation Clerk Relationship Specialty Start Date End Date Brittani Cobian MD [address] [place] [address] PCP - General Family Medicine 05/31/21 Jessica Sena CNP 15 [facility], 2nd [place] [address] Historical LMR Provider 05/12/17 Chente Turner MD [address] [place] [address], [address] [place] [address] [email or web address] Historical LMR Provider 05/12/17 Fer Jaimes MD [address] [place] [address] [address] [place] [address] [email or web address] Historical LMR Provider 05/12/17 documented as of this encounter Additional Source Comments The information contained in this document represents components of the legal health record. It is not the complete legal health record.[facility]
--- OUTSIDE RECORDS SUMMARY | 2025-07-13 09:02 | XMS_ITS | Patient Health Record ---
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) Plantar fasciitis, bilateral (M72.2) Active confirmed Vital Signs Blood pressure diastolic 75 mm Hg 05/27/2025 Height 5ft 1in in 05/27/2025 Blood pressure systolic 120 mm Hg 05/27/2025 Weight 124 lbs 05/27/2025 BMI 23.43 kg/m2 05/27/2025 Encounters Encounter Location Date Provider Diagnosis [facility] [address] 05/27/2025 Maricruz Black Pain in left foot [...] X ray : Foot, left 3V 11/17/2023 98394-Jatz Destruction, 1-14 05/03/2024 19291-Udcg Destruction, 1-14 11/17/2023 Next Appt Details Provider Name:Maricruz Rubio , 08/11/2025 09:00:00 AM, [address] [place], [address], Insurance Providers Payer Name Payer Address Payer Phone Subscriber Number Group Number Insured Name Patient Relationship to Insured Coverage Start Date Coverage End Date [employer] [address] [place] [address] [id number] Emerita Hairston Self - patient is the insured [employer] [address] SHAREE Bertrand [phone] [id number] Alex Salvador Other Medical (General) History Medical History History ICD Code High blood pressure Hypothyroidism covid-19 Anxiety Back,Hip,and Knee pain sinusitis thyroid Warts Mumps Chicken pox Surgical History Surgery Date(Month/Year) colonoscopy 05/29/2022 1986 loophorectomy due to growth- neg patholo gy 2012 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
--- OUTSIDE RECORDS SUMMARY | 2025-07-13 09:02 | XMS_ITS | Encounter Summary ---
Author Organization [facility] Address [address] [place] [address] [place] [address] Phone Care Team Providers Care Sap Business Objects Consultant Name Role Phone Jessica Sena CLAIM APPROVER Unavailable [phone] Chente Turner MD Unavailable [phone] Fer Jaimes MD Unavailable [phone] Brittani Cobian MD Primary Care Provider + Encounter Details Date Type Department Care Team (Late st Contact Info) Description 05/29/2022 Procedure Pass [facility] Endoscopy Admitting Dept Virtual Department [address] [place] [address] Social History Tobacco Use Types Packs/Day Years [...] high school, GED, job training, learning the Mosotho language, technical skills, or developing parenting skills)? 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 on file Not on file documented as of this encounter Plan of Treatment Not on file documented as of this encounter Visit Diagnoses Not on filedocumented in this encounter Additional Health Concerns Assessment Noted Time PHQ-2 Depression Total Score: 0 06/08/20 20 3:05 PM EST documented as of this encounter Care Teams Sap Business Objects Consultant Relationship Specialty Start Date End Date Brittani Cobian MD [address] [place] [address] PCP - General Family Medicine 05/31/21 Jessica Sena CNP [address] [place] [address], 2nd [place] [address] Historical LMR Provider 05/12/17 Chente Turner MD [address] [place] [address], [address] [place] [address] Historical LMR Provider 05/12/17 Fer Jaimes MD [address] [place] [address] [address] [place] [phone] [email or web address] Historical LMR Provider 05/12/17 documented as of this encounter Additional Source Comments The information contained in this document represents components of the legal health record. It is not the complete legal health record.[facility]
--- OUTSIDE RECORDS SUMMARY | 2025-07-13 09:02 | XMS_ITS | Encounter Summary ---
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 Not on file documented as of this encounter Plan of Treatment Not on file documented as of this encounter Visit Diagnoses Not on filedocumented in this encounter Additional Health Concerns Assessment Noted Time PHQ-2 Depression Total Score: 0 06/08/20 20 3:05 PM EST documented as of this encounter Care Teams Office Rental Clerk Relationship Specialty Start Date End Date Brittani Cobian MD [address] [place] [address] PCP - General Family Medicine 05/31/21 Jessica Sena CNP [address] [place] [address], 2nd [place] [address] Historical LMR Provider 05/12/17 Chente Turner MD [address] [place] [address], [address] [place] [address] Historical LMR Provider 05/12/17 Fer Jaimes MD [address] [place] [address] [address] [place] [phone] [email or web address] Historical LMR Provider 05/12/17 documented as of this encounter Additional Source Comments The information contained in this document represents components of the legal health record. It is not the complete legal health record.[facility]
--- OUTSIDE RECORDS SUMMARY | 2025-07-13 09:02 | XMS_ITS | Encounter Summary ---
Author Organization [facility] Address [address] [place] [address] Phone Care Team Providers Care Territory Sales Professional Name Role Phone Jessica Sena Catrachita MONTESINOS Unavailable [phone] Chente Turner MD Unavailable [phone] Fer Jaimes MD Unavailable Brittani Cobian MD Primary Care Provider + Reason for Referral * Outpatient Procedure - Closed Specialty Diagnoses / Procedures Referred By Lukas t Referred To Contact Radiology Diagnoses Abnormal electrocardiogram Procedures Adult Echo TTE Kaleb Salmon PA [address] [place] Phone: tel: fax: mailto:[email or web address] Referral ID Status Reason Start Date Expiration Date Visits Re quested Visits Authorized [id number] Closed 12/24/2023 12/23/2024 1 1 Encounter Details Date Type Department Care Team (Latest Contact Info) Description 12/24/2023 Transcribe Orders Virtual Department 30 [place] [address] Kaleb Salmon PA [address] [place] [address] [email or web address] Abnormal electrocardiogram (Primary Dx) Social History Tobacco [...] 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 PCP - General Family Medicine 05/31/21 Jessica Sena, YAMEL [address] [facility], 2nd [place] [address] [email or web address] Historical LMR Provider 05/12/17 Chente Turner MD [address] [place] [address], [address] [place] [address] [email or web address] Historical LMR Provider 05/12/17 Fer Jaimes MD [address] [place] [address] [address] [place] [address] [email or web address] Historical LMR Provider 05/12/17 documented as of this encounter Additional Source Comments The information contained in this document represents components of the legal health record. It is not the complete legal health record.[facility]
--- OUTSIDE RECORDS SUMMARY | 2025-07-13 09:02 | XMS_ITS | Encounter Summary ---
Author Organization [facility] Address [address] [place] [address] Phone Care Team Providers Care Bank Credit Card Collection Clerk Name Role Phone Jessica Sena Catrachita MONTESINOS Unavailable [phone] Chente Turner MD Unavailable [phone] Fer Jaimes MD Unavailable [phone] Brittani Cobian MD Primary Care Provider + Reason for Referral * Outpatient Procedure - Closed Specialty Diagnoses / Procedures Referred By Contkaren t Referred To Contact Diagnoses Abnormal electrocardiogram Procedures Stress Test Exercise Kaleb Salmon PA [address] [place] [address] Phone: tel: fax: mailto:[email or web address] Referral ID Status Reason Start Date Expiration Date Visits Re quested Visits Authorized [id number] Closed 01/07/2024 01/06/2025 1 1 Encounter Details Date Type Department Care Team (Latest Contact Info) Description 12/24/2023 Transcribe Orders [facility] Department [address] [place] [address] Kaleb Salmon PA [address] [place] [address] [email or web address] Abnormal electrocardiogram (Primary Dx) Social History Tobacco [...] 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 Not [...] documented as of this encounter Care Teams Bank Credit Card Collection Clerk Relationship Specialty Start Date End Date Brittani Cobian MD [address] [place] [address] [email or web address] PCP - General Family Medicine 05/31/21 Jessica Sena, YAMEL [address] [facility], 2nd [place] [address] [email or web address] Historical LMR Provider 05/12/17 Chente Turner MD [address] [place] [address], [address] [place] [address] [email or web address] Historical LMR Provider 05/12/17 Fer Jaimes MD [address] [place] [address] [address] [place] [address] [email or web address] Historical LMR Provider 05/12/17 documented as of this encounter Additional Source Comments The information contained in this document represents components of the legal health record. It is not the complete legal health record.[facility]
--- OUTSIDE RECORDS SUMMARY | 2025-07-13 09:03 | XMS_ITS | Encounter Summary ---
Author Organization [facility] Address [address] [facility] [address] [place] [address] Phone Care Team Providers Care Software Validation Engineer Name Role Phone eJssica Sena Catrachita MONTESINOS Unavailable [phone] Chente Turner MD Unavailable [phone] Fer Jaimes MD Unavailable [phone] Brittani Cobian MD Primary Care Provider + Reason for Referral * MRI/CAT Scan - Closed Specialty Diagnoses / Procedures Referred By Contkaren t Referred To Contact Radiology Diagnoses Abnormal electrocardiogram Procedures NC Myocardial Perfusion Exercise Multiple CHG MYOCARDIAL SPECT MULTIPLE STUDIES Brittani Cobian MD [address] [place] [address] Phone: tel: fax: mailto:[email or web address] Referral ID Status Reason Start Date Expiration Date Visits Re quested Visits Authorized [id number] Closed 01/07/2024 07/05/2024 4 4 Encounter Details Date Type Department Care Team (Latest Contact Info) Description 12/29/[address] 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 POS [id number] Narrative 01/09/2024 12:56 PM EDT COMPARISON: None [...] LVEF wascalculated at greater than 75%. POS [id number] us Brittani Cobian MD CV NM CARDIAC Final Re sult documented in this encounter Visit Diagnoses Diagnosis Abnormal electrocardiogram- Primary Nonspecific abnormal electrocardiogram (ECG) (EKG) Abnormal electrocardiogram Nonspecific abnormal electrocardiogram (ECG) (EKG) documented in this encounter Additional Health Concerns Assessment Noted Time PHQ-2 Depression Total Score: 0 06/08/20 20 3:05 PM EST documented as of this encounter Care Teams Software Validation Engineer Relationship Specialty Start Date End Date Brittani Cobian MD [address] [place] [address] [email or web address] PCP - General Family Medicine 05/31/21 Jessica Sena CNP [address] [facility], 2nd [place] [address] Historical LMR Provider 05/12/17 Chente Turner MD [address] [place] [address] [address] [place] [address] [email or web address] Historical LMR Provider 05/12/17 Fer Jaimes MD [address] [place] [address] [address] [place] [address] [email or web address] Historical LMR Provider 05/12/17 documented as of this encounter Additional Source Comments The information contained in this document represents components of the legal health record. It is not the complete legal health record.[facility]
--- OUTSIDE RECORDS SUMMARY | 2025-07-13 09:03 | XMS_ITS | Encounter Summary ---
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, 2nd [place] [address] Historical LMR Provider 05/12/17 Chente Turner MD [address] [place] [address], [address] [place] [address] [email or web address] Historical LMR Provider 05/12/17 Fer Jaimes MD [address] [place], [place] [address] [place] [address] [email or web address] Historical LMR Provider 05/12/17 documented as of this encounter Additional Source Comments The information contained in this document represents components of the legal health record. It is not the complete legal health record.[facility]
--- OUTSIDE RECORDS SUMMARY | 2025-07-13 09:03 | XMS_ITS | Encounter Summary ---
Author Organization [facility] Address [address] [facility] [address] [place] [address] Phone Care Team Providers Care Rehabilitation Counselor Name Role Phone Jessica Senameagan MONTESINOS Unavailable [phone] Chente Turner MD Unavailable [phone] Fer Jaimes MD Unavailable [phone] Brittani Cobian MD Primary Care Provider + Reason for Referral * MRI/CAT Scan - Closed Specialty Diagnoses / Procedures Referred By Contac t Referred To Contact Radiology Diagnoses Abnormal electrocardiogram Procedures NC Stress Result for Nuclear Stress Test Brittani Cobian MD [address] [place] [address] Phone: tel: fax: mailto:[email or web address] Referral ID Status Reason Start Date Expiration Date Visits Re quested Visits Authorized [id number] Closed 01/09/2024 01/08/2025 1 1 Encounter Details Date Type Department Care Team (Latest Contact Info) Description 01/09/2024 Ancillary Orders Virtual Department 30 [place] [address] Brittani Cobian MD [address] [place] [address] [email or web address] Abnormal electrocardiogram (Primary Dx) Social History [...] 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1 METS [facility] Peak HR 141 BPM [facility] Anatomical Region Laterality Modality Heart [...] documented as of this encounter Care Teams Rehabilitation Counselor Relationship Specialty Start Date End Date Brittani Cobian MD [address] [place] [address] PCP - General Family Medicine 05/31/21 Jessica Sena, ADMINISTRATIVE STAFF SUPERVISOR [address] [facility], 2nd [place] [address] Historical LMR Provider 05/12/17 Chente Turner MD [address] [place] [address], [address] [place] [address] [email or web address] Historical LMR Provider 05/12/17 Fer Jaimes MD [address] [place] [address] [address] [place] [address] [email or web address] Historical LMR Provider 05/12/17 documented as of this encounter Additional Source Comments The information contained in this document represents components of the legal health record. It is not the complete legal health record.[facility]
--- OUTSIDE RECORDS SUMMARY | 2025-07-13 09:04 | XMS_ITS | Encounter Summary ---
Author Organization [facility] Address [address] [place] [address] Phone Care Team Providers Care Instrumentation And Control Technician Name Role Phone Diya Vogel CNM Unavailable Oneyda Low MEDICAL CASE MANAGER Unavailable Jessica Sena EMERGENCY DISPATCHER Unavailable Diya Valles MEDICAL CASE MANAGER Unavailable [phone] Farrah Wyatt MD Unavailable Chente Turner MD Unavailable Lenard Smith MD Unavailable Carlos Andres MD Unavailable Eneida Tilley MD Unavailable Fer Jaimes MD Unavailable Vaughn Lehman MD Unavailable [phone] Renu Hidalgo MD Primary Care Provider Jessica Sena EMERGENCY DISPATCHER Unavailable Brittani Cobian MD Primary Care Provider + Encounter Details Date Type Department Care Team (Late st Contact Info) Description 04/20/2021 Procedure Pass [facility] 30 [place] [address] Social History Tobacco Use Types Packs/Day Years [...] high school, GED, job training, learning the Japanese language, technical skills, or developing parenting skills)? 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 file Not on file documented as of this encounter Plan of Treatment Not on file documented as of this encounter Visit Diagnoses Not on filedocumented in this encounter Additional Health Concerns Assessment Noted Time PHQ-2 Depression Total Score: 0 06/08/20 20 3:05 PM EST documented as of this encounter Care Teams Instrumentation And Control Technician Relationship Specialty Start Date End Date Renu Hidalgo MD [address] [place] [address] [email or web address] PCP - General Family Medicine 03/27/21 05/30/21 Jessica Sena, YAMEL [address] [address] PCP - Resident PCP Family Medicine 03/27/21 06/05/21 Brittani Cobian MD [address] [place] [address] PCP - General Family Medicine 05/31/21 Diya Vogel CNM [address] [address] Historical LMR Provider 05/12/17 08/04/21 Oneyda Low NP [address] [place] [address] [address] [place] [address] Historical LMR Provider 05/12/17 2 Jessica Sena, EMERGENCY DISPATCHER [address] [address] Historical LMR Provider 05/12/17 Diya Valles NP [address] [place] [address] Historical LMR Provider 05/12/17 2 Farrah Wyatt MD [address] [place] [address] 7 [place] [address] Historical LMR Provider 05/12/17 08/04/21 Chente Turner MD [address] [place] [address] 7 [place] [address] Historical LMR Provider 05/12/17 Lenard Smith MD [address] [place] [address] [place] [address] Historical LMR Provider 05/12/17 08/04/21 Carlos Andres MD [address] [place] [phone] Historical LMR Provider 05/12/17 2 Eneida Tilley MD [address] [place] [address] 7 [place] [address] [email or web address] Historical LMR Provider 05/12/17 08/04/21 Fer Jaimes MD [address] [place] [address] [address] [place] [id number] [email or web address] Historical LMR Provider 05/12/17 Vaughn Lehman MD [address] [place] [address] Historical LMR Provider 05/12/17 2 documented as of this encounter Additional Source Comments The information contained in this document represents components of the legal health record. It is not the complete legal health record.[facility]
--- OUTSIDE RECORDS SUMMARY | 2025-07-13 09:04 | XMS_ITS | Encounter Summary ---
Author Organization [facility] Address [address] [place] [address] Phone Care Team Providers Care Value Stream Coach Name Role Phone Diya Vogel CNM Unavailable Oneyda Low AMMUNITION COMPONENTS INSPECTOR Unavailable Jessica Sena LIFTER Unavailable [phone] Diya Valles AMMUNITION COMPONENTS INSPECTOR Unavailable [phone] Farrah Wyatt MD Unavailable [phone] Chente Turner MD Unavailable [phone] Lenard Smith MD Unavailable Carlos Andres MD Unavailable Eneida Tilley MD Unavailable [phone] Fer Jaimes MD Unavailable Vaughn Lehman MD Unavailable [phone] Fer Jaimes MD Primary Care Provider [phone] Jessica Sena LIFTER Primary Care Provider [phone] Renu Hidalgo MD Primary Care Provider [phone] Jessica Sena LIFTER Unavailable Brittani Cobian MD Primary Care Provider + Encounter Details Date Type Department Care Team (Late st Contact Info) Description 03/29/2020 Ancillary Orders [facility] General [facility] [address] [place] [address] Fer Jaimes MD 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 PCP - Resident PCP Family Medicine 03/27/21 06/05/21 Brittani Cobian MD [address] [place] [address] [email or web address] PCP - General Family Medicine 05/31/21 Diya Vogel CNM 22 [facility] [address] [place] [address] Historical LMR Provider 05/12/17 08/04/21 Oneyda Low NP [address] [place] [address] 340 [place] [address] Historical LMR Provider 05/12/17 2 Jessica Sena CNP [address] [facility], 2nd [place] [address] Historical LMR Provider 05/12/17 Diya Valles NP [address] [place] [address] Historical LMR Provider 05/12/17 2 Farrah Wyatt MD [address] [place] [address] 7 [place] [address] Historical LMR Provider 05/12/17 08/04/21 Chente Turner MD [address] [place] [address] 7 [place] [address] Historical LMR Provider 05/12/17 Lenard Smith MD 22 [facility] [address] [place] [address] Historical LMR Provider 05/12/17 08/04/21 Carlos Andres MD [address] [place] [address] Historical LMR Provider 05/12/17 2 Eneida Tilley MD [address] [facility], [address] [place] [address] [email or web address] Historical LMR Provider 05/12/17 08/04/21 Fer Jaimes MD [address] [facility] [address] [place] [address] [email or web address] Historical LMR Provider 05/12/17 Vaughn Lehman MD [address] [place] [address] Historical LMR Provider 05/12/17 2 documented as of this encounter Additional Source Comments The information contained in this document represents components of the legal health record. It is not the complete legal health record.[facility]
--- OUTSIDE RECORDS SUMMARY | 2025-07-13 09:04 | XMS_ITS | Encounter Summary ---
Author Organization [facility] Address [address] [place] [address] Phone Care Team Providers Care Civil Engineering Manager Name Role Phone Diya Vogel CNM Unavailable Oneyda Low INDUSTRIAL AUTOMATION ENGINEER Unavailable Jessica Sena SENIOR C WEB DEVELOPER Unavailable [phone] Diya Valles INDUSTRIAL AUTOMATION ENGINEER Unavailable [phone] Farrah Wyatt MD Unavailable [phone] Chente Turner MD Unavailable [phone] Lenard Smith MD Unavailable Carlos Andres MD Unavailable Eneida Tilley MD Unavailable [phone] Fer Jaimes MD Unavailable Vaughn Lehman MD Unavailable [phone] Fer Jaimes MD Primary Care Provider [phone] Jessica Sena SENIOR C WEB DEVELOPER Primary Care Provider [phone] Renu Hidalgo MD Primary Care Provider [phone] Jessica Sena SENIOR C WEB DEVELOPER Unavailable Brittani Cobian MD Primary Care Provider + Encounter Details Date Type Department Care Team (Late st Contact Info) Description 03/02/2018 Ancillary Orders [facility] [address] [place] [address] Fer Jaimes MD [address] [place] [address] [email or web address] Breast screening Social History Tobacco Use Types [...] were interpreted in conjunction with R-2 Image Stevedoring Supervisor computer-aided detection. FINDINGS: Breast density: The breast [...] Images were interpreted inconjunction with R-2 Image Stevedoring Supervisor computer-aided detection. FINDINGS: Breast density: The breast [...] unspecified documented in this encounter Care Teams Civil Engineering Manager Relationship Specialty Start Date End Date Fer Jaimes MD [address] [place] [address] [address] [place] [address] [email or web address] PCP - General 06/02/17 04/13/20 Jessica Sena CNP [address] [facility], 2nd [place] [address] [email or web address] PCP - General Family Medicine 04/14/20 03/26/21 Renu Hidalgo MD [address] [place] [address] [email or web address] PCP - General Family Medicine 03/27/21 05/30/21 Jessica Sena, SENIOR C WEB DEVELOPER [address] [place] [address] [email or web address] PCP - Resident PCP Family Medicine 03/27/21 06/05/21 Brittani Cobian MD [address] [place] [address] [email or web address] PCP - General Family Medicine 05/31/21 Diya Vogel CNM [address] [place] [address] [email or web address] Historical LMR Provider 05/12/17 08/04/21 Oneyda Low NP [address] [place] [address] Historical LMR Provider 05/12/17 2 Jessica Sena, SENIOR C WEB DEVELOPER [address] [place] [address] Historical LMR Provider 05/12/17 Diya Valles INDUSTRIAL AUTOMATION ENGINEER [address] [place] [address] Historical LMR Provider 05/12/17 2 Farrah Wyatt MD [address] [place] [address] 7 [place] [address] [email or web address] Historical LMR Provider 05/12/17 08/04/21 Chente Turner MD [address] [place] [address] 7 [place] [address] Historical LMR Provider 05/12/17 Lenard Smith MD [address] [place] [address] [email or web address] Historical LMR Provider 05/12/17 08/04/21 Carlos Andres MD [address] [place] [address] Historical LMR Provider 05/12/17 2 Eneida Tilley MD [address] [place] [address] 7 [place] [address] [email or web address] Historical LMR Provider 05/12/17 08/04/21 Fer Jaimes MD [address] [place], [place] [address] [place] [address] [email or web address] Historical LMR Provider 05/12/17 Vaughn Lehman MD [address] [place] [address] Historical LMR Provider 05/12/17 2 documented as of this encounter Additional Source Comments The information contained in this document represents components of the legal health record. It is not the complete legal health record.[facility]
--- OUTSIDE RECORDS SUMMARY | 2025-07-13 09:04 | XMS_ITS | Encounter Summary ---
Author Organization [facility] Address [address] [place] [address] Phone Care Team Providers Care Utility Bagger Name Role Phone Diya Vogel CNM Unavailable Oneyda Low GENERAL INSPECTOR Unavailable [phone] Jessica Sena OCCUPATIONAL NURSE Unavailable [phone] Diya Valles GENERAL INSPECTOR Unavailable [phone] Farrah Wyatt MD Unavailable [phone] Chente Turner MD Unavailable [phone] Lenard Smith MD Unavailable Carlos Andres MD Unavailable Eneida Tilley MD Unavailable [phone] Fer Jaimes MD Unavailable Vaughn Lehman MD Unavailable Fer Jaimes MD Primary Care Provider [phone] Jessica Sena OCCUPATIONAL NURSE Primary Care Provider [phone] Renu Hidalgo MD Primary Care Provider [phone] Jessica Sena OCCUPATIONAL NURSE Unavailable Brittani Cobian MD Primary Care Provider + Encounter Details Date Type Department Care Team (Late st Contact Info) Description 03/29/2020 Procedure Pass [facility], [facility] [address] [place] [address] Social History Tobacco Use Types Packs/Day Years [...] 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 on file Not on file documented as of this encounter Plan of Treatment Not on file documented as of this encounter Visit Diagnoses Not on filedocumented in this encounter Care Teams Utility Bagger Relationship Specialty Start Date End Date Fer Jaimes MD [address] [place], [place] [address] [place] [address] [email or web address] PCP - General 06/02/17 04/13/20 Jessica Sena CNP [address] [place] [address] [email or web address] PCP - General Family Medicine 04/14/20 03/26/21 Renu Hidalgo MD [address] [place] [address] [email or web address] PCP - General Family Medicine 03/27/21 05/30/21 Jessica Sena CNP [address] [address] PCP - Resident PCP Family Medicine 03/27/21 06/05/21 Brittani Cobian MD [address] [place] [address] PCP - General Family Medicine 05/31/21 Diya Vogel CNM [address] [place] [address] 102 [place] [address] Historical LMR Provider 05/12/17 08/04/21 Oneyda Low NP [address] [place] [address] 340 [place] [address] Historical LMR Provider 05/12/17 2 Jessica Sena CNP [address] [place] [address], 2nd [place] [address] [email or web address] Historical LMR Provider 05/12/17 Diya Valles GENERAL INSPECTOR [address] [place] [address] Historical LMR Provider 05/12/17 2 Farrah Wyatt MD [address] [place] [address] 7 [place] [address] Historical LMR Provider 05/12/17 08/04/21 Chente Turner MD [address] [place] [address] Historical LMR Provider 05/12/17 Lenard Smith MD 22 [facility], [address] [place] [address] [email or web address] Historical LMR Provider 05/12/17 08/04/21 Carlos Andres MD [address] [place] [address] Historical LMR Provider 05/12/17 2 Eneida Tilley MD [address] [place] [address], [facility] 7 [place] [address] [email or web address] Historical LMR Provider 05/12/17 08/04/21 Fer Jaimes MD [address] [facility] [address] [place] [address] [email or web address] Historical LMR Provider 05/12/17 Vaughn Lehman MD [address] [place] [address] Historical LMR Provider 05/12/17 2 documented as of this encounter Additional Source Comments The information contained in this document represents components of the legal health record. It is not the complete legal health record.[facility]
--- OUTSIDE RECORDS SUMMARY | 2025-07-13 09:04 | XMS_ITS | Encounter Summary ---
Author Organization [facility] Address [address] [place] [address] Phone Care Team Providers Care Cms Expert Name Role Phone Diya Vogel CNM Unavailable Oneyda Low CLERICAL CLERK Unavailable Jessica Sena MEDICAID BILLING CLERK Unavailable Dyia Valles CLERICAL CLERK Unavailable [phone] Farrah Wyatt MD Unavailable Chente Turner MD Unavailable Lenard Smith MD Unavailable Carlos Andres MD Unavailable Eneida Tilley MD Unavailable Fer Jaimes MD Unavailable Vaughn Lehman MD Unavailable [phone] Brittani Cobian MD Primary Care Provider + Encounter Details Date Type Department Care Team (Late st Contact Info) Description 06/12/2021 Procedure Pass [facility], [address] [address] Social History Tobacco Use Types Packs/Day Years [...] high school, GED, job training, learning the Latvian language, technical skills, or developing parenting skills)? 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 file Not on file documented as of this encounter Plan of Treatment Not on file documented as of this encounter Visit Diagnoses Not on filedocumented in this encounter Additional Health Concerns Assessment Noted Time PHQ-2 Depression Total Score: 0 06/08/20 20 3:05 PM EST documented as of this encounter Care Teams Cms Expert Relationship Specialty Start Date End Date Brittani Cob[place] [address] PCP - General Family Medicine 05/31/21 Diya Vogel CNM [address] [address] Historical LMR Provider 05/12/17 08/04/21 Oneyda Low NP [address] [place] [address] Historical LMR Provider 05/12/17 2 Jessica Sena CNP [facility] 2nd [place] [address] [email or web address] Historical LMR Provider 05/12/17 Diya Valles NP [address] [place] [address] Historical LMR Provider 05/12/17 2 Farrah Wyatt MD [address] [place] [address] [email or web address] Historical LMR Provider 05/12/17 08/04/21 Chente Turner MD [address] [place] [address] Historical LMR Provider 05/12/17 Lenard Smith MD [address] [address] Historical LMR Provider 05/12/17 08/04/21 Carlos Andres MD 61 [place] [address] Historical LMR Provider 05/12/17 2 Eneida Tilley MD [address] [place] [address], [address] [place] [address] [email or web address] Historical LMR Provider 05/12/17 08/04/21 Fer Jaimes MD [address] [facility] [address] [place] [address] [email or web address] Historical LMR Provider 05/12/17 Vaughn Lehman MD [address] [place] [address] Historical LMR Provider 05/12/17 2 documented as of this encounter Additional Source Comments The information contained in this document represents components of the legal health record. It is not the complete legal health record.[facility]
--- OUTSIDE RECORDS SUMMARY | 2025-07-13 09:04 | XMS_ITS | Clinical Summary ---
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 All rights reserved. The codes documented in this report are preliminary and upon burlap roll coverer reviewmay be revised to meet current compliance requirements. Procedure Date: 05/29/2022 10:50:[address] [place] [address] us Brittani Camilo MD GI PROCEDURE ORDERABLES Final Result * (ABNORMAL) Comprehensive metabolic panel (04/04/2021 3:38 PM EDT) SODIUM 141 133 - 146 mmol/L [facility] POTASSIUM 3.3 3.3 - 5.1 mmol/L [facility] CHLORIDE 100 96 - 108 mmol/L [facility] CO2 29 21 - 35 mmol/L [facility] BUN 23(H) 6 - 19 mg/dL [facility] CREATININE 0.80 0.5 - 1.5 mg/dL [facility] GLUCOSE 103(H) 70 - 99 mg/dL [facility] ALBUMIN 4.4 3.9 - 4.8 g/dL [facility] TOTAL PROTEIN 7.3 6.5 - 8.0 g/dL [facility] CALCIUM 9.9 8.4 - 10.3 mg/dL [facility] ALKALINE PHOSPHATASE 58 39 - 117 U/L [facility] TOTAL BILIRUBIN 0.3 0.0 - 1.2 mg/dL [facility] AST 29 0 - 37 U/L [facility] ALT 28 0 - 40 U/L [facility] GLOBULIN 2.9 1 - 4.8 g/dL [facility] EGFR 80 >59 mL/min/1.7 3m2 [facility] Comment:Estimated glomerular filtration rate calculated using the CKD-EPI equation. ANION GAP 15 10 - 20 mmol/L [facility] Blood 04/04/2021 3:38 PM EDT 04/04/2021 3:39 PM EDT us Daniel Ramirez DO LAB BLOOD BKR ORDERABLES Final R esult Performing Organization Address [facility]/ZIP Co de Phone Number [address] [address] * TSH (08/02/2020 2:32 PM EST) TSH 0.40 0.27 - 4.20 uIU/mL [facility] Blood 08/02/2020 2:32 PM EST 08/02/2020 2:37 PM EST Jessica Sena LASER/ELECTRO OPTICS TECHNICIAN LAB BLOOD BKR ORDERABLES F inal Result Performing Organization Address [facility] Co de Phone Number [address] [address] * Hepatitis C antibody, qualitative (12/01/2018 9:23 AM EDT) HCV Negative Negative [facility] Comment: This is a screening test and should be confirmed with molecular testing Blood 12/01/2018 9:23 AM EDT 12/01/2018 9:29 AM EDT us Fer Jaimes MD LAB BLOOD BKR ORDERABLES Final Result Performing Organization Address [facility] Co de Phone Number [address] [address] * (ABNORMAL) Lipid panel (12/01/2018 9:23 AM EDT) HDL 76 mg/dL [facility] Comment: Interpretation <40 mg/dL: Low HDL cholesterol (major risk factor for CHD) Greater than or equal to 60 mg/dL: High HDL cholesterol ( negative risk factor for CHD) HDL - cholesterol is affected by a number of factors, e.g. smoking, excerise, hormones, sex and age. CHOLESTEROL 202 0 - 240 mg/dL [facility] TRIGLYCERIDES 99 30 - 160 mg/dL [facility] LDL 106 50 - 129 mg/dL [facility] Comment: LDL levels in terms of risk for coronary heart disease: <100 mg/dL: Optimal 100-129 mg/dL: Near or above optimal 130-159 mg/dL: Borderline high 160-189 mg/dL: High >190 mg/dL: Very High CARDIAC RISK RATIO 2.7(L) 3.3 - 4.4 C [facility] Blood 12/01/2018 9:23 AM EDT 12/01/2018 9:29 AM EDT us Fer Jaimes MD LAB BLOOD BKR ORDERABLES Final Result [facility] [address] [place], [place] [id number] * PAP SMEAR FOR RESULT ENTRY ONLY (08/29/2016) Pap smear 5yr us Historical Provider HEALTH MAINTENANCE Final Result from Last 3 Months or Most Recently Relevant to Health Maintenance Insurance CIGNA PPO AETNA HMO POS [facility]PO [id number] A[facility]NA O POS EPO [id number] [id number] CIGNA PPO AETNA O POS [facility]PO [id number]PO [id number] P[facility] Member Subscriber Plan / Payer (Ef fective 2020-) Name:Emerita Hairston Relation to Subscriber:Self Name:Emerita Hairston Payer ID:[id number] ([facility]) Type:PPO [address] EPO CIGNA PPO AETNA HMO POS EPO Advance Directives For more information, please contact: [phone] (9AM - 5PM [facility], Friday-Friday) Documents on File Type Date Recorded Patient Escrow Secretary Expl anation Healthcare Proxy 07/17/2021 2:40 PM Care Teams Umbrella Tipper Relationship Specialty Start Date End Date Brittani Camilo MD [address] [place] [address] PCP - General Family Medicine 05/31/21 Jessica Sena, YAMEL [address] [facility], 2nd [place] [address] Historical LMR Provider 05/12/17 Chente Turner MD [address] [place] [address], [address] [place] [address] Historical LMR Provider 05/12/17 Fer Jaimes MD [address] [place] [address] [address] [place] [phone] [email or web address] Historical LMR Provider 05/12/17 Additional Source Comments The information contained in this document represents components of the legal health record. It is not the complete legal health record.[facility]
--- OUTSIDE RECORDS SUMMARY | 2025-07-13 09:04 | XMS_ITS | Clinical Summary ---
Author Organization [facility] [employer] [facility] Address [address] [address] Phone Care Team Providers Care Battery Builder Name Role Phone Brittani Cobian MD Primary Care Provider [phone] Allergies Active Allergy Reactions Criticality Noted Date [...] this topic Insurance CIGNA AETNA Care Teams Battery Builder Relationship Specialty Start Date End Date Brittani Cobian MD [address] [place] [phone] PCP - General Family Medicine 06/22/24
--- OUTSIDE RECORDS SUMMARY | 2025-07-13 09:04 | XMS_ITS | Encounter Summary ---
Author Organization [facility] Address [address] [place] [address] Phone Care Team Providers Care Soil Fertility Extension Specialist Name Role Phone Diya Vogel CNM Unavailable Oneyda Low FLARER Unavailable Jessica Sena PACKING MACHINE TENDER Unavailable Diya Valles FLARER Unavailable [phone] Farrah Wyatt MD Unavailable Chente Turner MD Unavailable Lenard Smith MD Unavailable [phone] Carlos Andres MD Unavailable Eneida Tilley MD Unavailable [phone] Fer Jaimes MD Unavailable Vaughn Lehman MD Unavailable [phone] Brittani Cobian MD Primary Care Provider + Encounter Details Date Type Department Care Team (Late st Contact Info) Description 07/16/2021 Procedure Pass [place] Admitting Dept - Virtual Department 30 [place], [place] [id number] Social History Tobacco Use Types Packs/Day Years [...] 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 Not on file documented as of this encounter Plan of Treatment Not on file documented as of this encounter Visit Diagnoses Not on filedocumented in this encounter Additional Health Concerns Assessment Noted Time PHQ-2 Depression Total Score: 0 06/08/20 20 3:05 PM EST documented as of this encounter Care Teams Soil Fertility Extension Specialist Relationship Specialty Start Date End Date Brittani Cobian MD [address] [place] [address] PCP - General Family Medicine 05/31/21 Diya Vogel CNM [address] [address] Historical LMR Provider 05/12/17 08/04/21 Oneyda Low NP [address] [place] [address] Historical LMR Provider 05/12/17 2 Jessica Sena CNP 15 [facility], 2nd [place] [address] Historical LMR Provider 05/12/17 Diya Valles FLARER [address] [place] [address] Historical LMR Provider 05/12/17 2 Farrah Wyatt MD [address] [place] [address] Historical LMR Provider 05/12/17 08/04/21 Chente Turner MD [address] [place] [address] Historical LMR Provider 05/12/17 Lenard Smith MD [address] [place] [address] Historical LMR Provider 05/12/17 08/04/21 Carlos Andres MD [address] [place] [address] Historical LMR Provider 05/12/17 2 Eneida Tilley MD [address] [place] [address], [address] [place] [address] [email or web address] Historical LMR Provider 05/12/17 08/04/21 Fer Jaimes MD [address] [place] [address] [address] [place] [phone] [email or web address] Historical LMR Provider 05/12/17 Vaughn Lehman MD [address] [place] [address] Historical LMR Provider 05/12/17 2 documented as of this encounter Additional Source Comments The information contained in this document represents components of the legal health record. It is not the complete legal health record.[facility]
--- OUTSIDE RECORDS SUMMARY | 2025-07-13 09:05 | XMS_ITS | Encounter Summary ---
Author Organization Located Within [facility] Address [address] [place] [address] Phone Care Team Providers Care Packing Machine Pilot Can Router Name Role Phone Diya Vogel CNM Unavailable Oneyda Low ENVIRONMENTAL STUDIES FACULTY MEMBER Unavailable Jessica Sena FLAT IRONER Unavailable [phone] Diya Valles ENVIRONMENTAL STUDIES FACULTY MEMBER Unavailable [phone] Farrah Wyatt MD Unavailable [phone] Chente Turner MD Unavailable [phone] Lenard Smith MD Unavailable Carlos Andres MD Unavailable Eneida Tilley MD Unavailable [phone] Fer Jaimes MD Unavailable Vaughn Lehman MD Unavailable Fer Jaimes MD Primary Care Provider [phone] Jessica Sena FLAT IRONER Primary Care Provider [phone] Renu Hidalgo MD Primary Care Provider [phone] Jessica Sena FLAT IRONER Unavailable Brittani Cobian MD Primary Care Provider + Encounter Details Date Type Department Care Team (Late st Contact Info) Description 02/23/2019 Ancillary Orders Located Within [facility] [address] [place] [address] Fer Jaimes MD [address] [place] [phone] [email or web address] Social History Tobacco Use Types [...] unspecified documented in this encounter Care Teams Packing Machine Pilot Can Router Relationship Specialty Start Date End Date Fer Jaimes MD [address] [place], [place] [address] [place] [address] [email or web address] PCP - General 06/02/17 04/13/20 Jessica Sena CNP [address] [place] [address], [address] [place] [address] PCP - General Family Medicine 04/14/20 03/26/21 Renu Hidalgo MD [address] [place] [address] [email or web address] PCP - General Family Medicine 03/27/21 05/30/21 Jessica Sena, FLAT IRONER [address] [address] PCP - Resident PCP Family Medicine 03/27/21 06/05/21 Brittani Cobian MD [address] [place] [id number] PCP - General Family Medicine 05/31/21 Diya Vogel CNM [address] [place] [address] Historical LMR Provider 05/12/17 08/04/21 Oneyda Low NP [address] [place] [address] [address] [place] [address] Historical LMR Provider 05/12/17 2 Jessica Sena, FLAT IRONER [address] [place] [address] Historical LMR Provider 05/12/17 Diya Valles ENVIRONMENTAL STUDIES FACULTY MEMBER [address] [place] [address] Historical LMR Provider 05/12/17 2 Farrah Wyatt MD [address] [place] [address] 7 [place] [address] Historical LMR Provider 05/12/17 08/04/21 Chente Turner MD [address] [place] [address] [address] [place] [address] [email or web address] Historical LMR Provider 05/12/17 Lenard Smith MD [address] [place] [address], [address] [place] [address] [email or web address] Historical LMR Provider 05/12/17 08/04/21 Carlos Andres MD [address] [place] [address] Historical LMR Provider 05/12/17 2 Eneida Tilley MD [address] [place] [address] 7 [place] [address] [email or web address] Historical LMR Provider 05/12/17 08/04/21 Fer Jaimes MD [address] [place] [address] [address] [place] [address] [email or web address] Historical LMR Provider 05/12/17 Vaughn Lehman MD [address] [place] [address] Historical LMR Provider 05/12/17 2 documented as of this encounter Additional Source Comments The information contained in this document represents components of the legal health record. It is not the complete legal health record.Located Within [facility]
--- NOTE | 2025-07-13 09:07 | A.OFFPC_ITS ---
Vital Signs 07/13/25 09:08 Height 5 ft 1 in Weight 125 lb 6 oz BMI 23.7 BP 136/94 H Blood Pressure Location Lt brachial Position Sitting Respiration 18 Pulse 58 Pulse Source Pulse Oximeter Temp 97.9 F Temp Source Temporal Artery Scan Pulse Oximetry (%) 98 Oxygen Delivery Method Room Air Intake Visit Reasons: annual exam Brief Writer Required: No Accompanied by: Self / Same As Patient Allergies prochlorperazine (From Compazine) Allergy (Intermediate, Verified 07/13/25 09:14) paralysis Medication List - Last Reconciled 07/13/25 by Olamide Calero PA-C acetaminophen 325 mg PO QID PRN hydrochlorothiazide 12.5 mg PO DAILY ibuprofen (Advil) 200 mg PO Q6H PRN levothyroxine 100 mcg PO DAILY multivitamin 1 tab PO DAILY propranolol 10 mg PO DAILY PRN Tobacco use date assessed: 03/22/25 Fall risk assessment: No Falls in past year Last assessed Fall Risk: 07/13/25 Dental Screening Dental Screen Date: 03/22/25 HPI annual exam HPI Details 65-year-old female with past medical his tory of anxiety, hypothyroidism and hypertension last seen 02/2025 coming in for annual exam. In revies of the notes, patient was seen by ortho 05/2025 MRI was ordered for possible RTC tear. Presenting for her annual wellness visit. She reports long-standing but improving left arm pain and plantar fasciitis. She was seen by orthopedics on June 07 for the arm pain, and an MRI was ordered but has not yet been done as it is awaiting insurance approval. For her plantar fasciitis, she sees a piece dyeing machine tender and reports foot x-rays showed bone spurs on both heels, though she was told this was not the cause of her pain. The patient reports vaginal dryness and changes with sexual intercourse. She has a strong family history of cancer, including breast cancer, and is hesitant to use estrogen therapy. She has not been consistent with a recommended [id number] vaginal ointment but does use lubricants. pap smear: 12/2024 mammo: 10/2024 DEXA: 10/2024 colonoscopy: 2022 repeat in 10 years vaccines: declines flu and Td PFSH Medical History Benign schwannoma Surgical History History of ankle surgery S/P removal of left ovary Previous section Family History Mother Breast cancer BRCA negative Maternal Grandmother Breast cancer Stroke Hypertension Father Heart disease Paternal Grandfather Liver cancer Maternal Grandfather Colon cancer Maternal Aunt Breast cancer Social History Housing: House Alcohol intake: current Alcohol intake frequency: a few times a week Alcohol type: wine Patient Tobacco Use Status: Never used Tobacco e-Cigarette/Vaping Use: Never Used Substance Use Type: Marijuana service: No Current occupational status: employed 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 1. Little interest or pleasure in doing things: not at all 2. Feeling down, depressed, or hopeless: not at all 3. Trouble falling or staying asleep, or sleeping too much: not at all 4. Feeling tired or having little energy: not at all 5. Poor appetite or overeating: not at all 6. Feeling bad about yourself - or that you are a failure or have let yourself or your family down: not at all 7. Trouble concentrating on things, such as reading the newspaper or watching television: not at all 8. Moving or speaking so slowly that other people could have noticed. Or the opposite - being so fidgety or restless that you have been moving around a lot more than usual: not at all 9. Thoughts that you would be better off or of hurting yourself in some way: not at all Total score: 0 Depression Screening Interpretation: Negative Depression Screening Done: Yes Source: Developed by Drs. Jason Still, Hermila Larsen, Isra Jacinto and colleagues, with an educational evan from [employer]. Thrive Questionnaire Date Thrive assessed: 09/10/24 I am a: Patient What is your living situation today?: I have a steady place to live Within the past 12 months, did the food you bought not last and you didn't have the money to get more?: Never true Within the past 12 months, did you worry whether your food would run out before you got money to buy more?: Never true Do you have trouble paying for medicines?: No Do you have trouble getting transportation to medical appointments?: No Do you have trouble paying your heating and electricity bill?: No Do you have trouble taking care of your child, family member or friend?: No Do you have trouble with day-to-day activities such as bathing, preparing meals, shopping, managing finances, etc.?: No Are you currently unemployed and looking for a job?: No Are you interested in more education?: No Please select the resources that you would like help with: None Currently or been in a relationship where the following occur: I choose not to answer THRIVE Score: 0 HUGH-7 AMB Questionnaire HUGH-7 Date HUGH - 7 assessed: 10/08/24 Feeling nervous, anxious, or on edge: 1 = Several days Not being able to stop or control worryin = Several days Worrying too much about different things: 1 = Several days Trouble relaxin = Not at all Being so restless that it is hard to sit still: 0 = Not at all Becoming easily annoyed or irritable: 0 = Not at all Feeling afraid as if something awful might happen: 0 = Not at all Total HUGH-7 score (0-4 normal; 5-9 mild; 10-14 moderate; 15-21 severe): 3 Source: Developed by Drs. Jason Still, Hermila Larsen, Isra Jacinto and colleagues, with an educational evan from [employer]. Review of Systems Const Denies body aches, Denies fatigue, Denies fever(s), Denies frequent falls, Denies headache(s) and Denies weakness Eyes Reports no additional complaints and Denies change in vision ENT Denies dysphagia, Denies dizziness, Denies facial pain, Denies headache(s), Denies nasal congestion and Denies odynophagia Card Denies chest pain, Denies syncope, Denies irregular heart rhythm, Denies leg edema, Denies lightheadedness and Denies dyspnea Resp Denies cough and Denies dyspnea GI Denies constipation, Denies dysphagia, Denies dyspepsia, Denies diarrhea, Denies nausea, Denies odynophagia and Denies vomiting Denies urinary frequency, Denies dysuria, Denies urinary hesitancy and Denies urinary urgency Musc Reports as per HPI, Denies back pain and Denies myalgias Skin/Breast Reports system reviewed and no additional complaints, except as documented Neuro Denies dizziness, Denies syncope, Denies frequent falls, Denies headache(s) and Denies weakness Psych Reports no additional complaints Endo Denies fatigue Physical exam (Primary Care) Vital Signs: Last Vital Signs Temp 97.9 F 07/13/25 09:08 Pulse 58 07/13/25 09:08 Resp 18 07/13/25 09:08 BP 136/94 H 07/13/25 09:08 Pulse Ox 98 07/13/25 09:08 Oxygen Delivery Method Room Air 07/13/25 09:08 BMI result Body Mass Index 23.7 Tobacco/Smoking Status: Tobacco use Status Tobacco use date assessed 03/22/25 07/13/25 09:14 Patient Tobacco Use Status Never used Tobacco 07/13/25 09:14 e-Cigarette/Vaping Use Never Used 07/13/25 09:14 PHQ-9: PHQ-9 Score PHQ-9: Total score 0 07/13/25 11:01 Depression Screening Interpretation: Negative Thrive Assessment: Date of Thrive Assessment Date Thrive assessed 09/10/24 07/13/25 09:14 Currently or been in a relationship where the following occur: I choose not to answer Const General: cooperative, healthy appearing, comfortable and no acute distress Orientation/consciousness: patient oriented x3 [facility] Head: Yes normocephalic Ears: hearing grossly normal bilaterally, external ears normal, TM's normal bilaterally and EAC's normal General nose exam: Normal external nose present Face and sinus: Yes normal facial exam and Yes sinuses nontender Mouth: Normal oral and palatal mucosa present and tongue normal Throat: Yes posterior oropharynx normal Eyes General: appearance normal, both eyes and all related structures Conjunctivae: conjunctivae normal Pupils: Equal, round and reactive pupils present EOM: EOMs intact bilaterally and No Nystagmus present Neck Neck: Yes normal visual inspection, Yes full ROM and Yes no lymphadenopathy Chest Chest palpation & inspection: normal inspection of the chest Resp Effort & Inspection: normal respiratory effort Auscultation: clear to auscultation bilaterally, no crackles, no rales, no rhonchi, no wheezes and breath sounds present Cardio Rate: regular rate Rhythm: regular rhythm Peripheral pulses: radial pulses present and dorsalis pedis present GI Inspection: Yes normal to inspection and No Abdominal wall edema Palpation (GI): Soft to palpation, not firm and nontender Auscultation: normal bowel sounds Rectal Exam - Female: deferred General: Yes no CVA tenderness Back/Spine/Pelvis Back: no CVA tenderness Skin General skin exam: no rashes or lesions noted Neuro General: patient oriented x3 Cranial nerves: Yes Equal, round and reactive pupils present, Yes Midline tongue present, Yes Ability to bilaterally elevate shoulders present and No Nystagmus present Gait exam (Neuro): Normal gait present Extrem General: Yes normal to inspection, Yes full ROM, No no pedal edema and No edema Psych Speech and movement: Normal speech and movement present Affect: normal affect Insight: Good insight present (Psych) Judgement: Good judgement present (Psych) Coding Level of Care Code Est Pt Prev Care >65y([address]) Diagnoses Annual physical exam Z00.00 Anxiety F41.9 Hypertension I10 Hypercholesterolemia E78.00 Hypothyroidism E03.9 Cerumen impaction H61.20 Benign paroxysmal positional vertigo of left ear H81.12 Laterality: left Rotator cuff insufficiency of left shoulder M25.312 Atrophic vaginitis N95.2 Assessment & Plan Assessment & Plan (1) Annual physical exam: Code(s): Z00.00 - Encounter for general adult medical examination without abnormal findings Category: Medical Plan: Patient is up-to-date on all recommended routine screenings and vaccinations for her age. Blood work is up-to-date and has been reviewed with the patient today. Healthy diet and regular exercise is encouraged. (2) Anxiety: Comment: situational Code(s): F41.9 - Anxiety disorder, unspecified Category: Medical Plan: Feels her anxiety is well managed at this time. continue on Propranolol as needed. (3) Hypertension: Code(s): I10 - Essential (primary) hypertension Category: Medical Plan: Continue on current blood pressure medication. Avoid salt intake and encourage healthy diet and regular exercise. blood pressures at home have been WNL She will monitor the blood pressure at home and reach out if blood pressure values exceed 140/90. Plan to follow up next week (4) Hypercholesterolemia: Code(s): E78.00 - Pure hypercholesterolemia, unspecified Category: Medical Plan: Avoid foods that are high in cholesterol such as red meat, fried foods, eggs and baked goods. Triglyceride goal of less than 150 and LDL goal of less than 130. Last LDL WNL however patient was not fasting and Triglycerides were elevated. plan for repeat blood work. (5) Hypothyroidism: Code(s): E03.9 - Hypothyroidism, unspecified Category: Medical Plan: Continue to monitor blood work and continue on Levothyroxine 100mcg. (6) Cerumen impaction: Code(s): H61.20 - Impacted cerumen, unspecified ear Category: Medical Plan: She has upcoming appt for rafael ear cleaning. (7) BPPV (benign paroxysmal positional vertigo): Code(s): H81.10 - Benign paroxysmal vertigo, unspecified ear Category: Medical Qualifiers: Laterality: left Qualified Code(s): H81.12 - Benign paroxysmal vertigo, left ear Plan: Asymptomatic at this time. We will continue to monitor at this time. (8) Rotator cuff insufficiency of left shoulder: Code(s): M25.312 - Other instability, left shoulder Category: Medical Plan: She will continue to follow with orthopedics and awaiting MRI to be scheduled at this time. (9) Atrophic vaginitis: Code(s): N95.2 - Postmenopausal atrophic vaginitis Category: Medical Plan: She is currently using topical cream as recommended by her ALUMINUM FABRICATION SUPERVISOR. We discussed other options such as over the counter lubricants to be trialed as well. She will follow up with ALUMINUM FABRICATION SUPERVISOR if she would like to try topical estrogen. Plan This note was constructed using voice recognition software. While every effort has been made to ensure accuracy and hollow handle knife assembler, still areas may have been included sometimes these areas may affect the content or meeting of the given symptoms. Total time spent caring for the patient today was 30 minutes. This includes time spent before the visit reviewing the chart, time spent during the visit, and time spent after the visit and documentation. Patient was informed and verbally consented to the use of an ambient scribe for clinic note documentation during this visit. Orders: Orders Lipid Panel 1 Week E78.00 - Pure hypercholesterolemia, unspecified
[2025-07-13 09:08] VITALS: BP 136/94; PULSE 58; RESP 18; TEMP 36.6; O2SAT 98; BMI 23.7
== END 2025-07-13 09:49 | disposition home or self-care (01) ==
LOC: HO.HMCH 08:39
DX: Z00.00 Encounter for general adult medical examination without abnormal findings (principal); F41.9 Anxiety disorder, unspecified; I10 Essential (primary) hypertension; E78.00 Pure hypercholesterolemia, unspecified; E03.9 Hypothyroidism, unspecified; H61.20 Impacted cerumen, unspecified ear; H81.12 Benign paroxysmal vertigo, left ear; M25.312 Other instability, left shoulder; N95.2 Postmenopausal atrophic vaginitis

== ENCOUNTER 2025-07-18 08:39 | Outpatient (AMB) | payer OTHER, SELFPAY ==
--- OUTSIDE RECORDS SUMMARY | 2024-03-04 03:30 | XMS_ITS ---
Author Organization [facility] Address [address] [place] [address] Care Team Providers Care Picking Tech Name Role Phone Danisha Ohara Primary Care Provider Maricruz Pettit [phone] Varela Encounters Encounter Location Date Provider Diagnosis [address] [address] 03/04/2024 Maricruz Rubio Plan Of Treatment Next Appt Details Provider Name:Maricruz Michelle Rubio , 08/11/2025 09:00:00 AM, [address] [place] [address], [address], Progress Notes * Emerita HAIRSTON SDOB:[birth year] (65 yo F)Acc No.[id number]:03/04/2024 Progress Note Patient: Siri MARBELLA Emerita Kathleen Provider: Aarti Rubio DPM :1960 A ge:63 Y S ex:Female Date:03/04/2024 Address:[address] [place] Pcp:Danisha Ohara Subjective: * Chief Complaints: * [...] 0 03/04/2024 Generated for Jaleesa oshea/Bambi/Pancho on: 09/18/2024 09:00 AM EST
--- OUTSIDE RECORDS SUMMARY | 2024-03-08 10:30 | XMS_ITS ---
Author Organization [facility] Address [address] [place] [address] Care Team Providers Care Shipper Receiver Name Role Phone Danisha Ohara Primary Care Provider Maricruz Pettit [phone] Encounters Encounter Location Date Provider Diagnosis [address] [address] 03/08/2024 Maricruz Rubio Plan Of Treatment Next Appt Details Provider Name:Maricruz Rubio , 08/11/2025 09:00:00 AM, [address] [place] [address], [address], Progress Notes * Emerita HAIRSTON SDOB:[birth year] (65 yo F)Acc No.[id number]:03/08/2024 Progress Note Patient: Siri MARBELLA Emerita Kathleen Provider: Aarti Rubio DPM :1960 A ge:63 Y S ex:Female Date:03/08/2024 Address:[address] [place] Pcp:Danisha Ohara Subjective: * Chief Complaints: * [...] 03/08/2024 Generated for Jaleesa oshea/Bambi/Pancho on: 1 09/18/2024 08:59 AM EST
--- OUTSIDE RECORDS SUMMARY | 2024-04-21 09:45 | XMS_ITS ---
Author Organization [facility] Address [address] [place] [address] Care Team Providers Care Graphic Designer Name Role Phone Danisha Ohara Primary Care Provider Maricruz Pettit [phone] VALLES Encounters Encounter Location Date Provider Diagnosis [address] [address] 04/21/2024 Maricruz Rubio Plan Of Treatment Next Appt Details Provider Name:Maricruz Michelle Rubio , 08/11/2025 09:00:00 AM, [address] [place], [address], Progress Notes * Emerita HAIRSTON SDOB:[birth year] (65 yo F)Acc No.[id number]:04/21/2024 Progress Note Patient: Siri MARBELLA Emerita Kathleen Provider: Aarti Rubio DPM :1960 A ge:64 Y S ex:Female Date:04/21/2024 Address:[address] [place] Pcp:Danisha Ohara Subjective: * Chief Complaints: * [...] 04/21/2024 Generated for Jaleesa oshea/Bambi/Pancho on: 1 09/18/2024 08:59 AM EST
--- OUTSIDE RECORDS SUMMARY | 2024-06-04 09:00 | XMS_ITS ---
Author Organization [facility] Address [address] [place] [address] Care Team Providers Care Book Canvasser Name Role Phone Danisha Ohara Primary Care Provider Maricruz Pettit [phone] Encounters Encounter Location Date Provider Diagnosis [address] [address] 06/04/2024 Maricruz Rubio Plan Of Treatment Next Appt Details Provider Name:Maricruz Rubio , 08/11/2025 09:00:00 AM, [address] [place], [address], Progress Notes * Emerita HAIRSTON SDOB:[birth year] (65 yo F)Acc No.[id number]:06/04/2024 Progress Note Patient: Emerita RAMIREZ Provider: Aarti Rubio DPM :1960 A ge:64 Y S ex:Female Date:06/04/2024 Address: [address] Pcp:Danisha Ohara Subjective: * Chief Complaints: * [...] Date: 08/04/2023 Generated for Jaleesa oshea/Bambi/Pancho on: 09/18/2024 09:00 AM EST
--- NOTE | 2025-07-18 08:50 | A.OFFPC_ITS ---
Vital Signs 07/18/25 08:51 Height 5 ft 1 in Weight 125 lb BMI 23.6 BP 160/84 H Blood Pressure Location Lt brachial Position Sitting Respiration 18 Pulse 71 Pulse Source Pulse Oximeter Temp 97.8 F Temp Source Temporal Artery Scan Pulse Oximetry (%) 97 Oxygen Delivery Method Room Air Intake Visit Reasons: ear flush Certified Medical Technician Required: No Accompanied by: Self / Same As Patient Allergies prochlorperazine (From Compazine) Allergy (Intermediate, Verified 07/18/25 09:47) paralysis Medication List - Last Reconciled 07/18/25 by Olamide Calero PA-C acetaminophen 325 mg PO QID PRN hydrochlorothiazide 12.5 mg PO DAILY ibuprofen (Advil) 200 mg PO Q6H PRN levothyroxine 100 mcg PO DAILY multivitamin 1 tab PO DAILY propranolol 10 mg PO DAILY PRN Tobacco use date assessed: 03/22/25 Fall risk assessment: No Falls in past year Last assessed Fall Risk: 07/18/25 Dental Screening Dental Screen Date: 03/22/25 HPI ear flush HPI Details 65-year-old female with past medical his tory of anxiety, hypothyroidism and hypertension last seen 06/2025 coming in for ear cleaning. Patient tells us today her blood pressure has been mildly elevated at home but less than 140/90. She is concerned about the elevated blood pressure in the office today and is asymptomatic. She has no other concerns today. [facility] Medical History Benign schwannoma Surgical History History of ankle surgery S/P removal of left ovary Previous section Family History Mother Breast cancer BRCA negative Maternal Grandmother Breast cancer Stroke Hypertension Father Heart disease Paternal Grandfather Liver cancer Maternal Grandfather Colon cancer Maternal Aunt Breast cancer Social History Housing: House Alcohol intake: current Alcohol intake frequency: a few times a week Alcohol type: wine Patient Tobacco Use Status: Never used Tobacco e-Cigarette/Vaping Use: Never Used Substance Use Type: Marijuana service: No Current occupational status: employed 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 Cognitive needs: No Hearing needs: No Vision needs: Yes Questionnaire Thrive Questionnaire Date Thrive assessed: 09/10/24 I am a: Patient What is your living situation today?: I have a steady place to live Within the past 12 months, did the food you bought not last and you didn't have the money to get more?: Never true Within the past 12 months, did you worry whether your food would run out before you got money to buy more?: Never true Do you have trouble paying for medicines?: No Do you have trouble getting transportation to medical appointments?: No Do you have trouble paying your heating and electricity bill?: No Do you have trouble taking care of your child, family member or friend?: No Do you have trouble with day-to-day activities such as bathing, preparing meals, shopping, managing finances, etc.?: No Are you currently unemployed and looking for a job?: No Are you interested in more education?: No Currently or been in a relationship where the following occur: I choose not to answer THRIVE Score: 0 HUGH-7 AMB Questionnaire HUGH-7 Date HUGH - 7 assessed: 10/08/24 Source: Developed by Drs. Jason Still, Hermila Larsen, Isra Jacinto and colleagues, with an educational evan from [employer]. Review of Systems Const Denies body aches, Denies chills, Denies fever(s), Denies headache(s) and Denies poor appetite Eyes Reports no additional complaints ENT Denies dizziness and Denies headache(s) Card Denies chest pain, Denies lightheadedness and Denies dyspnea Resp Denies dyspnea GI Denies nausea and Denies vomiting Reports no additional complaints Musc Reports no additional complaints and Denies abnormal gait Skin/Breast Reports system reviewed and no additional complaints, except as documented Neuro Denies abnormal gait, Denies dizziness and Denies headache(s) Psych Reports no additional complaints Physical exam (Primary Care) Vital Signs: Last Vital Signs Temp 97.8 F 07/18/25 08:51 Pulse 71 07/18/25 08:51 Resp 18 07/18/25 08:51 BP 160/84 H 07/18/25 08:51 Pulse Ox 97 07/18/25 08:51 Oxygen Delivery Method Room Air 07/18/25 08:51 BMI result Body Mass Index 23.6 Tobacco/Smoking Status: Tobacco use Status Tobacco use date assessed 03/22/25 07/18/25 08:54 Patient Tobacco Use Status Never used Tobacco 07/18/25 08:54 e-Cigarette/Vaping Use Never Used 07/18/25 08:54 Thrive Assessment: Date of Thrive Assessment Date Thrive assessed 09/10/24 07/18/25 08:54 Currently or been in a relationship where the following occur: I choose not to answer Const General: cooperative, healthy appearing, comfortable and no acute distress Orientation/consciousness: patient oriented x3 HEN[facility] Head: Yes normocephalic Ears: hearing grossly normal bilaterally and Abnormal EAC present excessive cerumen bilateral General nose exam: Normal external nose present Neck Neck: Yes full ROM and Yes no lymphadenopathy Resp Effort & Inspection: normal respiratory effort Cardio Rate: regular rate Neuro General: patient oriented x3 Gait exam (Neuro): Normal gait present Psych Affect: normal affect Attitude: cooperative Insight: Good insight present (Psych) Judgement: Good judgement present (Psych) Coding Level of Care Code Est Pt Level 3 (29629) Diagnoses Hypertension I10 Cerumen impaction H61.20 Assessment & Plan Assessment & Plan (1) Hypertension: Code(s): I10 - Essential (primary) hypertension Category: Medical Plan: Plan to discontinue HCTZ as patient has adverse reaction of polyuria. Plan to trial Losartan 25mg. Patient to continue to monitor blood pressure at home and follow up in 2 months. She will reach out if blood pressyre continually exceed 140/90. Avoid salt intake and encourage healthy diet and regular exercise. (2) Cerumen impaction: Code(s): H61.20 - Impacted cerumen, unspecified ear Category: Medical Plan: Bilateral ears are cleaned successfully using lighted curette and irrigation. Patient tolerated the procedure well and TMs were visualized as intact without perforation or retraction. Follow up prn for this concern. Plan This note was constructed using voice recognition software. While every effort has been made to ensure accuracy and front desk team member, still areas may have been included sometimes these areas may affect the content or meeting of the given symptoms. Total time spent caring for the patient today was 20 minutes. This includes time spent before the visit reviewing the chart, time spent during the visit, and time spent after the visit and documentation. Medications: New losartan 25 mg PO DAILY 90 tabs 0RF Discontinued hydrochlorothiazide Discontinued Reason: Patient no longer taking 12.5 mg PO DAILY 60 tabs 1RF
[2025-07-18 08:51] VITALS: BP 160/84; PULSE 71; RESP 18; TEMP 36.6; O2SAT 97; BMI 23.6
--- OUTSIDE RECORDS SUMMARY | 2025-07-18 08:59 | XMS_ITS | Encounter Summary ---
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 Not on file Not on file documented as of this encounter Plan of Treatment Not on file documented as of this encounter Visit Diagnoses Not on filedocumented in this encounter Additional Health Concerns Assessment Noted Time PHQ-2 Depression Total Score: 0 06/08/20 20 3:05 PM EST documented as of this encounter Care Teams Shove Up Relationship Specialty Start Date End Date Brittani Cobian MD [address] [place] [address] PCP - General Family Medicine 05/31/21 Jessica Sena CNP 15 [facility], 2nd [place] [address] Historical LMR Provider 05/12/17 Chente Turner MD [address] [place] [address], [address] [place] [address] [email or web address] Historical LMR Provider 05/12/17 Fer Jaimes MD [address] [place], [place] [address] ZEH[place] ADRIAN [phone] [email or web address] Historical LMR Provider 05/12/17 documented as of this encounter Additional Source Comments The information contained in this document represents components of the legal health record. It is not the complete legal health record.[facility]
--- OUTSIDE RECORDS SUMMARY | 2025-07-18 08:59 | XMS_ITS | Encounter Summary ---
Author Organization [facility] Address [address] [facility] [address] [place] [address] Phone Care Team Providers Care Commercial Pilot Name Role Phone Jessica Sena [facility] Unavailable [phone] Chente Turner MD Unavailable [phone] Fer Jaimes MD Unavailable Brittani Cobian MD Primary Care Provider + Encounter Details Date Type Department Care Team (Late st Contact Info) Description 05/29/2023 Transcribe Orders Virtual Department 30 [place] [address] Brittani Cobian MD [address] [place] [address] [email or web address] Breast screening (Primary Dx) Social History Tobacco [...] 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 Not on file Not [...] documented as of this encounter Care Teams Commercial Pilot Relationship Specialty Start Date End Date Brittani Cobian MD [address] [place] [address] PCP - General Family Medicine 05/31/21 Jessica Sena CNP [address] [place] [address], 2nd [place] [address] Historical LMR Provider 05/12/17 Chente Turner MD [address] [place] [address], [address] [place] [address] Historical LMR Provider 05/12/17 Fer Jaimes MD [address] [place] [address] [address] [place]RI[place] [phone] [email or web address] Historical LMR Provider 05/12/17 documented as of this encounter Additional Source Comments The information contained in this document represents components of the legal health record. It is not the complete legal health record.[facility]
--- OUTSIDE RECORDS SUMMARY | 2025-07-18 08:59 | XMS_ITS | Encounter Summary ---
Author Organization [facility] Address [address] [place] [address] Phone Care Team Providers Care Staff Auditor Name Role Phone Jessica Sena BUGGY LADLE TENDER Unavailable [phone] Chente Turner MD Unavailable [phone] Fer Jaimes MD Unavailable [phone] Brittani Cobian MD Primary Care Provider + Encounter Details Date Type Department Care Team (Late st Contact Info) Description 05/29/2022 Procedure Pass [facility] Admitting Dept Virtual Department [address] [place] [address] Social History Tobacco Use Types Packs/Day Years [...] high school, GED, job training, learning the Belgian language, technical skills, or developing parenting skills)? 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 Not on file Not on file documented as of this encounter Plan of Treatment Not on file documented as of this encounter Visit Diagnoses Not on filedocumented in this encounter Additional Health Concerns Assessment Noted Time PHQ-2 Depression Total Score: 0 06/08/20 20 3:05 PM EST documented as of this encounter Care Teams Staff Auditor Relationship Specialty Start Date End Date Brittani Cobian MD [address] [place] [address] PCP - General Family Medicine 05/31/21 Jessica Sena CNP [address] [place] [address], 2nd [place] [address] Historical LMR Provider 05/12/17 Chente Turner MD [address] [place] [address], [address] [place] [address] Historical LMR Provider 05/12/17 Fer Jaimes MD [address] [place] [address] [address] [place]AN [phone] [email or web address] Historical LMR Provider 05/12/17 documented as of this encounter Additional Source Comments The information contained in this document represents components of the legal health record. It is not the complete legal health record.[facility]
--- OUTSIDE RECORDS SUMMARY | 2025-07-18 08:59 | XMS_ITS | Patient Health Record ---
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) Plantar fasciitis, bilateral (M72.2) Active confirmed Vital Signs Blood pressure diastolic 75 mm Hg 05/27/2025 Height 5ft 1in in 05/27/2025 Blood pressure systolic 120 mm Hg 05/27/2025 Weight 124 lbs 05/27/2025 BMI 23.43 kg/m2 05/27/2025 Encounters Encounter Location Date Provider Diagnosis [facility] [address] 05/27/2025 Maricruz Black Pain in left foot [...] X ray : Foot, left 3V 11/17/2023 [id number] Destruction, 1-14 05/03/2024 [id number] Destruction, 1-14 11/17/2023 Next Appt Details Provider Name:Maricruz Rubio , 08/11/2025 09:00:00 AM, [address] [place], [address], Insurance Providers Payer Name Payer Address Payer Phone Subscriber Number Group Number Insured Name Patient Relationship to Insured Coverage Start Date Coverage End Date [employer] [address] [place] [address] [id number] Emerita Hairston Self - patient is the insured [employer] [address] SHAREE Bertrand [phone] [id number] Alex Salvador Other Medical (General) History Medical History History ICD Code High blood pressure Hypothyroidism covid-19 Anxiety Back,Hip,and Knee pain sinusitis thyroid Warts Mumps Chicken pox Surgical History Surgery Date(Month/Year) colonoscopy 05/29/2022 1986 loophorectomy due to growth- neg patholo gy 2012 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
--- OUTSIDE RECORDS SUMMARY | 2025-07-18 08:59 | XMS_ITS | Encounter Summary ---
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 Not on file Not on file documented as of this encounter Plan of Treatment Not on file documented as of this encounter Visit Diagnoses Not on filedocumented in this encounter Additional Health Concerns Assessment Noted Time PHQ-2 Depression Total Score: 0 06/08/20 20 3:05 PM EST documented as of this encounter Care Teams Resident Service Coordinator Relationship Specialty Start Date End Date Brittani Cobian MD [address] [place] [address] PCP - General Family Medicine 05/31/21 Jessica Sena CNP 15 [facility], 2nd [place] [address] Historical LMR Provider 05/12/17 Chente Turner MD [address] [place] [address], [address] [place] [address] [email or web address] Historical LMR Provider 05/12/17 Fer Jaimes MD [address] [place] [address] [address] [place] ZEHRA [phone] [email or web address] Historical LMR Provider 05/12/17 documented as of this encounter Additional Source Comments The information contained in this document represents components of the legal health record. It is not the complete legal health record.[facility]
--- OUTSIDE RECORDS SUMMARY | 2025-07-18 08:59 | XMS_ITS | Encounter Summary ---
Author Organization [facility] Address [address] [place] [address] Phone Care Team Providers Care Turf Farm Worker Name Role Phone Jessica Sena Catrachita MONTESINOS Unavailable [phone] Chente Turner MD Unavailable [phone] Fer Jaimes MD Unavailable Brittani Cobian MD Primary Care Provider + Reason for Referral * Outpatient Procedure - Closed Specialty Diagnoses / Procedures Referred By Lukas t Referred To Contact Radiology Diagnoses Abnormal electrocardiogram Procedures Adult Echo TTE Kaleb Salmon PA [address] [place] Phone: tel: fax: mailto:[email or web address] Referral ID Status Reason Start Date Expiration Date Visits Re quested Visits Authorized [id number] Closed 12/24/2023 12/23/2024 1 1 Encounter Details Date Type Department Care Team (Latest Contact Info) Description 12/24/2023 Transcribe Orders Virtual Department 30 [place] [address] Kaleb Salmon PA [address] [place] [address] 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 Not on file [...] documented as of this encounter Care Teams Turf Farm Worker Relationship Specialty Start Date End Date Brittani Cobian MD 17 [place] [address] [email or web address] PCP - General Family Medicine 05/31/21 Jessica Sena, YAMEL 15 [facility], 2nd [place] [address] [email or web address] Historical LMR Provider 05/12/17 Chente Turner MD [address] [place] [address], [address] [place] [address] [email or web address] Historical LMR Provider 05/12/17 Fer Jaimes MD [address] [place] [address] [address] [place] [address] [email or web address] Historical LMR Provider 05/12/17 documented as of this encounter Additional Source Comments The information contained in this document represents components of the legal health record. It is not the complete legal health record.[facility]
--- OUTSIDE RECORDS SUMMARY | 2025-07-18 08:59 | XMS_ITS | Encounter Summary ---
Author Organization [facility] Address [address] [place] [address] Phone Care Team Providers Care Office Director Name Role Phone Jessica Sena Catrachita MONTESINOS Unavailable [phone] Chente Turner MD Unavailable [phone] Fer Jaimes MD Unavailable [phone] Brittani Cobian MD Primary Care Provider + Reason for Referral * Outpatient Procedure - Closed Specialty Diagnoses / Procedures Referred By Contkaren t Referred To Contact Diagnoses Abnormal electrocardiogram Procedures Stress Test Exercise Kaleb Salmon PA [address] [place] [address] Phone: tel: fax: mailto:[email or web address] Referral ID Status Reason Start Date Expiration Date Visits Re quested Visits Authorized [id number] Closed 01/07/2024 01/06/2025 1 1 Encounter Details Date Type Department Care Team (Latest Contact Info) Description 12/24/2023 Transcribe Orders Virtual Department 30 [place] [address] Kaleb Salmon PA [address] [place] [address] [email or web address] Abnormal electrocardiogram (Primary Dx) Social History [...] 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 on file [...] as of this encounter Care Teams Office Director Relationship Specialty Start Date End Date Brittani Cobian MD [address] [place] [address] [email or web address] PCP - General Family Medicine 05/31/21 Jessica Sena, YAMEL 15 [facility], 2nd [place] [address] [email or web address] Historical LMR Provider 05/12/17 Chente Turner MD [address] [place] [address], [address] [place] [address] [email or web address] Historical LMR Provider 05/12/17 Fer Jaimes MD [address] [place] [address] [address] [place] [address] [email or web address] Historical LMR Provider 05/12/17 documented as of this encounter Additional Source Comments The information contained in this document represents components of the legal health record. It is not the complete legal health record.[facility]
--- OUTSIDE RECORDS SUMMARY | 2025-07-18 08:59 | XMS_ITS | Encounter Summary ---
Author Organization [facility] Address [address] [place] [address] Phone Care Team Providers Care Bed Setter Name Role Phone Diya Vogel CNM Unavailable Oneyda Low GENERATOR SWITCHBOARD OPERATOR Unavailable Jessica Sena SAFETY ATTENDANT Unavailable Diya Valles GENERATOR SWITCHBOARD OPERATOR Unavailable [phone] Farrah Wyatt MD Unavailable [phone] Chente Turner MD Unavailable Lenard Smith MD Unavailable Carlos Andres MD Unavailable Eneida Tilley MD Unavailable Fer Jaimes MD Unavailable Vaughn Lehman MD Unavailable [phone] Brittani Cobian MD Primary Care Provider + Encounter Details Date Type Department Care Team (Late st Contact Info) Description 07/16/2021 Procedure Pass [facility] Admitting Dept - Virtual Department 30 [place], [place] [id number] Social History Tobacco Use Types Packs/Day Years [...] high school, GED, job training, learning the Barbadian language, technical skills, or developing parenting skills)? 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 Not on file documented as of this encounter Plan of Treatment Not on file documented as of this encounter Visit Diagnoses Not on filedocumented in this encounter Additional Health Concerns Assessment Noted Time PHQ-2 Depression Total Score: 0 06/08/20 20 3:05 PM EST documented as of this encounter Care Teams Bed Setter Relationship Specialty Start Date End Date Brittani Cobian MD [address] [place] [address] PCP - General Family Medicine 05/31/21 Diya Vogel CNM [address] [address] Historical LMR Provider 05/12/17 08/04/21 Oneyda Low NP [address] [place] [address] Historical LMR Provider 05/12/17 2 Jessica Sena CNP 15 [facility], 2nd [place] [address] Historical LMR Provider 05/12/17 Diya Valles GENERATOR SWITCHBOARD OPERATOR [address] [place] [address] Historical LMR Provider 05/12/17 2 Farrah Wyatt MD [address] [place] [address] Historical LMR Provider 05/12/17 08/04/21 Chente Turner MD [address] [place] [address] Historical LMR Provider 05/12/17 Lenard Smith MD [address] [place] [address] Historical LMR Provider 05/12/17 08/04/21 Carlos Andres MD [address] [place] [phone] Historical LMR Provider 05/12/17 2 Eneida Tilley MD [address] [place] [address], [address] [place] [address] [email or web address] Historical LMR Provider 05/12/17 08/04/21 Fer Jaimes MD [address] [place] [address] [address] [place] [address] [email or web address] Historical LMR Provider 05/12/17 Vaughn Lehman MD [address] [place] [address] Historical LMR Provider 05/12/17 2 documented as of this encounter Additional Source Comments The information contained in this document represents components of the legal health record. It is not the complete legal health record.[facility]
--- OUTSIDE RECORDS SUMMARY | 2025-07-18 08:59 | XMS_ITS | Encounter Summary ---
Author Organization [facility] Address [address] [address] Phone Care Team Providers Care Industrial Rehabilitation Consultant Name Role Phone Jessica Sena Catrachita MONTESINOS Unavailable [phone] Chente Turner MD Unavailable [phone] Fer Jaimes MD Unavailable [phone] Brittani Cobian MD Primary Care Provider + Reason for Referral * MRI/CAT Scan - Closed Specialty Diagnoses / Procedures Referred By Contkaren t Referred To Contact Radiology Diagnoses Abnormal electrocardiogram Procedures NC Myocardial Perfusion Exercise Multiple CHG MYOCARDIAL SPECT MULTIPLE STUDIES Brittani Cobian MD [address] [place] [address] Phone: tel: fax: mailto:[email or web address] Referral ID Status Reason Start Date Expiration Date Visits Re quested Visits Authorized [id number] Closed 01/07/2024 07/05/2024 4 4 Encounter Details Date Type Department Care Team (Latest Contact Info) Description 12/29/2023 Transcribe Orders [facility] Department 30 [place] [address] Brittani Cobian MD [address] [place] [address] [email or web address] Abnormal electrocardiogram (Primary Dx) Social [...] 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 POS [id number] Narrative 01/09/2024 12:56 PM EDT COMPARISON: None [...] LVEF wascalculated at greater than 75%. POS [id number] us Brittani Cobian MD CV NM CARDIAC Final Re sult documented in this encounter Visit Diagnoses Diagnosis Abnormal electrocardiogram- Primary Nonspecific abnormal electrocardiogram (ECG) (EKG) Abnormal electrocardiogram Nonspecific abnormal electrocardiogram (ECG) (EKG) documented in this encounter Additional Health Concerns Assessment Noted Time PHQ-2 Depression Total Score: 0 06/08/20 20 3:05 PM EST documented as of this encounter Care Teams Industrial Rehabilitation Consultant Relationship Specialty Start Date End Date Brittani Cobian MD [address] [place] [address] [email or web address] PCP - General Family Medicine 05/31/21 Jessica Sena CNP 15 [facility], 2nd [place] [address] Historical LMR Provider 05/12/17 Chente Turner MD [address] [place] [address] [address] [place] [address] [email or web address] Historical LMR Provider 05/12/17 Fer Jaimes MD [address] [place] [address] [address] [place] [address] [email or web address] Historical LMR Provider 05/12/17 documented as of this encounter Additional Source Comments The information contained in this document represents components of the legal health record. It is not the complete legal health record.[facility]
--- OUTSIDE RECORDS SUMMARY | 2025-07-18 08:59 | XMS_ITS | Encounter Summary ---
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 on file Not on file documented as of this encounter Plan of Treatment Not on file documented as of this encounter Visit Diagnoses Not on filedocumented in this encounter Additional Health Concerns Assessment Noted Time PHQ-2 Depression Total Score: 0 06/08/20 20 3:05 PM EST documented as of this encounter Care Teams Litigation Support Analyst Relationship Specialty Start Date End Date Brittani Cobian MD [address] [place] [address] [email or web address] PCP - General Family Medicine 05/31/21 Jessica Sena CNP [address] [place] [address], 2nd [place] [address] [email or web address] Historical LMR Provider 05/12/17 Chente Turner MD [address] [place] [address], [address] [place] [address] [email or web address] Historical LMR Provider 05/12/17 Fer Jaimes MD [address] [place] [address] [address] [place]RI[place] [phone] [email or web address] Historical LMR Provider 05/12/17 documented as of this encounter Additional Source Comments The information contained in this document represents components of the legal health record. It is not the complete legal health record.[facility]
--- OUTSIDE RECORDS SUMMARY | 2025-07-18 08:59 | XMS_ITS | Encounter Summary ---
Author Organization [facility] Address [address] [place] [address] Phone Care Team Providers Care Rubber Mill Operator Name Role Phone Diya Vogel CNM Unavailable Oneyda Low FOOD MIXER REPAIRER Unavailable [phone] Jessica Sena ADOLESCENT SPECIALIST Unavailable [phone] Diya Valles FOOD MIXER REPAIRER Unavailable [phone] Farrah Wyatt MD Unavailable [phone] Chente Turner MD Unavailable [phone] Lenard Smith MD Unavailable Carlos Andres MD Unavailable Eneida Tilley MD Unavailable [phone] Fer Jaimes MD Unavailable Vaughn Lehman MD Unavailable [phone] Fer Jaimes MD Primary Care Provider [phone] Jessica Sena ADOLESCENT SPECIALIST Primary Care Provider [phone] Renu Hidalgo MD Primary Care Provider [phone] Jessica Sena ADOLESCENT SPECIALIST Unavailable Brittani Cobian MD Primary Care Provider + Encounter Details Date Type Department Care Team (Late st Contact Info) Description 03/29/2020 Procedure Pass [facility], [facility] 30 [place] [address] Social History Tobacco Use Types Packs/Day Years [...] 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 Not on file documented as of this encounter Plan of Treatment Not on file documented as of this encounter Visit Diagnoses Not on filedocumented in this encounter Care Teams Rubber Mill Operator Relationship Specialty Start Date End Date Fer Jaimes MD [address] [place], [place] [address] [place] [address] [email or web address] PCP - General 06/02/17 04/13/20 Jessica Sena CNP [address] [place] [address] [email or web address] PCP - General Family Medicine 04/14/20 03/26/21 Renu Hidalgo MD 61 [place] [address] [email or web address] PCP - General Family Medicine 03/27/21 05/30/21 Jessica Sena CNP [address] [address] PCP - Resident PCP Family Medicine 03/27/21 06/05/21 Brittani Cobian MD [address] [place] [address] PCP - General Family Medicine 05/31/21 Diya Vogel CNM [address] [place] [address] 102 [place] [address] Historical LMR Provider 05/12/17 08/04/21 Oneyda Low NP [address] [place] [address] 340 [place] [address] Historical LMR Provider 05/12/17 2 Jessica Sena CNP [address] [place] [address], 2nd [place] [address] [email or web address] Historical LMR Provider 05/12/17 Diya Valles FOOD MIXER REPAIRER [address] [place] [address] Historical LMR Provider 05/12/17 2 Farrah Wyatt MD [address] [place] [address] 7 [place] [address] Historical LMR Provider 05/12/17 08/04/21 Chente Turner MD [address] [place] [address] Historical LMR Provider 05/12/17 Lenard Smith MD 22 [facility], [address] [place] [address] [email or web address] Historical LMR Provider 05/12/17 08/04/21 Carlos Andres MD 61 [place] [address] Historical LMR Provider 05/12/17 2 Eneida Tilely MD [address] [place] [address], [facility] 7 [place] [address] [email or web address] Historical LMR Provider 05/12/17 08/04/21 Fer Jaimes MD [address] [facility] [address] [place] [id number] [email or web address] Historical LMR Provider 05/12/17 Vaughn Lehman MD 61 [place] [address] Historical LMR Provider 05/12/17 2 documented as of this encounter Additional Source Comments The information contained in this document represents components of the legal health record. It is not the complete legal health record.[facility]
--- OUTSIDE RECORDS SUMMARY | 2025-07-18 08:59 | XMS_ITS | Encounter Summary ---
Author Organization [facility] Address [address] [facility] [address] [place] [address] Phone Care Team Providers Care Knit Goods Washer Name Role Phone Jessica Senameagan MONTESINOS Unavailable [phone] Chente Turner MD Unavailable [phone] Fer Jaimes MD Unavailable [phone] Brittani Cobian MD Primary Care Provider + Reason for Referral * MRI/CAT Scan - Closed Specialty Diagnoses / Procedures Referred By Contac t Referred To Contact Radiology Diagnoses Abnormal electrocardiogram Procedures NC Stress Result for Nuclear Stress Test Brittani Cobian MD [address] [place] [address] Phone: tel: fax: [email or web address] Referral ID Status Reason Start Date Expiration Date Visits Re quested Visits Authorized [id number] Closed 01/09/2024 01/08/2025 1 1 Encounter Details Date Type Department Care Team (Latest Contact Info) Description 01/09/2024 Ancillary Orders Virtual Department 30 [place] [address] Brittani Cobian MD [address] [place] [address] [email or web address] Abnormal electrocardiogram (Primary Dx) Social History [...] 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 file Not on file documented as of this encounter Plan of Treatment Not on file documented as of this encounter Results * NC Stress Result for Nuclear Stress Test (01/09/2024 11:37 AM EDT) Max Predicted Heart Rate 157 bpm [facility] Max BP Systolic 196 mmHg [facility] Max BP Diastolic 70 mmHg [facility] Max HR 141 BPM [facility] Resting HR 75 BPM [facility] Resting BP Systolic 142 mmHg [facility] Resting BP Diastolic 80 mmHg [facility] Peak METS 10.1 METS [facility] Peak HR 141 BPM [facility] Anatomical Region Laterality Modality Heart Other 01/09/2024 [...] documented as of this encounter Care Teams Knit Goods Washer Relationship Specialty Start Date End Date Brittani Cobian MD [address] [place] [address] PCP - General Family Medicine 05/31/21 Jessica Sena, CIGAR HEAD PIERCER 15 [facility], 2nd [place] [address] Historical LMR Provider 05/12/17 Chente Turner MD [address] [place] [address], [address] [place] [address] [email or web address] Historical LMR Provider 05/12/17 Fer Jaimes MD [address] [place] [address] [address] [place] [address] [email or web address] Historical LMR Provider 05/12/17 documented as of this encounter Additional Source Comments The information contained in this document represents components of the legal health record. It is not the complete legal health record.[facility]
--- OUTSIDE RECORDS SUMMARY | 2025-07-18 08:59 | XMS_ITS | Clinical Summary ---
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 All rights reserved. The codes documented in this report are preliminary and upon home health care respiratory therapist reviewmay be revised to meet current compliance requirements. Procedure Date: 05/29/2022 10:50:[address] [place] [address] us Brittani Camilo MD GI PROCEDURE ORDERABLES Final Result * (ABNORMAL) Comprehensive metabolic panel (04/04/2021 3:38 PM EDT) SODIUM 141 133 - 146 mmol/L [facility] POTASSIUM 3.3 3.3 - 5.1 mmol/L [facility] CHLORIDE 100 96 - 108 mmol/L [facility] CO2 29 21 - 35 mmol/L [facility] BUN 23(H) 6 - 19 mg/dL [facility] CREATININE 0.80 0.5 - 1.5 mg/dL [facility] GLUCOSE 103(H) 70 - 99 mg/dL [facility] ALBUMIN 4.4 3.9 - 4.8 g/dL [facility] TOTAL PROTEIN 7.3 6.5 - 8.0 g/dL [facility] CALCIUM 9.9 8.4 - 10.3 mg/dL [facility] ALKALINE PHOSPHATASE 58 39 - 117 U/L [facility] TOTAL BILIRUBIN 0.3 0.0 - 1.2 mg/dL [facility] AST 29 0 - 37 U/L [facility] ALT 28 0 - 40 U/L [facility] GLOBULIN 2.9 1 - 4.8 g/dL [facility] EGFR 80 >59 mL/min/1.7 3m2 [facility] Comment:Estimated glomerular filtration rate calculated using the CKD-EPI equation. ANION GAP 15 10 - 20 mmol/L [facility] Blood 04/04/2021 3:38 PM EDT 04/04/2021 3:39 PM EDT us Daniel Ramirez DO LAB BLOOD BKR ORDERABLES Final R esult Performing Organization Address [facility]/ZIP Co de Phone Number [address] [address] * TSH (08/02/2020 2:32 PM EST) TSH 0.40 0.27 - 4.20 uIU/mL [facility] Blood 08/02/2020 2:32 PM EST 08/02/2020 2:37 PM EST Jessica Sena FLIGHT KITCHEN MANAGER LAB BLOOD BKR ORDERABLES F inal Result Performing Organization Address [facility] Co de Phone Number [address] [address] * Hepatitis C antibody, qualitative (12/01/2018 9:23 AM EDT) HCV Negative Negative [facility] Comment: This is a screening test and should be confirmed with molecular testing Blood 12/01/2018 9:23 AM EDT 12/01/2018 9:29 AM EDT us Fer Jaimes MD LAB BLOOD BKR ORDERABLES Final Result Performing Organization Address [facility] Co de Phone Number [address] [address] * (ABNORMAL) Lipid panel (12/01/2018 9:23 AM EDT) HDL 76 mg/dL [facility] Comment: Interpretation <40 mg/dL: Low HDL cholesterol (major risk factor for CHD) Greater than or equal to 60 mg/dL: High HDL cholesterol ( negative risk factor for CHD) HDL - cholesterol is affected by a number of factors, e.g. smoking, excerise, hormones, sex and age. CHOLESTEROL 202 0 - 240 mg/dL [facility] TRIGLYCERIDES 99 30 - 160 mg/dL [facility] LDL 106 50 - 129 mg/dL [facility] Comment: LDL levels in terms of risk for coronary heart disease: <100 mg/dL: Optimal 100-129 mg/dL: Near or above optimal 130-159 mg/dL: Borderline high 160-189 mg/dL: High >190 mg/dL: Very High CARDIAC RISK RATIO 2.7(L) 3.3 - 4.4 C [facility] Blood 12/01/2018 9:23 AM EDT 12/01/2018 9:29 AM EDT us Fer Jaimes MD LAB BLOOD BKR ORDERABLES Final Result [facility] 30 [place], [place] [id number] * PAP SMEAR FOR RESULT ENTRY ONLY (08/29/2016) Pap smear 5yr us Historical Provider HEALTH MAINTENANCE Final Result from Last 3 Months or Most Recently Relevant to Health Maintenance Insurance CIGNA PPO AETNA HMO POS [facility]PO [id number] A[facility] O POS [facility]PO [id number] [id number] CIGNA PPO AETNA O POS [facility]PO [id number] Member Subscriber Plan / Payer (Ef fective 2020-) Name:Emerita Hairston Relation to Subscriber:Self Name:Emerita Hairston Payer ID:[id number] ([facility]) Type:PPO [address] POS EPO CIGNA PPO AETNA HMO POS EPO Advance Directives For more information, please contact: [phone] (9AM - 5PM [facility], Friday-Friday) Documents on File Type Date Recorded Patient Loom Doffer Expl anation Healthcare Proxy 07/17/2021 2:40 PM Care Teams Buckle Stringer Relationship Specialty Start Date End Date Brittani Camilo MD [address] [place] [address] PCP - General Family Medicine 05/31/21 Jessica Sena, YAMEL [address] [facility], 2nd [place] [address] Historical LMR Provider 05/12/17 Chente Turner MD [address] [place] [address], [address] [place] [address] Historical LMR Provider 05/12/17 Fer Jaimes MD [address] [place] [address] [address] [place] [id number] [email or web address] Historical LMR Provider 05/12/17 Additional Source Comments The information contained in this document represents components of the legal health record. It is not the complete legal health record.[facility]
--- OUTSIDE RECORDS SUMMARY | 2025-07-18 09:00 | XMS_ITS | Encounter Summary ---
Author Organization [facility] Address [address] [place] [address] Phone Care Team Providers Care Route Service Representative Name Role Phone Diya Vogel CNM Unavailable Oneyda Low CONTRACT ADMINISTRATION SPECIALIST Unavailable [phone] Jessica Sena ADMISSIONS DIRECTOR Unavailable Diya Valles CONTRACT ADMINISTRATION SPECIALIST Unavailable [phone] Farrah Wyatt MD Unavailable Chente Turner MD Unavailable Lenard Smith MD Unavailable Carlos Andres MD Unavailable Eneida Tilley MD Unavailable [phone] Fer Jaimes MD Unavailable Vaughn Lehman MD Unavailable [phone] Brittani Cobian MD Primary Care Provider + Encounter Details Date Type Department Care Team (Late st Contact Info) Description 06/12/2021 Procedure Pass [facility], [address] [address] Social History Tobacco Use Types Packs/Day Years [...] high school, GED, job training, learning the Georgian language, technical skills, or developing parenting skills)? 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 on file Not on file documented as of this encounter Plan of Treatment Not on file documented as of this encounter Visit Diagnoses Not on filedocumented in this encounter Additional Health Concerns Assessment Noted Time PHQ-2 Depression Total Score: 0 06/08/20 20 3:05 PM EST documented as of this encounter Care Teams Route Service Representative Relationship Specialty Start Date End Date Brittani [place] [address] PCP - General Family Medicine 05/31/21 Diya Vogel CNM [address] [address] Historical LMR Provider 05/12/17 08/04/21 Oneyda Low NP [address] [place] [address] Historical LMR Provider 05/12/17 2 Jessica Sena CNP 15 [facility], 2nd [place] [address] [email or web address] Historical LMR Provider 05/12/17 Diya Valles NP [address] [place] [address] Historical LMR Provider 05/12/17 2 Farrah Wyatt MD [address] [place] [address] [email or web address] Historical LMR Provider 05/12/17 08/04/21 Chente Turner MD [address] [place] [address] Historical LMR Provider 05/12/17 Lenard Smith MD [address] [address] Historical LMR Provider 05/12/17 08/04/21 Carlos Andres MD 61 [place] [address] Historical LMR Provider 05/12/17 2 Eneida Tilley MD [address] [place] [address], [address] [place] [address] [email or web address] Historical LMR Provider 05/12/17 08/04/21 Fer Jaimes MD 234 [facility] [address] [place] [phone] [email or web address] Historical LMR Provider 05/12/17 Vaughn Lehman MD 61 [place] [address] Historical LMR Provider 05/12/17 2 documented as of this encounter Additional Source Comments The information contained in this document represents components of the legal health record. It is not the complete legal health record.[facility]
--- OUTSIDE RECORDS SUMMARY | 2025-07-18 09:00 | XMS_ITS | Encounter Summary ---
Author Organization [facility] Address [address] [place] [address] Phone Care Team Providers Care Lining Stamper Name Role Phone Diya Vogel CNM Unavailable Oneyda Low QUALITY ASSURANCE DIRECTOR Unavailable Jessica Sena MAIL MESSENGER Unavailable Diya Valles QUALITY ASSURANCE DIRECTOR Unavailable [phone] Farrah Wyatt MD Unavailable [phone] Chente Turner MD Unavailable Lenard Smith MD Unavailable Carlos Andres MD Unavailable Eneida Tilley MD Unavailable Fer Jaimes MD Unavailable Vaughn Lehman MD Unavailable [phone] Renu Hidalgo MD Primary Care Provider Jessica Sena MAIL MESSENGER Unavailable Brittani Cobian MD Primary Care Provider + Encounter Details Date Type Department Care Team (Late st Contact Info) Description 04/20/2021 Procedure Pass [facility], [facility] 30 [place] [address] Social History Tobacco Use Types Packs/Day Years [...] high school, GED, job training, learning the Serbian language, technical skills, or developing parenting skills)? 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 on file Not on file documented as of this encounter Plan of Treatment Not on file documented as of this encounter Visit Diagnoses Not on filedocumented in this encounter Additional Health Concerns Assessment Noted Time PHQ-2 Depression Total Score: 0 06/08/20 20 3:05 PM EST documented as of this encounter Care Teams Lining Stamper Relationship Specialty Start Date End Date Renu Hidalgo MD 61 [place] [address] [email or web address] PCP - General Family Medicine 03/27/21 05/30/21 Jessica Sena, YAMEL [address] [address] PCP - Resident PCP Family Medicine 03/27/21 06/05/21 Brittani Cobian MD [address] [place] [address] PCP - General Family Medicine 05/31/21 Diya Vogel CNM [address] [address] Historical LMR Provider 05/12/17 08/04/21 Oneyda Low NP [address] [place] [address] [address] [place] [address] Historical LMR Provider 05/12/17 2 Jessica Sena, MAIL MESSENGER [address] [address] Historical LMR Provider 05/12/17 Diya Valles NP [address] [place] [address] Historical LMR Provider 05/12/17 2 Farrah Wyatt MD [address] [place] [address] 7 [place] [address] Historical LMR Provider 05/12/17 08/04/21 Chente Turner MD [address] [place] [address] 7 [place] [address] Historical LMR Provider 05/12/17 Lenard Smith MD [address] [place] [address] [place] [address] Historical LMR Provider 05/12/17 08/04/21 Carlos Andres MD [address] [place] [address] Historical LMR Provider 05/12/17 2 Eneida Tilley MD [address] [place] [address] 7 [place] [address] [email or web address] Historical LMR Provider 05/12/17 08/04/21 Fer Jaimes MD [address] [place] [address] [address] [place] [phone] [email or web address] Historical LMR Provider 05/12/17 Vaughn Lehman MD 61 [place] [address] Historical LMR Provider 05/12/17 2 documented as of this encounter Additional Source Comments The information contained in this document represents components of the legal health record. It is not the complete legal health record.[facility]
--- OUTSIDE RECORDS SUMMARY | 2025-07-18 09:00 | XMS_ITS | Encounter Summary ---
Author Organization [facility] Address [address] [place] [address] Phone Care Team Providers Care Cane Packer Name Role Phone Diya Vogel CNM Unavailable Oneyda Low TELEPHONE CLERKS SUPERVISOR Unavailable Jessica Sena MOLD MAKER HELPER Unavailable [phone] Diya Valles TELEPHONE CLERKS SUPERVISOR Unavailable [phone] Farrah Wyatt MD Unavailable [phone] Chente Turner MD Unavailable [phone] Lenard Smith MD Unavailable Carlos Andres MD Unavailable Eneida Tilley MD Unavailable [phone] Fer Jaimes MD Unavailable Vaughn Lehman MD Unavailable [phone] Fer Jaimes MD Primary Care Provider [phone] Jessica Sena MOLD MAKER HELPER Primary Care Provider [phone] Renu Hidalgo MD Primary Care Provider [phone] Jessica Sena MOLD MAKER HELPER Unavailable Brittani Cobian MD Primary Care Provider + Encounter Details Date Type Department Care Team (Late st Contact Info) Description 03/29/2020 Ancillary Orders [facility] [address] [place] [address] Fer Jaimes MD 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 on file [...] unspecified documented in this encounter Care Teams Cane Packer Relationship Specialty Start Date End Date Fer Jaimes MD [address] [place], [place] [address] [place] [address] PCP - General 06/02/17 04/13/20 Jessica Sena CNP [address] [address] PCP - General Family Medicine 04/14/20 03/26/21 Renu Hidalgo MD [address] [place] [address] [email or web address] PCP - General Family Medicine 03/27/21 05/30/21 Jessica Sena CNP [address] [address] PCP - Resident PCP Family Medicine 03/27/21 06/05/21 Brittani Cobian MD [address] [place] [address] PCP - General Family Medicine 05/31/21 Diya Vogel CNM 22 [facility] 102 [place] [address] Historical LMR Provider 05/12/17 08/04/21 Oneyda Low NP [address] [place] [address] 340 [place] [address] Historical LMR Provider 05/12/17 2 Jessica Sena CNP 15 [facility], 2nd [place] [address] Historical LMR Provider 05/12/17 Diya Valles NP [address] [place] [address] Historical LMR Provider 05/12/17 2 Farrah Wyatt MD [address] [place] [address] 7 [place] [address] Historical LMR Provider 05/12/17 08/04/21 Chente Turner MD [address] [place] [address] 7 [place] [address] Historical LMR Provider 05/12/17 Lenard Smith MD 22 [facility] 102 [place] [address] Historical LMR Provider 05/12/17 08/04/21 Carlos Andres MD [address] [place] [address] Historical LMR Provider 05/12/17 2 Eneida Tilley MD 234 [facility], [address] [place] [address] [email or web address] Historical LMR Provider 05/12/17 08/04/21 Fer Jaimes MD 234 [facility] [address] [place] [address] [email or web address] Historical LMR Provider 05/12/17 Vaughn Lehman MD [address] [place] [address] Historical LMR Provider 05/12/17 2 documented as of this encounter Additional Source Comments The information contained in this document represents components of the legal health record. It is not the complete legal health record.[facility]
--- OUTSIDE RECORDS SUMMARY | 2025-07-18 09:00 | XMS_ITS | Clinical Summary ---
Author Organization [facility] [employer] [facility] Address [address] [place] [address] Phone Care Team Providers Care Bead Maker Name Role Phone Brittani Cobian MD Primary Care Provider [phone] Allergies Active Allergy Reactions Criticality Noted Date [...] this topic Insurance CIG[employer] AETNA Care Teams Bead Maker Relationship Specialty Start Date End Date Brittani Cobian MD [address] [place] [phone] PCP - General Family Medicine 06/22/24
--- OUTSIDE RECORDS SUMMARY | 2025-07-18 09:00 | XMS_ITS | Encounter Summary ---
Author Organization [facility] Address [address] [place] [address] Phone Care Team Providers Care Lumber Salvager Name Role Phone Diya Vogel CNM Unavailable Oneyda Low FINAL INSPECTOR Unavailable Jessica Sena TELESERVICES REPRESENTATIVE Unavailable [phone] Diya Valles FINAL INSPECTOR Unavailable [phone] Farrah Wyatt MD Unavailable [phone] Chente Turner MD Unavailable [phone] Lenard Smith MD Unavailable Carlos Andres MD Unavailable Eneida Tilley MD Unavailable [phone] Fer Jaimes MD Unavailable Vauhgn Lehman MD Unavailable [phone] Fer Jaimes MD Primary Care Provider [phone] Jessica Sena TELESERVICES REPRESENTATIVE Primary Care Provider [phone] Renu Hidalgo MD Primary Care Provider [phone] Jessica Sena TELESERVICES REPRESENTATIVE Unavailable Brittani Cobian MD Primary Care Provider + Encounter Details Date Type Department Care Team (Late st Contact Info) Description 02/23/2019 Ancillary Orders [facility] [address] [place] [address] Fer Jaimes MD [address] [place] [id number] [email or web address] Breast screening Social History Tobacco Use Types [...] unspecified documented in this encounter Care Teams Lumber Salvager Relationship Specialty Start Date End Date Fer Jaimes MD [address] [place], [place] [id number] [place] [address] PCP - General 06/02/17 04/13/20 Jessica Sena CNP [address] [place] [address], [address] [place] [address] PCP - General Family Medicine 04/14/20 03/26/21 Renu Hidalgo MD [address] [place] [address] [email or web address] PCP - General Family Medicine 03/27/21 05/30/21 Jessica Sena, TELESERVICES REPRESENTATIVE [address] [address] PCP - Resident PCP Family Medicine 03/27/21 06/05/21 Brittani Cobian MD [address] [place] [address] PCP - General Family Medicine 05/31/21 Diya Vogel CNM [address] [place] [address] Historical LMR Provider 05/12/17 08/04/21 Oneyda Low NP [address] [place] [address] [address] [place] [address] Historical LMR Provider 05/12/17 2 Jessica Sena, TELESERVICES REPRESENTATIVE [address] [place] [address] Historical LMR Provider 05/12/17 Diya Valles FINAL INSPECTOR [address] [place] [address] Historical LMR Provider 05/12/17 2 Farrah Wyatt MD [address] [place] [address] 7 [place] [address] Historical LMR Provider 05/12/17 08/04/21 Chente Turner MD [address] [place] [address] 7 [place] [address] [email or web address] Historical LMR Provider 05/12/17 Lenard Smith MD [address] [place] [address], [address] [place] [address] [email or web address] Historical LMR Provider 05/12/17 08/04/21 Carlos Andres MD [address] [place] [address] Historical LMR Provider 05/12/17 2 Eneida Tilley MD [address] [place] [address] 7 [place] [address] [email or web address] Historical LMR Provider 05/12/17 08/04/21 Fer Jaimes MD [address] [place] [address] [address] [place] [address] [email or web address] Historical LMR Provider 05/12/17 Vaughn Lehman MD [address] [place] [address] Historical LMR Provider 05/12/17 2 documented as of this encounter Additional Source Comments The information contained in this document represents components of the legal health record. It is not the complete legal health record.[facility]
--- OUTSIDE RECORDS SUMMARY | 2025-07-18 09:00 | XMS_ITS | Encounter Summary ---
Author Organization [facility] Address [address] [place] [address] Phone Care Team Providers Care Office Support Specialist Name Role Phone Diya Vogel CNM Unavailable Oneyda Low SEWING MACHINE TESTER Unavailable [phone] Jessica Sena HUMAN SERVICES CASE MANAGER Unavailable [phone] Diya Valles SEWING MACHINE TESTER Unavailable [phone] Farrah Wyatt MD Unavailable [phone] Chente Turner MD Unavailable [phone] Lenard Smith MD Unavailable Carlos Andres MD Unavailable Eneida Tilley MD Unavailable [phone] Fer Jaimes MD Unavailable Vaughn Lehman MD Unavailable [phone] Fer Jaimes MD Primary Care Provider [phone] Jessica Sena HUMAN SERVICES CASE MANAGER Primary Care Provider [phone] Renu Hidalgo MD Primary Care Provider [phone] Jessica Sena HUMAN SERVICES CASE MANAGER Unavailable Brittani Cobian MD Primary Care Provider + Encounter Details Date Type Department Care Team (Late st Contact Info) Description 03/02/2018 Ancillary Orders [facility] [address] [place] [address] Fer Jaimes MD [address] [place] [phone] [email or web address] Breast screening Social History Tobacco Use Types [...] were interpreted in conjunction with [employer] Insurance Sales Agent computer-aided detection. FINDINGS: Breast density: The breast [...] Images were interpreted inconjunction with [employer] Insurance Sales Agent computer-aided detection. FINDINGS: Breast density: The breast [...] unspecified documented in this encounter Care Teams Office Support Specialist Relationship Specialty Start Date End Date Fer Jaimes MD [address] [place] [address] [address] [place] [address] [email or web address] PCP - General 06/02/17 04/13/20 Jessica Sena CNP [address] [facility], 2nd [place] [address] [email or web address] PCP - General Family Medicine 04/14/20 03/26/21 Renu Hidalgo MD [address] [place] [address] [email or web address] PCP - General Family Medicine 03/27/21 05/30/21 Jessica Sena, HUMAN SERVICES CASE MANAGER [address] [place] [address] [email or web address] PCP - Resident PCP Family Medicine 03/27/21 06/05/21 Brittani Cobian MD [address] [place] [address] [email or web address] PCP - General Family Medicine 05/31/21 Diya Vogel CNM [address] [place] [address] [email or web address] Historical LMR Provider 05/12/17 08/04/21 Oneyda Low NP [address] [place] [address] Historical LMR Provider 05/12/17 2 Jessica Sena, HUMAN SERVICES CASE MANAGER [address] [place] [address] Historical LMR Provider 05/12/17 Diya Valles SEWING MACHINE TESTER [address] [place] [address] Historical LMR Provider 05/12/17 2 Farrah Wyatt MD [address] [place] [address] 7 [place] [address] [email or web address] Historical LMR Provider 05/12/17 08/04/21 Chente Turner MD [address] [place] [address] 7 [place] [address] Historical LMR Provider 05/12/17 Lenard Smith MD [address] [place] [address] [email or web address] Historical LMR Provider 05/12/17 08/04/21 Carlos Andres MD [address] [place] [phone] Historical LMR Provider 05/12/17 2 Eneida Tilley MD [address] [place] [address] 7 [place] [address] [email or web address] Historical LMR Provider 05/12/17 08/04/21 Fer Jaimes MD [address] [place], [place] [address] [place] [address] [email or web address] Historical LMR Provider 05/12/17 Vaughn Lehman MD [address] [place] [address] Historical LMR Provider 05/12/17 2 documented as of this encounter Additional Source Comments The information contained in this document represents components of the legal health record. It is not the complete legal health record.[facility]
== END 2025-07-18 09:40 | disposition home or self-care (01) ==
DX: I10 Essential (primary) hypertension (principal); H61.20 Impacted cerumen, unspecified ear